=== PATIENT | female | born 2000 | race African-American/Black ===

== ENCOUNTER 2020-08-09 14:29 | Emergency (ER) | payer OTHER, SELFPAY ==
--- NOTE | 2020-08-09 14:37 | ED.GENADULT ---
HPI - General Adult General Chief complaint: Urogenital-Female Stated complaint: STD Check Time Seen by Provider: 08/09/20 14:36 Source: patient Mode of arrival: ambulatory Limitations: no limitations History of Present Illness HPI narrative: 20-year-old female patient presents to the [facility] with complaints of vaginal white discharge and odor for the past 5 days. Patient states that she is concerned about possible sexually transmitted disease. Patient states that she is sexually active and does not always use protection. Last time she had sex was about 5 days ago but states that before that it was about a week ago. Patient denies any fevers, body aches or chills. Patient denies take anything for symptoms. Denies . Patient denies ever having an STD before. Patient states she does see an [employer] OFFICER. Related Data Allergies Allergy/AdvReac Type Severity Reaction Status Date / Time No Known Allergies Allergy Verified 08/09/20 14:33 Review of Systems Review of Systems: Narrative: CONSTITUTIONAL: Denies fever, chills, or sweats. EYES: Denies visual changes, redness, or discharge. ENT: Denies rhinorrhea, congestion, sore throat, or otalgia. CARDIOVASCULAR: Denies chest pain, palpitations, or edema. RESPIRATORY: Denies cough or dyspnea. GASTROINTESTINAL: Denies abdominal pain, nausea, vomiting, or diarrhea. GENITOURINARY: Denies dysuria or hematuria. Positive white vaginal discharge with odor x5 days SKIN: Denies rash or itching. MUSCULOSKELETAL: Denies back pain, joint pain, or myalgia. NEUROLOGIC: Denies headache, numbness, or weakness. PSYCHIATRIC: Denies anxiety or depression. PMFSH Comments At the time of my signature I agree with nursing past medical history, surgical, social, and family history. There is no relevant family history pertinent to the presenting complaint. Exam Narrative: Exam Narrative: GENERAL: Well-appearing, well-nourished, and in no acute distress. HEAD: Normocephalic, atraumatic. EYES: PERRLA and EOMI. ENT: Nares clear, no rhinorrhea or epistaxis. Mucous membranes moist. NECK: Supple. No lymphadenopathy CHEST: Clear to auscultation. No respiratory distress. HEART: Regular rate and rhythm. No murmur heard. Normal peripheral pulses. ABDOMEN: Soft, nontender, nondistended, normal active bowel sounds. : Normal external female genitalia. OS is closed. No adnexal fullness or TTP. Patient does have a yellow discharge with an obvious odor noted during exam. No CVA tenderness to percussion. EXTREMITIES: Normal range of motion. No edema. SKIN: Warm, dry, no rash. NEURO: No focal deficits. Alert and oriented x3. Course Vital Signs Vital signs: Vital Signs Temperature 36.3 C L 08/09/20 14:52 Pulse Rate 77 08/09/20 14:52 Respiratory Rate 16 08/09/20 14:52 Blood Pressure 125/76 08/09/20 14:52 Pulse Oximetry 100 08/09/20 14:52 Temperature 36.3 C L 08/09/20 14:52 Pulse Rate 77 08/09/20 14:52 Respiratory Rate 16 08/09/20 14:52 Blood Pressure 125/76 08/09/20 14:52 Pulse Oximetry 100 08/09/20 14:52 Vital signs reviewed Medical Decision Making Differential Diagnosis Differential Diagnosis: Differential diagnosis: Gonorrhea, chlamydia, Trichomonas, bacterial vaginosis, herpes, HIV, yeast infection, urinary tract infection. Uncomplicated lower UTI, uncomplicated UTI, pyelonephritis Plan of care for patient is to go ahead and test for UTI, as well as gonorrhea, chlamydia and trichomonas. Discussed with her that we will send the swabs to the lab for further evaluation go ahead and treat her today for any STDs. Discussed with her that we should get the results in the next 5 days. Patient verbalized understanding of this. Vital Signs Vital Signs: Vital Signs Temperature 36.3 C L 08/09/20 14:52 Pulse Rate 77 08/09/20 14:52 Respiratory Rate 16 08/09/20 14:52 Blood Pressure 125/76 08/09/20 14:52 Pulse Oximetry 100 08/09/20 14:52 Temperatu
[2020-08-09 14:52] VITALS: BP 125/76; PULSE 77; RESP 16; TEMP 36.3; O2SAT 100
[2020-08-09] MEDS: AZITHROMYCIN 250 MG TABLET 1000 MG PO (15:15)
--- NOTE | 2020-08-09 16:01 | PC.NURSE ---
vaginal exam was done by community support specialist with rn at bedside. vag. swab was obtained by community support specialist. was given ordered medications.
== END 2020-08-09 15:48 | disposition home or self-care (01) ==
PROVIDERS: Emergency Provider Nurse Practitioner Family
DX: Z20.2 Contact with and (suspected) exposure to infections with a predominantly sexual mode of transmission (principal)
CPT/HCPCS: 81003; 81025; 87491; 87591; 87661; 99214; A9270; G0463

== ENCOUNTER 2020-10-25 10:56 | Emergency (ER) | payer OTHER, SELFPAY ==
[2020-10-25 11:07] VITALS: BP 111/77; PULSE 77; RESP 18; TEMP 36.3; O2SAT 98
--- NOTE | 2020-10-25 11:19 | ED.GENADULT ---
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 Yesterday she developed nausea, vomiting and nonbloody diarrhea. She also reports mild cough and intermittent lower abdominal pain. She is currently on her menstrual cycle. She states she didn't have a tampon so she used a makeup pad instead. She only found one of the pads so she thinks she still has a pad in her vagina. she denies fever, chills, sob, headache or fever. She states she does not have covid because she gets tested weekly. 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 Related Data Allergies Allergy/AdvReac Type Severity Reaction Status Date / Time No Known Allergies Allergy Verified 10/25/20 11:10 Review of Systems Review of Systems: All systems reviewed & are unremarkable except as noted in HPI and below Constitutional: Constitutional: Denies chills and Denies fever(s) Cardiovascular: Cardiovascular: Denies chest pain Respiratory: Respiratory: Reports cough and Denies dyspnea Gastrointestinal: Gastrointestinal: Reports abdominal pain, Reports diarrhea, Reports nausea and Reports vomiting Neurologic: Denies headache(s) COUNTS INCLUDE 234 BEDS AT THE [facility] Past Medical History Medical History (Updated 10/25/20 @ 15:02 by Funmi Cordon MD) Patient denies medical problems Surgical History Surgical History (Updated 10/25/20 @ 11:20 by Funmi Cordon MD) No pertinent past surgical history Social History Social History (Updated 10/25/20 @ 11:21 by Funmi Cordon MD) Smoking status: Never smoker Alcohol intake: current Substance use: never Exam Const: General: alert Eyes: EOM: EOMs intact bilaterally Chest: Chest palpation & inspection: normal inspection of the chest Resp: Effort & Inspection: normal respiratory effort and no retractions Auscultation: clear to auscultation bilaterally Cardio: Rate: regular rate Rhythm: regular rhythm Heart sounds: no murmurs GI: GI Palp: Yes Soft to palpation, No Tenderness to palpation present (GI) and No Guarding due to palpation present (GI) Auscultation: normal bowel sounds : Speculum Exam - Cervix: normal appearance of the cervix and Cervical os closed Bimanual Exam- Adnexa, other: no masses Other: no foreign bodies seen in vagina Skin: General skin exam: normal color Rashes: no rashes Neuro: General: patient oriented x3, moves all extremities and CN's II-XI intact bilaterally Psych: Mental Status: mental status grossly normal Affect: normal affect Course Reevaluation(s) Reevaluation #1: Patient has been resting with no vomiting. She was able to tolerate PO. She has no abdominal pain or tenderness. Labs are stable. I performed pelvic and I did not find any foreign bodies. Date: 10/25/20 Time: 14:59 Vital Signs Vital signs: Vital Signs Temperature 97.4 F L 10/25/20 11:07 Pulse Rate 77 10/25/20 11:07 Respiratory Rate 18 10/25/20 11:07 Blood Pressure 111/77 10/25/20 11:07 Pulse Oximetry 98 10/25/20 11:07 Temperature 97.4 F L 10/25/20 11:07 Pulse Rate 78 10/25/20 14:34 Respiratory Rate 17 10/25/20 14:28 Blood Pressure 93/58 L 10/25/20 14:34 Pulse Oximetry 100 10/25/20 14:28 Medical Decision Making Vital Signs Vital Signs: Vital Signs Temperature 97.4 F L 10/25/20 11:07 Pulse Rate 77 10/25/20 11:07 Respiratory Rate 18 10/25/20 11:07 Blood Pressure 111/77 10/25/20 11:07 Pulse Oximetry 98 10/25/20 11:07 Temperature 97.4 F L 10/25/20 11:07 Pulse Rate 78 10/25/20 14:34 Respiratory Rate 17 10/25/20 14:28 Blood Pressure 93/58 L 10/25/20 14:34 Pulse Oximetry 100 10/25/20 14:28 Lab Data Lab results reviewed: Yes I reviewed the patient's lab result
[2020-10-25 11:56] LABS: Basophils Percent Auto 0.4 % (0.2-1.2); Eosinophils Absolute Auto 0.2 K/mm3 (0-0.3); Hematocrit 34.8 % (37.0-47.0); Hemoglobin 11.9 g/dL (12.0-15.0); Immature Granulocyte Absolute 0.03 K/mm3 (0.00-0.031); Immature Granulocyte Percent A 0.4 % (0-0.5); Lymphocytes Absolute Auto 1.76 K/mm3 (0.9-3.2); Lymphocytes Percent Auto 21.1 % (18.3-44.2); Mean Corpuscular HGB Conc 34.2 g/dl (32-36); Mean Corpuscular Hemoglobin 29.5 pg (26-34); Mean Corpuscular Volume 86.4 fl (80-100); Mean Platelet Volume 12.1 fl (7.4-10.4); Monocytes Absolute Auto 0.4 K/mm3 (0.1-0.6); Monocytes Percent Auto 4.6 % (2.6-8.5); Neutrophils Percent Auto 71.5 % (45.5-73.1); Platelet Count Result 169 k/mm3 (150-375); Red Blood Count 4.03 M/mm3 (4.2-5.4); Red Cell Distribution Width 12.3 % (11.5-14.5); White Blood Count 8.3 K/mm3 (4.5-10.0)
[2020-10-25 12:05] LABS: Alanine Aminotransferase 12 U/L (4-35); Albumin Level 4.1 g/dL (3.5-5.1); Alkaline Phosphatase 51 U/L (38-126); Anion Gap 4 mmol/L (8-16); Aspartate Amino Transferase 31 U/L (14-36); Bilirubin,Total 0.5 mg/dL (0.2-1.3); Blood Urea Nitrogen 15 mg/dL (7-17); Carbon Dioxide 27 mmol/L (22-30); Chloride 107 mmol/L (98-107); Estimated CRCL calculation 105 ml/min; Estimated Glomerular Filt Rate > 60; Glucose 92 mg/dL (65-105); Lipase 41 U/L (23-300); Potassium 3.6 mmol/L (3.4-5.0); Sodium 138 mmol/L (137-145)
[2020-10-25] MEDS: ONDANSETRON INJ 4 MG/2 ML VIAL IV PUSH (12:52)
[2020-10-25] MEDS: SODIUM CHLORIDE 0.9% IV 1,000 ML 999 ML IV CONT (12:52)
--- NOTE | 2020-10-25 13:34 | PC.NURSE ---
Pt ambulatory to bathroom for urine sample.
[2020-10-25 14:04] LABS: Add Urine Microscopic? YES; Appearance Urine Cloudy (Clear); Bacteria Urine Trace /hpf; Bilirubin Urine Negative (Negative); Blood Urine 2+ (Negative); Color Urine Yellow (Yellow); Glucose Urine UA Negative (Negative); Ketones Urine Negative (Negative); Leukocyte Esterase Ur Negative LEU/UL (Negative); Mucus Urine Heavy /lpf; Nitrate Urine Negative (Negative); Protein Urine 2+ mg/dL (Negative); RBC Urine 21-50 /hpf (0-2); Squamous Epithelial Cell Urine Few /hpf (Few); WBC Urine 0-3 /hpf
[2020-10-25 14:28] VITALS: BP 93/58; PULSE 78; RESP 17; O2SAT 100
[2020-10-25 14:30] VITALS: BP 100/68; PULSE 96
--- NOTE | 2020-10-25 14:30 | PC.NURSE ---
Pt tolerated water, +reports mild nausea, no active vomiting, ED MD aware. Ambulated steady gait at bedside, asking if she can go home and if she can get a work note
[2020-10-25 14:34] VITALS: BP 93/58; PULSE 78
== END 2020-10-25 15:21 | disposition home or self-care (01) ==
PROVIDERS: Emergency Provider General Practice
DX: K52.9 Noninfective gastroenteritis and colitis, unspecified (principal)
CPT/HCPCS: 36415; 80053; 81001; 81025; 83690; 85025; 96361; 96374; 99284; J2405; J7030

== ENCOUNTER 2020-12-26 18:10 | Emergency (ER) | payer OTHER, SELFPAY ==
[2020-12-26 19:04] VITALS: BP 125/79; PULSE 98; RESP 16; TEMP 36.6; O2SAT 98
[2020-12-26 19:23] LABS: Basophils Percent Auto 0.6 % (0.2-1.2); Eosinophils Absolute Auto 0.2 K/mm3 (0-0.3); Eosinophils Percent Auto 2.2 % (0-4.4); Hematocrit 34.4 % (37.0-47.0); Hemoglobin 11.7 g/dL (12.0-15.0); Immature Granulocyte Absolute 0.02 K/mm3 (0.00-0.031); Immature Granulocyte Percent A 0.3 % (0-0.5); Lymphocytes Absolute Auto 2.66 K/mm3 (0.9-3.2); Lymphocytes Percent Auto 39.5 % (18.3-44.2); Mean Corpuscular Volume 88.2 fl (80-100); Mean Platelet Volume 11.2 fl (7.4-10.4); Monocytes Absolute Auto 0.5 K/mm3 (0.1-0.6); Neutrophils Absolute Auto 3.3 K/mm3 (1.3-6.7); Neutrophils Percent Auto 49.4 % (45.5-73.1); Platelet Count Result 172 k/mm3 (150-375); White Blood Count 6.7 K/mm3 (4.5-10.0)
[2020-12-26 19:32] LABS: Alanine Aminotransferase 11 U/L (4-35); Albumin Level 4.3 g/dL (3.5-5.1); Alkaline Phosphatase 45 U/L (38-126); Anion Gap 12 mmol/L (8-16); Aspartate Amino Transferase 27 U/L (14-36); Bilirubin,Total 0.2 mg/dL (0.2-1.3); Blood Urea Nitrogen 15 mg/dL (7-17); Calcium 9.5 mg/dL (8.4-10.2); Carbon Dioxide 23 mmol/L (22-30); Chloride 102 mmol/L (98-107); Estimated CRCL calculation 86 ml/min; Estimated Glomerular Filt Rate > 60; Glucose 78 mg/dL (65-105); Lipase 128 U/L (23-300); Potassium 3.7 mmol/L (3.4-5.0); Sodium 137 mmol/L (137-145)
[2020-12-26 20:11] LABS: Beta HCG Quantitative 172.24 mIU/ML
--- NOTE | 2020-12-26 21:39 | PC.NURSE ---
Called pt X2 in waiting room to redo vitals. No answer
== END 2020-12-27 03:27 | disposition left against medical advice (07) ==
PROVIDERS: Emergency Provider Emergency Medicine
DX: R10.30 Lower abdominal pain, unspecified (principal)
CPT/HCPCS: 36415; 80053; 83690; 84702; 85025; 99199

== ENCOUNTER 2021-01-02 23:31 | Emergency (ER) | payer OTHER, SELFPAY ==
--- NOTE | ~2021-01-02 | US_ITS ---
EXAMINATION: US OB <=14 wk fetus w TV DATE: 01/03/2021 02:14 INDICATION: Pelvic pain. TECHNIQUE: Real-time transabdominal and transvaginal pelvic ultrasound was performed. COMPARISON: None. FINDINGS: TRANSABDOMINAL ULTRASOUND: The uterus measures 9.5 x 4.1 x 5.3 cm. TRANSVAGINAL ULTRASOUND: There is an intrauterine gestational sac with mean diameter of 6 mm, which c orrelates with an estimated gestational age of 5 weeks and 1 day +/- 3 days. A yolk sac is identified . There is no visible pole. The right ovary measures 2.7 x 1.6 x 1.4 cm. The left ovary measure s 3.3 x 2.6 x 2.3 cm. There is no free fluid in the pelvis. IMPRESSION: 1. Single intrauterine gestation with estimated date of delivery of 09/04/2021. Reviewed, dictated and finalized at location A.
[2021-01-03 00:02] VITALS: BP 109/65; PULSE 99; RESP 20; TEMP 37.1; O2SAT 99
[2021-01-03 00:12] LABS: Alanine Aminotransferase 14 U/L (4-35); Albumin Level 4.6 g/dL (3.5-5.1); Alkaline Phosphatase 49 U/L (38-126); Anion Gap 11 mmol/L (8-16); Aspartate Amino Transferase 28 U/L (14-36); Basophils Percent Auto 0.4 % (0.2-1.2); Bilirubin,Total 0.4 mg/dL (0.2-1.3); Blood Urea Nitrogen 15 mg/dL (7-17); Calcium 9.9 mg/dL (8.4-10.2); Carbon Dioxide 20 mmol/L (22-30); Chloride 101 mmol/L (98-107); Eosinophils Absolute Auto 0.1 K/mm3 (0-0.3); Eosinophils Percent Auto 1.7 % (0-4.4); Estimated CRCL calculation 81 ml/min; Estimated Glomerular Filt Rate > 60; Glucose 99 mg/dL (65-105); Hematocrit 36.7 % (37.0-47.0); Hemoglobin 12.2 g/dL (12.0-15.0); Immature Granulocyte Absolute 0.01 K/mm3 (0.00-0.031); Immature Granulocyte Percent A 0.1 % (0-0.5); Lymphocytes Absolute Auto 2.88 K/mm3 (0.9-3.2); Lymphocytes Percent Auto 35.6 % (18.3-44.2); Mean Corpuscular HGB Conc 33.2 g/dl (32-36); Mean Corpuscular Hemoglobin 29.3 pg (26-34); Mean Platelet Volume 11.9 fl (7.4-10.4); Monocytes Absolute Auto 0.6 K/mm3 (0.1-0.6); Monocytes Percent Auto 7.7 % (2.6-8.5); Neutrophils Absolute Auto 4.4 K/mm3 (1.3-6.7); Neutrophils Percent Auto 54.5 % (45.5-73.1); Platelet Count Result 229 k/mm3 (150-375); Potassium 4.1 mmol/L (3.4-5.0); Red Blood Count 4.17 M/mm3 (4.2-5.4); Red Cell Distribution Width 13.1 % (11.5-14.5); Sodium 132 mmol/L (137-145); White Blood Count 8.1 K/mm3 (4.5-10.0)
[2021-01-03 00:13] LABS: Add Urine Microscopic? YES; Amorphous Sediment Urine Few; Appearance Urine Cloudy (Clear); Bilirubin Urine Negative (Negative); Blood Urine Negative (Negative); Color Urine Yellow (Yellow); Glucose Urine UA Negative (Negative); Ketones Urine Negative (Negative); Leukocyte Esterase Ur Negative LEU/UL (Negative); Mucus Urine Rare /lpf; Nitrate Urine Negative (Negative); Protein Urine Negative (Negative); Specific Grav Ur 1.021 (1.001-1.035); Squamous Epithelial Cell Urine Many /hpf (Few)
--- NOTE | 2021-01-03 01:43 | ED.ABDPAIN ---
HPI - Abdominal Pain General Chief Complaint: Abdominal Pain Stated Complaint: , abd pain Time Seen by Provider: 01/03/21 01:26 Source: patient and RN notes reviewed Mode of arrival: ambulatory Limitations: no limitations History of Present Illness HPI narrative: This is a 20 year old female approximately 6 weeks who presents for evaluation of lower abdominal pain. She states her LMP November 22, and she had positive test 2 weeks ago . She developed lower abdominal pain 3 days ago. This pain is intermittent and it radiates to her back. She denies vaginal bleeding or abdominal vaginal discharge. She denies nausea, vomiting or urinary complaints. She has not taken anything for her pain. Related Data Allergies Allergy/AdvReac Type Severity Reaction Status Date / Time No Known Allergies Allergy Verified 01/03/21 02:15 Review of Systems Review of Systems: All systems reviewed & are unremarkable except as noted in HPI and below PMFSH Past Medical History Medical History Patient denies medical problems Surgical History Surgical History No pertinent past surgical history Social History Social History (Updated 10/25/20 @ 11:21 by Funmi Cordon MD) Smoking status: Never smoker Alcohol intake: current Substance use: never Gender identity (if verbalized by the patient): Female Exam Const: General: no acute distress and alert Orientation/consciousness: patient oriented x3 Eyes: EOM: EOMs intact bilaterally Chest: Chest palpation & inspection: normal inspection of the chest Resp: Effort & Inspection: normal respiratory effort and no retractions Auscultation: clear to auscultation bilaterally Cardio: Rate: regular rate Rhythm: regular rhythm Heart sounds: no murmurs GI: GI Palp: Yes Soft to palpation, Yes Tenderness to palpation present (GI) (suprapubic and bilateral lower quadrant), No Guarding due to palpation present (GI) and No Rigid due to palpation Auscultation: normal bowel sounds Skin: General skin exam: normal color Rashes: no rashes Neuro: General: patient oriented x3, moves all extremities and CN's II-XI intact bilaterally Psych: Mental Status: mental status grossly normal Affect: normal affect Course Reevaluation(s) Reevaluation #1: PAtient states her pain has resolved. I discussed US showing intrauterine gestation sac with 5 weeks. Date: 01/03/21 Time: 03:34 Vital Signs Vital signs: Vital Signs Temperature 98.7 F 01/03/21 00:02 Pulse Rate 99 01/03/21 00:02 Respiratory Rate 20 01/03/21 00:02 Blood Pressure 109/65 01/03/21 00:02 Pulse Oximetry 99 01/03/21 00:02 Temperature 98.7 F 01/03/21 00:02 Pulse Rate 92 01/03/21 03:53 Respiratory Rate 20 01/03/21 00:02 Blood Pressure 99/77 L 01/03/21 03:53 Pulse Oximetry 100 01/03/21 03:53 MDM - Abdominal Pain Lab Data Attestation: I reviewed the patient's lab results. Result diagrams: 01/02/21 23:51 01/02/21 23:51 Labs: Lab Results 01/02/21 01/02/21 01/02/21 Range/Units 23:51 23:51 23:51 WBC 8.1 (4.5-10.0) K/mm3 RBC 4.17 L (4.2-5.4) M/mm3 Hgb 12.2 (12.0-15.0) g/dL Hct 36.7 L (37.0-47.0) % MCV 88.0 (80-100) fl MCH 29.3 (26-34) pg MCHC 33.2 (32-36) g/dl RDW 13.1 (11.5-14.5) % Plt Count 229 (150-375) k/mm3 MPV 11.9 H (7.4-10.4) fl Immature Gran % (Auto) 0.1 (0-0.5) % Neut % (Auto) 54.5 (45.5-73.1) % Lymph % (Auto) 35.6 (18.3-44.2) % Angelina % (Auto) 7.7 (2.6-8.5) % Eos % (Auto) 1.7 (0-4.4) % Baso % (Auto) 0.4 (0.2-1.2) % Lymph # (Auto) 2.88 (0.9-3.2) K/mm3 Angelina # (Auto) 0.6 (0.1-0.6) K/mm3 Eos # (Auto) 0.1 (0-0.3) K/mm3 Baso # (Auto) 0.0 (0.0-0.1) K/mm3 Abs Immat Gran (auto) 0.01 (0.00-0.031) K/mm3 Absolute Neuts (a
[2021-01-03 02:25] VITALS: BP 102/68; PULSE 80
[2021-01-03 02:26] VITALS: BP 114/83; PULSE 92
[2021-01-03 02:28] VITALS: BP 118/80; PULSE 96
[2021-01-03 03:53] VITALS: BP 99/77; PULSE 92; O2SAT 100
== END 2021-01-03 03:53 | disposition home or self-care (01) ==
PROVIDERS: Emergency Provider General Practice
DX: O26.891 Other specified pregnancy related conditions, first trimester (principal); R10.30 Lower abdominal pain, unspecified; Z3A.01 Less than 8 weeks gestation of pregnancy
CPT/HCPCS: 36415; 76801; 76817; 80053; 81001; 81025; 84702; 85025; 85461; 96374; 99284; J0131

== ENCOUNTER 2021-01-09 18:26 | Observation (INO) | payer OTHER, SELFPAY ==
--- NOTE | 2021-01-09 18:26 | OBADM ---
This patient, Corrine Crane, admitted to the OB room OB Post 113 for observation. Patient/family oriented to hospital policies and general routines including ID bracelet, bed and alarms, visiting hours, pain management, procedures, bathroom and other care routines, personal items, smoking policy, room service/diet, and visiting hours. Patient/Family are encouraged to report perceived risks to care and to ask questions if they do not understand what they are told or what they should do.
[2021-01-09 19:00] VITALS: RESP 16; TEMP 37.4
[2021-01-09] MEDS: DEXTROSE 5%/LACTATED RINGERS 1,000 ML 999 ML IV CONT (19:00)
[2021-01-09 19:07] VITALS: BP 137/59; PULSE 86
[2021-01-09] MEDS: ONDANSETRON INJ 4 MG/2 ML VIAL IV PUSH (19:11)
[2021-01-09 19:19] VITALS: BMI 19.8
[2021-01-09] MEDS: DEXTROSE 5%/LACTATED RINGERS 1,000 ML 150 ML IV CONT (20:17)
[2021-01-09 23:35] VITALS: RESP 16; TEMP 37.1
[2021-01-09 23:36] VITALS: BP 94/45; BP 97/60; PULSE 85; PULSE 96
[2021-01-10] MEDS: ONDANSETRON INJ 4 MG/2 ML VIAL (00:49)
[2021-01-10] MEDS: DEXTROSE 5%/LACTATED RINGERS 1,000 ML 150 ML IV CONT (02:13)
[2021-01-10 05:20] VITALS: BP 91/63; PULSE 88; RESP 16; TEMP 37.2
--- NOTE | 2021-01-10 08:05 | PM.IMHP ---
H&P: HPI History of Present Illness Date/Time: 01/10/21 08:05This patient is a 20-year-old 4 para 2011 in the 1st trimester who presented with intractable nausea and vomiting for 3 days. Tubal not keeping liquids down. She was admitted to Labor and delivery for observation where she received IV fluids and antiemetics. Her labs are normal. She continues to have nausea and vomiting. She denies any fevers or chills. She denies chest pain or shortness of breath. She denies movement. She denies cramping or bleeding. Chief Complaint: Nausea vomiting Review of Systems Constitutional: Constitutional: Reports no additional constitutional complaints, Denies fatigue, Denies headache(s), Denies lethargy and Denies weakness Eyes: Eyes: Reports no additional eye complaints, Denies blurry vision and Denies photophobia ENT: Reports as per HPI, Denies headache(s) and Denies neck pain Cardiovascular: Cardiovascular: Denies chest pain, Denies diaphoresis, Denies leg edema, Denies palpitations and Denies dyspnea Respiratory: Respiratory: Denies hemoptysis, Denies dyspnea and Denies wheezing Gastrointestinal: Gastrointestinal: Denies abdominal pain, Denies melena, Denies bloating, Denies hematochezia, Denies nausea and Denies vomiting Genitourinary: Genitourinary: Reports no additional female genitourinary complaints Musculoskeletal: Musculoskeletal: Denies joint swelling, Denies neck pain, Denies numbness and Denies stiffness Neurologic: Denies Abnormal speech present, Denies confusion, Denies headache(s), Denies numbness and Denies weakness Psychiatric: Psychiatric: Denies anxiety, Denies confusion, Denies depression, Denies homicidal ideation and Denies suicidal ideation Endocrine: Endocrine: Denies fatigue and Denies palpitations Allergic/Immunologic: Allergic/Immunologic: Denies wheezing PMFSH Past Medical History Medical History Patient denies medical problems Surgical History Surgical History No pertinent past surgical history Social History Social History (Updated 10/25/20 @ 11:21 by Funmi Cordon MD) Smoking status: Never smoker Alcohol intake: current Substance use: never Gender identity (if verbalized by the patient): Female Meds Home Medications and Allergies Home Medications Medication Instructions Recorded Confirmed Type ondansetron 4 mg PO Q6H PRN #20 tablet 10/25/20 01/09/21 Rx vit,[id number] 1 tablet PO HS 01/09/21 01/09/21 History [PNV 29-1] Allergies Allergy/AdvReac Type Severity Reaction Status Date / Time No Known Allergies Allergy Verified 01/03/21 02:15 Vital Signs Vital Signs - 24 hr 01/09/21 19:00 01/09/21 19:07 01/09/21 23:35 Temperature 99.4 F 98.7 F Pulse Rate 86 Respiratory Rate 16 16 Blood Pressure 137/59 L 01/09/21 23:36 01/10/21 05:20 Temperature 99 F Pulse Rate 96 88 Respiratory Rate 16 Blood Pressure 94/45 L 91/63 L Exam Const: General: healthy appearing, comfortable and no acute distress; No confusion Orientation/consciousness: No confusion Eyes: Direct Ophthalmoscopy: No photophobia Resp: Auscultation: clear to auscultation bilaterally, no rales, no rhonchi and no wheezes Cardio: Rate: regular rate Heart sounds: no click, no murmurs and no rubs GI: Inspection: non-distended GI Palp: No abdominal tenderness Auscultation: normal bowel sounds Neuro: General: No confusion Speech: No Abnormal speech present Extrem: General: normal to inspection, no pedal edema and no calf tenderness Assessment and Plan Assessment and plan (1) Nausea and vomiting during prior to 22 weeks gestation: Code(s): O21.9 - Vomiting of , unspecified Status: Acute Assessment and Plan: 20-year-old 4 para 2011 in the 1st trimester who presented with intractabl
[2021-01-10 08:52] VITALS: BP 97/60; PULSE 90
[2021-01-10] MEDS: METOCLOPRAMIDE HCL INJ 10 MG/2 ML VIAL IV PUSH (08:57)
[2021-01-10 09:00] VITALS: TEMP 37.3
--- NOTE | 2021-01-10 12:31 | PC.NURSE ---
Patient states that she is feeling better and wishing to go home.
== END 2021-01-10 12:45 | disposition home or self-care (01) ==
PROVIDERS: Admitting Provider Obstetrics & Gynecology; Visit Provider Obstetrics & Gynecology
DX: O21.9 Vomiting of pregnancy, unspecified (principal); Z3A.00 Weeks of gestation of pregnancy not specified
CPT/HCPCS: 96361; 96374; 96375; G0378; G0379; J2405; J2765; J7121

== ENCOUNTER 2021-01-25 17:40 | Observation (INO) | payer OTHER, SELFPAY ==
[2021-01-25 19:07] VITALS: RESP 18; TEMP 37.1
[2021-01-25] MEDS: DEXTROSE 5%/LACTATED RINGERS 1,000 ML 999 ML IV CONT (19:09)
[2021-01-25] MEDS: FAMOTIDINE 20 MG/2 ML VIAL IV PUSH (19:10)
[2021-01-25] MEDS: ONDANSETRON INJ 4 MG/2 ML VIAL IV PUSH (19:10)
--- NOTE | 2021-01-25 19:40 | OBADM ---
This patient, Corrine Crane, admitted to the OB room OB Post 111 for observation. Patient/family oriented to hospital policies and general routines including ID bracelet, bed and alarms, visiting hours, pain management, procedures, bathroom and other care routines, personal items, smoking policy, room service/diet, and visiting hours. Patient/Family are encouraged to report perceived risks to care and to ask questions if they do not understand what they are told or what they should do.
[2021-01-25 19:44] VITALS: RESP 18
[2021-01-25 19:45] VITALS: BMI 21.4
[2021-01-25 19:47] VITALS: RESP 16
[2021-01-25 20:31] VITALS: BMI 19.8
--- NOTE | 2021-01-30 07:46 | PM.OBTRLD ---
OB - Triage/Final Diagnosis Visit Information Comments/Additional reasons for admission: I have assessed the risk for this patient, Corrine Crane, and determined that she would benefit from observation care. Final Diagnosis (1) Nausea and vomiting during prior to 22 weeks gestation: Code(s): O21.9 - Vomiting of , unspecified Status: Acute
== END 2021-01-25 23:45 | disposition home or self-care (01) ==
PROVIDERS: Admitting Provider Obstetrics & Gynecology; Visit Provider Obstetrics & Gynecology
DX: O21.9 Vomiting of pregnancy, unspecified (principal); Z3A.00 Weeks of gestation of pregnancy not specified
CPT/HCPCS: 96361; 96374; 96375; G0378; G0379; J2405; J3480; J7121

== ENCOUNTER 2021-05-28 19:57 | Observation (INO) | payer OTHER, SELFPAY ==
[2021-05-28 20:11] VITALS: TEMP 37.3
[2021-05-28 20:15] VITALS: BMI 22.1
[2021-05-28 20:27] VITALS: BP 102/61; PULSE 88
[2021-05-28 21:28] LABS: Add Urine Microscopic? YES; Appearance Urine Cloudy (Clear); Bilirubin Urine Negative (Negative); Blood Urine Negative (Negative); Color Urine Yellow (Yellow); Glucose Urine UA Negative (Negative); Ketones Urine Negative (Negative); Leukocyte Esterase Ur Trace LEU/UL (Negative); Mucus Urine Heavy /lpf; Nitrate Urine Negative (Negative); Protein Urine 1+ mg/dL (Negative); RBC Urine 0-2 /hpf (0-2); Squamous Epithelial Cell Urine Many /hpf (Few); WBC Urine 0-3 /hpf
[2021-05-28 21:29] LABS: Specific Grav Ur 1.031 (1.001-1.035)
[2021-05-28] MEDS: ACETAMINOPHEN 500 MG TABLET 1000 MG PO (22:01)
--- NOTE | 2021-05-28 22:05 | OBADM ---
This patient, Corrine Crane, admitted to the OB room OB Post 117 for observation. Patient/family oriented to hospital policies and general routines including ID bracelet, bed and alarms, visiting hours, pain management, procedures, bathroom and other care routines, personal items, smoking policy, room service/diet, and visiting hours. Patient/Family are encouraged to report perceived risks to care and to ask questions if they do not understand what they are told or what they should do.
--- NOTE | 2021-06-06 10:04 | P.PNOB_ITS ---
OB - Triage/Final Diagnosis Visit Information Comments/Additional reasons for admission: I have assessed the risk for this patient, Corrine Crane, and determined that she would benefit from observation care. Evaluation Laboratory results: Laboratory Tests 05/28/21 21:03 Urine Color Yellow Urine Appearance Cloudy H Urine pH 7.0 Ur Specific [place] 1.031 Urine Protein 1+ H Urine Glucose (UA) Negative Urine Ketones Negative Ur Blood (Man) Negative Urine Nitrate Negative Urine Bilirubin Negative Urine Urobilinogen 4.0 H Leukocyte Esterase Rfl Trace H Urine RBC 0-2 Urine WBC 0-3 Ur Squamous Epith Cells Many H Urine Mucus Heavy H Final Diagnosis (1) Cramping affecting , antepartum: Code(s): O26.899 - Other specified related conditions, unspecified trimester; R10.9 - Unspecified abdominal pain Status: Acute
== END 2021-05-28 23:04 | disposition home or self-care (01) ==
PROVIDERS: Admitting Provider Obstetrics & Gynecology; Visit Provider Obstetrics & Gynecology
DX: O26.892 Other specified pregnancy related conditions, second trimester (principal); R10.9 Unspecified abdominal pain; Z3A.26 26 weeks gestation of pregnancy
CPT/HCPCS: 81001; A9270; G0378; G0379

== ENCOUNTER 2021-06-14 15:44 | Outpatient (RCR) | payer OTHER, SELFPAY ==
--- NOTE | ~2021-06-14 | US_ITS ---
EXAMINATION: US OB BPP wo non-stress DATE: 06/14/2021 17:49 INDICATION: Vaginal bleeding during third trimester . Assess placenta and biophysical profil e. TECHNIQUE: Real-time pelvic ultrasound was performed. The interpreting radiologist was not present fo r the study. COMPARISON: None. FINDINGS: There is a single living fetus in vertex presentation. The placenta is anterior. No evident subchori onic hematoma. heart rate is 136 beats per minute (bpm). Normal amniotic fluid index of 14.0 cm (5th%-95%: 9.2-23.1 cm at 29 weeks estimated gestational age) Biophysical profile performed by the technologist: breathing (30 sec sustained breathing in 30 minutes): 2 out of 2 movement (3 gross body movements in 30 minutes): 2 out of 2 tone (one episode of glpaeug-[id number] limb movement): 2 out of 2 Amniotic fluid pocket (2 cm): 2 out of 2 Total score: 8 out of 8 IMPRESSION: 1. Single living fetus in vertex presentation with heart rate of 136 bpm. 2. Biophysical profile 8 out of 8. 3. Normal amniotic fluid index of 14.0 cm. 4. Normal anterior placenta. Reviewed, dictated and finalized at location . 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
[2021-06-14 18:18] VITALS: BP 105/65; PULSE 80
== END 2021-07-28 20:47 | disposition home or self-care (01) ==
LOC: ANHOBOP 15:44
PROVIDERS: Visit Provider Obstetrics & Gynecology
DX: O26.853 Spotting complicating pregnancy, third trimester (principal); Z3A.29 29 weeks gestation of pregnancy
CPT/HCPCS: 59025; 76819

== ENCOUNTER 2021-12-12 00:22 | Emergency (ER) | payer OTHER, SELFPAY ==
[2021-12-12 00:38] VITALS: BP 129/72; PULSE 76; RESP 18; TEMP 36.6; O2SAT 100
[2021-12-12 00:39] VITALS: BP 119/69; PULSE 77; RESP 18; TEMP 37; O2SAT 99
--- NOTE | 2021-12-12 00:59 | ED.ABDPAIN ---
HPI - Abdominal Pain General Chief Complaint: Abdominal Pain Stated Complaint: ABd pain Time Seen by Provider: 12/12/21 00:32 History of Present Illness HPI narrative: 21-year-old female presented the emergency department for evaluation of 3 days of white vaginal discharge. Patient denies any associated pain. Patient denies any burning with urination. Patient is requesting STI testing. Patient states she does not have any significant concern for an STI. Patient has no prior history of STI. Related Data Allergies Allergy/AdvReac Type Severity Reaction Status Date / Time No Known Allergies Allergy Verified 01/03/21 02:15 Review of Systems Review of Systems: CONSTITUTIONAL: Denies fever, chills, or sweats. EYES: Denies visual changes, redness, or discharge. ENT: Denies rhinorrhea, congestion, sore throat, or otalgia. CARDIOVASCULAR: Denies chest pain, palpitations, or edema. RESPIRATORY: Denies cough or dyspnea. GASTROINTESTINAL: Denies abdominal pain, nausea, vomiting, or diarrhea. GENITOURINARY: Vaginal discharge, see HPI SKIN: Denies rash or itching. MUSCULOSKELETAL: Denies back pain, joint pain, or myalgia. NEUROLOGIC: Denies headache, numbness, or weakness. [facility] Past Medical History Medical History Patient denies medical problems Surgical History Surgical History No pertinent past surgical history Social History Social History (Updated 10/25/20 @ 11:21 by Funmi Cordon MD) Smoking status: Never smoker Alcohol intake: current Substance use: never Gender identity (if verbalized by the patient): Female Exam Narrative: APPEARANCE: Well appearing, no pain, no distress, well-nourished. HEAD: normocephalic, atraumatic. EYES: PERRLA/EOMI, conjunctivae clear. NECK: Supple. No adenopathy, no masses. RESPIRATORY: Airway patent, respirations nonlabored. Clear to auscultation bilaterally, no rales, rhonchi, wheezing. CARDIOVASCULAR: Regular rate and rhythm without murmurs rubs or gallops. ABDOMINAL: Soft, nontender, nondistended, normal bowel sounds. No appreciable vaginal discharge. Cervix is well-appearing, nonfriable. No vaginal bleeding MUSCULOSKELETAL: Moves all extremities. Strength/ROM intact, No edema, No calf tenderness. NEURO: Alert. Cranial nerves II through XII intact. Grossly intact SKIN: Warm, dry. Normal Color Course Course Emergency Course: Patient's trichomonas was negative. Patient's exam was not concerning for a current STI requiring prophylactic treatment. Patient was updated the results of her work-up and UA. Patient was encouraged of close follow-up with her primary care physician. Vital Signs Vital signs: Vital Signs Temperature 97.8 F 12/12/21 00:38 Pulse Rate 76 12/12/21 00:38 Respiratory Rate 18 12/12/21 00:38 Blood Pressure 129/72 12/12/21 00:38 Pulse Oximetry 100 12/12/21 00:38 Temperature 98.6 F 12/12/21 00:39 Pulse Rate 82 12/12/21 01:41 Respiratory Rate 16 12/12/21 01:41 Blood Pressure 130/78 12/12/21 01:41 Pulse Oximetry 99 12/12/21 01:41 Oxygen Delivery Room Air 12/12/21 00:39 MDM - Abdominal Pain Lab Data Attestation: I reviewed the patient's lab results. Labs: Lab Results 12/12/21 12/12/21 12/12/21 Range/Units 01:10 01:11 01:11 Urine Color Yellow (Yellow) Urine Appearance Clear (Clear) Urine pH 7.0 (5.0-9.0) Ur Specific Nunez 1.020 (1.001-1.035) Urine Protein Negative (Negative) mg/dL Urine Glucose (UA) Negative (Negative) mg/dL Urine Ketones Negative (Negative) mg/dL Ur Blood (Man) Negative (Negative) Urine Nitrate Negative (Negative) Urine Bilirubin Negative (Negative) Urine Urobilinogen 0.2 (<2.0) mg/dL Leukocyte Esterase Rfl Negative (Negative) CORINE/UL Urine RBC 0-2 (0-2) /hpf Urine WBC 0-3 /hpf Ur Squamous Epith
[2021-12-12 01:21] LABS: Appearance Urine Clear (Clear); Bilirubin Urine Negative (Negative); Blood Urine Negative (Negative); Color Urine Yellow (Yellow); Glucose Urine UA Negative (Negative); Ketones Urine Negative (Negative); Leukocyte Esterase Ur Negative LEU/UL (Negative); Nitrate Urine Negative (Negative); Protein Urine Negative (Negative); Urobilinogen Urine 0.2 mg/dL (<2.0)
[2021-12-12 01:36] LABS: Mucus Urine Rare /lpf; RBC Urine 0-2 /hpf (0-2); Squamous Epithelial Cell Urine Occasional /hpf (Few); WBC Urine 0-3 /hpf
[2021-12-12 01:37] LABS: Add Urine Microscopic? YES
[2021-12-12 01:41] VITALS: BP 130/78; PULSE 82; RESP 16; O2SAT 99
== END 2021-12-12 01:53 | disposition home or self-care (01) ==
PROVIDERS: Emergency Provider Emergency Medicine
DX: N89.8 Other specified noninflammatory disorders of vagina (principal)
CPT/HCPCS: 81001; 81025; 87070; 87077; 87491; 87591; 87808; 99284

== ENCOUNTER 2023-11-18 00:32 | Emergency (ER) | payer OTHER, SELFPAY ==
[2023-11-18 00:37] VITALS: BP 111/69; PULSE 87; RESP 16; TEMP 36.8; O2SAT 98
[2023-11-18 00:58] LABS: Basophils Absolute Auto 0.1 K/mm3 (0.0-0.1); Basophils Percent Auto 0.7 % (0.2-1.2); Eosinophils Absolute Auto 0.1 K/mm3 (0-0.3); Eosinophils Percent Auto 1.6 % (0-4.4); Hematocrit 35.6 % (37.0-47.0); Immature Granulocyte Absolute 0.02 K/mm3 (0.00-0.031); Immature Granulocyte Percent A 0.3 % (0-0.5); Lymphocytes Absolute Auto 2.16 K/mm3 (0.9-3.2); Lymphocytes Percent Auto 31.2 % (18.3-44.2); Mean Corpuscular HGB Conc 33.7 g/dl (32-36); Mean Corpuscular Hemoglobin 29.4 pg (26-34); Mean Corpuscular Volume 87.3 fl (80-100); Mean Platelet Volume 12.9 fl (7.4-10.4); Monocytes Absolute Auto 0.5 K/mm3 (0.1-0.6); Monocytes Percent Auto 6.6 % (2.6-8.5); Neutrophils Absolute Auto 4.1 K/mm3 (1.3-6.7); Neutrophils Percent Auto 59.6 % (45.5-73.1); Platelet Count Result 166 k/mm3 (150-375); Red Blood Count 4.08 M/mm3 (4.2-5.4); Red Cell Distribution Width 13.1 % (11.5-14.5); White Blood Count 6.9 K/mm3 (4.5-10.0)
[2023-11-18 01:03] LABS: Appearance Urine Clear (Clear); Bacteria Urine None Seen /hpf; Bilirubin Urine Negative (Negative); Blood Urine Negative (Negative); Color Urine Yellow (Yellow); Glucose Urine UA Negative (Negative); Ketones Urine Trace mg/dL (Negative); Leukocyte Esterase Ur Negative LEU/UL (Negative); Nitrate Urine Negative (Negative); Non Pathogenic Casts 0-2; Protein Urine Trace mg/dL (Negative); RBC Urine 0-2 /hpf (0-2); Specific Grav Ur 1.023 (1.001-1.035); Squamous Epithelial Cell Urine Occasional /hpf (Few); WBC Urine 0-5 /hpf (0-3); pH Urine 5.5 (5.0-9.0)
[2023-11-18 01:10] LABS: Alanine Aminotransferase 14 U/L (6-35); Albumin Level 4.5 g/dL (3.5-5.1); Alkaline Phosphatase 47 U/L (38-126); Anion Gap 7 mmol/L (4-12); Aspartate Amino Transferase 26 U/L (14-36); Bilirubin,Total 0.6 mg/dL (0.2-1.3); Blood Urea Nitrogen 14 mg/dL (7-17); Calcium 9.5 mg/dL (8.4-10.2); Carbon Dioxide 22 mmol/L (22-30); Chloride 107 mmol/L (98-107); Estimated CRCL calculation 92 ml/min; Estimated Glomerular Filt Rate > 60; Glucose 138 mg/dL (65-110); Lipase 60 U/L (23-300); Potassium 3.6 mmol/L (3.4-5.0); Sodium 136 mmol/L (137-145)
[2023-11-18 01:25] LABS: Add Urine Microscopic? YES
--- NOTE | 2023-11-18 02:23 | PC.NURSE ---
Patient walked up to triage desk and advised that she was leaving and that she feels better.
== END 2023-11-18 03:15 | disposition left against medical advice (07) ==
PROVIDERS: Emergency Provider Student in an Organized Health Care Education/Training Program
DX: R10.30 Lower abdominal pain, unspecified (principal)
CPT/HCPCS: 36415; 80053; 81001; 81025; 83690; 85025; 99199

== ENCOUNTER 2024-10-24 19:58 | Emergency (ER) | payer OTHER, SELFPAY ==
--- OUTSIDE RECORDS SUMMARY | 2024-10-24 20:00 | XMS_ITS | Data Portability ---
[facility] Address [address] [place] [address] Assessment Encounter Date Assessment Date Assessment LastModified by Organization Details LastModified Time 12/28/2020 12/28/2020 see ob episode [email or web address] Not available 12/28/2020 16:17:58 09/30/2024 09/30/2024 Pt's case was discussed w/resident. Documentation was reviewed, and I agree w/resident's note. Dr. Shah Not available 10/05/2024 14:35:31 Plan of Treatment Reminders Order Date Submit Date Provider Last Modified By Organization Details Last Modified Time Details Appointments ANY 15 2024 08:30A M MOHINI NARVAEZ MD Not available Not available Not available NEW OB 30 2024 08:30A M Bri Navarro-Jennifer ith, [employer]NAGER-Bc Not available Not available Not available Lab TSH + free T4, serum 2021 022 [facility], [address], [address], [place], [address], 03/02/2022 08:34:56 CMP, serum or plasma 2021 022 [facility], [address], [address], [place], [address], 03/02/2022 08:34:56 CBC 2021 022 [address], [address], [place], [address], 03/02/2022 08:34:57 abo group + rh type, blood 2020 [facility], [address], [address], [place], [place], [address], 12/29/2020 11:12:44 antibody screen, serum or plasma 2020 [facility], [address], [address], [place], [address], 12/29/2020 11:12:45 CT + NG + TV, DNA, urine/swa b 2020 [facility], [address], [address], [place], [place], [address], 12/31/2020 07:11:41 CBC w/ auto diff 2020 [facility], [address], [address], [place], [address], 12/29/2020 11:12:43 test, urine 2020 [email or web address] In-Office Order, Internal Use Only DO Not Attach Compendium DO Not Attach Compendium, Do Not Delete/merge, [id number] 12/28/2020 16:24:09 urinalysi s, dipstick 2020 021 [email or web address] In-Office Order, Internal Use Only DO Not Attach Compendium DO Not Attach Compendium, Do Not Delete/merge, [id number] 12/28/2020 16:24:09 culture, urine 2020 021 [facility], [address], [address], [place], [address], 12/30/2020 07:11:54 HCG, intact + beta subunit, quant, serum or plasma 2020 021 [facility], [facility] [facility], [address], [place], [address], 12/29/2020 11:12:45 progester one, serum 2020 021 [facility], [address] [facility], [address], [place], [address], 12/29/2020 11:12:46 Referral None recorded. Procedures None recorded. Surgeries None recorded. Imaging electroca rdiogram, routine ECG, 12 leads min 2024 025 [facility], [address] [place] [address], [address], 08/27/2024 14:33:56 Medication Orders sumatript an 100 mg tablet 2024 025 [id number], [address] [place], [place], [id number], 09/30/2024 10:40:54 ondansetr on HCl 4 mg tablet 2024 025 [facility] #[id number], [address], [place], [id number], 09/30/2024 10:40:55 Plus 29 mg iron-1 mg tablet 2020 021 [facility] [place] [place] [facility], [address], [place], [id number], 03/01/2022 13:43:38 Patient TargetsNo targets recorded. Patient Instructions Encounter Date Encounter Id Patient Instructions Last Modified By Organization Details Last Modified Time 12/28/2020 [id number] threatened miscarriage: care instructions [email or web address] Not available 12/28/2020 15:56:25 03/01/2022 [id number] abnormal weight loss: care instructions [email or web address] Not available 03/01/2022 14:46:58 08/25/2024 [id number] pre-surgery screening isamar Not available 08/25/2024 10:01:18 Attending Physician Attestation I did not personally see or examine the patient with the resident. I was physically present to provide indirect supervision through entire encounter. I have reviewed the documentation and agree with the history, physical findings, work-up, and medical decision making as recorded. Mono Velazquez MD [email or web address] Not available 08/25/2024 09:58:20 Reason for Referral None Reported. Results Created Date Observation Date Name Description Value Unit Range Abnormal Flag Note LastModifiedBy Organization Detail LastModifiedTime 12/29/1912/29/2020 CBC WITH DIFFE RENTI AL/PL ATELE T WBC 7.9 x10e3 /uL 3.4-10 .8 Not Available [facility] ([facility]) [address] [place], [address], 12/29/2020 11:12:43 12/29/19 21 12/29/2020 CBC WITH DIFFE RENTI AL/PL ATELE T RBC 4.13 x10e6 /uL 3.77-5 .28 Not Available [facility] ([facility]) [address] [place], [address], 12/29/2020 11:12:43 12/29/1912/29/2020 CBC WITH DIFFE RENTI AL/PL ATELE T hemoglobin 12.0 g/dL 11.1-1 5.9 Not Available [facility] ([facility]) [address] [place], [address], 12/29/2020 11:12:43 12/29/1912/29/2020 CBC WITH DIFFE RENTI AL/PL ATELE T hematocrit 36.8 % 34.0-4 6.6 Not Available [facility] ([facility]) [address] [place], [address], 12/29/2020 11:12:43 07/07/20 21 12/29/2020 CBC WITH DIFFE RENTI AL/PL ATELE T MCV 89 fL 79-97 Not Available [facility] ([facility]) [address] [facility], [place], [address], 12/29/2020 11:12:43 12/29/19 21 12/29/2020 CBC WITH DIFFE RENTI AL/PL ATELE T MCH 29.1 pg 26.6-3 3.0 Not Available [facility] ([facility]) [address] [facility], [place], [address], 12/29/2020 11:12:43 12/29/19 21 12/29/2020 CBC WITH DIFFE RENTI AL/PL ATELE T MCHC 32.6 g/dL 31.5-3 5.7 Not Available [facility] ([facility]) [address] [facility], [place], [address], 12/29/2020 11:12:43 12/29/19 21 12/29/2020 CBC WITH DIFFE RENTI AL/PL ATELE T RDW 12.9 % 11.7-1 5.4 Not Available [facility] ([facility]) [address] [facility], [place], [address], 12/29/2020 11:12:43 12/29/19 21 12/29/2020 CBC WITH DIFFE RENTI AL/PL ATELE T platelets 196 x10e3 /uL 150-45 0 Not Available [facility] ([facility]) [address] [facility], [place], [address], 12/29/2020 11:12:43 12/29/19 21 12/29/2020 CBC WITH DIFFE RENTI AL/PL ATELE T neutrophils 71 % not estab. Not Available [facility] ([facility]) [address] [place], [address], 12/29/2020 11:12:43 12/29/19 21 12/29/2020 CBC WITH DIFFE RENTI AL/PL ATELE T lymphs 23 % not estab. Not Available [facility] ([facility]) [address] [place], [address], 12/29/2020 11:12:43 12/29/19 21 12/29/2020 CBC WITH DIFFE RENTI AL/PL ATELE T monocytes 5 % not estab. Not Available [facility] ([facility]) [address] [place], [address], 12/29/2020 11:12:43 12/29/19 21 12/29/2020 CBC WITH DIFFE RENTI AL/PL ATELE T eos 1 % not estab. Not Available [facility] ([facility]) [address] [facility], [place], [address], 12/29/2020 11:12:43 12/29/19 21 12/29/2020 CBC WITH DIFFE RENTI AL/PL ATELE T basos 0 % not estab. Not Available [facility] ([facility]) [address] [place], [address], 12/29/2020 11:12:43 12/29/19 21 12/29/2020 CBC WITH DIFFE RENTI AL/PL ATELE T immature cells ASSET LIABILITY ANALYST Not Available [facility] ([facility]) [address] [place], [address], 12/29/2020 11:12:43 12/29/19 21 12/29/2020 CBC WITH DIFFE RENTI AL/PL ATELE T neutrophils (absolute) 5.6 x10e3 /uL 1.4-7. 0 Not Available [facility] ([facility]) [address] [place], [address], 12/29/2020 11:12:43 12/29/19 21 12/29/2020 CBC WITH DIFFE RENTI AL/PL ATELE T lymphs (absolute) 1.9 x10e3 /uL 0.7-3. 1 Not Available [facility] ([facility]) [address] [facility], [place], [address], 12/29/2020 11:12:43 12/29/19 21 12/29/2020 CBC WITH DIFFE RENTI AL/PL ATELE T monocytes(ab solute) 0.4 x10e3 /uL 0.1-0. 9 Not Available [facility] ([facility]) [address] [facility], [place], [address], 12/29/2020 11:12:43 12/29/19 21 12/29/2020 CBC WITH DIFFE RENTI AL/PL ATELE T eos (absolute) 0.1 x10e3 /uL 0.0-0. 4 Not Available [facility] ([facility]) [address] [facility], [place], [address], 12/29/2020 11:12:43 12/29/19 21 12/29/2020 CBC WITH DIFFE RENTI AL/PL ATELE T baso (absolute) 0.0 x10e3 /uL 0.0-0. 2 Not Available [facility] ([facility]) [address] [facility], [place], [address], 12/29/2020 11:12:43 12/29/19 21 12/29/2020 CBC WITH DIFFE RENTI AL/PL ATELE T immature granulocytes 0 % not estab. Not Available [facility] ([facility]) [address] [place], [address], 12/29/2020 11:12:43 12/29/19 21 12/29/2020 CBC WITH DIFFE RENTI AL/PL ATELE T immature grans (abs) 0.0 x10e3 /uL 0.0-0. 1 Not Available [facility] ([facility]) [address] [facility], [place], [address], 12/29/2020 11:12:43 12/29/19 21 12/29/2020 CBC WITH DIFFE RENTI AL/PL ATELE T NRBC ASSET LIABILITY ANALYST Not Available [facility] ([facility]) [address] [place], [address], 12/29/2020 11:12:43 12/29/19 21 12/29/2020 CBC WITH DIFFE RENTI AL/PL ATELE T hematology comments: ASSET LIABILITY ANALYST Not Available [facility] ([facility]) [address] [facility], [place], [address], 12/29/2020 11:12:43 12/29/19 21 12/29/2020 ABO GROUP ING AND RHO(D ) TYPIN G ABO grouping A Not Available [facility] ([facility]) [address] [place], [address], 12/29/2020 11:12:44 12/29/19 21 12/29/2020 ABO GROUP ING AND RHO(D ) TYPIN G Rh factor Positi ve Pleas e note: Prior recor ds for this patie nt's ABO / Rh type are not avail able for addit ional verif icati on. Not Available [facility] ([facility]) [address] [facility], [place], [address], 12/29/2020 11:12:44 12/29/19 21 12/29/2020 HCG,B ETA SUBUN IT, QNT, SERUM HCG,beta subunit,qnt, serum 548 mIU/m L Femal e (Non- pregn ant) 0 - 5 (Post menop ausal ) 0 - 8 Femal e (Preg nant) Weeks of Gesta tion 3 6 - 71 4 10 - 750 5 188 - 3842 6 263 - 89200 7 4682 -5247 63 8 71707 -2106 71 9 903125 -3254 10 10 23034 -1445 77 12 94026 -8716 12 14 35128 - 37834 15 87739 - 77698 16 6461 - 34387 17 7497 - 76029 18 3181 - 96606 Evette ECLIA metho dolog y Not Available [facility] ([facility]) [address] [place], [address], 12/29/2020 11:12:45 12/29/19 21 12/29/2020 ANTIB SILVIO SCREE N antibody screen Negati ve negati ve Not Available [facility] ([facility]) [address] [place], [address], 12/29/2020 11:12:45 12/29/19 21 12/29/2020 PROGE STERO NE progesterone 23.7 NG/mL Folli cular phase 0.1 - 0.9 Lutea l phase 1.8 - 23.9 Ovula tion phase 0.1 - 12.0 Pregn ant First trime ster 11.0 - 44.3 Secon d trime ster 25.4 - 83.3 Third trime ster 58.7 - 214.0 Postm enopa usal 0.0 - 0.1 Not Available [facility] ([facility]) [address] [place], [address], 12/29/2020 11:12:46 12/29/19 21 12/30/2020 URINE CULTU RE, ROUTI NE urine culture, routine Final report Not Available [facility] ([facility]) [address] [place], [address], 12/30/2020 07:11:54 12/29/1912/30/2020 URINE CULTU RE, ROUTI NE result 1 Commen t Cultu re shows less than 10,00 0 colon y formi ng units of bacte bárbara per sabrina liter of urine . This colon y count is not gener ally consi dered to be clini soila signi fican t. Not Available [facility] ([facility]) [address] [place], [address], 12/30/2020 07:11:54 12/29/19 21 12/30/2020 CT, NG, TRICH VAG BY ARIANNE chlamydia by ARIANNE Negati ve negati ve Not Available [facility] ([facility]) [address] [place], [address], 12/31/2020 07:11:41 12/29/19 21 12/30/2020 CT, NG, TRICH VAG BY ARIANNE gonococcus by ARIANNE Negati ve negati ve Not Available [facility] ([facility]) [address] [facility], [place], [address], 12/31/2020 07:11:41 12/29/19 21 12/30/2020 CT, NG, TRICH VAG BY ARIANNE trich vag by ARIANNE Negati ve negati ve Not Available [facility] ([facility]) [address] [facility], [place], [address], 12/31/2020 07:11:41 12/29/19 21 12/28/2020 urina lysis , dipst ick Leukocytes Negati ve Not Available In-Office Order Internal Use Only DO Not Attach Compendium DO Not Attach Compendium, Do Not Delete/merge, 12/28/2020 15:45:30 12/29/19 21 12/28/2020 urina lysis , dipst ick Nitrite negati ve Not Available In-Office Order Internal Use Only DO Not Attach Compendium DO Not Attach Compendium, Do Not Delete/merge, 12/28/2020 15:45:30 12/29/19 21 12/28/2020 urina lysis , dipst ick Urobilinogen .2 Not Available In-Of fice Order Internal Use Only DO Not Attach Compendium DO Not Attach Compendium, Do Not Delete/merge, 12/28/2020 15:45:30 12/29/19 21 12/28/2020 urina lysis , dipst ick Protein 30 Not Available In-Office Order Internal Use Only DO Not Attach Compendium DO Not Attach Compendium, Do Not Delete/merge, 12/28/2020 15:45:30 12/29/19 21 12/28/2020 urina lysis , dipst ick pH 5.5 Not Available In-Office Order Internal Use Only DO Not Attach Compendium DO Not Attach Compendium, Do Not Delete/merge, 12/28/2020 15:45:30 12/29/19 21 12/28/2020 urina lysis , dipst ick Blood Large Not Available In-Office Order Internal Use Only DO Not Attach Compendium DO Not Attach Compendium, Do Not Delete/merge, 12/28/2020 15:45:30 12/29/19 21 12/28/2020 urina lysis , dipst ick Specific [place] 1.030 Not Available In-Off ice Order Internal Use Only DO Not Attach Compendium DO Not Attach Compendium, Do Not Delete/merge, 12/28/2020 15:45:30 12/29/19 21 12/28/2020 urina lysis , dipst ick Ketone Small Not Available In-Office Order Internal Use Only DO Not Attach Compendium DO Not Attach Compendium, Do Not Delete/merge, 12/28/2020 15:45:30 12/29/19 21 12/28/2020 urina lysis , dipst ick Bilirubin Small Not Available In-Offic e Order Internal Use Only DO Not Attach Compendium DO Not Attach Compendium, Do Not Delete/merge, 12/28/2020 15:45:30 12/29/19 21 12/28/2020 urina lysis , dipst ick Glucose Negati ve Not Available In-Office Order Internal Use Only DO Not Attach Compendium DO Not Attach Compendium, Do Not Delete/merge, 12/28/2020 15:45:30 12/29/19 21 12/28/2020 urina lysis , dipst ick Appearance Cloudy Not Available In-Offi ce Order Internal Use Only DO Not Attach Compendium DO Not Attach Compendium, Do Not Delete/merge, 12/28/2020 15:45:30 12/29/19 21 12/28/2020 urina lysis , dipst ick Color Yellow Not Available In-Office Order Internal Use Only DO Not Attach Compendium DO Not Attach Compendium, Do Not Delete/merge, 12/28/2020 15:45:30 12/29/19 21 12/28/2020 pregn riaz test, urine HCG positi ve Not Available In-Office Order Internal Use Only DO Not Attach Compendium DO Not Attach Compendium, Do Not Delete/merge, [id number] 12/28/2020 15:45:20 01/03/20 21 01/03/2021 HCG,B ETA SUBUN IT, QNT, SERUM HCG,beta subunit,qnt, serum 4650 mIU/m L Femal e (Non- pregn ant) 0 - 5 (Post menop ausal ) 0 - 8 Femal e (Preg nant) Weeks of Gesta tion 3 6 - 71 4 10 - 750 5 233 - 2291 6 886 - 70985 7 1622 -8428 63 8 72395 -1615 71 9 93906 -2285 10 10 97703 -8655 77 12 53011 -2299 12 14 43913 - 81571 15 00257 - 53753 16 5242 - 09698 17 1254 - 06049 18 2548 - 59382 Evette ECLIA metho dolog y Not Available [facility] ([facility]) [address] [facility], [place], [address], 01/03/2021 07:11:14 07/15/1907/16/2021 Chlam ydia trach omati s+Nei sseri a gonor rhoea e rRNA [Pres ence] in Speci men by Probe chlamydia trachomatis rrna [presence] in specimen by ARIANNE with probe detection Negati ve text: negati ve Chlam ydia Ampli fied Probe Negat mundo Negat mundo 07/16 10:43 AM SR. MEDIA MANAGER [facility] Not Available Not Available 08/18/2024 14:22:19 07/15/19 22 07/16/2021 Chlam ydia trach omati s+Nei sseri a gonor rhoea e rRNA [Pres ence] in Speci men by Probe neisseria gonorrhoeae rrna [presence] in specimen by ARIANNE with probe detection Negati ve text: negati ve GC Ampli fied Probe Negat mundo Negat mundo 07/16 10:43 AM SR. MEDIA MANAGER [facility] Not Available Not Available 08/18/2024 14:22:19 07/15/19 22 07/16/2021 Chlam ydia trach omati s+Nei sseri a gonor rhoea e rRNA [Pres ence] in Speci men by Probe Unknown Analyte Result s based on detect ion/no detect ion of riboso mal RNA by amplif ied method . Resul ts based on detec tion/ no detec tion of ribos omal RNA by ampli fied metho d. Not Available Not Available 08/18/2024 14:22:19 07/15/19 22 07/16/2021 Chlam ydia trach omati s+Nei sseri a gonor rhoea e rRNA [Pres ence] in Speci men by Probe interpretati on and review of laboratory results Normal Not Available Not Available 07/26 14:22:19 03/01/20 22 03/02/2022 TSH+F REE T4 TSH 0.851 uIU/m L 0.450- 4.500 Not Available [facility] ([facility]) [address] [place], [address], 03/02/2022 08:34:55 03/01/20 22 03/02/2022 TSH+F REE T4 T4,free(dire ct) 1.48 NG/dL 0.82-1 .77 Not Available [facility] ([facility]) [address] [place], [address], 03/02/2022 08:34:55 03/01/20 22 03/02/2022 COMP. METAB OLIC PANEL (14) glucose 83 mg/dL 65-99 Not Available [facility] ([facility]) [address] [place], [address], 03/02/2022 08:34:56 03/01/20 22 03/02/2022 COMP. METAB OLIC PANEL (14) BUN 12 mg/dL 6-20 Not Available [facility] ([facility]) [address] [place], [address], 03/02/2022 08:34:56 03/01/20 22 03/02/2022 COMP. METAB OLIC PANEL (14) creatinine 0.72 mg/dL 0.57-1 .00 Not Available [facility] ([facility]) [address] [facility], [address], 03/02/2022 08:34:56 03/01/20 22 03/02/2022 COMP. METAB OLIC PANEL (14) eGFR 121 mL/mi n/1.7 3 >59 Not Available [facility] ([facility]) [address] [place], [address], 03/02/2022 08:34:56 03/01/20 22 03/02/2022 COMP. METAB OLIC PANEL (14) BUN/creatini ne ratio 17 9-23 Not Available [facility] ([facility]) [address] [place], [address], 03/02/2022 08:34:56 03/01/20 22 03/02/2022 COMP. METAB OLIC PANEL (14) sodium 138 mmol/ L 134-14 4 Not Available [facility] ([facility]) [address] [place], [address], 03/02/2022 08:34:56 03/01/20 22 03/02/2022 COMP. METAB OLIC PANEL (14) potassium 3.7 mmol/ L 3.5-5. 2 Not Available [facility] ([facility]) [address] [place], [address], 03/02/2022 08:34:56 03/01/20 22 03/02/2022 COMP. METAB OLIC PANEL (14) chloride 101 mmol/ L 96-106 Not Available [facility] ([facility]) [address] [place], [address], 03/02/2022 08:34:56 03/01/20 22 03/02/2022 COMP. METAB OLIC PANEL (14) carbon dioxide, total 20 mmol/ L 20-29 Not Available [facility] ([facility]) [address] [facility], [place], [address], 03/02/2022 08:34:56 03/01/20 22 03/02/2022 COMP. METAB OLIC PANEL (14) calcium 9.1 mg/dL 8.7-10 .2 Not Available [facility] ([facility]) [address] [place], [address], 03/02/2022 08:34:56 03/01/20 22 03/02/2022 COMP. METAB OLIC PANEL (14) protein, total 7.5 g/dL 6.0-8. 5 Not Available [facility] ([facility]) [address] [place], [address], 03/02/2022 08:34:56 03/01/20 22 03/02/2022 COMP. METAB OLIC PANEL (14) albumin 4.6 g/dL 3.9-5. 0 Not Available [facility] ([facility]) [address] [place], [address], 03/02/2022 08:34:56 03/01/20 22 03/02/2022 COMP. METAB OLIC PANEL (14) globulin, total 2.9 g/dL 1.5-4. 5 Not Available [facility] ([facility]) [address] [place], [address], 03/02/2022 08:34:56 03/01/20 22 03/02/2022 COMP. METAB OLIC PANEL (14) A/G ratio 1.6 1.2-2. 2 Not Available [facility] ([facility]) [address] [place], [address], 03/02/2022 08:34:56 03/01/20 22 03/02/2022 COMP. METAB OLIC PANEL (14) bilirubin, total 0.5 mg/dL 0.0-1. 2 Not Available [facility] ([facility]) [address] [place], [address], 03/02/2022 08:34:56 03/01/20 22 03/02/2022 COMP. METAB OLIC PANEL (14) alkaline phosphatase 44 IU/L 44-121 Not Available [facility]) [address] [facility], [place], [address], 03/02/2022 08:34:56 03/01/20 22 03/02/2022 COMP. METAB OLIC PANEL (14) AST (SGOT) 19 IU/L 0-40 Not Available [facility] ([facility]) [address] [facility], [place], [address], 03/02/2022 08:34:56 03/01/20 22 03/02/2022 COMP. METAB OLIC PANEL (14) ALT (SGPT) 10 IU/L 0-32 Not Available [facility] ([facility]) [address] [facility], [place], [address], 03/02/2022 08:34:56 03/01/20 22 03/02/2022 CBC, PLATE LET, NO DIFFE RENTI AL WBC 4.7 x10e3 /uL 3.4-10 .8 Not Available [facility] ([facility]) [address] [facility], [place], [address], 03/02/2022 08:34:57 03/01/20 22 03/02/2022 CBC, PLATE LET, NO DIFFE RENTI AL RBC 4.31 x10e6 /uL 3.77-5 .28 Not Available [facility] ([facility]) [address] [facility], [place], [address], 03/02/2022 08:34:57 03/01/20 22 03/02/2022 CBC, PLATE LET, NO DIFFE RENTI AL hemoglobin 11.8 g/dL 11.1-1 5.9 Not Available [facility] ([facility]) [address] [place], [address], 03/02/2022 08:34:57 03/01/20 22 03/02/2022 CBC, PLATE LET, NO DIFFE RENTI AL hematocrit 36.8 % 34.0-4 6.6 Not Available [facility] ([facility]) [address] [facility], [place], [address], 03/02/2022 08:34:57 03/01/20 22 03/02/2022 CBC, PLATE LET, NO DIFFE RENTI AL MCV 85 fL 79-97 Not Available [facility] ([facility]) [address] [facility], [place], [address], 03/02/2022 08:34:57 03/01/2003/02/2022 CBC, PLATE LET, NO DIFFE RENTI AL MCH 27.4 pg 26.6-3 3.0 Not Available [facility] ([facility]) [address] [facility], [place], [address], 03/02/2022 08:34:57 03/01/2003/02/2022 CBC, PLATE LET, NO DIFFE RENTI AL MCHC 32.1 g/dL 31.5-3 5.7 Not Available [facility] ([facility]) [address] [facility], [place], [address], 03/02/2022 08:34:57 03/01/20 22 03/02/2022 CBC, PLATE LET, NO DIFFE RENTI AL RDW 13.5 % 11.7-1 5.4 Not Available [facility] ([facility]) [address] [facility], [place], [address], 03/02/2022 08:34:57 03/01/2003/02/2022 CBC, PLATE LET, NO DIFFE RENTI AL platelets 182 x10e3 /uL 150-45 0 Not Available [facility] ([facility]) [address] [place], [address], 03/02/2022 08:34:57 03/01/2003/02/2022 CBC, PLATE LET, NO DIFFE RENTI AL NRBC ASSET LIABILITY ANALYST Not Available [facility] ([facility]) [address] [facility], [place], [address], 03/02/2022 08:34:57 05/19/20 23 05/20/2023 Chlam ydia trach omati s and Neiss eria gonor rhoea e rRNA panel - Speci men by ARIANNE with probe detec tion chlamydia trachomatis DNA [presence] in specimen by ARIANNE with probe detection NOT DETECT ED text: not detect ed CHLAM YDIA DNA AMPLI FICAT ION NOT DETEC SHOSHANA Not Detec shoshana 05/20 12:25 AM SR. MEDIA MANAGER [facility] Not Available Not Available 08/18/2024 14:22:14 05/19/20 23 05/20/2023 Chlam ydia trach omati s and Neiss eria gonor rhoea e rRNA panel - Speci men by ARIANNE with probe detec tion neisseria gonorrhoeae rrna [presence] in specimen by ARIANNE with probe detection NOT DETECT ED text: not detect ed GC DNA AMPLI FICAT ION NOT DETEC SHOSHANA Not Detec shoshana 05/20 12:25 AM SR. MEDIA MANAGER [facility] Not Available Not Available 08/18/2024 14:22:14 05/19/20 23 05/20/2023 Chlam ydia trach omati s and Neiss eria gonor rhoea e rRNA panel - Speci men by ARIANNE with probe detec tion Unknown Analyte Result s should not be used for the evalua tion of suspec shosh[place] sexual abuse or for other medico -legal indica tions. The only legall y accept ed result s are from cultur e. Result s cannot be used to assess therap eutic succes s or failur e since nuclei c acids may persis t follow ing antimi crobia l therap y. Resul ts shoul d not be used for the evalu ation of suspe cted sexua l abuse or for other medic o-leg al indic ation s. The only legal ly accep shoshana resul ts are from cultu re. Resul ts canno t be used to asses s thera peuti c succe ss or failu re since nucle ic acids may persi st follo wing antim icrob ial thera py. Not Available Not Available 08/18/2024 14:22:14 05/19/2005/20/2023 Chlam ydia trach omati s and Neiss eria gonor rhoea e rRNA panel - Speci men by ARIANNE with probe detec tion interpretati on and review of laboratory results Normal Not Available Not Available 07/26 14:22:14 05/18/2005/18/2024 Urina lysis compl ete panel - Urine color UA Yellow text: pale to dark yellow COLOR UA Yello w Pale to Dark Yello w 05/17 11:48 PM SR. MEDIA MANAGER [place] [facility] Not Available Not Available 08/18/2024 14:22:16 05/18/2005/18/2024 Urina lysis compl ete panel - Urine clarity UA Slight ly Cloudy text: clear abnormal HARITHA TY UA Sligh tly [place] y (A) Clear 05/17 11:48 PM SR. [facility] Not Available Not Available 08/18/2024 14:22:16 05/18/2005/18/2024 Urina lysis compl ete panel - Urine specific gravity UA 1.025 low: 1.003h igh: 1.035 SPECI FIC GRAVI TY UA 1.025 1.003 - 1.035 05/17 11:48 PM SR. [facility]IA MA[facility] Not Available Not Available 08/18/2024 14:22:16 05/18/2005/18/2024 Urina lysis compl ete panel - Urine pH UA 5 low: 5high: 8 PH UA 5.0 5.0 - 8.0 05/17 11:48 PM SR. MEDIA MA[facility]GER [facility] Not Available Not Available 08/18/2024 14:22:16 05/18/2005/18/2024 Urina lysis compl ete panel - Urine leukocyte esterase UA Negati ve text: negati ve LEUKO CYTE MONSERRAT ASE UA Negat mundo Negat mundo 05/17 11:48 PM SR. MEDIA MANAGER [facility] Not Available Not Available 08/18/2024 14:22:16 05/18/2005/18/2024 Urina lysis compl ete panel - Urine nitrite UA Negati ve text: negati ve NITRI TE UA Negat mundo Negat mundo 05/17 11:48 PM SR. MEDIA MANAGER [facility] Not Available Not Available 08/18/2024 14:22:16 05/18/2005/18/2024 Urina lysis compl ete panel - Urine protein [presence] in urine Negati ve text: negati ve PROTE IN UA Negat mundo Negat mundo 05/17 11:48 PM SR. MEDIA MANAGER [facility] Not Available Not Available 08/18/2024 14:22:16 05/18/2005/18/2024 Urina lysis compl ete panel - Urine glucose UA Negati ve text: negati ve GLUCO SE UA Negat mundo Negat mundo 05/17 11:48 PM SR. MEDIA MANAGER [facility] Not Available Not Available 08/18/2024 14:22:16 05/18/2005/18/2024 Urina lysis compl ete panel - Urine ketones UA Trace text: negati ve abnormal KETON ES UA Trace (A) Negat mundo 05/17 11:48 PM SR. MEDIA MANAGER [facility] Not Available Not Available 08/18/2024 14:22:16 05/18/2005/18/2024 Urina lysis compl ete panel - Urine urobilinogen UA Normal high: 2mg/dL UROBI LINOG EN UA Bhanu l <2.0 mg/dL 05/17 11:48 PM SR. MEDIA MANAGER [facility] Not Available Not Available 08/18/2024 14:22:16 05/18/2005/18/2024 Urina lysis compl ete panel - Urine bilirubin UA Negati ve text: negati ve BILIR UBIN UA Negat mundo Negat mundo 05/17 11:48 PM [facility] Not Available Not Available 08/18/2024 14:22:16 05/18/2005/18/2024 Urina lysis compl ete panel - Urine blood UA Negati ve text: negati ve BLOOD UA Negat mundo Negat mundo 05/17 11:48 PM [facility] Not Available Not Available 08/18/2024 14:22:16 05/18/2005/18/2024 Urina lysis compl ete panel - Urine WBC UA 0-2 text: 0 - 2 /hpf WBC UA 0-2 0 - 2 /hpf 05/17 11:48 PM [facility] Not Available Not Available 08/18/2024 14:22:16 05/18/2005/18/2024 Urina lysis compl ete panel - Urine RBC UA 3-5 text: 0 - 2 /hpf abnormal RBC UA 3-5 (A) 0 - 2 /hpf 05/17 11:48 PM [facility] Not Available Not Available 08/18/2024 14:22:16 05/18/2005/18/2024 Urina lysis compl ete panel - Urine bacteria UA 1+ text: negati ve /hpf abnormal BACTE BÁRBARA UA 1+ (A) Negat mundo /hpf 05/17 11:48 PM [facility] Not Available Not Available 08/18/2024 14:22:16 05/18/2005/18/2024 Urina lysis compl ete panel - Urine epithelial cells, urine 6-10 text: 0 - 5 /hpf abnormal EPITH ELIAL CELLS , URINE 6-10 (A) 0 - 5 /hpf 05/17 11:48 PM [facility] Not Available Not Available 08/18/2024 14:22:16 05/18/20 24 05/18/2024 Urina lysis compl ete panel - Urine ascorbic acid UA Positi ve text: negati ve abnormal Ascor bic Acid UA Posit mundo (A) Negat mundo 05/17 11:48 PM SR. MEDIA MANAGER [employer] [facility] Not Available Not Available 08/18/2024 14:22:16 05/18/2005/18/2024 Urina lysis compl ete panel - Urine interpretati on and review of laboratory results Abnorm al Not Available Not Available 14:22:16 05/18/2005/18/2024 CBC W Auto Diffe renti al panel - Blood leukocytes [#/volume] in blood 8.3 K/uL low: 4K/uLh igh: 9.8K/u L WBC 8.3 4.0 - 9.8 K/uL 05/17 11:45 PM SR. MEDIA MANAGER [employer] [facility] Not Available Not Available 08/18/2024 14:22:16 05/18/2005/18/2024 CBC W Auto Diffe renti al panel - Blood RBC 3.89 text: 3.90 - 4.90 M/uL low RBC 3.89 (L) 3.90 - 4.90 M/uL 05/17 11:45 PM SR. MEDIA MANAGER [employer] [facility] Not Available Not Available 08/18/2024 14:22:16 05/18/2005/18/2024 CBC W Auto Diffe renti al panel - Blood hemoglobin 11.4 g/dL low: 11.8g/ dLhigh : 14.8g/ dL low HEMOG LOBIN 11.4 (L) 11.8 - 14.8 g/dL 05/17 11:45 PM [facility] Not Available Not Available 08/18/2024 14:22:16 05/18/2005/18/2024 CBC W Auto Diffe renti al panel - Blood hematocrit [volume fraction] of blood by automated count 33.6 % low: 35.5%h igh: 44% low HEMAT OCRIT 33.6 (L) 35.5 - 44.0 % 05/17 11:45 PM SR. MEDIA MANA[facility] Not Available Not Available 08/18/2024 14:22:16 05/18/2005/18/2024 CBC W Auto Diffe renti al panel - Blood MCV 86.4 fL low: 82fLhi gh: 99fL MCV 86.4 82.0 - 99.0 fL 05/17 11:45 PM SR. MEDIA MANAGER [facility] Not Available Not Available 08/18/2024 14:22:16 05/18/20 24 05/18/2024 CBC W Auto Diffe renti al panel - Blood MCH 29.3 pg low: 27.2pg high: 32.6pg MCH 29.3 27.2 - 32.6 pg 05/17 11:45 PM [facility] Not Available Not Available 08/18/2024 14:22:16 05/18/2005/18/2024 CBC W Auto Diffe renti al panel - Blood MCHC 33.9 g/dL low: 31.5g/ dLhigh : 35.5g/ dL MCHC 33.9 31.5 - 35.5 g/dL 05/17 11:45 PM [facility] Not Available Not Available 08/18/2024 14:22:16 05/18/2005/18/2024 CBC W Auto Diffe renti al panel - Blood RDW 13.7 % low: 11.5%h igh: 14.5% RDW 13.7 11.5 - 14.5 % 05/17 11:45 PM [facility] Not Available Not Available 08/18/2024 14:22:16 05/18/2005/18/2024 CBC W Auto Diffe renti al panel - Blood RDW-stdev 43.4 fL low: 37.1fL high: 48.7fL RDW-S TDEV 43.4 37.1 - 48.7 fL 05/17 11:45 PM [facility] Not Available Not Available 08/18/2024 14:22:16 05/18/20 24 05/18/2024 CBC W Auto Diffe renti al panel - Blood platelets [#/volume] in blood by automated count 174 K/uL low: 140K/u Lhigh: 350K/u L PLATE LETS 174 140 - 350 K/uL 05/17 11:45 PM SR. MEDIA MANAGER [facility] Not Available Not Available 08/18/2024 14:22:16 05/18/20 24 05/18/2024 CBC W Auto Diffe renti al panel - Blood MPV 12.1 fL low: 9.3fLh igh: 12.4fL MPV 12.1 9.3 - 12.4 fL 05/17 11:45 PM SR. MEDIA MANAGER [facility] Not Available Not Available 08/18/2024 14:22:16 05/18/20 24 05/18/2024 CBC W Auto Diffe renti al panel - Blood neutrophils 57 % NEUTR OPHIL S 57 % 05/17 11:45 PM SR. MEDIA MANAGER [facility] Not Available Not Available 08/18/2024 14:22:16 05/18/2005/18/2024 CBC W Auto Diffe renti al panel - Blood lymphocytes/ 100 leukocytes in blood by automated count 34 % LYMPH OCYTE S 34 % 05/17 11:45 PM SR. MEDIA MANAGER [facility] Not Available Not Available 08/18/2024 14:22:16 05/18/20 24 05/18/2024 CBC W Auto Diffe renti al panel - Blood monocytes 5 % MONOC YTES 5 % 05/17 11:45 PM [facility] Not Available Not Available 08/18/2024 14:22:16 05/18/20 24 05/18/2024 CBC W Auto Diffe renti al panel - Blood eosinophils 3 % EOSIN OPHIL S 3 % 05/17 11:45 PM SR. MEDIA MANAGER [facility] Not Available Not Available 08/18/2024 14:22:16 05/18/20 24 05/18/2024 CBC W Auto Diffe renti al panel - Blood basophils 1 % BASOP HILS 1 % 05/17 11:45 PM SR. MEDIA MANAGER [facility] Not Available Not Available 08/18/2024 14:22:16 05/18/20 24 05/18/2024 CBC W Auto Diffe renti al panel - Blood immature granulocytes 0 % IMMAT URE GRANU LOCYT ES 0 % 05/17 11:45 PM [facility] Not Available Not Available 08/18/2024 14:22:16 05/18/20 24 05/18/2024 CBC W Auto Diffe renti al panel - Blood neutrophils [#/volume] in blood by automated count 4.69 K/uL low: 1.9K/u Lhigh: 7K/uL NEUTR OPHIL ABSOL TULALIP 4.69 1.90 - 7.00 K/uL 05/17 11:45 PM [facility] Not Available Not Available 08/18/2024 14:22:16 05/18/20 24 05/18/2024 CBC W Auto Diffe renti al panel - Blood lymphocyte absolute 2.82 K/uL low: 0.7K/u Lhigh: 4.5K/u L LYMPH OCYTE ABSOL TULALIP 2.82 0.70 - 4.50 K/uL 05/17 11:45 PM [facility] Not Available Not Available 08/18/2024 14:22:16 05/18/20 24 05/18/2024 CBC W Auto Diffe renti al panel - Blood monocyte absolute 0.43 K/uL low: 0.1K/u Lhigh: 1.3K/u L MONOC YTE ABSOL TULALIP 0.43 0.10 - 1.30 K/uL 05/17 11:45 PM [facility] Not Available Not Available 08/18/2024 14:22:16 05/18/20 24 05/18/2024 CBC W Auto Diffe renti al panel - Blood eosinophil absolute 0.28 K/uL low: 0K/uLh igh: 0.7K/u L EOSIN OPHIL ABSOL TULALIP 0.28 0.00 - 0.70 K/uL 05/17 11:45 PM [facility] Not Available Not Available 08/18/2024 14:22:16 05/18/20 24 05/18/2024 CBC W Auto Diffe renti al panel - Blood basophils absolute 0.04 K/uL low: 0K/uLh igh: 0.2K/u L BASOP HILS ABSOL TULALIP 0.04 0.00 - 0.20 K/uL 05/17 11:45 PM SR. MEDIA MA[facility] Not Available Not Available 08/18/2024 14:22:16 05/18/20 24 05/18/2024 CBC W Auto Diffe renti al panel - Blood immature granulocytes absolute 0.01 K/uL low: 0K/uLh igh: 0.03K/ uL IMMAT URE GRANU LOCYT ES ABSOL TULALIP 0.01 0.00 - 0.03 K/uL 05/17 11:45 PM SR. MEDIA MANAGER [employer] [facility] Not Available Not Available 08/18/2024 14:22:16 05/18/20 24 05/18/2024 CBC W Auto Diffe renti al panel - Blood interpretati on and review of laboratory results Abnorm al Not Available Not Available 14:22:16 05/28/20 24 05/28/2024 Urina lysis dipst ick W Refle x Micro scopi c panel - Urine collection method - specimen URINE CLEAN CATCH SPECI MEN TYPE URINE CLEAN CATCH 05/28 12:48 PM SR. MEDIA [facility] Not Available Not Available 08/18/2024 14:22:57 05/28/20 24 05/28/2024 Urina lysis dipst ick W Refle x Micro scopi c panel - Urine color of urine YELLOW COLOR (U) YELLO W 05/28 1:28 PM SR. MEDIA MANAGER [facility] Not Available Not Available 08/18/2024 14:22:57 05/28/20 24 05/28/2024 Urina lysis dipst ick W Refle x Micro scopi c panel - Urine clarity of urine TURBID TRANS PAREN CY TURBI D 05/28 1:28 PM SR. MEDIA MANAGER [facility] Not Available Not Available 08/18/2024 14:22:57 05/28/20 24 05/28/2024 Urina lysis dipst ick W Refle x Micro scopi c panel - Urine specific gravity of urine 1.03 low: 1.001h igh: 1.03 SPECI FIC GRAVI TY (U) 1.030 1.001 - 1.030 05/28 1:28 PM SR. MEDIA MANAGER [facility] Not Available Not Available 08/18/2024 14:22:57 05/28/20 24 05/28/2024 Urina lysis dipst ick W Refle x Micro scopi c panel - Urine pH of urine 7.5 low: 5high: 9 U PH 7.5 5.0 - 9.0 05/28 1:28 PM SR. MEDIA MANAGER [facility] Not Available Not Available 08/18/2024 14:22:57 05/28/20 24 05/28/2024 Urina lysis dipst ick W Refle x Micro scopi c panel - Urine leukocytes [#/volume] in urine by test strip NEGATI VE text: negati ve LEUKO CYTES (U) NEGAT MUNDO NEGAT MUNDO 05/28 1:28 PM SR. MEDIA MANAGER [facility] Not Available Not Available 08/18/2024 14:22:57 05/28/20 24 05/28/2024 Urina lysis dipst ick W Refle x Micro scopi c panel - Urine nitrite [presence] in urine NEGATI VE text: negati ve NITRI ENMANUEL NEGAT MUNDO NEGAT MUNDO 05/28 1:28 PM SR. MEDIA MANAGER [facility] Not Available Not Available 08/18/2024 14:22:57 05/28/20 24 05/28/2024 Urina lysis dipst ick W Refle x Micro scopi c panel - Urine protein [mass/volume ] in urine by test strip 70 text: <30 mg/dL high PROTE IN RANDO M (U) 70 (H) <30 MG/DL 05/28 1:28 PM [facility] Not Available Not Available 08/18/2024 14:22:57 05/28/20 24 05/28/2024 Urina lysis dipst ick W Refle x Micro scopi c panel - Urine glucose [mass/volume ] in urine NORMAL text: normal mg/dL GLUCO SE (U) BHANU L BHANU L MG/DL 05/28 1:28 PM [facility] Not Available Not Available 08/18/2024 14:22:57 05/28/20 24 05/28/2024 Urina lysis dipst ick W Refle x Micro scopi c panel - Urine ketones [mass/volume ] in urine by test strip 20 text: negati ve mg/dL abnormal KETON ES MG/DL (U) 20 (A) NEGAT MUNDO MG/DL 05/28 1:28 PM [facility] Not Available Not Available 08/18/2024 14:22:57 05/28/20 24 05/28/2024 Urina lysis dipst ick W Refle x Micro scopi c panel - Urine urobilinogen [units/volum e] in urine by test strip 4 text: normal mg/dL abnormal UROBI LINOG EN 4.0 (A) BHANU L MG/DL 05/28 1:28 PM [facility] Not Available Not Available 08/18/2024 14:22:57 05/28/20 24 05/28/2024 Urina lysis dipst ick W Refle x Micro scopi c panel - Urine bilirubin.to sajan [mass/volume ] in urine NEGATI VE text: negati ve mg/dL BILIR UBIN (U) NEGAT MUNDO NEGAT MUNDO MG/DL 05/28 1:28 PM [facility] Not Available Not Available 08/18/2024 14:22:57 05/28/20 24 05/28/2024 Urina lysis dipst ick W Refle x Micro scopi c panel - Urine erythrocytes [#/volume] in urine by automated test strip NEGATI VE text: negati ve BLOOD (U) NEGAT MUNDO NEGAT MUNDO 05/28 1:28 PM [facility] Not Available Not Available 08/18/2024 14:22:57 05/28/20 24 05/28/2024 Urina lysis dipst ick W Refle x Micro scopi c panel - Urine mucus [#/area] in urine sediment by microscopy low power field MANY text: /lpf MUCUS MANY /LPF 05/28 1:28 PM [facility] Not Available Not Available 08/18/2024 14:22:57 05/28/20 24 05/28/2024 Urina lysis dipst ick W Refle x Micro scopi c panel - Urine leukocytes [#/area] in urine sediment by microscopy high power field 1 text: <6 /hpf WBC/H PF 1 <6 /HPF 05/28 1:28 PM [facility] Not Available Not Available 08/18/2024 14:22:57 05/28/20 24 05/28/2024 Urina lysis dipst ick W Refle x Micro scopi c panel - Urine erythrocytes [#/area] in urine sediment by microscopy high power field 5 text: <6 /hpf RBC/H PF 5 <6 /HPF 05/28 1:28 PM [facility] Not Available Not Available 08/18/2024 14:22:57 05/28/20 24 05/28/2024 Urina lysis dipst ick W Refle x Micro scopi c panel - Urine epithelial cells.squamo us [#/area] in urine sediment by microscopy high power field MODERA TE text: /hpf SQUAM OUS EPITH ELIAL S MODER ATE /HPF 05/28 1:28 PM [facility] Not Available Not Available 08/18/2024 14:22:57 05/28/20 24 05/28/2024 Urina lysis dipst ick W Refle x Micro scopi c panel - Urine interpretati on and review of laboratory results Abnorm al Not Available Not Available 14:22:57 05/28/20 24 05/28/2024 Compr ehens mundo metab olic 1999 panel - Serum or Plasm a glucose [mass/volume ] in serum or plasma 107 text: 70 - 99 mg/dL high GLUCO SE 107 (H) 70 - 99 MG/DL 05/28 1:39 PM SR. MEDIA MANAGER [facility] Not Available Not Available 08/18/2024 14:22:57 05/28/20 24 05/28/2024 Compr ehens mundo metab olic 1999 panel - Serum or Plasm a urea nitrogen [mass/volume ] in serum or plasma 8 text: 7 - 18 mg/dL BUN 8 7 - 18 MG/DL 05/28 1:39 PM [facility] Not Available Not Available 08/18/2024 14:22:57 05/28/20 24 05/28/2024 Compr ehens mundo metab olic 1999 panel - Serum or Plasm a creatinine [mass/volume ] in serum or plasma 0.69 text: 0.55 - 1.02 mg/dL CREAT ININE S/P/B 0.69 0.55 - 1.02 MG/DL 05/28 1:39 PM SR. MEDIA MANAGER [facility] Not Available Not Available 08/18/2024 14:22:57 05/28/20 24 05/28/2024 Compr ehens mundo metab olic 1999 panel - Serum or Plasm a sodium [moles/volum e] in serum or plasma 135 text: 136 - 145 mmol/L low SODIU M S/P/B 135 (L) 136 - 145 MMOL/ L 05/28 1:39 PM SR. MEDIA MANAGER [facility] Not Available Not Available 08/18/2024 14:22:57 05/28/20 24 05/28/2024 Compr ehens mundo metab olic 2000 panel - Serum or Plasm a potassium [moles/volum e] in serum or plasma 3.5 text: 3.5 - 5.1 mmol/L POTAS SIUM S/P/B 3.5 3.5 - 5.1 MMOL/ L 05/28 1:39 PM [facility] Not Available Not Available 08/18/2024 14:22:57 05/28/20 24 05/28/2024 Compr ehens mundo metab olic 2000 panel - Serum or Plasm a chloride [moles/volum e] in serum or plasma 106 text: 97 - 115 mmol/L CHLOR REBEL S/P/B 106 97 - 115 MMOL/ L 05/28 1:39 PM [facility] Not Available Not Available 08/18/2024 14:22:57 05/28/20 24 05/28/2024 Compr ehens mundo metab olic 1999 panel - Serum or Plasm a carbon dioxide, total [moles/volum e] in serum or plasma 23.1 text: 21 - 32 mmol/L CO2 23.1 21 - 32 MMOL/ L 05/28 1:39 PM [facility] Not Available Not Available 08/18/2024 14:22:57 05/28/20 24 05/28/2024 Compr ehens mundo metab olic 2000 panel - Serum or Plasm a calcium [mass/volume ] in serum or plasma 8.9 text: 8.5 - 10.1 mg/dL CALCI UM S/P/B 8.9 8.5 - 10.1 MG/DL 05/28 1:39 PM [facility] Not Available Not Available 08/18/2024 14:22:57 05/28/20 24 05/28/2024 Compr ehens umndo metab olic 2000 panel - Serum or Plasm a bilirubin.to sajan [mass/volume ] in serum or plasma 0.5 text: 0.2 - 1.2 mg/dL BILIR UBIN TOTAL S/P/B 0.5 0.2 - 1.2 MG/DL 05/28 1:39 PM [facility] Not Available Not Available 08/18/2024 14:22:57 05/28/20 24 05/28/2024 Compr ehens mundo metab ol 1999 panel - Serum or Plasm a protein [mass/volume ] in serum or plasma 8.1 text: 6.4 - 8.2 g/dL TOTAL PROTE IN S/P/B 8.1 6.4 - 8.2 G/DL 05/28 1:39 PM SR. MEDIA MANAGER [facility] Not Available Not Available 08/18/2024 14:22:57 05/28/20 24 05/28/2024 [facility] 1999 panel - Serum or Plasm a albumin [mass/volume ] in serum or plasma 3.5 text: 3.4 - 5.0 g/dL ALBUM IN S/P/B 3.5 3.4 - 5.0 G/DL 05/28 1:39 PM SR. MEDIA MANAGER [facility] Not Available Not Available 08/18/2024 14:22:57 05/28/20 24 05/28/2024 [facility]lic 1999 panel - Serum or Plasm a aspartate aminotransfe rase [enzymatic activity/vol ume] in serum or plasma 28 U/L low: 15U/Lh igh: 37U/L AST 28 15 - 37 U/L 05/28 1:39 PM SR. MEDIA MANAGER [facility] Not Available Not Available 08/18/2024 14:22:57 05/28/20 24 05/28/2024 [facility]lic 1999 panel - Serum or Plasm a alanine aminotransfe rase [enzymatic activity/vol ume] in serum or plasma 18 U/L low: 14U/Lh igh: 55U/L ALT 18 14 - 55 U/L 05/28 1:39 PM SR. MEDIA MANAGER [facility] Not Available Not Available 08/18/2024 14:22:57 05/28/20 24 05/28/2024 [facility] metab [facility]lic 2000 panel - Serum or Plasm a alkaline phosphatase [enzymatic activity/vol ume] in serum or plasma 50 U/L low: 50U/Lh igh: 136U/L ALKAL INE PHOSP HATAS E S/P/B 50 50 - 136 U/L 05/28 1:39 PM SR. MEDIA MANAGER [facility] Not Available Not Available 08/18/2024 14:22:57 05/28/20 24 05/28/2024 Compr ehens mundo metab olic 2000 panel - Serum or Plasm a anion gap in serum or plasma 5.9 text: 2 - 10 mmol/L ANION GAP 5.9 2 - 10 MMOL/ L 05/28 1:39 PM SR. MEDIA MANAGER [facility] Not Available Not Available 08/18/2024 14:22:57 05/28/20 24 05/28/2024 Compr ehens mundo metab olic 2000 panel - Serum or Plasm a urea nitrogen/cre atinine [mass ratio] in serum or plasma 11.6 low: 6high: 26 BUN CREAT ININE RATIO 11.6 6 - 26 05/28 1:39 PM SR. MEDIA MANAGER [facility] Not Available Not Available 08/18/2024 14:22:57 05/28/20 24 05/28/2024 Compr ehens mundo metab olic 2000 panel - Serum or Plasm a albumin/glob ulin [mass ratio] in serum or plasma 0.8 text: 1.0 - 2.0 ratio low A/G RATIO 0.8 (L) 1.0 - 2.0 RATIO 05/28 1:39 PM SR. MEDIA MANAGER [facility] Not Available Not Available 08/18/2024 14:22:57 05/28/20 24 05/28/2024 Compr ehens mundo metab olic 2000 panel - Serum or Plasm a glomerular filtration rate/1.73 sq M.predicted [volume rate/area] in serum, plasma or blood by creatinine-b ased formula (CKD-epi 2020) >90 text: >90 mL/min /1.73 M2 GFR ESTIM ATE >90 >90 ML/MO N/1.7 3 M2 05/28 1:39 PM SR. MEDIA MANAGER [facility] Not Available Not Available 08/18/2024 14:22:57 05/28/20 24 05/28/2024 Compr ehens mundo metab olic 2000 panel - Serum or Plasm a interpretati on and review of laboratory results Abnorm al Not Available Not Available 14:22:57 05/28/20 24 05/28/2024 Chori ogona dotro pin.b eta subun it [Unit s/vol ume] in Serum or Plasm a choriogonado tropin.beta subunit [units/volum e] in serum or plasma 15389 text: mIU/mL HCG QUANT ITATI VE 51,09 0 MIU/M L 05/28 1:58 PM SR. MEDIA MANAGER [facility] Not Available Not Available 08/18/2024 14:22:57 05/28/20 24 05/28/2024 CBC W Auto Diffe renti al panel - Blood leukocytes [#/volume] in blood by automated count 6.73 text: 4.5 - 11.0 x10'3/ uL WBC 6.73 4.5 - 11.0 x10'3 /uL 05/28 1:15 PM SR. [employer] Not Available Not Available 08/18/2024 14:22:57 05/28/20 24 05/28/2024 CBC W Auto Diffe renti al panel - Blood erythrocytes [#/volume] in blood by automated count 4.37 text: 4.20 - 5.40 x10'6/ uL RBC 4.37 4.20 - 5.40 x10'6 /uL 05/28 1:15 PM SR. MEDIA MANAGER [facility] Not Available Not Available 08/18/2024 14:22:57 05/28/20 24 05/28/2024 CBC W Auto Diffe renti al panel - Blood hemoglobin [mass/volume ] in blood 12.4 text: 12.0 - 16.0 g/dL HGB 12.4 12.0 - 16.0 G/DL 05/28 1:15 PM SR. MEDIA MANAGER [facility] Not Available Not Available 08/18/2024 14:22:57 05/28/20 24 05/28/2024 CBC W Auto Diffe renti al panel - Blood hematocrit [volume fraction] of blood 37.2 % low: 38%hig h: 48% low HCT 37.2 (L) 38.0 - 48.0 % 05/28 1:15 PM SR. [employer] MA[employer]GER [facility] Not Available Not Available 08/18/2024 14:22:57 05/28/20 24 05/28/2024 CBC W Auto Diffpatrick newman panel - Blood MCV [entitic volume] 85.1 text: 81.0 - 99.0 fL MCV 85.1 81.0 - 99.0 FL 05/28 1:15 PM SR. [employer]IA MA[employer]GER [facility] Not Available Not Available 08/18/2024 14:22:57 05/28/20 24 05/28/2024 CBC W Auto Diffpatrick newman panel - Blood MCH [entitic mass] 28.4 pg low: 27pghi gh: 31pg MCH 28.4 27.0 - 31.0 PG 05/28 1:15 PM SR. [employer] MA[employer]GER [facility] Not Available Not Available 08/18/2024 14:22:57 05/28/20 24 05/28/2024 CBC W Auto Benson newman panel - Blood MCHC [mass/volume ] 33.3 text: 32.0 - 36.0 g/dL MCHC 33.3 32.0 - 36.0 G/DL 05/28 1:15 PM SR. [employer]IA MA[employer]GER [facility] Not Available Not Available 08/18/2024 14:22:57 05/28/20 24 05/28/2024 CBC W Auto Diffpatrick newman panel - Blood erythrocyte distribution width [entitic volume] by automated count 13.2 % low: 11.5%h igh: 14.5% RDW 13.2 11.5 - 14.5 % 05/28 1:15 PM [facility] Not Available Not Available 08/18/2024 14:22:57 05/28/20 24 05/28/2024 CBC W Auto Diffpatrick newman panel - Blood platelets [#/volume] in blood 198 text: 130 - 400 x10'3/ uL PLT 198 130 - 400 x10'3 /uL 05/28 1:15 PM [facility] Not Available Not Available 08/18/2024 14:22:57 05/28/20 24 05/28/2024 CBC W Auto Diffe renti al panel - Blood platelet mean volume [entitic volume] in blood 12.1 text: 9.3 - 12.2 fL MPV 12.1 9.3 - 12.2 FL 05/28 1:15 PM [facility] Not Available Not Available 08/18/2024 14:22:57 05/28/20 24 05/28/2024 CBC W Auto Diffe renti al panel - Blood differential cell count method - blood AUTOMA SHOSHANA DIFFER ENTIAL DIFFE RENTI AL TYPE AUTOM ATED DIFFE RENTI AL 05/28 1:15 PM [facility] Not Available Not Available 08/18/2024 14:22:57 05/28/20 24 05/28/2024 CBC W Auto Diffe renti al panel - Blood neutrophils/ 100 leukocytes in blood by automated count 66.9 % NEUTR OPHIL S % 66.9 % 05/28 1:15 PM [facility] Not Available Not Available 08/18/2024 14:22:57 05/28/20 24 05/28/2024 CBC W Auto Diffe renti al panel - Blood lymphocytes/ 100 leukocytes in blood by automated count 23.3 % LYMPH OCYTE S % 23.3 % 05/28 1:15 PM [facility] Not Available Not Available 08/18/2024 14:22:57 05/28/20 24 05/28/2024 CBC W Auto Diffe renti al panel - Blood monocytes/10 0 leukocytes in blood by automated count 6.4 % MONOC YTES % 6.4 % 05/28 1:15 PM [facility] Not Available Not Available 08/18/2024 14:22:57 05/28/20 24 05/28/2024 CBC W Auto Diffe renti al panel - Blood eosinophils/ 100 leukocytes in blood by automated count 2.7 % EOSIN OPHIL S 2.7 % 05/28 1:15 PM [facility] Not Available Not Available 08/18/2024 14:22:57 05/28/20 24 05/28/2024 CBC W Auto Diffe renti al panel - Blood basophils/10 0 leukocytes in blood by automated count 0.4 % BASOP HILS 0.4 % 05/28 1:15 PM SR. MEDIA MA[facility]GER [facility] Not Available Not Available 08/18/2024 14:22:57 05/28/20 24 05/28/2024 CBC W Auto Diffe renti al panel - Blood immature granulocytes /100 leukocytes in blood by automated count 0.3 % IMMAT URE GRANS % 0.3 % 05/28 1:15 PM SR. MEDIA MA[facility]GER [facility] Not Available Not Available 08/18/2024 14:22:57 05/28/20 24 05/28/2024 CBC W Auto Diffe renti al panel - Blood neutrophils [#/volume] in blood 4.5 text: 1.80 - 7.70 x10'3/ uL ABS. NEUTR OPHIL S 4.50 1.80 - 7.70 x10'3 /uL 05/28 1:15 PM SR. [facility] MA[facility]GER [facility] Not Available Not Available 08/18/2024 14:22:57 05/28/20 24 05/28/2024 CBC W Auto Diffe renti al panel - Blood lymphocytes [#/volume] in blood 1.57 text: 1.00 - 4.80 x10'3/ uL ABS. LYMPH OCYTE S 1.57 1.00 - 4.80 x10'3 /uL 05/28 1:15 PM SR. MEDIA MA[facility]GER [facility] Not Available Not Available 08/18/2024 14:22:57 05/28/20 24 05/28/2024 CBC W Auto Diffe renti al panel - Blood monocytes [#/volume] in blood 0.43 text: 0.24 - 0.86 x10'3/ uL ABS. MONOC YTES 0.43 0.24 - 0.86 x10'3 /uL 05/28 1:15 PM SR. MEDIA MA[facility]GER [facility] Not Available Not Available 08/18/2024 14:22:57 05/28/20 24 05/28/2024 CBC W Auto Diffe renti al panel - Blood eosinophils [#/volume] in blood 0.18 text: 0.04 - 0.36 x10'3/ uL ABS. EOSIN OPHIL S 0.18 0.04 - 0.36 x10'3 /uL 05/28 1:15 PM SR. MEDIA MA[facility]GER [facility] Not Available Not Available 08/18/2024 14:22:57 05/28/20 24 05/28/2024 CBC W Auto Diffe renti al panel - Blood basophils [#/volume] in blood 0.03 text: 0.01 - 0.08 x10'3/ uL ABS. BASOP HILS 0.03 0.01 - 0.08 x10'3 /uL 05/28 1:15 PM SR. MEDIA MA[facility]GER [facility] Not Available Not Available 08/18/2024 14:22:57 05/28/20 24 05/28/2024 CBC W Auto Diffe renti al panel - Blood immature granulocytes [#/volume] in blood 0.02 text: 0.00 - 0.49 x10'3/ uL ABS. IMMAT URE GRANU LOCYT ES 0.02 0.00 - 0.49 x10'3 /uL 05/28 1:15 PM SR. MEDIA MANAGER [facility] Not Available Not Available 08/18/2024 14:22:57 05/28/20 24 05/28/2024 CBC W Auto Diffe renti al panel - Blood interpretati on and review of laboratory results Abnorm al Not Available Not Available 14:22:57 05/28/20 24 05/28/2024 Lipas e [Enzy matic activ ity/v olume ] in Serum or Plasm a lipase [enzymatic activity/vol ume] in serum or plasma 24 text: 13 - 75 units/ L LIPAS E 24 13 - 75 UNITS /L 05/28 1:39 PM SR. MEDIA MANAGER [facility] Not Available Not Available 08/18/2024 14:22:56 01/05/20 21 01/02/2021 US, obste tric, 1st trime ster No observ ation record ed. [email or web address] Not Available 2020 08:48:40 08/28/1908/25/2024 elect rocar diogr am, routi ne ECG, 12 leads min No observ ation record ed. [address] [place], [address], 08/28/2024 16:10:16 Result Notes None recorded. Problems Name Problem SNOMED Code Status Onset Date Resolution Date Notes Provider Name and Address Organization Details Recorded Time 39271592 Completed 202011/27/2021 DENISE Valdiv[place], [place] - [facility] 5 12:06:28 Threatened miscarriage 97687870 Completed Joyce lora [place], [place] - [facility] 2 15:50:02 Abnormal weight loss 664900175 Active 2021 Ajith Vivas MD Attn: Steve caba,[address] [place], [address], [place] - [facility] 2 14:40:58 Fatigue 49787453 Active 2021 Ajith Vivas MD Attn: Steve caba,[address] [facility], [place], [address], [place] [facility] 2 14:41:13 02771413 Active 2024 DENISE [place]div[place] [facility] 5 12:06:28 Problem Notes None recorded. Procedures Surgical History Date Name Laterality Status Provider Name and Address Organization Details Recorded Time Control Implant Removal completed RAY Robles Attn: Accounting,[address], [place], [address], [place] - [facility] 08/18/2024 15:02:59 Imaging Results Imaging Date Name Status LastModified by Organiz ation Details LastModified Time 01/02/2021 US, obstetric, 1st trimester completed [email or web address] Information not available 01/04/2021 08:48:40 08/25/2024 electrocardiog marcella, routine ECG, 12 leads min completed [address], [place], [address], 08/28/2024 16:10:16 Procedure Notes None recorded. Medical Equipment None Reported. Allergies Allergen ID Allergen Name Allergen Category Reaction Reaction Severity Criticality Documentation Date Start Date Code Code System Note Provider Name and Address Organization Details Recorded Time [id number] amoxicill in medicatio n Not available Not available Not available 08/18/2024 723 RxNorm DENISE Valdivia, [place] - [place] 14:27:40 Medications Name Sig Start Date Stop Date Status Note LastModified by Organization Details LastModified Time medroxyprog esterone 10 mg tablet 12/28 completed Not Available Not Available Not Available acetaminoph en 325 mg tablet TK 2 TS PO Q 6 H PRN 12/28 completed Not Available Not Available Not Available clindamycin HCl 300 mg capsule TAKE 1 CAPSULE BY MOUTH EVERY 6 HOURS 08/18 completed Not Available Not Available Not Available polyethylen e glycol 3350 17 gram oral powder packet MIX 1 PACKET WITH 8 OZ OF WATER AND DRINK ONCE DAILY 03/01 completed Not Available Not Available Not Available ibuprofen 800 mg tablet TAKE 1 TABLET BY MOUTH THREE TIMES DAILY NEEDED 08/18 completed Not Available Not Available Not Available Lidocaine Viscous 2 % mucosal solution 12/28 completed Not Available Not Available Not Available fluconazole 150 mg tablet TAKE 1 TABLET BY MOUTH AT THE END OF ANTIBIOTI CS AND TAKE 1 TABLET 72 HOURS LATER 09/30 completed Not Available Not Available Not Available valacyclovi r 1 gram tablet TAKE 1 TABLET BY MOUTH THREE TIMES DAILY 08/18 completed Not Available Not Available Not Available sumatriptan 100 mg tablet Take 1 tablet every day by oral route as needed for 9 days. 2024 active Not Available Not Available Not Avai lable cephalexin 250 mg capsule 03/01 completed Not Available Not Available Not Available fluconazole 200 mg tablet TAKE 1 TABLET BY MOUTH NOW THEN REPEAT IN 72 HOURS 08/18 completed Not Available Not Available Not Available metronidazo le 0.75 % (37.5 mg/5 gram) vaginal gel 12/28 completed Not Available Not Available Not Available ondansetron HCl 4 mg tablet Take 2 tablets twice a day by oral route as needed for 10 days. 2024 active Not Available Not Available Not Avai lable prednisone 20 mg tablet TAKE 2 TABLET BY MOUTH ONCE DAILY FOR 5 DAYS 08/18 completed Not Available Not Available Not Available metronidazo le 500 mg tablet TAKE 1 TABLET BY MOUTH TWICE DAILY 09/30 completed Not Available Not Available Not Available valacyclovi r 500 mg tablet TAKE 2 TABLETS BY MOUTH TWICE A DAY 08/18 completed Not Available Not Available Not Available sulfamethox azole 800 mg-trimetho prim 160 mg tablet TAKE 1 TABLET BY MOUTH TWICE DAILY 08/18 completed Not Available Not Available Not Available tramadol 50 mg tablet TAKE 1 TABLET BY MOUTH EVERY 6 HOURS NEEDED 08/18 completed Not Available Not Available Not Available metoclopram rebel 5 mg tablet 08/18 completed Not Available Not Available Not Available methocarbam ol 750 mg tablet TAKE 1 TABLET BY MOUTH THREE TIMES DAILY NEEDED 03/01 completed Not Available Not Available Not Available phenazopyri dine 100 mg tablet TAKE 2 TABLETS BY MOUTH THREE TIMES DAILY FOR 2 DAYS 08/18 completed Not Available Not Available Not Available promethazin e 50 mg tablet 03/01 completed Not Available Not Available Not Available cephalexin 500 mg capsule TAKE 1 CAPSULE BY MOUTH EVERY 12 HOURS FOR 7 DAYS 08/18 completed Not Available Not Available Not Available promethazin e 25 mg tablet 03/01 completed Not Available Not Available Not Available scopolamine 1 mg over 3 days transdermal patch 03/01 completed Not Available Not Available Not Available ondansetron 4 mg disintegrat ing tablet DISSOLVE 1 TABLET ON THE TONGUE TWICE DAILY NEEDED FOR NAUSEA 08/18 completed Not Available Not Available Not Available naproxen 500 mg tablet TAKE 1 TABLET BY MOUTH TWICE DAILY WITH FOOD 08/18 completed Not Available Not Available Not Available metoclopram rebel 10 mg tablet TAKE 1 TABLET BY MOUTH EVERY 6 HOURS NEEDED FOR PAIN 03/01 completed Not Available Not Available Not Available amoxicillin 875 mg-potassiu m clavulanate 125 mg tablet 12/28 completed Not Available Not Available Not Available azithromyci n 500 mg tablet TAKE ALL 4 TABLETS BY MOUTH AT ONE TIME. EAT WITH MEDICATIO N. 08/18 completed Not Available Not Available Not Available medroxyprog esterone 150 mg/mL intramuscul ar syringe INJECT 1ML INTO THE MUSLCE EVERY 3 MONTHS 03/01 completed Not Available Not Available Not Available nitrofurant oin monohydrate /macrocryst als 100 mg capsule TAKE 1 CAPSULE BY MOUTH TWICE DAILY FOR 5 DAYS 08/18 completed Not Available Not Available Not Available Plan B One-Step 1.5 mg tablet 12/28 completed Not Available Not Available Not Available 28 mg iron-800 mcg tablet TAKE 1 TABLET BY MOUTH ONCE DAILY 08/18 completed Not Available Not Available Not Available PreviDent 5000 Booster Plus 1.1 % dental paste BRUSH USUAL AT BEDTIME THEN BRUSH AGAIN WITH A PEA SIZED AMOUNT NO EATING OR DRINKING AFTER 12/28 completed Not Available Not Available Not Available Plus 29 mg iron-1 mg tablet Take 1 tablet every day by oral route. 03/01 completed Not Available Not Available Not Available PNV 29-1 29 mg iron-1 mg tablet TAKE 1 TABLET BY MOUTH EVERY DAY 03/01 completed Not Available Not Available Not Available Se- 19 29 mg iron-1 mg tablet 12/28 completed Not Available Not Available Not Available Zafemy 150 mcg-35 mcg/24 hr transdermal patch APPLY 1 PATCH TOPICALLY TO THE SKIN 1 TIME WEEKLY 12/28 completed Not Available Not Available Not Available Vitals Date Recorded Body height Body mass index (BMI) Systolic blood pressure Diastolic blood pressure Provider Name and Address Organization Details Last Updated DateTime 12/28/2020 165.74 cm 19 kg/m2 104 mm[Hg] 60 mm[Hg] DENISE Valdivia [place] - [place] 12/28/2020 15:44:40 Date Recorded Body weight Provider Name an d Address Organization Details Last Updated DateTime 12/28/2020 52239.518331 g ISABELA Tellez Attn: Accounting,[address] [facility], [place], [address], [facility] 12/28/2020 16:22:01 Date Recorded Body height Body mass index (BMI) Body weight Body temperature Heart rate Oxygen saturation Oxygen saturation in Arterial blood by Pulse oximetry Systolic blood pressure Diastolic blood pressure Provider Name and Address Organization Details Last Updated DateTime 2 165.74 cm 18.3 kg/m2 39779.7 5 g 98 [degF] 103 /min 99 % 99 % 118 mm[Hg] 78 mm[Hg] Justina Crane MA [facility] 2 14:09:01 Date Recorded Body height Body mass index (BMI) Body weight Systolic blood pressure Diastolic blood pressure Provider Name and Address Organization Details Last Updated DateTime 08/18/2024 162.56 cm 21.7 kg/m2 98488.44 g 130 mm[Hg] 85 mm[Hg] Frannie Paty Max [facility] 5 14:27:22 Date Recorded Body height Body mass index (BMI) Body weight Body temperature Heart rate Respiratory rate Oxygen saturation Oxygen saturation in Arterial blood by Pulse oximetry Systolic blood pressure Diastolic blood pressure Provider Name and Address Organization Details Last Updated DateTime 5 162.56 cm 21.5 kg/m2 91659.5 g 98.2 [degF] 86 /min 18 /min 96 % 96 % 130 mm[Hg] 83 mm[Hg] Tawana Vegas MA [facility] 5 09:40:43 Date Recorded Body height Body mass index (BMI) Body weight Body temperature Heart rate Respiratory rate Systolic blood pressure Diastolic blood pressure Provider Name and Address Organization Details Last Updated DateTime 5 162.56 cm 21.9 kg/m2 39224.3 8 g 98.3 [degF] 80 /min 20 /min 116 mm[Hg] 75 mm[Hg] Daniela Ahn MA [facility] 5 10:09:26 Social History Question Answer Notes LastModified by Organizat ion Details LastModified Time Tobacco Smoking Status Never Smoker Frannie Newman, A [facility], [place] - [facility] 12/28/2020 15:41:21 What Is Your Level Of Alcohol Consumption? Occasional Information not available 08/18/2024 What Is Your Level Of Caffeine Consumption? Moderate Information not available 12/28/2020 What Was The Date Of Your Most Recent Tobacco Screening? 09/30/2024 Information not available 09/30/2024 Are You Sexually Active? No Information not available 08/18/2024 Do You Use Any Illicit Or Recreational Drugs? No Information not available 12/28/2020 Has Tobacco Cessation Counseling Been Provided? Yes Information not available 09/30/2024 On What Date Was Tobacco Cessation Counseling Provided? 09/30/2024 Information not available 09/30/2024 Do You Or Have You Ever Used Any Other Forms Of Tobacco Or Nicotine? No [email or web address] Information not available 08/25/2024 Sex: Female Functional Status None recorded. Mental Status None recorded. Family History Relationship Description Onset Age of this Age Resolved Age Notes LastModified by Organization Details LastModified Time Father No current problems or disability [email or web address] Not available 12/2020 15:40:56 Mother No current problems or disability [email or web address] Not available 12/2020 15:40:56 Notes:08/25/24 Medical History Condition Response Other N High Blood Pressure N Depression N Blood Clots N Headaches/Migraines N Anxiety Disorder N Muscle, Joint, or Bone Problems N Infertility N Polyps N Acid Reflux (GERD) N Cancer N Kidney or Bladder Problems N Acne N Eating Disorder N Asthma N Hepatitis N Breast Cancer N Lung Disease N Breast Problem N Anesthesia Complications N Endometriosis N High Cholesterol N Liver Disease N Thyroid Problems N GI Problems N Anemia N Ovarian Cancer N Diabetes N Blood Transfusions N Seizures/Epilepsy N Abuse/Domestic Violence N Heart Disease N Pre-Eclampsia N Osteoporosis N Gynecological History Statement/Question Response Flow Moderate Date of LMP 10/11/2024 Sexually Active? Y Menses Monthly Y STIs/STDs Y Date of Last Pap Smear Duration of Flow (days) 2 Sexual Problems? N Current Control Method LMP Definite Obstetrics History GPAL:G 5 P 3 0 1 3 Type Value Full Term 3 Spontaneous 1 Living 3 Total 5 Immunizations Vaccine Type Date Status Note Provider Nam e and Address Organization Details Recorded Time Hib, unspecified formulation 1 completed MONO VELAZQUEZ MD Attn: Accounting,[address] [place], [place], [address] [place] [address], [place] [facility] 08/25/2024 09:55:21 Hib, unspecified formulation 4 completed MONO VELAZQUEZ MD Attn: Accounting,[address] [facility], [place], [place], [address] [place] [address], [place] [facility] 08/25/2024 09:55:21 Hib, unspecified formulation 1 completed MONO VELAZQUEZ MD Attn: Accounting,[address] [facility], [place], [place], [address] [place] [address], [place] [facility] 08/25/2024 09:55:21 Hib, unspecified formulation 0 completed MONO VELAZQUEZ MD Attn: Accounting,[address] [facility], [place], [place], [address] [place] [address], [place] [facility] 08/25/2024 09:55:21 Hib, unspecified formulation 0 completed MONO VELAZQUEZ MD Attn: Accounting,[address] [facility], [place], [address] [place] [address], [place] [facility] 08/25/2024 09:55:21 Hib, unspecified formulation 0 completed MONO VELAZQUEZ MD Attn: Accounting,[address] [facility], [place], [place], [address] [place] [address], [place] [facility] 08/25/2024 09:55:21 Hib-Hep B 1 completed MONO VELAZQUEZ MD Attn: Accounting,[address] [place], [place], [address] [place] [address], [place] [facility] 08/25/2024 09:55:22 Hib-Hep B 0 completed MONO VELAZQUEZ MD Attn: Accounting,[address] [place], [place], [address] [place] [address], [place] [facility] 08/25/2024 09:55:22 HPV9 5 completed MONO VELAZQUEZ MD Attn: Accounting,[address], [place], [place], [address] [place] [address], [place] [facility] 08/25/2024 09:55:22 IPV 4 completed MONO VELAZQUEZ MD Attn: Accounting,[address], [place], [address] [place] [address], [place] [facility] 08/25/2024 09:55:22 IPV 1 completed MONO VELAZQUEZ MD Attn: Accounting,[address], [place], [address] [place] [address], [place] [facility] 08/25/2024 09:55:22 IPV 0 completed MONO VELAZQUEZ MD Attn: Accounting,[address] [facility], [place], [address] [place] [address], [place] [facility] 08/25/2024 09:55:22 IPV 0 completed MONO VELAZQUEZ MD Attn: Accounting,[address] [facility], [place], [address] [place] [address], [place] [facility] 08/25/2024 09:55:22 IPV 0 completed MONO VELAZQUEZ MD Attn: Accounting,[address] [facility], [place], [address] [place] [address], [place] [facility] 08/25/2024 09:55:22 IPV 0 completed MONO VELAZQUEZ MD Attn: Accounting,[address], [place], [address] [place] [address], [place] [facility] 08/25/2024 09:55:22 MMR 1 completed MONO VELAZQUEZ MD Attn: Accounting,[address] [facility], [place], [address] [place] [address], [place] [facility] 08/25/2024 09:55:22 MMR 4 completed MONO VELAZQUEZ MD Attn: Accounting,[address] [facility], [place], [address] [place] [address], [place] [facility] 08/25/2024 09:55:22 MMR 1 completed MONO VELAZQUEZ MD Attn: Accounting,[address], [place], [address] [place] [address], [place] [facility] 08/25/2024 09:55:22 MMR 8 completed MONO VELAZQUEZ MD Attn: Accounting,[address], [place], [address] [place] [address], [place] [facility] 08/25/2024 09:55:22 influenza, unspecified formulation 6 completed MONO VELAZQUEZ MD Attn: Accounting,[address], [place], [address] [place] [address], [place] [facility] 08/25/2024 09:55:22 Tdap 2 completed MONO VELAZQUEZ MD Attn: Accounting,[address], [place], [address] [place] [address], [place] [facility] 08/25/2024 09:55:22 Tdap 3 completed MONO VELAZQUEZ MD Attn: Accounting,[address], [place], [address] [place] [address], [place] [facility] 08/25/2024 09:55:22 Tdap 1 completed MONO VELAZQUEZ MD Attn: Accounting,[address], [place], [address] [place] [address], [place] [facility] 08/25/2024 09:55:22 varicella 1 completed MONO VELAZQUEZ MD Attn: Accounting,[address], [place], [address] [place] [address], [place] [facility] 08/25/2024 09:55:22 varicella 1 completed MONO VELAZQUEZ MD Attn: Accounting,[address], [place], [address] [place] [address], [place] [facility] 08/25/2024 09:55:22 varicella 4 completed MONO VELAZQUEZ MD Attn: Accounting,[address], [place], [address] [place] [address], [place] [facility] 08/25/2024 09:55:22 DTP 1 completed MONO VELAZQUEZ MD Attn: Accounting,[address] [facility], [place], [place], [address] [place] [address], [facility] - [facility] 08/25/2024 09:55:22 DTP 0 completed MONO VELAZQUEZ MD Attn: Accounting,[address] [facility], [place], [address] [place] [address], [facility] - [facility] 08/25/2024 09:55:22 Influenza, split virus, trivalent, preservative 3 completed MONO VELAZQUEZ MD Attn: Accounting,[address] [facility], [place], [address] [place] [address], [facility] - [facility] 08/25/2024 09:55:22 Hep B, adolescent or pediatric 0 completed MONO VELAZQUEZ MD Attn: Accounting,[address] [facility], [place], [address] [place] [address], [facility] - [facility] 08/25/2024 09:55:22 Hep B, adolescent or pediatric 1 completed MONO VELAZQUEZ MD Attn: Accounting,[address] [facility], [place], [address] [place] [address], [facility] - [facility] 08/25/2024 09:55:22 Hep B, adolescent or pediatric 1 completed MONO VELAZQUEZ MD Attn: Accounting,[address] [facility], [place], [address] [place] [address], [facility] - [facility] 08/25/2024 09:55:22 Hep B, adolescent or pediatric 6 completed MONO VELAZQUEZ MD Attn: Accounting,[address] [facility], [place], [address] [place] [address], [facility] - [facility] 08/25/2024 09:55:22 Hep B, adolescent or pediatric 0 completed MONO VELAZQUEZ MD Attn: Accounting,[address] [facility], [place], [address] [place] [address], [facility] - [facility] 08/25/2024 09:55:22 Meningococcal MCV4O 1 completed MONO VELAZQUEZ MD Attn: Accounting,[address] [facility], [place], [address] [place] [address], [place] [facility] 08/25/2024 09:55:22 DTaP 4 completed MONO VELAZQUEZ MD Attn: Accounting,[address] [facility], [place], [address] [place] [address], [place] [facility] 08/25/2024 09:55:22 DTaP 1 completed MONO VELAZQUEZ MD Attn: Accounting,[address] [facility], [place], [place], [address] [place] [address], [place] [facility] 08/25/2024 09:55:22 DTaP 0 completed MONO VELAZQUEZ MD Attn: Accounting,[address] [facility], [place], [address] [place] [address], [facility] - [facility] 08/25/2024 09:55:22 DTaP 0 completed MONO VELAZQUEZ MD Attn: Accounting,[address] [facility], [place], [address] [place] [address], [place] [facility] 08/25/2024 09:55:22 DTaP 0 completed MONO VELAZQUEZ MD Attn: Accounting,[address] [facility], [place], [address] [place] [address], [place] [facility] 08/25/2024 09:55:22 DTaP 0 completed MONO VELAZQUEZ MD Attn: Accounting,[address] [facility], [place], [address] [place] [address], [place] [facility] 08/25/2024 09:55:22 Influenza, live, quadrivalent, intranasal 4 completed MONO VELAZQUEZ MD Attn: Accounting,[address] [facility], [place], [address] [place] [address], [place] [facility] 08/25/2024 09:55:22 Influenza, split virus, quadrivalent, PF 6 completed MONO VELAZQUEZ MD Attn: Accounting,[address] [facility], [place], [address] [place] [address], [place] [facility] 08/25/2024 09:55:22 Influenza, split virus, quadrivalent, PF 5 completed MONO VELAZQUEZ MD Attn: Accounting,[address], [place], [address], [facility] - [facility] 08/25/2024 09:55:22 Past Encounters Encounter ID Performer Location Encounter Start Date Encounter Closed Date Diagnosis/Indication Diagnosis SNOMED-CT Code Diagnosis ICD10 Code Diagnosis Note [id number] Norma Locke, [facility] [address] [place] [address] 05/06/2019 15:50:36 05/07/2019 11:23:40 Venereal disease screening 840276367 Z11.3 declined condoms. safe sex discussed. labs pending. will tailor treatment accordingl y upon receipt of labs. Urine preg jerald test positive [id number] Z32.01 UPT pos. informatio n provided along with obgyn informatio n and list of ok otc medication to take. JESSICA: 01/22/2020 [id number] MD Randy Trujillo [address] [facility] [address] [place], [place] [address] [address] 12/28/2020 15:24:06 12/29/2020 07:08:17 Early stage of [id number] Z34.90 Threatened miscarriage [id number] O20.0 [id number] Ajith Vivas MD [facility] (Adult Med) [address] [place] [address] 03/01/2022 13:36:15 03/02/2022 14:39:33 Abnormal weight loss 815349345 R63.4 Fatigue 31444226 R53.83 [id number] MD Randy Marie 14 OB [address] [facility] [address] [place] [address] 08/18/2024 14:19:39 08/21/2024 09:31:28 Removal of subcutaneous contraceptive [id number] Z30.46 Nexplanon removed without issue. Pt verbalizes that fertility will resume and if trying to become , she needs to begin vits now. Pt verbalized understand ing. Pt will follow up as needed for annual, sooner if needed or if pt would like new form of control. [id number] MD Randy MORALES [address] [facility] [place] [address] 08/25/2024 09:30:06 09/23/2024 12:09:58 Pre-surgery evaluation [id number] Z01.818 Patient has a low risk For complicati ons for this surgery. RSCI score of 0 which is 3.9% risk of major cardiac event. Olivarez score of 0% risk as well. I will order an EKG at this time, as requested. The patient showed me a PDF of the pre-surger y form in the clinic and will send a physical copy to be signed. Lipedema [id number] R60.9 refer to above [id number] MD Randy Ward [address] [facility] [place] [address] 09/30/2024 09:36:52 10/06/2024 12:32:53 Normal body mass index 03572624 Z68.21 Migraine without aura 56 626540 G43.009 Due to migraine without aura and nausea we will prescribe ondansetro n. Due to recent start of migraine we will not prescribe prophylact ic medication and we will start with the abortive medication . Counseled on use of sumatripta n and we will prescribed . Patient will follow up in a month. Health Concerns Section Related Observation LastModified by Organization Detai ls LastModified Time None Recorded Concern Status LastModified by Organization Details LastModified Time None Recorded Advance Directives Directive None Recorded Payers Encounter Date Sequence Insurance Name Policy Number Policy Reeves Covered Member ID Reeves Member ID Guarantor Name 12/28/2020 1 [facility] ON OR AFTER 12/22/20 (MEDICAID REPLACEMENT - HMO) Corrine Crane [id number] Corrine Crane 03/01/2022 1 [facility] ON OR AFTER 12/22/20 (MEDICAID REPLACEMENT - HMO) Corrine Crane [id number] Corrine Crane 08/18/2024 1 [facility] ON OR AFTER 20 (MEDICAID REPLACEMENT - HMO) Corrine Crane [id number] Corrine Crane 08/25/2024 1 [facility] ON OR AFTER 12/22/20 (MEDICAID REPLACEMENT - HMO) Corrine Crane [id number] Corrine Crane 09/30/2024 1 [facility] - [facility] ON OR AFTER 20 (MEDICAID REPLACEMENT - HMO) Corrine Crane [id number] Corrine Crane Notes Date Note Type Note Provider Name and Address Organization Details Recorded Time 12/28/2020 text/html Pt is here for follow up from [facility] ER related to early and spotting. Pt reports last had spotting occurred yesterday. Pt's HCG in ER was 23 on 12/22/2020 and on 12/24/2020 HCG 53. Pt denies any pelvic pain. Pt denies any other complaints. Pt denies trauma. ISABELA Tellez Attn: [address] [place], [address], [facility] 12/28/2020 16:22:55 03/01/2022 text/html here because of fatigue and significant weight loss in the past six months. Ajith Vivas MD Attn: [address] [place], [address], [facility] 03/01/2022 14:47:02 08/18/2024 text/html Annual GYNReport ed bypatient.History: no gynecologic complaints Menstrual cycle:Normal menses Urinary symptoms:No hematuria; No incontinence Vulva:No genital lesion Vagina:Normal vaginal discharge Breast:No breast pain; No breast lump; No nipple discharge Sexual complaints:No sexual complaints; No pain during intercourse; Normal libido Menopausal Symptoms:No menopausal symptoms; Normal vaginal lubrication Psychological symptoms:No depression; No anxiety; No PMDD Preventive measures:Encourage self breast examination; Encourage regular exercise; Encourage no tobacco use; Encourage regular mammograms starting age [age] yo fe here for nexplanon removal, states last pap 2 months ago at [place]- RAY Robles Attn: [address] [place], [address], [facility] 08/18/2024 15:03:38 08/25/2024 text/html Corrine is a 24 yo F with no past medical history presenting for surgery clearance. Needing clearance for upcoming surgery 09/10/24. Needs EKGPatient states she is getting a skinny bermudian but lift or Liposuction She states having no prior surgery.Mom has diabetes, Dad unknown.She has had an allergy to amoxicillin and has never smoked. MOHINI NARVAEZ MD Attn: [address] [place], [address], [facility] 09/22/2024 13:21:10 09/30/2024 text/html Corrine is a 24 yo F with no past medical history presenting for migraines. This is new. Constant pain all over head and feels like throbbing and sharp. Lasts for an hour and can last days.Used advil and no help. Photophobia, denies phonophobia. Also having nausea no vomiting. Still has migraine. Has one everyday for the the past week. No aura. No floaters. Bandar Shah MD Attn: [address] [place], [address], [facility] 10/05/2024 14:35:47 OBGyn Episode Ob Episode Information Episode Created Date Number of Fetuses Patient Bloodtype Patient rh Status Prepregnancy Weight lbs Domestic Partner Domestic Partner Phone Father Name Night Warehouse Manager Status 10/23/19 1 OPEN Fetus Data First Name Last Name Admitted to NICU Weight (g) Sex Living Outcome Pediatric Complications Fetus ID Race Codes Race Delivery Type [id number] Jessica Calculation Initial Jessica Date Initial Exam Date Initial Exam Provider Initial Ultrasound Date Last Menstrual Period Date Ultra Sound Weeks Gestation 10/22/2024 10/11/2024 0 Eighteen To Twenty Week Jessica Update Ultra Sound Date Fundal Height At Umbil Quickening Date Ultra Sound Latest Weeks Gestation Final Jessica Confirmed By Final Jessica Confirmed Date Final Jessica Date Ultra Sound Latest Days Gestation 0 07/18/19 26 0 Menstrual History Last Menstrual Date Menses Monthly On Bcp Conception Prior Menses Frequency Hcg Plus Date Menarche Onset Age 0410/11/2024 true 12 Genetic Screening And Infection History Question Response Note Patient's Age Will Be 35 Yea rs Or Older At Estimated Date of Delivery false Thalassemia (Grenadian, Hungarian, Mediterranean, Or Background): MCV < 80 false Neural Tube Defect (Meningom yelocele, Spina Bifida, Or Anencephaly) false Congenital Heart Defect false Down Syndrome false Carl-Sachs (eg, Religion, Cajun, Papua [place]inean-Dominican) f alse Zaheer Disease false Sickle Cell Disease Or Trait () false Hemophilia Or Other Blood Disorders false Muscular Dystrophy false Cystic Fibrosis false Thorp's Chorea false Mental Retardation/Autism false If Yes, Was Person Tested For Fragile X? false Other Inherited Genetic Or Chromosomal Disorder false Maternal Metabolic Disorder (eg, Type 1 Diabetes, PKU) false Patient Or Baby's Father Had A Child With Defects Not Listed Above false Recurrent Loss, Or A Stillbirth true 1 miscarraiage at 9 weeks Medications (including Suppl ements, Vitamins, Herbs, OTC Drugs), Illicit/Recreational Drugs, Alcohol true marijuana If Yes, Agent(s) And Strength/Dosage false Any Other Genetic History false Live With Someone With TB Or Exposed To TB false Patient Or Partner Has History Of Genital Herpes false Rash Or Viral Illness Since Last Menstrual Perio d false History Of STD, Gonorrhea, C hlamydia, HPV, Syphilis true pt Hx chlamydia Other Infection History false History of HIV false History of Hepatitis false Prior GBS-infected child false Delivery Information Delivery Date Delivery Type Labor Anesthesia Weeks Gestation Incision Type Labor Labor Length Hrs Delivered By Post Complications Tubal Sterilization Discharge Date Comments Discharge Information Feeding Method Contraceptive Method Maternal HG B and HCT Levels Ob Episode Information Episode Created Date Number of Fetuses Patient Bloodtype Patient rh Status Prepregnancy Weight lbs Domestic Partner Domestic Partner Phone Father Name Night Warehouse Manager Status 12/29/19 21 1 CLOSED Fetus Data First Name Last Name Admitted to NICU Weight (g) Sex Living Outcome Pediatric Complications Fetus ID Race Codes Race Delivery Type 2608.15 4 F Full Term [id number] Vaginal Jessica Calculation Initial Jessica Date Initial Exam Date Initial Exam Provider Initial Ultrasound Date Last Menstrual Period Date Ultra Sound Weeks Gestation 0 Eighteen To Twenty Week Jessica Update Ultra Sound Date Fundal Height At Umbil Quickening Date Ultra Sound Latest Weeks Gestation Final Jessica Confirmed By Final Jessica Confirmed Date Final Jessica Date Ultra Sound Latest Days Gestation 0 0 Menstrual History Last Menstrual Date Menses Monthly On Bcp Conception Prior Menses Frequency Hcg Plus Date Menarche Onset Age Delivery Information Delivery Date Delivery Type Labor Anesthesia Weeks Gestation Incision Type Labor Labor Length Hrs Delivered By Post Complications Tubal Sterilization Discharge Date Comments 8 Regional- idural 39 false Discharge Information Feeding Method Contraceptive Method Maternal HG B and HCT Levels Ob Episode Information Episode Created Date Number of Fetuses Patient Bloodtype Patient rh Status Prepregnancy Weight lbs Domestic Partner Domestic Partner Phone Father Name Night Warehouse Manager Status 12/29/19 21 1 A Positive CLOSED Fetus Data First Name Last Name Admitted to NICU Weight (g) Sex Living Outcome Pediatric Complications Fetus ID Race Codes Race Delivery Type [id number] Problems Problem Notes Problem Name Start Date End Date Resolution Snomed Code Not e Threatened miscarriage [id number] Jessica Calculation Initial Jessica Date Initial Exam Date Initial Exam Provider Initial Ultrasound Date Last Menstrual Period Date Ultra Sound Weeks Gestation 08/29/2021 12/28/2020 [email or web address] 11/22/2020 0 Eighteen To Twenty Week Jessica Update Ultra Sound Date Fundal Height At Umbil Quickening Date Ultra Sound Latest Weeks Gestation Final Jessica Confirmed By Final Jessica Confirmed Date Final Jessica Date Ultra Sound Latest Days Gestation 0 08/30/19 22 0 Pre- Flowsheet Flowsheet Date 12/28/2020 Salvador Score Blood Edema Fundus Height Fundus Units Glucose Ketones Leukocytes Nitrite Labor Signs Protein Cervic Dilation Cervic Effacement Cervic Station 2+ none none small neg Type Weight in lbs Pre/Post Dialysis Refused With clothes [id number] BP Diastolic BP Location Tested BP Systolic BP Type 60 104 sitting Fetus Heart Rate Present Fetus Movement Comments Pt is here for follow up fro m [facility] ER related to early and spotting. Pt reports last had spotting occurred yesterday. Pt's HCG in ER was 23 on 12/22/2020 and on 12/24/2020 HCG 53. Pt denies any pelvic pain. Pt denies any other complaints. Pt denies trauma. Pt educated on care and precautions. Pt educated on threatened miscarriage ( as well as risk of ectopic ) and warning signs and given ER precautions. Labs ordered and follow up based on results. PT educated on importance of follow up. Urine culture sent and vaginal swab completed. pap deferred at this time. Menstrual History Last Menstrual Date Menses Monthly On Bcp Conception Prior Menses Frequency Hcg Plus Date Menarche Onset Age 0611/22/2020 true Genetic Screening And Infection History Question Response Note Patient's Age Will Be 35 Yea rs Or Older At Estimated Date of Delivery false Thalassemia (Grenadian, Hungarian, Mediterranean, Or Background): MCV < 80 false Neural Tube Defect (Meningom yelocele, Spina Bifida, Or Anencephaly) false Congenital Heart Defect false Down Syndrome false Carl-Sachs (eg, Religion, Cajun, Papua [place] Guinean-Dominican) f alse Zaheer Disease false Sickle Cell Disease Or Trait () false Hemophilia Or Other Blood Disorders false Muscular Dystrophy false Cystic Fibrosis false Thorp's Chorea false Mental Retardation/Autism false If Yes, Was Person Tested For Fragile X? false Other Inherited Genetic Or Chromosomal Disorder false Maternal Metabolic Disorder (eg, Type 1 Diabetes , PKU) false Patient Or Baby's Father Had A Child With Defects Not Listed Above false Recurrent Loss, Or A Stillbirth false Medications (including Suppl ements, Vitamins, Herbs, OTC Drugs), Illicit/Recreational Drugs, Alcohol false If Yes, Agent(s) And Strength/Dosage false Any Other Genetic History false Live With Someone With TB Or Exposed To TB false Patient Or Partner Has History Of Genital Herpes false Rash Or Viral Illness Since Last Menstrual Perio d false History Of STD, Gonorrhea, Chlamydia, HPV, Syphi lis true gonorrhea Other Infection History false History of HIV false History of Hepatitis false Prior GBS-infected child false Delivery Information Delivery Date Delivery Type Labor Anesthesia Weeks Gestation Incision Type Labor Labor Length Hrs Delivered By Post Complications Tubal Sterilization Discharge Date Comments Discharge Information Feeding Method Contraceptive Method Maternal HG B and HCT Levels Ob Episode Information Episode Created Date Number of Fetuses Patient Bloodtype Patient rh Status Prepregnancy Weight lbs Domestic Partner Domestic Partner Phone Father Name Night Warehouse Manager Status 12/29/19 21 1 CLOSED Fetus Data First Name Last Name Admitted to NICU Weight (g) Sex Living Outcome Pediatric Complications Fetus ID Race Codes Race Delivery Type 3061.74 6 F Full Term [id number] Vaginal Jessica Calculation Initial Jessica Date Initial Exam Date Initial Exam Provider Initial Ultrasound Date Last Menstrual Period Date Ultra Sound Weeks Gestation 0 Eighteen To Twenty Week Jessica Update Ultra Sound Date Fundal Height At Umbil Quickening Date Ultra Sound Latest Weeks Gestation Final Jessica Confirmed By Final Jessica Confirmed Date Final Jessica Date Ultra Sound Latest Days Gestation 0 0 Menstrual History Last Menstrual Date Menses Monthly On Bcp Conception Prior Menses Frequency Hcg Plus Date Menarche Onset Age Delivery Information Delivery Date Delivery Type Labor Anesthesia Weeks Gestation Incision Type Labor Labor Length Hrs Delivered By Post Complications Tubal Sterilization Discharge Date Comments 6 Regional-Ep idural 39 false Discharge Information Feeding Method Contraceptive Method Maternal HG B and HCT Levels
--- OUTSIDE RECORDS SUMMARY | 2024-10-24 20:01 | XMS_ITS | Data Portability ---
Author Organization [facility] [place] Address [address] [place] [address] [address] Assessment Encounter Date Assessment Date Assessment LastModified by Organization Details LastModified Time 06/14/2021 06/14/2021 Patient is _28__weeks . Discussed plan. Not available 06/14/2021 15:09:24 Plan of Treatment Reminders Order Date Submit Date Provider Last Modified By Organization Details Last Modified Time Details Appointments None recorded. Lab drug screen, urine 2020 [email or web address] [address], [address], [place], [address], 12:48:56 urinalysis , dipstick 2020 [email or web address] [address], [address], [place], [address], 16:02:15 culture, urine 2020 [facility] (Lab), [address], [place], [address], 04:24:21 Referral None recorded. Procedures None recorded. Surgeries None recorded. Imaging US, obstetric, follow-up 2020 021 [email or web address] [address], [address], [place], [address], 13:22:51 Medication Orders Diflucan 150 mg tablet 2020 [facility][id number], [address], [place], [id number], 09:12:28 Macrobid 100 mg capsule 2020 [facility] #[id number], [address], [place], [phone], 09:12:23 Patient TargetsNo targets recorded. Patient InstructionsNo instructions recorded. Reason for Referral None Reported. Results Created Date Observation Date Name Description Value Unit Range Abnormal Flag Note LastModifiedBy Organization Detail LastModifiedTime 04/17/2004/17/2021 CULTU RE: URINE result report SEE RESULT S BELOW Test: Cultu re: Urine Speci men Sourc e: Urine Voide d Speci men Type: Urine Speci men Date: 04/17 4:06 PM Resul t Date: 04/19 1:49 AM Resul t Statu s: Final resul t Abnor mal: No Resul ting Lab: [facility] [address] [facility] [address] Tel: CULTU RE ----- ----- ----- --- Cultu re resul t (>=3 organ isms prese nt) indic ates possi ble conta minat ion. Repea t cultu re if sympt oms indic ate. Not Available [facility] (Lab) [address] [facility], [place], [address], 04/19/2021 02:53:30 04/20/2004/20/2021 VAGIN ITIS/ VAGIN OSIS, DNA PROBE mehnaz sp. detection, direct probe Positi ve negati ve abnormal Not Available [facility] (Lab) [address] [facility], [place], [address], 04/21/2021 23:04:16 04/20/2004/20/2021 VAGIN ITIS/ VAGIN OSIS, DNA PROBE gardnerella vag. detection, direct probe Positi ve negati ve abnormal Not Available [facility] (Lab) [address] [place], [address], 04/21/2021 23:04:16 04/20/20 21 04/20/2021 VAGIN ITIS/ VAGIN OSIS, DNA PROBE trichomonas vag. detection, direct probe Negati ve negati ve Not Available [facility] (Lab) [address] [facility], [place], [address], 04/21/2021 23:04:16 04/20/2004/20/2021 CULTU RE: URINE result report SEE RESULT S BELOW Test: Cultu re: Urine Speci men Sourc e: Urine Voide d Speci men Type: Urine Speci men Date: 04/20 4:12 PM Resul t Date: 04/22 3:21 AM Resul t Statu s: Final resul t Abnor mal: No Resul ting Lab: [facility] [address] [facility] [address] Tel: CULTU RE ----- ----- ----- --- Organ ism(s ) consi stent with uroge nital or skin gilbert . Repea t cultu re if sympt oms indic ate. Not Available [facility] (Lab) [address] [facility], [place], [address], 04/22/2021 04:24:20 04/20/2004/20/2021 urina lysis , dipst ick Leukocytes + Not Available [facility] [address], [place], [address], 04/20/2021 16:02:06 05/15/20 21 05/15/2021 drug scree n, urine Amphetamines : negati ve Not Available [facility] [address], [place], [address], 05/15/2021 12:48:35 05/15/20 21 05/15/2021 drug scree n, urine Cannabinoids : negati ve Not Available [facility] [address], [place], [address], 05/15/2021 12:48:35 05/15/20 21 05/15/2021 drug scree n, urine Opiates: negati ve Not Available [facility] [address], [place], [address], 05/15/2021 12:48:35 05/15/20 21 05/15/2021 drug scree n, urine Benzodiazepi kandace: negati ve Not Available [facility] [address], [place], [address], 05/15/2021 12:48:35 06/14/20 21 06/14/2021 GTT - GESTA SARAH L SCREE N, ACOG OB glucose, 1 hour screen 107 mg/dL 70-139 Not Available [facility] (Lab) [address] [facility], [place], [address], 06/15/2021 14:07:09 06/14/20 21 06/14/2021 HEMAT OCRIT (HCT) HCT 30.2 % (based on docume nted legal sex) 37.4-4 8.3 low Not Available [facility] (Lab) [address] , [place], [address], 06/15/2021 14:07:10 06/14/20 21 06/14/2021 HEMOG LOBIN (HGB) HGB 9.8 g/dL (based on docume nted legal sex) 11.9-1 5.8 low Not Available [facility] (Lab) [address] , [place], [address], 06/15/2021 14:07:10 06/14/20 21 06/14/2021 HIV 1/2 ANTIG EN/AN TIBOD Y, REFLE X CONFI RMATI ON HIV Ag-Ab total quant 0.08 idx <1.00 Not Available [facility] (Lab) [address] [facility], [place], [address], 06/15/2021 14:07:11 06/14/20 21 06/14/2021 HIV 1/2 ANTIG EN/AN TIBOD Y, REFLE X CONFI RMATI ON HIV Ag-Ab total Non-re active non-re active Not Available [facility] (Lab) [address] [facility], [place], [address], 06/15/2021 14:07:11 06/14/20 21 06/14/2021 HIV 1/2 ANTIG EN/AN TIBOD Y, REFLE X CONFI RMATI ON HIV-1 antibody quant 0.07 idx <1.00 Not Available [facility] (Lab) [address] [facility], [place], [address], 06/15/2021 14:07:11 06/14/20 21 06/14/2021 HIV 1/2 ANTIG EN/AN TIBOD Y, REFLE X CONFI RMATI ON HIV-1 antibody Non-re active non-re active Not Available [facility] (Lab) [address] [facility], [place], [address], 06/15/2021 14:07:11 06/14/20 21 06/14/2021 HIV 1/2 ANTIG EN/AN TIBOD Y, REFLE X CONFI RMATI ON HIV-1 antigen (P24) quant 0.08 idx <1.00 Not Available [facility] (Lab) [address] [facility], [place], [address], 06/15/2021 14:07:11 06/14/20 21 06/14/2021 HIV 1/2 ANTIG EN/AN TIBOD Y, REFLE X CONFI RMATI ON HIV-1 antigen (P24) Non-re active non-re active Not Available [facility] (Lab) [address] [facility], [place], [address], 06/15/2021 14:07:11 06/14/20 21 06/14/2021 HIV 1/2 ANTIG EN/AN TIBOD Y, REFLE X CONFI RMATI ON HIV-2 antibody quant 0.01 idx <1.00 Not Available [facility] (Lab) [address], [place], [address], 06/15/2021 14:07:11 06/14/20 21 06/14/2021 HIV 1/2 ANTIG EN/AN TIBOD Y, REFLE X CONFI RMATI ON HIV-2 antibody Non-re active non-re active HIV testi ng is perfo rmed using Multi plex- Bead Immun oassa y techn ology . The final overa ll HIV Ag-Ab resul t is deter mined based on the final resul t for each indiv idual mandi te. If any of the mandi avelina has 2 or more repli cates that are REACT MUNDO, the final overa ll HIV Ag-Ab resul t is also React mundo. A Non-R eacti ve test resul t at any point in the inves tigat ion of indiv idual subje cts does not precl ude the possi bilit y of expos ure to or infec tion with HIV-1 and/o r HIV-2 . Non-R eacti ve resul ts can occur if the quant ity of marke r prese nt in the sampl e is below the detec tion limit s of the assay . React mundo speci mens must be inves tigat ed by addit ional , more speci fic suppl ement al tests . Speci men confi rmati on will be perfo rmed by the [employer] us HIV 1/2 Suppl ement al Assay . The perfo rmanc e of this assay has not been estab lishe d for neona avelina and the assay shoul d not be used in indiv idual s young er than 2 years of age. Not Available [facility] (Lab) [address], [place], [address], 06/15/2021 14:07:11 06/14/20 21 06/14/2021 RPR SCREE N/REF KUSUM TITER /FTA RPR screen Nonrea ctive nonrea ctive Not Available [facility] (Lab) [address], [place], [address], 06/15/2021 14:07:11 04/17/20 21 04/17/2021 US, obste tric, 2nd or 3rd trime ster No observ ation record ed. [email or web address] [facility] [address], [place], [address], 04/17/2021 18:06:43 04/17/2004/17/2021 US, obste tric, follo w-up No observ ation record ed. [email or web address] [address] [address], [place], [address], 04/24/2021 13:30:31 04/17/20 21 04/17/2021 US, obste tric, follo w-up No observ ation record ed. [email or web address] [address], [place], [address], 04/18/2021 10:20:07 05/15/20 21 05/15/2021 US, obste tric, follo w-up No observ ation record ed. [email or web address] [place] [address], [place], [address], 05/15/2021 13:26:03 05/15/20 21 05/15/2021 US, obste tric, follo w-up No observ ation record ed. [email or web address] [address], [place], [address], 05/22/2021 14:49:14 06/14/20 21 06/14/2021 US, obste tric, bioph ysica l profi le No observ ation record ed. [email or web address] [facility] [address], [place], [address], 06/19/2021 14:10:13 Result Notes Documentation Provider Name and Address Organization Details Recorded Time Culture, Urine : ob Norma Sands [facility], [facility] 04/28/2021 12:04:26 Problems Name Problem SNOMED Code Status Onset Date Resolution Date Notes Provider Name and Address Organization Details Recorded Time 21401270 Completed 202008/03/2021 Caitlinsacha Adamholley [facility], [facility] 2 10:33:22 Nausea and vomiting 09059739 Completed [facility] 2 10:33:19 Pain in round ligament in [id number] 874934 Completed Caitlin Jobholley [facility], [facility] 2 10:33:19 Intrauter ine synechiae 193815157 Completed repeat growth 8wks - 07/10/21 [facility], [facility] 2 10:33:19 Problem Notes None recorded. Procedures Surgical History Date Name Laterality Status Provider Name and Address Organization Details Recorded Time 01/25/2021 Date of Last Pap Smear completed Lauryn Monroe [facility] 04/20/2021 15:45:44 Imaging Results Imaging Date Name Status LastModified by Organiz ation Details LastModified Time 04/17/2021 US, obstetric, 2nd or 3rd trimester [email or web address] [place] [address], [place], [address], 04/17/2021 18:06:43 04/17/2021 US, obstetric, follow-up completed [email or web address] [address], [place], [address], 04/24/2021 13:30:31 04/17/2021 US, obstetric, follow-up completed [email or web address] [address], [place], [address], 04/18/2021 10:20:07 05/15/2021 US, obstetric, follow-up completed [email or web address] [place] [address], [place], [address], 05/15/2021 13:26:03 05/15/2021 US, obstetric, follow-up completed [email or web address] [address] [facility], [place], [address], 05/22/2021 14:49:14 06/14/2021 US, obstetric, biophysical profile completed [email or web address] [facility] [address], [place], [address], 06/19/2021 14:10:13 Procedure Notes None recorded. Medical Equipment None Reported. Allergies No known drug allergies Medications Name Sig Start Date Stop Date Status Note LastModified by Organization Details LastModified Time medroxyprog esterone 10 mg tablet 03/14 completed Not Available Not Available Not Available acetaminoph en 325 mg tablet TK 2 TS PO Q 6 H PRN 03/14 completed Not Available Not Available Not Available Vitamin B-6 25 mg tablet 05/15 completed Not Available Not Available Not Available polyethylen e glycol 3350 17 gram oral powder packet MIX 1 PACKET WITH 8 OZ OF WATER AND DRINK ONCE DAILY active Not Available Not Available No t Available ibuprofen 800 mg tablet TK 1 T PO WF Q 6-8 H PRF PAIN/INFL AMMATION 03/14 completed Not Available Not Available Not Available Lidocaine Viscous 2 % mucosal solution SSP 5 ML PO Q 6 HOURS. MAY U UP TO 4 XD FOR TOOTH PAIN. DO NOT SWALLOW 04/20 completed Not Available Not Available Not Available fluconazole 150 mg tablet Take 1 tablet by oral route. 05/15 completed Not Available Not Available Not Available cephalexin 250 mg capsule 05/15 completed Not Available Not Available Not Available ondansetron HCl 4 mg tablet active Not Available Not Available Not Available metronidazo le 500 mg tablet Take 1 tablet twice a day by oral route for 7 days. 05/15 completed Not Available Not Available Not Available promethazin e 50 mg tablet 05/15 completed Not Available Not Available Not Available cephalexin 500 mg capsule TK ONE C PO Q 8 H 03/14 completed Not Available Not Available Not Available promethazin e 25 mg tablet Take 1 tablet every 4 hours by oral route. 05/15 completed Not Available Not Available Not Available polyethylen e glycol 3350 17 gram/dose oral powder 04/20 completed Not Available Not Available Not Available scopolamine 1 mg over 3 days transdermal patch 04/20 completed Not Available Not Available Not Available ondansetron 4 mg disintegrat ing tablet DISSOLVE 1 TABLET ON THE TONGUE EVERY 8 HOURS 05/15 completed Not Available Not Available Not Available metoclopram lashonda 10 mg tablet TAKE 1 TABLET BY MOUTH EVERY 6 HOURS NEEDED FOR PAIN 05/15 completed Not Available Not Available Not Available amoxicillin 875 mg-potassiu m clavulanate 125 mg tablet TK 1 T PO BID WF 03/14 completed Not Available Not Available Not Available nitrofurant oin monohydrate /macrocryst als 100 mg capsule TAKE 1 CAPSULE BY MOUTH EVERY 12 HOURS 05/15 completed Not Available Not Available Not Available 01/25 completed Not Available Not Available Not Available Slow Fe 142 mg (45 mg iron) tablet,exte nded release Take 1 tablet twice a day by oral route as directed. 2020 active Not Available Not Available Not Avai lable PreviDent 5000 Booster Plus 1.1 % dental paste BRUSH USUAL AT BEDTIME THEN BRUSH AGAIN WITH A PEA SIZED AMOUNT NO EATING OR DRINKING AFTER 04/20 completed Not Available Not Available Not Available PNV 29-1 29 mg iron-1 mg tablet TAKE 1 TABLET BY MOUTH EVERY DAY 03/14 completed Not Available Not Available Not Available Zafemy 150 mcg-35 mcg/24 hr transdermal patch APPLY 1 PATCH TOPICALLY TO THE SKIN 1 TIME WEEKLY 03/14 completed Not Available Not Available Not Available Vitals Date Recorded Body height Body mass index (BMI) Body weight Systolic blood pressure Diastolic blood pressure Provider Name and Address Organization Details Last Updated DateTime 04/17/2021 162.56 cm 20.8 kg/m2 77831.67 677 g 109 mm[Hg] 68 mm[Hg] Lauryn Garretson [facility] 16:25:30 Date Recorded Body height Body mass index (BMI) Systolic blood pressure Diastolic blood pressure Provider Name and Address Organization Details Last Updated DateTime 04/20/2021 162.56 cm 21.6 kg/m2 103 mm[Hg] 72 mm[Hg] Lauryn Monroe [facility] 04/20/2021 15:44:39 Date Recorded Body weight Provider Name an d Address Organization Details Last Updated DateTime 04/20/2021 91522.29911 g Rosanna Mcgovern [facility] 04/20/2021 16:11:10 Date Recorded Body height Body mass index (BMI) Body weight Systolic blood pressure Diastolic blood pressure Provider Name and Address Organization Details Last Updated DateTime 05/15/2021 162.56 cm 21.5 kg/m2 24381.04 625 g 113 mm[Hg] 71 mm[Hg] Jennifer Josie [facility] 12:41:43 Date Recorded Body height Body mass index (BMI) Body weight Systolic blood pressure Diastolic blood pressure Provider Name and Address Organization Details Last Updated DateTime 06/14/2021 162.56 cm 20.6 kg/m2 91536.08 44 g 113 mm[Hg] 69 mm[Hg] Caryl Adair [facility] 14:47:56 Social History Question Answer Notes LastModified by Organizat ion Details LastModified Time Tobacco Smoking Status Never Smoker Glory Berry [facility] 01/09/2021 17:02:05 What Is Your Level Of Alcohol Consumption? Occasional [email or web address] Information not available 06/14/2021 Are You Blind Or Do You Have Difficulty Seeing? No [email or web address] Information n ot available 06/14/2021 What Is Your Level Of Caffeine Consumption? Occasional Information not available 06/14/2021 In The 14 Days Before Symptom Onset, Have You Had Close Contact With A Laboratory-confirm ed COVID-19 While That Case Was Ill? No Information n ot available 06/14/2021 In The 14 Days Before Symptom Onset, Have You Had Close Contact With A Person Who Is Under Investigation For COVID-19 While That Person Was Ill? No [email or web address] Information not available 06/14/2021 Have You Been To An Area Known To Be High Risk For COVID-19? No [email or web address] Information not available 06/14/2021 Are You Deaf Or Do You Have Serious Difficulty Hearing? No [email or web address] Information not available 06/14/2021 What Type Of Diet Are You Following? REGULAR [email or web address] Information n ot available 06/14/2021 Do You Use Your Seat Belt Or Car Seat Routinely? Yes [email or web address] Information not available 06/14/2021 Do You Have Smoke And Carbon Monoxide Detectors In Your Home? Yes [email or web address] Information not available 06/14/2021 Do You Feel Stressed (tense, Restless, Nervous, Or Anxious, Or Unable To Sleep At Night)? [id number] [email or web address] Information not available 06/14/2021 Do You Use Any Illicit Or Recreational Drugs? No [email or web address] Information not available 06/14/2021 Do You Use Sunscreen Routinely? Yes [email or web address] Information not available 06/14/2021 Sex: Unknown Functional Status Question Answer Note LastModified by Organizat ion Details LastModified Time Are you able to walk? YESWOREST [email or web address] Information not available 06/14/2021 What is your exercise level? Occasional [email or web address] Information not available 06/14/2021 Mental Status None recorded. Family History Relationship Description Onset Age of this Age Resolved Age Notes LastModified by Organization Details LastModified Time Mother Diabetes mellitus [email or web address] Not available 2020 17:01:42 Medical History Condition Response Allergies (Food, seasonal, environmental ) N Other N Breast Cancer N Drug/Latex Allergies/Reactions N Blood Transfusion N Lung Disease N Dermatologic Disorders N Defects or Inherited Disease N Breast Problem N Gestational Diabetes N Hematologic disorders N Anesthesia Complications N History of STI N Deep Vein Thrombosis N Polycystic ovary syndrome N Anxiety Disorder N Autoimmune disease N Arthritis N Infertility N Polyps N Acid Reflux (GERD) N History of abnormal pap N Cancer N Stroke N Varicosities N Neurologic/Epilepsy N Endometriosis N High Cholesterol N Headaches N Fibromyalgia N Kidney Disease N Heart Problems N Kidney or Bladder Problems N Thyroid Problems N GI Problems N Eating Disorder N Anemia N Art (IVF or FET) N Psychiatric Illness N Ovarian Cancer N Diabetes N Pulmonary (TB, Asthma) N Hepatitis/Liver Disease N No Past Medical History N Eczema N Urinary Tract Infection N Abuse/Domestic Violence N Asthma N Trauma/Violence N Depression/ depression N Heart Disease N Pre-Eclampsia N Hypertension N Osteoporosis N Thrombophilias N Gynecological History Statement/Question Response Date of LMP 11/24/2020 Sexually Active? Y On BCP's at Conception? N STIs/STDs N HPV Vaccine N Date of Last Pap Smear 01/25/2021 Sexual Problems? N Current Control Method Desired Control Method None LMP Approximate Obstetrics History GPAL:G 3 P 2 0 0 2 Type Value Full Term 2 Living 2 Total 3 Past Encounters Encounter ID Performer Location Encounter Start Date Encounter Closed Date Diagnosis/Indication Diagnosis SNOMED-CT Code Diagnosis ICD10 Code Diagnosis Note [id number] Jens Augustine MD [facility] [address] [address] 01/09/2021 16:54:48 01/09/2021 22:10:15 Nausea and vomiting 62445527 R11.2 This patient is a 20-year-ol d female with very early . She has severe nausea and vomiting. She has not kept any liquids or solids down for 4 days she states. She was recently in the emergency department . Intrauteri ne gestationa l sac could be visualized but no pole. We obtained of ultrasound today that showed a pole with a heartbeat. She was sent to Labor and delivery for IV fluid resuscitat ion and antiemetic s. I reviewed the patient's hospital records in detail. I reviewed ultrasound s. I reviewed laboratory value weight shins. [id number] Jens Augustine MD [facility] [address] [address] 01/09/2021 17:31:20 01/09/2021 17:43:47 Uncertain viability of 511957907 O36.80X9 Z3A.01 [id number] Jany Ocampo MD [facility] [address] [address] 01/25/2021 16:38:13 01/25/2021 18:19:54 Urine test positive 646587863 Z32.01 test positive 035548546 Z32.01 Hyperemesi s gravidarum 64875631 O21.0 [id number] Jany Ocampo MD [facility] [address],[place] [address] 01/25/2021 16:38:13 01/25/2021 18:19:54 [id number] Jens Augustine MD [facility] [address],[place] [address] 02/23/2021 12:04:22 02/23/2021 12:45:03 screening 861889418 Z36.82 [id number] Jens Augustine MD [facility] [address],[place] [address] 03/14/2021 15:41:43 03/14/2021 17:32:56 Nausea and vomiting 15289128 R11.2 Routine an tenatal care 475739997 Z34.82 [id number] Rosanna Mcgovern [facility] [address],[place] [address] 04/17/2021 16:22:23 04/18/2021 19:47:07 Routine care 543005791 Z34.02 [id number] Jens Augustine MD [facility] [address],[place] [address] 04/17/2021 16:22:51 04/17/2021 18:10:39 screening for malformation 504610159 Z36.3 [id number] [facility] [address],[place] [address] 04/20/2021 15:13:11 04/21/2021 11:15:40 Urinary symptoms 388320912 R39.9 Vaginitis 98277064 N76.0 [id number] Jany Ocampo MD [facility] [address],[place] [address] 05/15/2021 12:04:50 05/15/2021 14:02:04 Routine care 743155307 Z34.92 [id number] Jany Ocampo MD [facility] [address] [address] 05/15/2021 12:05:36 05/15/2021 12:52:57 Intrauterine synechiae 160260277 N85.6 O36.5920 Z3A.24 [id number] [facility] [address] [address] 06/14/2021 14:30:04 06/14/2021 15:19:48 Routine care 912300019 Z34.93 Health Concerns Section Related Observation LastModified by Organization Detai ls LastModified Time None Recorded Concern Status LastModified by Organization Details LastModified Time None Recorded Advance Directives Directive None Recorded Payers Encounter Date Sequence Insurance Name Policy Number Policy Reeves Covered Member ID Reeves Member ID Guarantor Name 04/17/2021 1 [facility] ON OR AFTER 12/22/20 (MEDICAID REPLACEMENT - HMO) Corrine Crane [id number] Corrine Crane 04/20/2021 1 [facility] ON OR AFTER 12/22/20 (MEDICAID REPLACEMENT - HMO) Corrine Crane [id number] Corrine Crane 05/15/2021 1 [facility] ON OR AFTER 12/22/20 (MEDICAID REPLACEMENT - HMO) Corrine Crane [id number] Corrine Crane 05/15/2021 1 [facility] ON OR AFTER 12/22/20 (MEDICAID REPLACEMENT - HMO) Corrine Crane [id number] Corrine Crane 06/14/2021 1 [facility] ON OR AFTER 12/22/20 (MEDICAID REPLACEMENT - HMO) Corrine Crane [id number] Corrine Crane OBGyn Episode Ob Episode Information Episode Created Date Number of Fetuses Patient Bloodtype Patient rh Status Prepregnancy Weight lbs Domestic Partner Domestic Partner Phone Father Name Industrial Engineering Intern Status 01/10/20 21 1 CLOSED Fetus Data First Name Last Name Admitted to NICU Weight (g) Sex Living Outcome Pediatric Complications Fetus ID Race Codes Race Delivery Type 2919.77 1704 F Full Term [id number] Vaginal Delivery Sung Calculation Initial Sung Date Initial Exam Date Initial Exam Provider Initial Ultrasound Date Last Menstrual Period Date Ultra Sound Weeks Gestation 0 Eighteen To Twenty Week Sung Update Ultra Sound Date Fundal Height At Umbil Quickening Date Ultra Sound Latest Weeks Gestation Final Sung Confirmed By Final Sung Confirmed Date Final Sung Date Ultra Sound Latest Days Gestation 0 0 Menstrual History Last Menstrual Date Menses Monthly On Bcp Conception Prior Menses Frequency Hcg Plus Date Menarche Onset Age Delivery Information Delivery Date Delivery Type Labor Anesthesia Weeks Gestation Incision Type Labor Labor Length Hrs Delivered By Post Complications Tubal Sterilization Discharge Date Comments 6 41 Makendr a Discharge Information Feeding Method Contraceptive Method Maternal HG B and HCT Levels Ob Episode Information Episode Created Date Number of Fetuses Patient Bloodtype Patient rh Status Prepregnancy Weight lbs Domestic Partner Domestic Partner Phone Father Name Industrial Engineering Intern Status 03/14/20 21 1 A Positive 115 CLOSED Fetus Data First Name Last Name Admitted to NICU Weight (g) Sex Living Outcome Pediatric Complications Fetus ID Race Codes Race Delivery Type [id number] Problems Problem Notes Problem Name Start Date End Date Resolution Snomed Code Not e Nausea and vomiting [id number] Pain in round ligament in [id number] Intrauterine synechiae [id number] repeat growth 8wks - 07/10/21 Sung Calculation Initial Sung Date Initial Exam Date Initial Exam Provider Initial Ultrasound Date Last Menstrual Period Date Ultra Sound Weeks Gestation 08/31/2021 03/14/2021 01/09/2021 11/24/2020 6 Eighteen To Twenty Week Sung Update Ultra Sound Date Fundal Height At Umbil Quickening Date Ultra Sound Latest Weeks Gestation Final Sung Confirmed By Final Sung Confirmed Date Final Sung Date Ultra Sound Latest Days Gestation 02/24/20 21 13 [email or web address] 03/14/2021 09/01/19 22 0 Pre-kamilla Flowsheet Flowsheet Date 03/14/2021 Salvador Score Blood Edema Fundus Height Fundus Units Glucose Ketones Leukocytes Nitrite Labor Signs Protein Cervic Dilation Cervic Effacement Cervic Station 15 Type Weight in lbs Pre/Post Dialysis Refused Weight 115.057772710234 BP Diastolic BP Location Tested BP Systolic BP Type 66 R arm 112 sitting Fetus Heart Rate Present A 145 Fetus Movement Comments this patient is a 20-year-ol d 3 para 2001 at 15 weeks gestation who presents for initial care. She has 2 unremarkable pregnancies with term vaginal births previously. She has a normal medical and surgical history. She reports round ligament pain today. She describes sharp bilateral groin pain with movement. She was given recommendations on round ligament pain. To follow-up in 4 to have to 5 weeks for anatomy scan and visit. Flowsheet Date 04/17/2021 Salvador Score Blood Edema Fundus Height Fundus Units Glucose Ketones Leukocytes Nitrite Labor Signs Protein Cervic Dilation Cervic Effacement Cervic Station none trace Type Weight in lbs Pre/Post Dialysis Refused Weight 121.199875216003 BP Diastolic BP Location Tested BP Systolic BP Type 68 109 Fetus Heart Rate Present Fetus Movement A Yes Comments Doing well. Was seen at [facility] for contractions that were caused by constipation. Contractions have resolved. Pt has headaches frequently with floaters. At [facility] they told her she has pre eclampsia. She is now at 3 days without a headache. No epigastric pain. Records request to be filled out today. PIH labs today. Encouraged flu and covid vaccines. Acog recommendations given. Pt declines. Flowsheet Date 04/17/2021 Salvador Score Blood Edema Fundus Height Fundus Units Glucose Ketones Leukocytes Nitrite Labor Signs Protein Cervic Dilation Cervic Effacement Cervic Station Type Weight in lbs Pre/Post Dialysis Refused BP Diastolic BP Location Tested BP Systolic BP Type Fetus Heart Rate Present Fetus Movement Comments Flowsheet Date 04/20/2021 Salvador Score Blood Edema Fundus Height Fundus Units Glucose Ketones Leukocytes Nitrite Labor Signs Protein Cervic Dilation Cervic Effacement Cervic Station trace Type Weight in lbs Pre/Post Dialysis Refused Weight 126.98868153338 BP Diastolic BP Location Tested BP Systolic BP Type 72 103 Fetus Heart Rate Present Fetus Movement A Yes Comments Pt here for c/o white discha rge, itching, and burning with urination since yesterday. SP tenderness. No flank pain. Labial erythema. No cuts or sores. Will start macrobid and diflucan. Pt will also get monistat to treat external labia. Flowsheet Date 05/15/2021 Salvador Score Blood Edema Fundus Height Fundus Units Glucose Ketones Leukocytes Nitrite Labor Signs Protein Cervic Dilation Cervic Effacement Cervic Station Type Weight in lbs Pre/Post Dialysis Refused BP Diastolic BP Location Tested BP Systolic BP Type Fetus Heart Rate Present Fetus Movement Comments Flowsheet Date 05/15/2021 Salvador Score Blood Edema Fundus Height Fundus Units Glucose Ketones Leukocytes Nitrite Labor Signs Protein Cervic Dilation Cervic Effacement Cervic Station neg trace 24 trace Type Weight in lbs Pre/Post Dialysis Refused Weight 125.813587073928 BP Diastolic BP Location Tested BP Systolic BP Type 71 113 Fetus Heart Rate Present A 135 Fetus Movement A Yes Comments Doing well. Good FM. Growth 38%, discussed synechiae. Questions answered. NO concerns. Flowsheet Date 06/14/2021 Salvador Score Blood Edema Fundus Height Fundus Units Glucose Ketones Leukocytes Nitrite Labor Signs Protein Cervic Dilation Cervic Effacement Cervic Station neg none trace Type Weight in lbs Pre/Post Dialysis Refused Weight 120.677947582661 BP Diastolic BP Location Tested BP Systolic BP Type 69 113 Fetus Heart Rate Present A 156 Present Fetus Movement A Yes Comments patient is having some pain, contractions, nausea and vomiting. having on and off bleeding .took photo bright red blood, not constant, worried about it also c/o cramping send to LD for evaluation Menstrual History Last Menstrual Date Menses Monthly On Bcp Conception Prior Menses Frequency Hcg Plus Date Menarche Onset Age 0611/24/2020 Genetic Screening And Infection History Question Response Note Mental Retardation/Autism false Patient's Age Will Be 35 Years Or Older At Estim ated Date of Delivery false Thalassemia (Swedish, American, Mediterranean, Or Background): MCV < 80 false Neural Tube Defect (Meningomyelocele, Spina Bifi da, Or Anencephaly) false Congenital Heart Defect false Down Syndrome false Carl-Sachs (eg, Yarsanism, Cajun, Iranian-Finnish) f alse Zaheer Disease false Sickle Cell Disease Or Trait () false Hemophilia Or Other Blood Disorders false Muscular Dystrophy false Cystic Fibrosis false Nadine's Chorea false Intellectual Disability/Autism false If Yes, Was Person Tested For [...] Of STD, Gonorrhea, Chlamydia, HPV, Syphi lis false Other Infection History false History of HIV false History of Hepatitis false Prior GBS-infected child false Hemoglobinopathy Or Carrier false Other Structural Defect false Recent Travel History Outside of Country false Delivery Information Delivery Date Delivery Type Labor Anesthesia Weeks Gestation Incision Type Labor Labor Length Hrs Delivered By Post Complications Tubal Sterilization Discharge Date Comments Discharge Information Feeding Method Contraceptive Method Maternal HG B and HCT Levels Ob Episode Information Episode Created Date Number of Fetuses Patient Bloodtype Patient rh Status Prepregnancy Weight lbs Domestic Partner Domestic Partner Phone Father Name Industrial Engineering Intern Status 01/10/20 21 1 CLOSED Fetus Data First Name Last Name Admitted to NICU Weight (g) Sex Living Outcome Pediatric Complications Fetus ID Race Codes Race Delivery Type 2438.05 7 F Full Term [id number] Vaginal Delivery Sung Calculation Initial Sung Date Initial Exam Date Initial Exam Provider Initial Ultrasound Date Last Menstrual Period Date Ultra Sound Weeks Gestation 0 Eighteen To Twenty Week Sung Update Ultra Sound Date Fundal Height At Umbil Quickening Date Ultra Sound Latest Weeks Gestation Final Sung Confirmed By Final Sung Confirmed Date Final Sung Date Ultra Sound Latest Days Gestation 0 0 Menstrual History Last Menstrual Date Menses Monthly On Bcp Conception Prior Menses Frequency Hcg Plus Date Menarche Onset Age Delivery Information Delivery Date Delivery Type Labor Anesthesia Weeks Gestation Incision Type Labor Labor Length Hrs Delivered By Post Complications Tubal Sterilization Discharge Date Comments 8 39 Sandra Discharge Information Feeding Method Contraceptive Method Maternal HG B and HCT Levels
--- OUTSIDE RECORDS SUMMARY | 2024-10-24 20:01 | XMS_ITS | Referral Summary ---
Author Organization [facility] Address [address] [place] [address] Care Team Providers Care Commercial Designer Name Role Phone Miscellaneous, Not In File Primary Care Provider Unavailable Encounters Date Type Department Care Team Description 08/25/2024 9:21 AM MANAGER UNIT - 08/25/2024 11:59 PM MANAGER UNIT Hospital Encounter [facility] [address] [place], [place] [id number] Encounter for other preprocedural examination Discharge Disposition: Discharge to home or self care from Last 3 Months Allergies No known active allergies Medications PNV #[id number] acid-dha 35 mg iron-5 mg iron-1 mg capsule Take by mouth daily Active Active Problems Problem Noted Date Diagnosed Date Normal first with uncertain date of last menstrual period, antepartum 08/17/2021 Vaginal bleeding in 06/07/2021 Immunizations Immunization Administration Dates Next Due Tdap 11/15/2022 Social History Tobacco Use Types Packs/Day Years Used Date Smoking Tobacco: Never Smokeless Tobacco: Never Alcohol Use Standard Drinks/Week Comments Not Currently 0 (1 standard drink = 0.6 oz pur e alcohol) AUDIT-C Answer Date Recorded Q1: How often do you have a drink containing alc ohol? Never 08/18/2021 Average Number of Drinks Not on file 022 Frequency of Binge Drinking Not on file 07/26 Personal Safety Answer Date Recorded Have you ever been in or are you currently in a harmful physical or emotional relationship or is someone making you feel afraid or unsafe? Denies 11/15/2022 Comments No Sex and Gender Information Value Date Recorded Sex Assigned at Not on file Legal Sex Female 4:26 PM CDT Gender Identity Not on file Sexual Orientation Not on file Last Filed Vital Signs Vital Sign Reading Time Taken Comments Blood Pressure 114/64 11/15/2022 6:03 PM CDT Pulse 81 11/15/2022 6:03 PM CDT Temperature 37.3 C (99.1 F) 11/15/2022 6:03 PM CDT Respiratory Rate 16 11/15/2022 6:03 PM CDT Oxygen Saturation 100% 11/15/2022 6:03 PM CDT Inhaled Oxygen Concentration - - Weight 53.5 kg (118 lb) 11/15/2022 6:03 PM CDT Height 162.6 cm (5' 4 ) 11/15/2022 6:03 PM CDT Body Mass Index 20.25 11/15/2022 6:03 PM CDT Plan of Treatment Not on file Procedures Procedure Name Priority Date/Time Associated Diagnosis Comments ECG 12-LEAD Routine 08/25/2024 9:37 AM MANAGER UNIT Encounter for other preprocedural examination HEPATITIS C ANTIBODY Routine 02/23/2021 from Last 3 Months or Most Recently Relevant to Health Maintenance Results * ECG 12 lead (08/25/2024 9:37 AM MANAGER UNIT) 08/25/2024 9:40 AM MANAGER UNIT Narrative [facility] - 08/25/2024 11:38 AM MANAGER UNIT Vent Rate: 73 bpm RR Interval: 820 msec [place] Interval: 128 msec QRS Duration: 95 msec QT Interval: 398 msec QTC Interval: 423 msec P-R-T [place]: 8 - 25 - 31 degrees IMPRESSION: SINUS RHYTHM NORMAL ECG Electronically Signed By: Rainer Ibrahim MD [facility] Abundio Rios MD ECG ORDERABLES Final Resu lt [facility] * Hepatitis C antibody (02/23/2021) SCRIBED HCV ab neg Blood specimen (specimen) Jens Augustine MD LAB MICROBIOLOGY - GENERAL OR DERABLES Final Result from Last 3 Months or Most Recently Relevant to Health Maintenance Insurance Member Subscriber Plan / Payer (Ef fective 2020-Present) Name:Corrine Burgess Relation to Subscriber:Self Name:Corrine Burgess Payer ID:[id number] (NAIC) Group ID:Not on file Type:MEDICAID RISK OTHER Address: [address] [place] [address] [place] [address] Advance Directives For more information, please contact: [phone] * Full Code (Latest Code Status on File) Date Activated Date Inactivated Comments 08/17/2021 11:07 PM 08/18/2021 3:19 AM Full CPR in case of cardiopulmonary arrest Care Teams Commercial Designer Relationship Specialty Start Date End Date Miscellaneous, Not In File PCP - General 12/22/20
--- OUTSIDE RECORDS SUMMARY | 2024-10-24 20:01 | XMS_ITS | Clinical Summary ---
Author Organization [facility] Address [address] [place] [address] Care Team Providers Care Furnace Tapper Name Role Phone Miscellaneous, Not In File Primary Care Provider Unavailable Allergies No known active allergies Medications PNV #[id number] acid-dha 35 mg iron-5 mg iron-1 mg capsule Take by mouth daily Active Active Problems Problem Noted Date Diagnosed Date Normal first with uncertain date of last menstrual period, antepartum 08/17/2021 Vaginal bleeding in 06/07/2021 Encounters Date Type Department Care Team Description 08/25/2024 9:21 AM TILE PICKER - 08/25/2024 11:59 PM [facility] Hospital Encounter [facility] Cardiology [address] [place] [id number] Encounter for other preprocedural examination Discharge Disposition: Discharge to home or self care from Last 3 Months Immunizations Immunization Administration Dates Next Due Tdap 11/15/2022 Medical History Medical History Date Comments Family History Medical History Relation Name Comments No Known Problems Father No Known Problems Mother Relation Name Status Comments Father Mother Social History Tobacco Use Types Packs/Day Years [...] on file Sexual Orientation Not on file Obstetrics History Para Term AB IAB SAB Ectopic Multiple Livin g Live Births 4 2 2 0 1 0 1 0 2 2 Date Outcome GA Total Labor Labor/2nd/3rd Weight Sex Type Anes PTL Kimberly A1 A5 Name Clin 016 Term 39w 0d 3.6 kg (7 lb 15 oz) F Vag-S pont Epidur al Livin g 2017 SAB 16w 0d 018 Term 39w 0d 2.594 kg (5 lb 11.5 oz) F Vag-S pont Livin g Delivery Location:[facility] Last Filed Vital Signs Vital Sign Reading [...] 11/15/2022 6:03 PM CDT Plan of Treatment Health Maintenance Due Date Last Done Comments Cervical Cancer Screening 1999 Depression Screening 1999 HPV Vaccines (2 - 3-dose series) 06/11/2015 05/14/2015 Regular Well Visit/Exam 18-64 2017 Influenza Vaccine (Season Ended) 2025 04/03/2016, 05/14/2015, 03/15/2014, Additional history exists DTaP/Tdap/Td Vaccine (8 - Td or Tdap) 11/15/2032 11/15/2022, 01/13/2011, 10/22/2003, Additional history exists Hepatitis B Screening Completed 03/26/2006 , 11/07/2000, 09/23/2000, Additional history exists Varicella Vaccines Completed 03/15/2014, 0 11/07/2000, 09/23/2000 Hepatitis C Screening Completed 02/23/2021 Pneumococcal vaccine <65 Aged Out No longer eligible based on patient's age to complete this topic Procedures Procedure Name Priority Date/Time Associated Diagnosis Comments ECG 12-LEAD Routine 08/25/2024 9:37 AM TILE PICKER Encounter for other preprocedural examination HEPATITIS C ANTIBODY Routine 02/23/2021 from Last 3 Months or Most Recently Relevant to Health Maintenance Results * ECG 12 lead (08/25/2024 9:37 AM TILE PICKER) 08/25/2024 9:40 AM TILE PICKER Narrative [facility] - 08/25/2024 11:38 AM TILE PICKER Vent Rate: 73 bpm RR Interval: 820 msec [place] Interval: 128 msec QRS Duration: 95 msec QT Interval: 398 msec QTC Interval: 423 msec P-R-T [place]: 8 - 25 - 31 degrees IMPRESSION: SINUS RHYTHM NORMAL ECG Electronically Signed By: Rainer Ibrahim MD [facility] Abundio Rios MD ECG ORDERABLES Final Resu lt [facility] * Hepatitis C antibody (02/23/2021) SCRIBED HCV ab neg Blood specimen (specimen) us Jens Augustine MD LAB MICROBIOLOGY - GENERAL OR DERABLES Final Result from Last 3 Months or Most Recently Relevant to Health Maintenance Insurance [facility] Advance Directives For more information, please contact: [phone] * Full Code (Latest Code Status on File) Date Activated Date Inactivated Comments 08/17/2021 11:07 PM 08/18/2021 3:19 AM Full CPR in case of cardiopulmonary arrest Care Teams Furnace Tapper Relationship Specialty Start Date End Date Miscellaneous, Not In File PCP - General 12/22/20
--- OUTSIDE RECORDS SUMMARY | 2024-10-24 20:01 | XMS_ITS | Data Portability ---
Author Organization [employer] [facility] Address [address] [place] [address] Care Team Providers Care Pulp Maker Name Role Phone [facility] Security Tester Assessment No assessment recorded. Plan of Treatment Reminders Order Date Submit Date Provider Last Modified By Organization Details Last Modified Time Details Appointments [employer] FORWARDER SONO 30 2024 09:00A M [facility] [place] 2 Not available Not available Not available [employer]ANK[employer] FORWARDER EST 2024 09:30A M ELKIN ROSE Not available Not available Not available Lab pregnan cy test, urine 2023 024 [email or web address] [facility], [address] [place], [address], 05/11/2024 12:09:01 unliste d lab - STD screeni ng ([facility]) 2023 024 [employer], [address] [place] [address], [address], 03/20/2024 12:58:31 unliste d lab - STD screeni ng ([facility]) 2023 024 [employer], [address] [place] [address], [address], 02/15/2024 11:26:27 unliste d lab - Pap reflex hold 2023 024 [facility] [employer], [address] [place] [address], [address], 02/14/2024 11:29:47 pap, LB 2023 024 LOYALHANNA [employer] [facility], [address] [place], [address], 02/21/2024 09:44:19 STI panel 2023 024 [facility], [address] [place] [address], [address], 02/18/2024 08:56:23 bacteri al vaginos is + vaginit is panel, vaginal 2021 022 [id number]_ [id number] [facility], [address] [place] [address], [id number], 07/11/2022 03:39:04 RPR (rapid plasma reagin) , serum 2021 022 [employer] [facility], [address] [place], [address], 12/20/2021 10:02:00 HBsAg (hepati tis B surface Ag), serum 2021 022 [id number] [facility], [address] [place], [address], 12/20/2021 10:02:01 hepatit is C virus Ab, serum 2021 022 [employer] [facility], [address] [place], [address], 12/20/2021 10:02:01 HIV 1+2 Ab + HIV1 p24 Ag, quantit ative immunoa ssay, serum 2021 022 [id number] [facility], [address] [place], [address], 12/20/2021 10:02:01 pregnan cy test, urine 2021 022 [id number] [facility], [address], [place], [address], 12/13/2021 13:58:33 Referral None recorde d. Procedures None recorde d. Surgeries None recorde d. Imaging US, transva ginal 2023 024 KI[employer] Not available 05/29/2024 18:57:02 Medication Orders Prenata l 28 mg iron-80 0 mcg tablet 2023 024 [employer] [id number], [address], [place], [id number], 05/11/2024 12:09:06 Depo-Pr overa 150 mg/mL intramu scular syringe 2021 022 [email or web address] Not available 07/21/2022 10:19:43 Patient TargetsNo targets recorded. Patient Instructions Encounter Date Encounter Id Patient Instructions Last Modified By Organization Details Last Modified Time 12/13/2021 [id number] sexually transmitted disease education [email or web address] Not available 12/13/2021 13:59:25 - Refrain from washcloth/loofah use, uribe tarik products, frequent pantiliner use. - Pt instructed to wear cotton underwear, changing out of workout clothes quickly, hypoallergenic soap. -Discussed vaginal hygiene. -Encouraged safe sex. - Use a detergent free of dyes, enzymes and perfumes. Avoid using fabric softeners. Soak and rinse when using a stain removing product and then wash normally. Do not use a fabric softener. Soak and rinse in clear water all underwear and towels on when you have used a stain removing product. Then wash in your regular washing cycle. -Avoid tight clothing, especially clothing made of synthetic fabrics. Remove wet bathing and exercise clothing as soon as you can. - Avoid bath soaps, lotions, gels, etc. which contain perfumes. This includes many baby products and feminine hygiene products marked mild or for vaginal health . We suggest any of the following soaps: Dove-Hypoallergeni c, Neutrogena, Basis, or Pearls. Do not use soap directly on the vulvar skin just warm water and your hand will keep the vulvar area clean without irritating the skin. - Avoid all bubble baths, bath salts and scented oils. -Do not use hot water while bathing or showering. Only luke-warm water should only be used. -Avoid all feminine hygiene sprays, perfumes, adult, or baby wipes. Pour lukewarm water over the vulva after urinating if urine causes burning of the skin. Pat dry rather than rubbing with a towel. - Avoid the use of deodorized pads and tampons. Tampons should be used when the blood flow is heavy enough to soak one tampon in four hours or less. Tampons are safe for most women, but wearing them too long or when the blood flow is light may result in vaginal infection, increased discharge, odor, or toxic shock syndrome. Also, use only pads that have a cotton liner that comes in contact with your skin (no dry weave pads). - Avoid all over the counter creams or ointments, except A&D Ointment (if you have wool allergy do not use A&D). -DO NOT DOUCHE. Baking soda soaks will help rinse away extra discharge and help with odor. -DO NOT SHAVE, wax or laser the vulvar area (the bikini line is ok). -Some women may have problems with chronic dampness. Keeping dry is important. Choose cotton fabrics whenever you can. -Keep an extra pair of underwear with you in a small bag and change if you become damp during the day at work/school. -Gold Manzo Powder or Zeosorb Powder may be applied to the vulva and groin area one to two times per day to help absorb moisture. -Dryness and irritation during intercourse may be helped by using a lubricant. Use a small amount of a pure vegetable oil/olive oil or Crisco (solid or oil). The vegetable oils contain no chemicals to irritate vulvar/vaginal skin. Vegetable oils will rinse away with water and will not increase your chances of infection. Water-based products like K-Y Jelly are helpful, but may tend to dry before intercourse is over and also contain chemicals that can irritate your vulvar skin. It may be helpful to use a non-lubricated, non-spermicidal condom, and use vegetable oil as the lubricant. This will help keep the semen off the skin which can decrease burning and irritation after intercourse. CONTROL OPTIONS 1. All hormonal contraceptives will have an effect on vaginal secretions but should not increase your frequency of vaginitis. 2. Lubricated condoms, contraceptive jellies, creams, or sponges may cause itching and burning. Ask your health care provider for help. 3. The use of latex condoms with a vegetable oil as a lubricant (#14 above) is suggested to protect your skin. Oil based lubricants may affect the integrity of condoms when used for control or prevention of sexually transmitted diseases. Our experience has not found this to be a problem with vegetable based oils. However, the Centers for Disease Control recommends that condoms not be used with any oil based lubricants for control or prevention of sexually transmitted disease. Discussed ureaplasma/mycopla sma testing and treatment, if indicated. [email or web address] Not available 12/13/2021 11:56:10 02/14/2024 [id number] body mass index: care instructions Not available 02/14/2024 10:38:36 A healthy lifestyle: care instructions Not available 02/14/2024 10:38:35 Following the [employer] Food Guide: Care Instructions Not available 02/14/2024 10:38:36 exercise program : getting started Not available 02/14/2024 10:38:35 contraception information Not available 02/14/2024 10:38:36 learning about control Not available 02/14/2024 10:38:35 03/19/2024 [id number] exposure to sexually transmitted infections: care instructions [email or web address] Not available 03/19/2024 16:09:34 05/28/2024 [id number] [facility] OB Booklet [email or web address] Not available 05/28/2024 12:52:42 Reason for Referral None Reported. Results Created Date Observation Date Name Description Value Unit Range Abnormal Flag Note LastModifiedBy Organization Detail LastModifiedTime 12/14/19 22 12/14/2021 VAGIN ITIS PLUS STD PANEL bacterial vaginosis BV POS negati ve abnormal Not Available [facility] [address] [place], [address], 12/15/2021 09:19:07 12/14/19 22 12/14/2021 VAGIN ITIS PLUS STD PANEL mehnaz species C. spp neg negati ve normal Not Available [address], [address], 12/15/2021 09:19:07 12/14/19 22 12/14/2021 VAGIN ITIS PLUS STD PANEL mehnaz glabrata C. gla neg negati ve normal Not Available [address], [address], 12/15/2021 09:19:07 12/14/19 22 12/14/2021 VAGIN ITIS PLUS STD PANEL trichomonas vaginalis CV/TV TRICH neg negati ve normal Not Available [address], [address], 12/15/2021 09:19:07 12/14/19 22 12/14/2021 VAGIN ITIS PLUS STD PANEL chlamydia trachomatis CT neg negati ve normal This repor t is inten ded for us in clini montrell monit oring and manag ement of patie nts. It is not inten ded for use in medic al-le gal appli catio n. Not Available [address], [address], 12/15/2021 09:19:07 12/14/19 22 12/14/2021 VAGIN ITIS PLUS STD PANEL neisseria gonorrhoeae GC neg negati ve normal This repor t is inten ded for us in clini montrell monit oring and manag ement of patie nts. It is not inten ded for use in medic al-le gal appli catio n. Not Available [address], [address], 12/15/2021 09:19:07 12/14/19 22 12/13/2021 pregn riaz test, urine HCG negati ve Not Available [facility] [address], [place], [address], 12/13/2021 12:15:13 02/14/20 24 02/15/2024 STD SCREE DANII ([facility] ) hep BS Ag Non-Re active non-re active normal Not Available [address], [address], 02/15/2024 11:26:27 02/14/20 24 02/15/2024 STD SCREE DANII ([facility] ) hep C Ab Non-Re active non-re active normal Not Available [address], [address], 02/15/2024 11:26:27 02/14/20 24 02/15/2024 STD SCREE DANII ([facility] ) HIV 1/2 Ag/Ab Non-Re active non-re active normal Not Available [address], [address], 02/15/2024 11:26:27 02/14/20 24 02/15/2024 STD SCREKd PATELG ([facility] ) syphilis Ab Non-Re active non-re active normal Not Available [address], [address], 02/15/2024 11:26:27 02/14/20 24 02/17/2024 STI PANEL trichomonas vaginalis TRICH neg negati ve normal Not Available [address], [address], 02/18/2024 08:56:23 02/14/20 24 02/17/2024 STI PANEL chlamydia trachomatis CT neg negati ve normal This repor t is inten ded for us in clini montrell monit oring and manag ement of mika bazan. It is not inten ded for use in medic al-le gal appli catio n. Not Available [address], [address], 02/18/2024 08:56:23 02/14/20 24 02/17/2024 STI PANEL neisseria gonorrhoeae GC neg negati ve normal This repor t is inten ded for us in clini montrell monit oring and manag ement of mika nts. It is not inten ded for use in medic al-le gal appli catio n. Not Available [facility] [address] [place], [address], 02/18/2024 08:56:23 02/14/20 24 02/21/2024 THINP REP TIS PAP clinical information: normal None given Not Available [employer] [address], [address], 02/21/2024 09:44:18 02/14/20 24 02/21/2024 THINP REP TIS PAP LMP: normal NONE GIVEN Not Available [address], [address], 02/21/2024 09:44:18 02/14/20 24 02/21/2024 THINP REP TIS PAP prev. Pap: normal NONE GIVEN Not Available [employer] [address] [place], [address], 02/21/2024 09:44:18 02/14/20 24 02/21/2024 THINP REP TIS PAP prev. BX: normal NONE GIVEN Not Available [address] [place], [address], 02/21/2024 09:44:18 02/14/20 24 02/21/2024 THINP REP TIS PAP source: normal Cervi x Not Available [address] [place], [address], 02/21/2024 09:44:18 02/14/20 24 02/21/2024 THINP REP TIS PAP statement of adequacy: normal Satis facto ry for evalu ation . Endoc ervic al/tr ansfo rmati on zone compo nent prese nt. Age and/o r menst rual statu s not provi ded Not Available [address] [place], [address], 02/21/2024 09:44:18 02/14/20 24 02/21/2024 THINP REP TIS PAP general categorizati on: abnormal Cytol ogy Resul ts: Epith elial Cell Abnor malit y Not Available [facility] [address] [place], [address], 02/21/2024 09:44:18 02/14/20 24 02/21/2024 THINP REP TIS PAP interpretati on/result: abnormal Low Grade Squam ous Intra epith elial Lesio n (LSIL ) Not Available [facility] [address] [place], [address], 02/21/2024 09:44:18 02/14/20 24 02/21/2024 THINP REP TIS PAP comment: normal This Pap test has been evalu ated with compu ter william tegan techn ology . [facility]ge st clini montrell corre latio n and follo w-up as clini soila appro priat e Not Available [facility] [address] [place], [address], 02/21/2024 09:44:18 02/14/20 24 02/21/2024 THINP REP TIS PAP cytotechnolo gist: normal AYOUB, CT( CP) CT Scree danii locat ion: [id number] [place] [address] Not Available [facility] [address] [place], [address], 02/21/2024 09:44:18 02/14/20 24 02/21/2024 THINP REP TIS PAP pathologist: normal Griselda orozco M.D., Board Certi fied in Anato sven Patho logy and Cytop athol ogy. Phone : [phone] (elec flacani ken currie) Not Available [facility] [address] [place], [address], 02/21/2024 09:44:18 02/14/20 24 02/21/2024 THINP REP TIS PAP comment EXPLA NATOR Y NOTE: The Pap is a scree danii test for cervi montrell cance r. It is not a diagn ostic test and is subje ct to false negat drea and false posit drea resul ts. It is most relia ble when a satis facto ry sampl e, regul niecy obtai zander, is submi tted with relev ant clini montrell findi ngs and histo ry, and when the Pap resul t is evalu ated along with histo willy and curre nt clini montrell infor matio n. Not Available [facility] [address] [place], [address], 02/21/2024 09:44:18 03/19/20 24 03/20/2024 STD SCREE DANII ([facility] ) hep BS Ag Non-Re active non-re active normal Not Available [address], [address], 03/20/2024 12:58:31 03/19/20 24 03/20/2024 STD SCREE DANII ([facility] ) hep C Ab Non-Re active non-re active normal Not Available [address], [address], 03/20/2024 12:58:31 03/19/20 24 03/20/2024 STD SCREE DANII ([facility] ) HIV 1/2 Ag/Ab Non-Re active non-re active normal Not Available [address], [address], 03/20/2024 12:58:31 03/19/20 24 03/20/2024 STD SCREE DANII ([facility] ) syphilis Ab Non-Re active non-re active normal Not Available [address], [address], 03/20/2024 12:58:31 05/11/20 24 05/11/2024 pregn riaz test, urine HCG positi ve Not Available [facility] [address] [facility], [place], [address], 05/11/2024 11:59:31 05/29/20 24 05/28/2024 US, trans vagin al No observ ation record ed. anna [email or web address] [facility] [address], [place], [address], 05/29/2024 19:26:54 Result Notes None recorded. Problems No Known Problems Procedures Surgical History Date Name Laterality Status Provider Name and Address Organization Details Recorded Time 02/14/20 Date of Last Pap Smear completed Caitlin Anthony [facility] [employer] 03/19/2024 15:38:22 12/14/19 Depo Provera Injection completed Skyla Vela [facility] [employer] [facility] IV 12/13/2021 12:53:19 10/18/19 IUD Insertion cancelled Irina Mariet [facility] [employer] [facility] 10/16/2021 16:14:53 Imaging Results Imaging Date Name Status LastModified by Organization Details LastModified Time 05/28/2024 US, transvaginal completed anna [email or web address] [facility] [address], [place], [address], 05/29/2024 19:26:54 Procedure Notes None recorded. Medical Equipment None Reported. Allergies Allergen ID Allergen Name Allergen Category Reaction Reaction Severity Criticality Documentation Date Start Date Code Code System Note Provider Name and Address Organization Details Recorded Time [id number] amoxicill in medicatio n Not available Not available Not available 02/14/2024 723 RxNorm Tramea Erendira [facility], [facility] [employer] IV 4 10:06:28 118360 cow milk allergeni c extract food,medi cation Not available Not available Not available 05/11/2024 676[address] 5 RxNorm Caitlin barber [facility], [facility] [employer] IV 4 11:44:41 Medications Name Sig Start Date Stop Date Status Note LastModified by Organization Details LastModified Time multivita min tablet Take 1 tablet(s ) by mouth daily 09/28 completed Multivit amins Tablet Allow Substitu tion: True Refill Denied: No Not Available Not Available Not Available clindamyc in HCl 300 mg capsule TAKE 1 CAPSULE BY MOUTH EVERY 8 HOURS FOR 10 DAYS 03/19 completed Not Available Not Available Not Available polyethyl gadiel glycol 3350 17 gram oral powder packet MIX 1 PACKET WITH 8 OZ OF WATER AND DRINK ONCE DAILY 08/01 completed Not Available Not Available Not Available ibuprofen 800 mg tablet TAKE 1 TABLET BY MOUTH THREE TIMES DAILY NEEDED 02/13 completed Not Available Not Available Not Available Procardia XL 30 mg tablet,ex tended release Take 1 tablet(s ) by mouth daily 07/30 completed Procardi a XL 30mg Tablets, Extended Release RxNorm: 063908 Allow Substitu tion: True Refill Denied: No Not Available Not Available Not Available fluconazo le 150 mg tablet TAKE 1 TABLET BY MOUTH NOW AND 72 HOURS LATER 02/13 completed Not Available Not Available Not Available valacyclo vir 1 gram tablet TAKE 1 TABLET BY MOUTH THREE TIMES DAILY 03/19 completed Not Available Not Available Not Available cephalexi n 250 mg capsule 08/01 completed Not Available Not Available Not Available Claritin 10 mg tablet take 1 tablet PRN 09/28 completed Claritin Allergy 24 hr 10mg Tablet RxNorm: 615356 Allow Substitu tion: True Refill Denied: No Refill DateOccu rred: 08/25/19 16 Not Available Not Available Not Available fluconazo le 200 mg tablet TAKE 1 TABLET BY MOUTH NOW THEN REPEAT IN 72 HOURS 02/13 completed Not Available Not Available Not Available metronida zole 0.75 % (37.5 mg/5 gram) vaginal gel Insert 1 applicat orful every day by vaginal route at bedtime for 5 days. 07/21 completed Not Available Not Available Not Available ondansetr on HCl 4 mg tablet take 1 tablet (4 mg) by oral route every 6 hours as needed for nausea and vomiting active Not Available Not Available No t Available prednison e 20 mg tablet TAKE 2 TABLET BY MOUTH ONCE DAILY FOR 5 DAYS 02/13 completed Not Available Not Available Not Available metronida zole 500 mg tablet TAKE 1 TABLET BY MOUTH TWICE DAILY. NO ALCOHOL 24 HOURS AFTER LAST PILL 05/11 completed Not Available Not Available Not Available valacyclo vir 500 mg tablet TAKE 2 TABLETS BY MOUTH TWICE A DAY 12/13 completed Not Available Not Available Not Available sulfameth oxazole 800 mg-trimet hoprim 160 mg tablet TAKE 1 TABLET BY MOUTH TWICE DAILY 03/19 completed Not Available Not Available Not Available tramadol 50 mg tablet 02/13 completed Not Available Not Available Not Available ondansetr on 8 mg disintegr ating tablet Dissolve 1 tablet PO q 6 hours PRN nausea 11/16 completed Ondanset sushant HCl 8mg Tablets, Orally Disinteg rating RxNorm: 479563 Allow Substitu tion: True Refill Denied: No Not Available Not Available Not Available Vitamin tablet 07/30 completed Multivit bhakta Allow Substitu tion: True Refill Denied: No Refill DateOccu rred: 12/21/19 16 Not Available Not Available Not Available metoclopr amide 5 mg tablet active Not Available Not Available No t Available methocarb bertrand 750 mg tablet 02/13 completed Not Available Not Available Not Available phenazopy ridine 100 mg tablet TAKE 2 TABLETS BY MOUTH THREE TIMES DAILY FOR 2 DAYS 02/13 completed Not Available Not Available Not Available promethaz ine 50 mg tablet take 1 tablet (50 mg) by oral route every 4 hours as needed for nausea 09/08 completed prometha zine 50 mg oral tablet RxNorm: 573763 Allow Substitu tion: True Refill Denied: No Edited by: Lisa Mackenzie) on 03/24/20 21 Stopped by: Lisa Mackenzie) on Not Available Not Available Not Available cephalexi n 500 mg capsule TAKE 1 CAPSULE BY MOUTH EVERY 12 HOURS FOR 7 DAYS 02/12 completed Not Available Not Available Not Available promethaz ine 25 mg tablet 08/01 completed Not Available Not Available Not Available Provera 10 mg tablet take 1 tablet (10 mg) by oral route once daily for 10 days 08/26 completed Provera 10 mg oral tablet RxNorm: 0011135 Allow Substitu tion: True Refill Denied: No Edited by: lauryn oakley(Margaret Rice ) on 08/27/19 Stopped by: lauryn oakley(Margaret Rice ) on 08/27/19 Not Available Not Available Not Available polyethyl gadiel glycol 3350 17 gram/dose oral powder 08/01 completed Not Available Not Available Not Available scopolami ne 1 mg over 3 days transderm al patch apply 1 patch by transder mal route to the hairless area behind 1 ear at least 4 hr before effect is required ; reapply every 3 days as needed 09/08 completed scopolam ine base 1 mg over 3 days Transder mal Patch,Tr ansderma l 3 day RxNorm: 979389 Allow Substitu tion: True Refill Denied: No Edited by: Lisa Mackenzie) on 03/24/20 Stopped by: fer( Lisa Rico) on Not Available Not Available Not Available ondansetr on 4 mg disintegr ating tablet Place 1 tablet twice a day by translin gual route as needed, for nausea. 05/28 completed Not Available Not Available Not Available naproxen 500 mg tablet TAKE 1 TABLET BY MOUTH TWICE DAILY WITH FOOD 02/13 completed Not Available Not Available Not Available metoclopr amide 10 mg tablet TAKE 1 TABLET BY MOUTH EVERY 6 HOURS NEEDED FOR PAIN 08/01 completed Not Available Not Available Not Available azithromy pam 500 mg tablet TAKE ALL 4 TABLETS BY MOUTH AT ONE TIME. EAT WITH MEDICATI ON. 03/19 completed Not Available Not Available Not Available medroxypr ogesteron e 150 mg/mL intramusc ular syringe INJECT 1ML INTO THE MUSLCE EVERY 3 MONTHS 07/21 completed Not Available Not Available Not Available Abeba 0.35 mg tablet one tab po daily 04/16 completed Abeba 0.35mg Tablet Allow Substitu tion: True Refill Denied: No Not Available Not Available Not Available Clotrimaz ole 3 Day 2 % vaginal cream Insert 1 applicat orful(s) in vagina for 3 days 01/22 completed Clotrima zole 3-Day 2% Vaginal Cream RxNorm: 090073 Allow Substitu tion: True Refill Denied: No Not Available Not Available Not Available nitrofura ntoin monohydra te/macroc rystals 100 mg capsule TAKE 1 CAPSULE BY MOUTH TWICE DAILY FOR 5 DAYS 07/21 completed Not Available Not Available Not Available Prozac Take 1 capsule( s) by mouth daily 09/28 completed Prozac 10mg Capsules RxNorm: 645355 Allow Substitu tion: True Refill Denied: No Refill DateOccu rred: 08/25/19 16 Not Available Not Available Not Available 02/09 completed Allow Substitu tion: False Refill Denied: No Refill DateOccu rred: 01/13/20 21 Edited by: Debbie Wetzel ) on 02/10/20 21 Stopped by: Debbie Wetzel ) on 02/10/20 21 Not Available Not Available Not Available Multivita mins 09/03 completed Multivit amins Allow Substitu tion: True Refill Denied: No Not Available Not Available Not Available Implanon 09/18 completed Implanon RxNorm: 33119 Allow Substitu tion: True Refill Denied: No Refill DateOccu rred: 07/30/19 17 Not Available Not Available Not Available FeroSul 325 mg (65 mg iron) tablet 1 P.O. BID 09/08 completed Not Available Not Available Not Available 28 mg iron-800 mcg tablet TAKE 1 TABLET BY MOUTH ONCE DAILY active Not Available Not Available No t Available PreNata 29 mg iron-1 mg chewable tablet Chew 1 tablet every day by oral route. 09/08 completed Not Available Not Available Not Available Xulane 150 mcg-35 mcg/24 hr transderm al patch apply 1 patch by transder mal route once weekly 08/01 completed norelges tromin-e thin.est radioL 150-35 mcg/24 hr Transder mal Patch, Transder mal Weekly RxNorm: 4442619 Allow Substitu tion: True Refill Denied: No Edited by: Lisa Mackenzie) on 09/27/19 21 Stopped by: Lisa Mackenzie) on Not Available Not Available Not Available clonidine HCl Take 1 tablet(s ) by mouth daily 09/28 completed Clonidin e HCl 0.1mg Tablet RxNorm: 628329 Allow Substitu tion: True Refill Denied: No Refill DateOccu rred: 08/25/19 16 Not Available Not Available Not Available PNV 29-1 29 mg iron-1 mg tablet TAKE 1 TABLET BY MOUTH EVERY DAY 08/01 completed Not Available Not Available Not Available Vitals Date Recorded Body height Body mass index (BMI) Body weight Systolic blood pressure Diastolic blood pressure Provider Name and Address Organization Details Last Updated DateTime 12/13/2021 162.56 cm 21.3 kg/m2 35341.45 g 120 mm[Hg] 80 mm[Hg] Skyla Vela [employer] [facility] 11:56:32 Date Recorded Body height Body mass index (BMI) Body weight Body temperature Systolic blood pressure Diastolic blood pressure Provider Name and Address Organization Details Last Updated DateTime 4 162.56 cm 20.6 kg/m2 92520.3 7 g 97 [degF] 100 mm[Hg] 60 mm[Hg] Phu Krishna [employer] [facility] 10:11:34 Date Recorded Body height Body mass index (BMI) Body weight Systolic blood pressure Diastolic blood pressure Provider Name and Address Organization Details Last Updated DateTime 03/19/2024 162.56 cm 20.9 kg/m2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
[2024-10-24 20:02] VITALS: BP 137/82; PULSE 83; RESP 15; TEMP 36.2; O2SAT 100
--- OUTSIDE RECORDS SUMMARY | 2024-10-24 20:40 | XMS_ITS | Referral Summary ---
Author Organization [facility] Address [address] [place] [address] Care Team Providers Care Water Resources Project Manager Name Role Phone Miscellaneous, Not In File Primary Care Provider Unavailable Encounters Date Type Department Care Team Description 08/25/2024 9:21 AM QA SOFTWARE TEST ENGINEER - 08/25/2024 11:59 PM QA SOFTWARE TEST ENGINEER Hospital Encounter [facility] Cardiology [address], [place] [id number] Encounter for other preprocedural examination Discharge Disposition: Discharge to home or self care from Last 3 Months Allergies No known active allergies Medications PNV #[id number] acid-dha 35 mg iron-5 mg iron-1 mg [...] Comments ECG 12-LEAD Routine 08/25/2024 9:37 AM QA SOFTWARE TEST ENGINEER Encounter for other preprocedural examination HEPATITIS C ANTIBODY Routine 02/23/2021 from Last 3 Months or Most Recently Relevant to Health Maintenance Results * ECG 12 lead (08/25/2024 9:37 AM QA SOFTWARE TEST ENGINEER) 08/25/2024 9:40 AM QA SOFTWARE TEST ENGINEER Narrative [facility] - 08/25/2024 11:38 AM QA SOFTWARE TEST ENGINEER Vent Rate: 73 bpm RR Interval: 820 msec MD Interval: 128 msec QRS Duration: 95 msec QT Interval: 398 msec QTC Interval: 423 msec P-R-T [place]: 8 - 25 - 31 degrees IMPRESSION: SINUS RHYTHM NORMAL ECG Electronically Signed By: Rainer Ibrahim MD [facility] Abundio Rios MD ECG ORDERABLES Final Resu lt [facility] * Hepatitis C antibody [...] ID:Not on file Type:MEDICAID RISK OTHER Address: [address] [place] [address] [place] [address] Advance Directives For more information, please contact: [phone] * Full Code (Latest Code Status on File) Date Activated Date Inactivated Comments 08/17/2021 11:07 PM 08/18/2021 3:19 AM Full CPR in case of cardiopulmonary arrest Care Teams Water Resources Project Manager Relationship Specialty Start Date End Date Miscellaneous, Not In File PCP - General 12/22/20
--- OUTSIDE RECORDS SUMMARY | 2024-10-24 20:40 | XMS_ITS | Clinical Summary ---
Author Organization [facility] Address [address] [place] [address] Care Team Providers Care Home Care Scheduler Name Role Phone Miscellaneous, Not In File Primary Care Provider Unavailable Allergies No known active allergies Medications PNV #[id number] acid-dha 35 mg iron-5 mg iron-1 mg capsule Take by mouth daily Active Active Problems Problem Noted Date Diagnosed Date Normal first with uncertain date of last menstrual period, antepartum 08/17/2021 Vaginal bleeding in 06/07/2021 Encounters Date Type Department Care Team Description 08/25/2024 9:21 AM BUSINESS ASSISTANT - 08/25/2024 11:59 PM [facility] Hospital Encounter [facility] Cardiology [address] [place] [id number] Encounter for other preprocedural examination Discharge [...] oz) F Vag-S pont Livin g Delivery Location:[facility] Last Filed Vital Signs Vital Sign Reading [...] Comments ECG 12-LEAD Routine 08/25/2024 9:37 AM BUSINESS ASSISTANT Encounter for other preprocedural examination HEPATITIS C ANTIBODY Routine 02/23/2021 from Last 3 Months or Most Recently Relevant to Health Maintenance Results * ECG 12 lead (08/25/2024 9:37 AM BUSINESS ASSISTANT) 08/25/2024 9:40 AM BUSINESS ASSISTANT Narrative [facility] - 08/25/2024 11:38 AM BUSINESS ASSISTANT Vent Rate: 73 bpm RR Interval: 820 msec CO Interval: 128 msec QRS Duration: 95 msec QT Interval: 398 msec QTC Interval: 423 msec P-R-T [place]: 8 - 25 - 31 degrees IMPRESSION: SINUS RHYTHM NORMAL ECG Electronically Signed By: Rainer Ibrahim MD [facility] Abundio Rios MD ECG ORDERABLES Final Resu lt [facility] * Hepatitis C antibody (02/23/2021) SCRIBED HCV ab neg Blood specimen (specimen) us Jens Augustine MD LAB MICROBIOLOGY - GENERAL OR DERABLES Final Result from Last 3 Months or Most Recently Relevant to Health Maintenance Insurance [facility] Advance Directives For more information, please contact: [phone] * Full Code (Latest Code Status on File) Date Activated Date Inactivated Comments 08/17/2021 11:07 PM 08/18/2021 3:19 AM Full CPR in case of cardiopulmonary arrest Care Teams Home Care Scheduler Relationship Specialty Start Date End Date Miscellaneous, Not In File PCP - General 12/22/20
--- NOTE | 2024-10-24 21:22 | PC.NURSE ---
Pt to [facility] nurses station how do i get out of here. I have been here too long and aint no one been in to see me yet. This RN did explain that a provider did just sign up for her and that she would be in shortly to see her. Pt said thats ok im out. pt observed ambulatory with steady gait to exit. no distress noted.
== END 2024-10-24 21:29 | disposition left against medical advice (07) ==
PROVIDERS: Emergency Provider Physician Assistant
DX: K08.89 Other specified disorders of teeth and supporting structures (principal)
CPT/HCPCS: 99199

== ENCOUNTER 2025-01-05 16:41 | Emergency (ER) | payer OTHER, SELFPAY ==
--- NOTE | ~2025-01-05 | US_ITS ---
EXAMINATION: US OB <=14 wk fetus w TV DATE: 01/05/2025 19:11 INDICATION: Abdominal pain during first trimester TECHNIQUE: Real-time pelvic ultrasound utilizing both a transvaginal and transabdominal probe was pe rformed. The interpreting radiologist was not present for the study. COMPARISON: None. FINDINGS: The uterus measures 10.1 x 3.6 x 5.1 cm. There is an intrauterine gestational sac. A single yolk sac is identified but no definitive pole. The mean sac diameter measures 8 mm, which correlates wi th an estimated gestational age of 5 weeks and 4 days. The right ovary measures 3.2 x 2.2 x 3.1 cm. 2.0 x 1.0 cm centrally hypoechoic likely corpus luteum c yst in the right ovary with thickened echogenic peripheral wall with increased vascular flow on color Doppler. The left ovary measures 2.2 x 1.6 x 1.2 cm. Vascular flow also identified at the left ovary on color Doppler. There is no free fluid in the pelvis. IMPRESSION: 1. Single intrauterine gestational sac with yolk sac but no discernible pole yet apparent likel y due to early stage of . 2. Gestational age by ultrasound based upon mean sac diameter of 5 weeks 4 day(s) +/- 4 day(s) with ultrasound estimated date of delivery (JESSICA) of 09/03/2025. Reviewed, dictated and finalized at location A. IMPRESSION: 1. Single intrauterine gestational sac with yolk sac but no discernible p ole yet apparent likely due to early stage of . 2. Gestational age by ultrasound based upon mean sac diameter of 5 weeks 4 day (s) +/- 4 day(s) with ultrasound estimated date of delivery (JESSICA) of 09/03/2025.
--- OUTSIDE RECORDS SUMMARY | 2025-01-05 16:43 | XMS_ITS | Data Portability ---
[facility] [address] [facility] [place] [address] Assessment Encounter Date Assessment Date Assessment LastModified by Organization Details LastModified Time 09/30/2024 09/30/2024 Pt's case was discussed w/resident. Documentation was reviewed, and I agree w/resident's note. Dr. Shah Not available 10/05/2024 14:35:31 Plan of Treatment Reminders Order Date Submit Date Provider Last Modified By Organization Details Last Modified Time Details Appointments ANY 2024 11:00A M HAIM LORENZO MD Not available Not available Not available NEW PATIENT 2024 08:40A M EDWINA MURPHY, DO Not available Not available Not available Lab HCG, intact + beta subunit, quant, serum or plasma 2024 025 [email or web address] (Centralized Electronic Ordering - All Locations), Patient Can Go To The Location Of Their Choice, [id number] 01/01/2025 15:06:15 TSH + free T4, serum 2021 022 [facility], [address], [address], [place], [address], 03/02/2022 08:34:56 CMP, serum or plasma 2021 022 [facility], [address], [address], [place], [address], 03/02/2022 08:34:56 CBC 2021 022 [facility], [address], [place], [address], 03/02/2022 08:34:57 Referral None recorded . Procedures None recorded . Surgeries None recorded . Imaging electroc ardiogra m, routine ECG, 12 leads min 2024 025 [facility], [address] [facility], [place], [address], 08/27/2024 14:33:56 Medication Orders metoclop ramide 10 mg tablet 2024 025 [id number], [address], [id number], 11/02/2024 10:05:22 sumatrip leo 100 mg tablet 2024 025 [facility][id number], [address], [place], [id number], 11/02/2024 09:40:05 ondanset sushant HCl 4 mg tablet 2024 025 [facility] #[id number] [place], [place], [id number], 11/02/2024 09:40:06 Patient TargetsNo targets recorded. Patient Instructions Encounter Date Encounter Id Patient Instructions Last Modified By Organization Details Last Modified Time 03/01/2022 [id number] abnormal weight loss: care instructions [email or web address] Not available 03/01/2022 14:46:58 08/25/2024 [id number] pre-surgery screening isamar Not available 08/25/2024 10:01:18 Attending Physic marni Attestation I did not personally see or examine the patient with the resident. I was physically present to provide indirect supervision through entire encounter. I have reviewed the documentation and agree with the history, physical findings, work-up, and medical decision making as recorded. Belcher Metias, MD [email or web address] Not available 08/25/2024 09:58:20 11/02/2024 [id number] [facility]. I have reviewed the written findings and agree. I have reviewed the chart for the following: - Patient without positive test. Will obtain serum beta hCG for confirmation. - Will start Metoclopramide QDaily PRN for migraine with concern for possible with nausea. Consider adding diphenhydramine to counter the akathisia from metoclopramide. - NSAIDs should be avoided in the 1st and 3rd trimester, however can be considered in the second trimester -Also consider Acetaminophen, 1,000 mg up to three times per day, with/without caffeine Attending: MD jas [email or web address] Not available 12/19/2024 16:18:04 Reason for Referral None Reported. Results Created Date Observation Date Name Description Value Unit Range Abnormal Flag Note LastModifiedBy Organization Detail LastModifiedTime 03/01/2003/02/2022 TSH+F REE T4 TSH 0.851 uIU/m L 0.450- 4.500 Not Available [facility] ([facility]) [address] [place], [address], 03/02/2022 08:34:55 03/01/20 22 03/02/2022 TSH+F REE T4 T4,free(dire ct) 1.48 NG/dL 0.82-1 .77 Not Available [facility] ([facility]) [address] [place], [address], 03/02/2022 08:34:55 03/01/20 22 03/02/2022 COMP. METAB OLIC PANEL (14) glucose 83 mg/dL 65-99 Not Available [facility] ([facility]) [address] [place], [address], 03/02/2022 08:34:56 03/01/20 22 03/02/2022 COMP. METAB OLIC PANEL (14) BUN 12 mg/dL 6-20 Not Available [facility] ([facility]) [address] [facility] [place], [address], 03/02/2022 08:34:56 03/01/20 22 03/02/2022 COMP. METAB OLIC PANEL (14) creatinine 0.72 mg/dL 0.57-1 .00 Not Available [facility] ([facility]) [address] [place], [address], 03/02/2022 08:34:56 03/01/20 22 03/02/2022 COMP. METAB OLIC PANEL (14) eGFR 121 mL/mi n/1.7 3 >59 Not Available [facility] ([facility]) [address] [facility] [place], [address], 03/02/2022 08:34:56 03/01/20 22 03/02/2022 COMP. METAB OLIC PANEL (14) BUN/creatini ne ratio 17 9-23 Not Available [facility] ([facility]) [address] [facility], [place], [address], 03/02/2022 08:34:56 03/01/20 22 03/02/2022 COMP. METAB OLIC PANEL (14) sodium 138 mmol/ L 134-14 4 Not Available [facility] ([facility]) [address] [facility] [place], [address], 03/02/2022 08:34:56 03/01/20 22 03/02/2022 COMP. METAB OLIC PANEL (14) potassium 3.7 mmol/ L 3.5-5. 2 Not Available [facility] ([facility]) [address] [facility] [place], [address], 03/02/2022 08:34:56 03/01/20 22 03/02/2022 COMP. METAB OLIC PANEL (14) chloride 101 mmol/ L 96-106 Not Available [facility] ([facility]) [address] [facility] [place], [address], 03/02/2022 08:34:56 03/01/20 22 03/02/2022 COMP. METAB OLIC PANEL (14) carbon dioxide, total 20 mmol/ L 20-29 Not Available [facility] ([facility]) [address] [place], [address], 03/02/2022 08:34:56 03/01/20 22 03/02/2022 COMP. METAB OLIC PANEL (14) calcium 9.1 mg/dL 8.7-10 .2 Not Available [facility] ([facility]) [address], [place], [address], 03/02/2022 08:34:56 03/01/20 22 03/02/2022 COMP. METAB OLIC PANEL (14) protein, total 7.5 g/dL 6.0-8. 5 Not Available [facility] ([facility]) [address] [place], [address], 03/02/2022 08:34:56 03/01/20 22 03/02/2022 COMP. METAB OLIC PANEL (14) albumin 4.6 g/dL 3.9-5. 0 Not Available [facility] ([facility]) [address] [place], [address], 03/02/2022 08:34:56 03/01/20 22 03/02/2022 COMP. METAB OLIC PANEL (14) globulin, total 2.9 g/dL 1.5-4. 5 Not Available [facility] ([facility]) [address] [place], [address], 03/02/2022 08:34:56 03/01/20 22 03/02/2022 COMP. METAB OLIC PANEL (14) A/G ratio 1.6 1.2-2. 2 Not Available [facility] ([facility]) [address] [place], [address], 03/02/2022 08:34:56 03/01/20 22 03/02/2022 COMP. METAB OLIC PANEL (14) bilirubin, total 0.5 mg/dL 0.0-1. 2 Not Available [facility] ([facility]) [address] [place], [address], 03/02/2022 08:34:56 03/01/20 22 03/02/2022 COMP. METAB OLIC PANEL (14) alkaline phosphatase 44 IU/L 44-121 Not Available [facility] ([facility]) [address] [facility], [place], [address], 03/02/2022 08:34:56 03/01/20 22 03/02/2022 COMP. METAB OLIC PANEL (14) AST (SGOT) 19 IU/L 0-40 Not Available [facility] ([facility]) [address] [facility], [place], [address], 03/02/2022 08:34:56 03/01/20 22 03/02/2022 COMP. METAB OLIC PANEL (14) ALT (SGPT) 10 IU/L 0-32 Not Available [facility] ([facility]) [address] [place], [address], 03/02/2022 08:34:56 03/01/20 22 03/02/2022 CBC, PLATE LET, NO DIFFE RENTI AL WBC 4.7 x10e3 /uL 3.4-10 .8 Not Available [facility] ([facility]) [address] [place], [address], 03/02/2022 08:34:57 03/01/20 22 03/02/2022 CBC, PLATE LET, NO DIFFE RENTI AL RBC 4.31 x10e6 /uL 3.77-5 .28 Not Available [facility] ([facility]) [address] [place], [address], 03/02/2022 08:34:57 03/01/20 22 03/02/2022 CBC, PLATE LET, NO DIFFE RENTI AL hemoglobin 11.8 g/dL 11.1-1 5.9 Not Available [facility] ([facility]) [address] [facility], [place], [address], 03/02/2022 08:34:57 03/01/20 22 03/02/2022 CBC, PLATE LET, NO DIFFE RENTI AL hematocrit 36.8 % 34.0-4 6.6 Not Available [facility] ([facility]) [address] [facility], [place], [address], 03/02/2022 08:34:57 03/01/2003/02/2022 CBC, PLATE LET, NO DIFFE RENTI AL MCV 85 fL 79-97 Not Available [facility] ([facility]) [address] [facility], [place], [address], 03/02/2022 08:34:57 03/01/20 22 03/02/2022 CBC, PLATE LET, NO DIFFE RENTI AL MCH 27.4 pg 26.6-3 3.0 Not Available [facility] ([facility]) [address] [facility], [place], [address], 03/02/2022 08:34:57 03/01/20 22 03/02/2022 CBC, PLATE LET, NO DIFFE RENTI AL MCHC 32.1 g/dL 31.5-3 5.7 Not Available [facility] ([facility]) [address] [facility], [place], [address], 03/02/2022 08:34:57 03/01/20 22 03/02/2022 CBC, PLATE LET, NO DIFFE RENTI AL RDW 13.5 % 11.7-1 5.4 Not Available [facility] ([facility]) [address] [facility], [place], [address], 03/02/2022 08:34:57 03/01/20 22 03/02/2022 CBC, PLATE LET, NO DIFFE RENTI AL platelets 182 x10e3 /uL 150-45 0 Not Available [facility] ([facility]) [address] [facility], [place], [address], 03/02/2022 08:34:57 03/01/2003/02/2022 CBC, PLATE LET, NO DIFFE RENTI AL NRBC MOLDER LABELS Not Available [facility] ([facility]) [address] [facility], [place], [address], 03/02/2022 08:34:57 05/19/20 23 05/20/2023 Chlam ydia trach omati s and Neiss eria gonor rhoea e rRNA panel - Speci men by ARIANNE with probe detec tion chlamydia trachomatis DNA [presence] in specimen by ARIANNE with probe detection NOT DETECT ED text: not detect ed CHLAM YDIA DNA AMPLI FICAT ION NOT DETEC SHOSHANA Not Detec shoshana 05/20 12:25 AM CONTROL OFFICER [employer] [facility] Not Available Not Available 08/18/2024 14:22:14 [...] SHOSHANA Not Detec shoshana 05/20 12:25 AM CONTROL OFFICER [facility] Not Available Not Available 08/18/2024 14:22:14 05/19/20 [...] to Dark Yello w 05/17 11:48 PM CONTROL OFFICER [employer] [facility] Not Available Not Available 08/18/2024 14:22:16 05/18/2005/18/2024 Urina lysis compl ete panel - Urine clarity UA Slight ly Cloudy text: clear abnormal HARITHA TY UA Sligh tly Blaine y (A) Clear 05/17 11:48 PM CONTROL OFFICER [employer] [facility] Not Available Not Available 08/18/2024 14:22:16 05/18/2005/18/2024 Urina lysis compl ete panel - Urine specific gravity UA 1.025 low: 1.003h igh: 1.035 SPECI FIC GRAVI TY UA 1.025 1.003 - 1.035 05/17 11:48 PM CONTROL OFFICER [employer] [facility] [facility] Not Available Not Available 08/18/2024 14:22:16 05/18/2005/18/2024 Urina lysis compl ete panel - Urine pH UA 5 low: 5high: 8 PH UA 5.0 5.0 - 8.0 05/17 11:48 PM CONTROL OFFICER [employer] [facility] Not Available Not Available 08/18/2024 14:22:16 05/18/2005/18/2024 Urina lysis compl ete panel - Urine leukocyte esterase UA Negati ve text: negati ve LEUKO CYTE MONSERRAT ASE UA Negat mundo Negat mundo 05/17 11:48 PM CONTROL OFFICER [facility] Not Available Not Available 08/18/2024 14:22:16 05/18/2005/18/2024 Urina lysis compl ete panel - Urine nitrite UA Negati ve text: negati ve NITRI TE UA Negat mundo Negat mundo 05/17 11:48 PM CONTROL OFFICER [facility] Not Available Not Available 08/18/2024 14:22:16 05/18/2005/18/2024 Urina lysis compl ete panel - Urine protein [presence] in urine Negati ve text: negati ve PROTE IN UA Negat mundo Negat mundo 05/17 11:48 PM CONTROL OFFICER [facility] Not Available Not Available 08/18/2024 14:22:16 05/18/2005/18/2024 Urina lysis compl ete panel - Urine glucose UA Negati ve text: negati ve GLUCO SE UA Negat mundo Negat mundo 05/17 11:48 PM CONTROL OFFICER [facility] Not Available Not Available 08/18/2024 14:22:16 05/18/2005/18/2024 Urina lysis compl ete panel - Urine ketones UA Trace text: negati ve abnormal KETON ES UA Trace (A) Negat mundo 05/17 11:48 PM CONTROL OFFICER [facility] Not Available Not Available 08/18/2024 14:22:16 05/18/2005/18/2024 Urina lysis compl ete panel - Urine urobilinogen UA Normal high: 2mg/dL UROBI LINOG EN UA Griselda l <2.0 mg/dL 05/17 11:48 PM CONTROL OFFICER [facility] Not Available Not Available 08/18/2024 14:22:16 11/25/20 24 05/18/2024 Urina lysis compl ete panel - Urine bilirubin UA Negati ve text: negati ve BILIR UBIN UA Negat mundo Negat mundo 05/17 11:48 PM CONTROL OFFICER [facility] Not Available Not Available 08/18/2024 14:22:16 05/18/2005/18/2024 Urina lysis compl ete panel - Urine blood UA Negati ve text: negati ve BLOOD UA Negat mundo Negat mundo 05/17 11:48 PM CONTROL OFFICER [facility] Not Available Not Available 08/18/2024 14:22:16 05/18/2005/18/2024 Urina lysis compl ete panel - Urine WBC UA 0-2 text: 0 - 2 /hpf WBC UA 0-2 0 - 2 /hpf 05/17 11:48 PM CONTROL OFFICER [facility] Not Available Not Available 08/18/2024 14:22:16 05/18/2005/18/2024 Urina lysis compl ete panel - Urine RBC UA 3-5 text: 0 - 2 /hpf abnormal RBC UA 3-5 (A) 0 - 2 /hpf 05/17 11:48 PM CONTROL OFFICER [facility] Not Available Not Available 08/18/2024 14:22:16 05/18/2005/18/2024 Urina lysis compl ete panel - Urine bacteria UA 1+ text: negati ve /hpf abnormal BACTE BÁRBARA UA 1+ (A) Negat mundo /hpf 05/17 11:48 PM CONTROL OFFICER [facility] Not Available Not Available 08/18/2024 14:22:16 05/18/2005/18/2024 Urina lysis compl ete panel - Urine epithelial cells, urine 6-10 text: 0 - 5 /hpf abnormal EPITH ELIAL CELLS , URINE 6-10 (A) 0 - 5 /hpf 05/17 11:48 PM CONTROL OFFICER [facility] Not Available Not Available 08/18/2024 14:22:16 05/18/2005/18/2024 Urina lysis compl ete panel - Urine ascorbic acid UA Positi ve text: negati ve abnormal Ascor bic Acid UA Posit mundo (A) Negat mundo 05/17 11:48 PM CONTROL OFFICER [employer] [facility] Not Available Not Available 08/18/2024 14:22:16 05/18/2005/18/2024 Urina lysis compl ete panel - Urine interpretati on and review of laboratory results Abnorm al Not Available Not Available 14:22:16 05/18/2005/18/2024 CBC W Auto Diffe renti al panel - Blood leukocytes [#/volume] in blood 8.3 K/uL low: 4K/uLh igh: 9.8K/u L WBC 8.3 4.0 - 9.8 K/uL 05/17 11:45 PM CONTROL OFFICER [employer] [facility] Not Available Not Available 08/18/2024 14:22:16 05/18/2005/18/2024 CBC W Auto Diffe renti al panel - Blood RBC 3.89 text: 3.90 - 4.90 M/uL low RBC 3.89 (L) 3.90 - 4.90 M/uL 05/17 11:45 PM CONTROL OFFICER [employer] [facility] Not Available Not Available 08/18/2024 14:22:16 05/18/2005/18/2024 CBC W Auto Diffe renti al panel - Blood hemoglobin 11.4 g/dL low: 11.8g/ dLhigh : 14.8g/ dL low HEMOG LOBIN 11.4 (L) 11.8 - 14.8 g/dL 05/17 11:45 PM [employer] [facility] Not Available Not Available 08/18/2024 14:22:16 05/18/20 24 05/18/2024 CBC W Auto Diffe renti al panel - Blood hematocrit [volume fraction] of blood by automated count 33.6 % low: 35.5%h igh: 44% low HEMAT OCRIT 33.6 (L) 35.5 - 44.0 % 05/17 11:45 PM [facility] Not Available Not Available 08/18/2024 14:22:16 05/18/2005/18/2024 CBC W Auto Diffe renti al panel - Blood MCV 86.4 fL low: 82fLhi gh: 99fL MCV 86.4 82.0 - 99.0 fL 05/17 11:45 PM [facility] Not Available Not Available 08/18/2024 14:22:16 05/18/2005/18/2024 CBC W Auto Diffe renti al panel - Blood MCH 29.3 pg low: 27.2pg high: 32.6pg MCH 29.3 27.2 - 32.6 pg 05/17 11:45 PM [facility] Not Available Not Available 08/18/2024 14:22:16 05/18/2005/18/2024 CBC W Auto Diffe renti al panel - Blood MCHC 33.9 g/dL low: 31.5g/ dLhigh : 35.5g/ dL MCHC 33.9 31.5 - 35.5 g/dL 05/17 11:45 PM [facility] Not Available Not Available 08/18/2024 14:22:16 05/18/2005/18/2024 CBC W Auto Diffe renti al panel - Blood RDW 13.7 % low: 11.5%h igh: 14.5% RDW 13.7 11.5 - 14.5 % 05/17 11:45 PM [facility] Not Available Not Available 08/18/2024 14:22:16 05/18/2005/18/2024 CBC W Auto Diffe renti al panel - Blood RDW-stdev 43.4 fL low: 37.1fL high: 48.7fL RDW-S TDEV 43.4 37.1 - 48.7 fL 05/17 11:45 PM CONTROL OFFICER [facility] Not Available Not Available 08/18/2024 14:22:16 05/18/20 24 05/18/2024 CBC W Auto Diffe renti al panel - Blood platelets [#/volume] in blood by automated count 174 K/uL low: 140K/u Lhigh: 350K/u L PLATE LETS 174 140 - 350 K/uL 05/17 11:45 PM CONTROL OFFICER [employer] [facility] Not Available Not Available 08/18/2024 14:22:16 05/18/20 24 05/18/2024 CBC W Auto Diffe renti al panel - Blood MPV 12.1 fL low: 9.3fLh igh: 12.4fL MPV 12.1 9.3 - 12.4 fL 05/17 11:45 PM CONTROL OFFICER [facility] Not Available Not Available 08/18/2024 14:22:16 05/18/20 24 05/18/2024 CBC W Auto Diffe renti al panel - Blood neutrophils 57 % NEUTR OPHIL S 57 % 05/17 11:45 PM [facility] Not Available Not Available 08/18/2024 14:22:16 05/18/20 24 05/18/2024 CBC W Auto Diffe renti al panel - Blood lymphocytes/ 100 leukocytes in blood by automated count 34 % LYMPH OCYTE S 34 % 05/17 11:45 PM CONTROL OFFICER [employer] [facility] Not Available Not Available 08/18/2024 14:22:16 05/18/20 24 05/18/2024 CBC W Auto Diffe renti al panel - Blood monocytes 5 % MONOC YTES 5 % 05/17 11:45 PM [facility] Not Available Not Available 08/18/2024 14:22:16 05/18/20 24 05/18/2024 CBC W Auto Diffe renti al panel - Blood eosinophils 3 % EOSIN OPHIL S 3 % 05/17 11:45 PM [facility] Not Available Not Available 08/18/2024 14:22:16 05/18/20 24 05/18/2024 CBC W Auto Diffe renti al panel - Blood basophils 1 % BASOP HILS 1 % 05/17 11:45 PM [facility] Not Available Not Available 08/18/2024 14:22:16 05/18/20 24 05/18/2024 CBC W Auto Diffe renti al panel - Blood immature granulocytes 0 % IMMAT URE GRANU LOCYT ES 0 % 05/17 11:45 PM [facility] Not Available Not Available 08/18/2024 14:22:16 05/18/2005/18/2024 CBC W Auto Diffe renti al panel - Blood neutrophils [#/volume] in blood by automated count 4.69 K/uL low: 1.9K/u Lhigh: 7K/uL NEUTR OPHIL ABSOL [place] 4.69 1.90 - 7.00 K/uL 05/17 11:45 PM [facility] Not Available Not Available 08/18/2024 14:22:16 05/18/20 24 05/18/2024 CBC W Auto Diffe renti al panel - Blood lymphocyte absolute 2.82 K/uL low: 0.7K/u Lhigh: 4.5K/u L LYMPH OCYTE ABSOL [place] 2.82 0.70 - 4.50 K/uL 05/17 11:45 PM [facility] Not Available Not Available 08/18/2024 14:22:16 05/18/20 24 05/18/2024 CBC W Auto Diffe renti al panel - Blood monocyte absolute 0.43 K/uL low: 0.1K/u Lhigh: 1.3K/u L MONOC YTE ABSOL [place] 0.43 0.10 - 1.30 K/uL 05/17 11:45 PM [facility] Not Available Not Available 08/18/2024 14:22:16 05/18/20 24 05/18/2024 CBC W Auto Diffe renti al panel - Blood eosinophil absolute 0.28 K/uL low: 0K/uLh igh: 0.7K/u L EOSIN OPHIL ABSOL [place] 0.28 0.00 - 0.70 K/uL 05/17 11:45 PM CONTROL OFFICER [employer] [facility] Not Available Not Available 08/18/2024 14:22:16 05/18/20 24 05/18/2024 CBC W Auto Diffe renti al panel - Blood basophils absolute 0.04 K/uL low: 0K/uLh igh: 0.2K/u L BASOP HILS ABSOL [place] 0.04 0.00 - 0.20 K/uL 05/17 11:45 PM CONTROL OFFICER [facility] Not Available Not Available 08/18/2024 14:22:16 05/18/20 24 05/18/2024 CBC W Auto Diffe renti al panel - Blood immature granulocytes absolute 0.01 K/uL low: 0K/uLh igh: 0.03K/ uL IMMAT URE GRANU LOCYT ES ABSOL [place] 0.01 0.00 - 0.03 K/uL 05/17 11:45 PM CONTROL OFFICER [facility] [employer] [facility] Not Available Not Available 08/18/2024 14:22:16 [...] TYPE URINE CLEAN CATCH 05/28 12:48 PM CONTROL OFFICER [facility] Not Available Not Available 08/18/2024 14:22:57 05/28/20 24 05/28/2024 Urina lysis dipst ick W Refle x Micro scopi c panel - Urine color of urine YELLOW COLOR (U) ALLILLO W 05/28 1:28 PM CONTROL OFFICER [facility] Not Available Not Available 08/18/2024 14:22:57 05/28/20 24 05/28/2024 Urina lysis dipst ick W Refle x Micro scopi c panel - Urine clarity of urine TURBID TRANS PAREN CY TURBI D 05/28 1:28 PM CONTROL OFFICER [facility] Not Available Not Available 08/18/2024 14:22:57 05/28/20 24 05/28/2024 Urina lysis dipst ick W Refle x Micro scopi c panel - Urine specific gravity of urine 1.03 low: 1.001h igh: 1.03 SPECI FIC GRAVI TY (U) 1.030 1.001 - 1.030 05/28 1:28 PM CONTROL OFFICER [facility] Not Available Not Available 08/18/2024 14:22:57 05/28/20 24 05/28/2024 Urina lysis dipst ick W Refle x Micro scopi c panel - Urine pH of urine 7.5 low: 5high: 9 U PH 7.5 5.0 - 9.0 05/28 1:28 PM CONTROL OFFICER [facility] Not Available Not Available 08/18/2024 14:22:57 05/28/20 24 05/28/2024 Urina lysis dipst ick W Refle x Micro scopi c panel - Urine leukocytes [#/volume] in urine by test strip NEGATI VE text: negati ve LEUKO CYTES (U) NEGAT MUNDO NEGAT MUNDO 05/28 1:28 PM CONTROL OFFICER [facility] Not Available Not Available 08/18/2024 14:22:57 05/28/20 24 05/28/2024 Urina lysis dipst ick W Refle x Micro scopi c panel - Urine nitrite [presence] in urine NEGATI VE text: negati ve NITRI ENMANUEL NEGAT MUNDO NEGAT MUNDO 05/28 1:28 PM CONTROL OFFICER [facility] Not Available Not Available 08/18/2024 14:22:57 05/28/20 24 05/28/2024 Urina lysis dipst ick W Refle x Micro scopi c panel - Urine protein [mass/volume ] in urine by test strip 70 text: <30 mg/dL high PROTE IN RANDO M (U) 70 (H) <30 MG/DL 05/28 1:28 PM CONTROL OFFICER [facility] Not Available Not Available 08/18/2024 14:22:57 05/28/20 24 05/28/2024 Urina lysis dipst ick W Refle x Micro scopi c panel - Urine glucose [mass/volume ] in urine NORMAL text: normal mg/dL GLUCO SE (U) GRISELDA L GRISELDA L MG/DL 05/28 1:28 PM [employer] [facility] Not Available Not Available 08/18/2024 14:22:57 05/28/20 24 05/28/2024 Urina lysis dipst ick W Refle x Micro scopi c panel - Urine ketones [mass/volume ] in urine by test strip 20 text: negati ve mg/dL abnormal KETON ES MG/DL (U) 20 (A) NEGAT MUNDO MG/DL 05/28 1:28 PM [employer] [facility] Not Available Not Available 08/18/2024 14:22:57 05/28/20 24 05/28/2024 Urina lysis dipst ick W Refle x Micro scopi c panel - Urine urobilinogen [units/volum e] in urine by test strip 4 text: normal mg/dL abnormal UROBI LINOG EN 4.0 (A) GRISELDA L MG/DL 05/28 1:28 PM [employer] [facility] Not Available Not Available 08/18/2024 14:22:57 05/28/20 24 05/28/2024 Urina lysis dipst ick W Refle x Micro scopi c panel - Urine bilirubin.to sajan [mass/volume ] in urine NEGATI VE text: negati ve mg/dL BILIR UBIN (U) NEGAT MUNDO NEGAT MUNDO MG/DL 05/28 1:28 PM [employer] [facility] Not Available Not Available 08/18/2024 14:22:57 05/28/20 24 05/28/2024 Urina lysis dipst ick W Refle x Micro scopi c panel - Urine erythrocytes [#/volume] in urine by automated test strip NEGATI VE text: negati ve BLOOD (U) NEGAT MUNDO NEGAT MUNDO 05/28 1:28 PM [facility] Not [facility] Not Available 08/18/2024 14:22:57 05/28/20 24 05/28/2024 Urina lysis dipst ick W Refle x Micro scopi c panel - Urine mucus [#/area] in urine sediment by microscopy low power field MANY text: /lpf MUCUS MANY /LPF 05/28 1:28 PM [facility] Not Available Not Available 08/18/2024 14:22:57 05/28/20 24 05/28/2024 Urina lysis dipst ick W Refle x Micro scopi c panel - Urine leukocytes [#/area] in urine sediment by microscopy high power field 1 text: <6 /hpf WBC/H PF 1 <6 /HPF 05/28 1:28 PM [facility] Not Available Not Available 08/18/2024 14:22:57 05/28/20 24 05/28/2024 Urina lysis dipst ick W Refle x Micro scopi c panel - Urine erythrocytes [#/area] in urine sediment by microscopy high power field 5 text: <6 /hpf RBC/H PF 5 <6 /HPF 05/28 1:28 PM [facility] Not Available Not Available 08/18/2024 14:22:57 05/28/20 24 05/28/2024 Urina lysis dipst ick W Refle x Micro scopi c panel - Urine epithelial cells.squamo us [#/area] in urine sediment by microscopy high power field MODERA TE text: /hpf SQUAM OUS EPITH ELIAL S MODER ATE /HPF 05/28 1:28 PM [facility] Not Available Not Available 08/18/2024 14:22:57 05/28/20 24 05/28/2024 Urina lysis dipst ick W Refle x Micro scopi c panel - Urine interpretati on and review of laboratory results Abnorm al Not Available Not Available 14:22:57 05/28/20 24 05/28/2024 Compr ehens [facility] metab [facility]lic 2000 panel - Serum or Plasm a glucose [mass/volume ] in serum or plasma 107 text: 70 - 99 mg/dL high GLUCO SE 107 (H) 70 - 99 MG/DL 05/28 1:39 PM [employer] [facility] Not Available Not Available 08/18/2024 14:22:57 05/28/20 24 05/28/2024 Compr ehens mundo metab olic 2000 panel - Serum or Plasm a urea nitrogen [mass/volume ] in serum or plasma 8 text: 7 - 18 mg/dL BUN 8 7 - 18 MG/DL 05/28 1:39 PM [employer] [facility] Not Available Not Available 08/18/2024 14:22:57 05/28/20 24 05/28/2024 Compr ehens mundo metab olic 2000 panel - Serum or Plasm a creatinine [mass/volume ] in serum or plasma 0.69 text: 0.55 - 1.02 mg/dL CREAT ININE S/P/B 0.69 0.55 - 1.02 MG/DL 05/28 1:39 PM [employer] [facility] Not Available Not Available 08/18/2024 14:22:57 05/28/20 24 05/28/2024 Compr ehens mundo metab olic 2000 panel - Serum or Plasm a sodium [moles/volum e] in serum or plasma 135 text: 136 - 145 mmol/L low SODIU M S/P/B 135 (L) 136 - 145 MMOL/ L 05/28 1:39 PM [employer] Not Available Not Available 08/18/2024 14:22:57 05/28/20 24 05/28/2024 Compr ens mundo metab olic 1999 panel - Serum or Plasm a potassium [moles/volum e] in serum or plasma 3.5 text: 3.5 - 5.1 mmol/L POTAS SIUM S/P/B 3.5 3.5 - 5.1 MMOL/ L 05/28 1:39 PM [facility] Not Available Not Available 08/18/2024 14:22:57 05/28/20 24 05/28/2024 Compr ens mundo metab olic 1999 panel - Serum or Plasm a chloride [moles/volum e] in serum or plasma 106 text: 97 - 115 mmol/L CHLOR REBEL S/P/B 106 97 - 115 MMOL/ L 05/28 1:[address] [facility] Not Available Not Available 08/18/2024 14:22:57 05/28/20 24 05/28/2024 Compr ens mundo metab olic 2000 panel - Serum or Plasm a carbon dioxide, total [moles/volum e] in serum or plasma 23.1 text: 21 - 32 mmol/L CO2 23.1 21 - 32 MMOL/ L 05/28 1:[address] [facility] Not Available Not Available 08/18/2024 14:22:57 05/28/20 24 05/28/2024 Compr ens mundo metab olic 1999 panel - Serum or Plasm a calcium [mass/volume ] in serum or plasma 8.9 text: 8.5 - 10.1 mg/dL CALCI UM S/P/B 8.9 8.5 - 10.1 MG/DL 05/28 1:39 PM [facility] Not Available Not Available 08/18/2024 14:22:57 05/28/20 24 05/28/2024 Compr ehens mundo metab olic 2000 panel - Serum or Plasm a bilirubin.to sajan [mass/volume ] in serum or plasma 0.5 text: 0.2 - 1.2 mg/dL BILIR UBIN TOTAL S/P/B 0.5 0.2 - 1.2 MG/DL 12/05 /2024 1:39 PM [facility] Not Available Not Available 08/18/2024 14:22:57 05/28/20 24 05/28/2024 Compr ehens mundo metab olic 1999 panel - Serum or Plasm a protein [mass/volume ] in serum or plasma 8.1 text: 6.4 - 8.2 g/dL TOTAL PROTE IN S/P/B 8.1 6.4 - 8.2 G/DL 05/28 1:39 PM [facility] Not Available Not Available 08/18/2024 14:22:57 05/28/20 24 05/28/2024 Compr ehens mundo metab olic 2000 panel - Serum or Plasm a albumin [mass/volume ] in serum or plasma 3.5 text: 3.4 - 5.0 g/dL ALBUM IN S/P/B 3.5 3.4 - 5.0 G/DL 05/28 1:39 PM [facility] Not Available Not Available 08/18/2024 14:22:57 05/28/20 24 05/28/2024 Compr ehens mundo metab olic 2000 panel - Serum or Plasm a aspartate aminotransfe rase [enzymatic activity/vol ume] in serum or plasma 28 U/L low: 15U/Lh igh: 37U/L AST 28 15 - 37 U/L 05/28 1:39 PM [facility] Not Available Not Available 08/18/2024 14:22:57 05/28/20 24 05/28/2024 Compr ehens mundo metab olic 2000 panel - Serum or Plasm a alanine aminotransfe rase [enzymatic activity/vol ume] in serum or plasma 18 U/L low: 14U/Lh igh: 55U/L ALT 18 14 - 55 U/L 05/28 1:39 PM [facility] Not Available Not Available 08/18/2024 14:22:57 05/28/20 24 05/28/2024 Compr ehens mundo metab olic 1999 panel - Serum or Plasm a alkaline phosphatase [enzymatic activity/vol ume] in serum or plasma 50 U/L low: 50U/Lh igh: 136U/L ALKAL INE PHOSP HATAS E S/P/B 50 50 - 136 U/L 05/28 1:39 PM [employer] [facility] Not Available Not Available 08/18/2024 14:22:57 05/28/20 24 05/28/2024 [facility] - Serum or Plasm a anion gap in serum or plasma 5.9 text: 2 - 10 mmol/L ANION GAP 5.9 2 - 10 MMOL/ L 05/28 1:39 PM [employer] [facility] Not Available Not Available 08/18/2024 14:22:57 05/28/20 24 05/28/2024 [facility] 1999 panel - Serum or Plasm a urea nitrogen/cre atinine [mass ratio] in serum or plasma 11.6 low: 6high: 26 BUN CREAT ININE RATIO 11.6 6 - 26 05/28 1:39 PM [employer] [facility] Not Available Not Available 08/18/2024 14:22:57 05/28/20 24 05/28/2024 [facility] panel - Serum or Plasm a albumin/glob ulin [mass ratio] in serum or plasma 0.8 text: 1.0 - 2.0 ratio low A/G RATIO 0.8 (L) 1.0 - 2.0 RATIO 05/28 1:39 PM [employer] [facility] Not Available Not Available 08/18/2024 14:22:57 05/28/20 24 05/28/2024 [facility] 2000 panel - Serum or Plasm a glomerular filtration rate/1.73 sq M.predicted [volume rate/area] in serum, plasma or blood by creatinine-b ased formula (CKD-epi 2020) >90 text: >90 mL/min /1.73 M2 GFR ESTIM ATE >90 >90 ML/AR N/1.7 3 M2 05/28 1:39 PM [employer] Not Available Not Available [...] subunit [units/volum e] in serum or plasma 51892 text: mIU/mL HCG QUANT ITATI VE 51,09 0 MIU/M L 05/28 1:58 PM [employer] [facility] Not Available Not Available 08/18/2024 14:22:57 05/28/20 24 05/28/2024 CBC W Auto Diffe renti al panel - Blood leukocytes [#/volume] in blood by automated count 6.73 text: 4.5 - 11.0 x10'3/ uL WBC 6.73 4.5 - 11.0 x10'3 /uL 05/28 1:15 PM [employer] [facility] Not Available Not Available 08/18/2024 14:22:57 05/28/20 24 05/28/2024 CBC W Auto Diffe renti al panel - Blood erythrocytes [#/volume] in blood by automated count 4.37 text: 4.20 - 5.40 x10'6/ uL RBC 4.37 4.20 - 5.40 x10'6 /uL 05/28 1:15 PM [employer] [facility] Not Available Not Available 08/18/2024 14:22:57 05/28/20 24 05/28/2024 CBC W Auto Diffe renti al panel - Blood hemoglobin [mass/volume ] in blood 12.4 text: 12.0 - 16.0 g/dL HGB 12.4 12.0 - 16.0 G/DL 05/28 1:15 PM [employer] [facility] Not Available Not Available 08/18/2024 14:22:57 05/28/20 24 05/28/2024 CBC W Auto Diffe renti al panel - Blood hematocrit [volume fraction] of blood 37.2 % low: 38%hig h: 48% low HCT 37.2 (L) 38.0 - 48.0 % 05/28 1:15 PM [employer] [facility] Not Available Not Available 08/18/2024 14:22:57 05/28/20 24 05/28/2024 CBC W Auto Diffe renti al panel - Blood MCV [entitic volume] 85.1 text: 81.0 - 99.0 fL MCV 85.1 81.0 - 99.0 FL 05/28 1:15 PM [employer] [facility] Not Available Not Available 08/18/2024 14:22:57 05/28/20 24 05/28/2024 CBC W Auto Diffe renti al panel - Blood MCH [entitic mass] 28.4 pg low: 27pghi gh: 31pg MCH 28.4 27.0 - 31.0 PG 05/28 1:15 PM [employer] [facility] Not Available Not Available 08/18/2024 14:22:57 05/28/20 24 05/28/2024 CBC W Auto Diffe renti al panel - Blood MCHC [mass/volume ] 33.3 text: 32.0 - 36.0 g/dL MCHC 33.3 32.0 - 36.0 G/DL 05/28 1:15 PM [employer] [facility] Not Available Not Available 08/18/2024 14:22:57 05/28/20 24 05/28/2024 CBC W Auto Diffe renti al panel - Blood erythrocyte distribution width [entitic volume] by automated count 13.2 % low: 11.5%h igh: 14.5% RDW 13.2 11.5 - 14.5 % 05/28 1:15 PM [facility] Not Available Not Available 08/18/2024 14:22:57 05/28/20 24 05/28/2024 CBC W Auto Diffe renti al panel - Blood platelets [#/volume] in blood 198 text: 130 - 400 x10'3/ uL PLT 198 130 - 400 x10'3 /uL 05/28 1:15 PM [facility] Not Available Not Available 08/18/2024 14:22:57 05/28/20 24 05/28/2024 CBC W Auto Diffe renti al panel - Blood platelet mean volume [entitic volume] in blood 12.1 text: 9.3 - 12.2 fL MPV 12.1 9.3 - 12.2 FL 05/28 1:15 PM [facility] Not Available Not Available 08/18/2024 14:22:57 05/28/20 24 05/28/2024 CBC W Auto Diffe renti al panel - Blood differential cell count method - blood AUTOMA SHOSHANA DIFFER ENTIAL DIFFE RENTI AL TYPE AUTOM ATED DIFFE RENTI AL 05/28 1:15 PM [facility] Not Available Not Available 08/18/2024 14:22:57 05/28/20 24 05/28/2024 CBC W Auto Diffe renti al panel - Blood neutrophils/ 100 leukocytes in blood by automated count 66.9 % NEUTR OPHIL S % 66.9 % 05/28 1:15 PM [facility] Not Available Not Available 08/18/2024 14:22:57 05/28/20 24 05/28/2024 CBC W Auto Diffe renti al panel - Blood lymphocytes/ 100 leukocytes in blood by automated count 23.3 % LYMPH OCYTE S % 23.3 % 05/28 1:15 PM [facility] Not Available Not Available 08/18/2024 14:22:57 05/28/20 24 05/28/2024 CBC W Auto Diffe renti al panel - Blood monocytes/10 0 leukocytes in blood by automated count 6.4 % MONOC YTES % 6.4 % 05/28 1:15 PM [facility] Not Available Not Available 08/18/2024 14:22:57 05/28/20 24 05/28/2024 CBC W Auto Diffe renti al panel - Blood eosinophils/ 100 leukocytes in blood by automated count 2.7 % EOSIN OPHIL S 2.7 % 05/28 1:15 PM [facility] Not Available Not Available 08/18/2024 14:22:57 05/28/20 24 05/28/2024 CBC W Auto Diffe renti al panel - Blood basophils/10 0 leukocytes in blood by automated count 0.4 % BASOP HILS 0.4 % 05/28 1:15 PM [facility] Not Available Not Available 08/18/2024 14:22:57 05/28/20 24 05/28/2024 CBC W Auto Diffe renti al panel - Blood immature granulocytes /100 leukocytes in blood by automated count 0.3 % IMMAT URE GRANS % 0.3 % 05/28 1:15 PM [facility] Not Available Not Available 08/18/2024 14:22:57 05/28/20 24 05/28/2024 CBC W Auto Diffe renti al panel - Blood neutrophils [#/volume] in blood 4.5 text: 1.80 - 7.70 x10'3/ uL ABS. NEUTR OPHIL S 4.50 1.80 - 7.70 x10'3 /uL 05/28 1:15 PM [employer] Not Available Not Available 08/18/2024 14:22:57 05/28/20 24 05/28/2024 CBC W Auto Diffe renti al panel - Blood lymphocytes [#/volume] in blood 1.57 text: 1.00 - 4.80 x10'3/ uL ABS. LYMPH OCYTE S 1.57 1.00 - 4.80 x10'3 /uL 05/28 1:15 PM [employer] [facility] Not Available Not Available 08/18/2024 14:22:57 05/28/20 24 05/28/2024 CBC W Auto Diffe renti al panel - Blood monocytes [#/volume] in blood 0.43 text: 0.24 - 0.86 x10'3/ uL ABS. MONOC YTES 0.43 0.24 - 0.86 x10'3 /uL 05/28 1:15 PM [employer] [facility] Not Available Not Available 08/18/2024 14:22:57 05/28/20 24 05/28/2024 CBC W Auto Diffe renti al panel - Blood eosinophils [#/volume] in blood 0.18 text: 0.04 - 0.36 x10'3/ uL ABS. EOSIN OPHIL S 0.18 0.04 - 0.36 x10'3 /uL 05/28 1:15 PM [employer] [facility] Not Available Not Available 08/18/2024 14:22:57 05/28/20 24 05/28/2024 CBC W Auto Diffe renti al panel - Blood basophils [#/volume] in blood 0.03 text: 0.01 - 0.08 x10'3/ uL ABS. BASOP HILS 0.03 0.01 - 0.08 x10'3 /uL 05/28 1:15 PM [employer] [facility] Not Available Not Available 08/18/2024 14:22:57 05/28/20 24 05/28/2024 CBC W Auto Diffe renti al panel - Blood immature granulocytes [#/volume] in blood 0.02 text: 0.00 - 0.49 x10'3/ uL ABS. 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 [facility] Not Available Not Available 08/18/2024 14:22:56 12/28/19 25 12/27/2024 CBC W Auto Diffe tee newman panel - Blood leukocytes [#/volume] in blood by automated count 8.6 text: 4.0 - 10.7 x10e9/ L Not Available Not Available 12/28/2024 12:10:30 12/28/19 25 12/27/2024 CBC W Auto Diffe tee newman panel - Blood erythrocytes [#/volume] in blood by automated count 4.07 text: 3.90 - 5.20 x10e12 /L Not Available Not Available 12/28/2024 12:10:30 12/28/1912/27/2024 CBC W Auto Diffe tee al panel - Blood hemoglobin [mass/volume ] in blood 11.4 g/dL low: 11.9g/ dLhigh : 15.8g/ dL low Not Available Not Available 12/28/2024 12:10:30 12/28/1912/27/2024 CBC W Auto Diffe tee newman panel - Blood hematocrit [volume fraction] of blood by automated count 33.8 % low: 34.8%h igh: 46.1% low Not Available Not Available 12/28/2024 12:10:30 12/28/1912/27/2024 CBC W Auto Diffe januszti al panel - Blood MCV [entitic mean volume] in red blood cells by automated count 83 fL low: 80fLhi gh: 98fL Not Available Not Available 12/28/2024 12:10:30 12/28/19 25 12/27/2024 CBC W Auto Diffe tee newman panel - Blood MCH [entitic mass] by automated count 28 pg low: 26.7pg high: 33.6pg Not Available Not Available 12/28/2024 12:10:30 12/28/19 25 12/27/2024 CBC W Auto Diffe renti al panel - Blood MCHC [entitic mass/volume] in red blood cells by automated count 33.7 g/dL low: 31.7g/ dLhigh : 36.3g/ dL Not Available Not Available 12/28/2024 12:10:30 12/28/19 25 12/27/2024 CBC W Auto Diffe renti al panel - Blood erythrocyte [distwidth] in red blood cells by automated count 13.6 % low: 11.3%h igh: 14.8% Not Available Not Available 12/28/2024 12:10:30 12/28/19 25 12/27/2024 CBC W Auto Diffe renti al panel - Blood platelets [#/volume] in blood by automated count 161 text: 150 - 420 x10e9/ L Not Available Not Available 12/28/2024 12:10:30 12/28/19 25 12/27/2024 CBC W Auto Diffe renti al panel - Blood platelet [entitic mean volume] in blood by automated count 12.7 fL low: 7.8fLh igh: 11.4fL high Not Available Not Available 12/28/2024 12:10:30 12/28/1912/27/2024 CBC W Auto Diffe renti al panel - Blood neutrophils/ leukocytes in blood by automated count 64 % low: 41%hig h: 74% Not Available Not Available 12/28/2024 12:10:30 12/28/1912/27/2024 CBC W Auto Diffe renti al panel - Blood lymphocytes/ leukocytes in blood by automated count 26.4 % low: 17%hig h: 47% Not Available Not Available 12/28/2024 12:10:30 12/28/19 25 12/27/2024 CBC W Auto Diffe renti al panel - Blood monocytes/le ukocytes in blood by automated count 5.9 % low: 3%high : 11% Not Available Not Available 12/28/2024 12:10:30 12/28/19 25 12/27/2024 CBC W Auto Diffe renti al panel - Blood eosinophils/ leukocytes in blood by automated count 3 % low: 0%high : 7% Not Available Not Available 12/28/2024 12:10:30 12/28/1912/27/2024 CBC W Auto Diffe renti al panel - Blood basophils/le ukocytes in blood by automated count 0.5 % low: 0%high : 1.6% Not Available Not Available 12/28/2024 12:10:30 12/28/1912/27/2024 CBC W Auto Diffe renti al panel - Blood immature granulocytes /leukocytes in blood by automated count 0.2 % low: 0%high : 1% Not Available Not Available 12/28/2024 12:10:30 12/28/1912/27/2024 CBC W Auto Diffe renti al panel - Blood neutrophils [#/volume] in blood by automated count 5.53 text: 1.60 - 7.50 x10e9/ L Not Available Not Available 12/28/2024 12:10:30 12/28/1912/27/2024 CBC W Auto Diffe renti al panel - Blood lymphocytes [#/volume] in blood by automated count 2.28 text: 1.00 - 4.40 x10e9/ L Not Available Not Available 12/28/2024 12:10:30 12/28/1912/27/2024 CBC W Auto Diffe renti al panel - Blood monocytes [#/volume] in blood by automated count 0.51 text: 0.15 - 1.00 x10e9/ L Not Available Not Available 12/28/2024 12:10:30 12/28/1912/27/2024 CBC W Auto Diffe renti al panel - Blood eosinophils [#/volume] in blood 0.26 text: 0.00 - 0.60 x10e9/ L Not Available Not Available 12/28/2024 12:10:30 12/28/1912/27/2024 CBC W Auto Diffe renti al panel - Blood basophils [#/volume] in blood by automated count 0.04 text: 0.00 - 0.13 x10e9/ L Not Available Not Available 12/28/2024 12:10:30 12/28/1912/27/2024 CBC W Auto Diffe renholley al panel - Blood interpretati on and review of laboratory results Abnorm al Not Available Not Available 12:10:30 12/28/1912/27/2024 [facility] 1999 panel - Serum or Plasm a glucose [mass/volume ] in serum or plasma 112 mg/dL low: 70mg/d Lhigh: 99mg/d L high Not Available Not Available 12/28/2024 12:10:30 12/28/19 25 12/27/2024 [facility] 1999 panel - Serum or Plasm a sodium [moles/volum e] in serum or plasma 136 mmol/ L low: 136mmo l/Lhig h: 145mmo l/L Not Available Not Available 12/28/2024 12:10:30 12/28/19 25 12/27/2024 [facility] 1999 panel - Serum or Plasm a potassium [moles/volum e] in serum or plasma 3.8 mmol/ L low: 3.5mmo l/Lhig h: 5.1mmo l/L Not Available Not Available 12/28/2024 12:10:30 12/28/19 25 12/27/2024 [facility] 1999 panel - Serum or Plasm a chloride [moles/volum e] in serum or plasma 110 mmol/ L low: 98mmol /Lhigh : 107mmo l/L high Not Available Not Available 12/28/2024 12:10:30 12/28/19 25 12/27/2024 [facility] 1999 panel - Serum or Plasm a carbon dioxide, total [moles/volum e] in serum or plasma 20 mmol/ L low: 22mmol /Lhigh : 29mmol /L low Not Available Not Available 12/28/2024 12:10:30 12/28/19 25 12/27/2024 [facility] 1999 panel - Serum or Plasm a calcium [mass/volume ] in serum or plasma 8.8 mg/dL low: 8.4mg/ dLhigh : 10.4mg /dL Not Available Not Available 12/28/2024 12:10:30 12/28/19 25 12/27/2024 [facility] 1999 panel - Serum or Plasm a anion gap in blood by calculation 6 mmol/ L low: 6mmol/ Lhigh: 16mmol /L Not Available Not Available 12/28/2024 12:10:30 12/28/1912/27/2024 [facility] 2000 panel - Serum or Plasm a urea nitrogen [mass/volume ] in serum or plasma 15 mg/dL low: 5.3mg/ dLhigh : 18.7mg /dL Not Available Not Available 12/28/2024 12:10:30 12/28/1912/27/2024 [facility] 2000 panel - Serum or Plasm a creatinine [mass/volume ] in serum or plasma 0.74 mg/dL low: 0.57mg /dLhig h: 1.11mg /dL Not Available Not Available 12/28/2024 12:10:30 12/28/1912/27/2024 [facility] 2000 panel - Serum or Plasm a glomerular filtration rate [volume rate/area] in serum, plasma or blood by creatinine-b ased formula (CKD-epi 2020)/1.73 sq M text: >=90 mL/min /1.73 m2 Not Available Not Available 12/28/2024 12:10:30 12/28/19 25 12/27/2024 [facility] 2000 panel - Serum or Plasm a interpretati on and review of laboratory results Abnorm al Not Available Not Available 12:10:30 12/28/1912/27/2024 Chori ogona dotro pin.b eta subun it [Unit s/vol ume] in Serum or Plasm a choriogonado tropin.beta subunit [units/volum e] in serum or plasma 98.52 text: mIU/mL Not Available Not Available 12/28/2024 12:10:30 12/28/19 25 12/27/2024 Chori ogona dotro pin.b eta subun it [Unit s/vol ume] in Serum or Plasm a Unknown Analyte hCG Refere nce Range, mIU/mL : Nonpre gnant Female s 0-6.0 Perime nopaus al Female s ages 41-55* 0-7.7 Postme nopaus al Female s age >55* 0-14 Pregna nt Female s, Weeks after Last Menstr ual Period 0.2-1 week 5-50 1 - 2 weeks 50-500 2 - 3 weeks 100-50 00 3 - 4 weeks 500-10 ,000 4 - 5 weeks 1000-5 0,000 5 - 6 weeks 10,000 -100,0 00 6 - 8 weeks 15,000 -200,0 00 2 - 3 months 10,000 -100,0 00 Tropho blasti c Diseas e >100,0 00 *In higher than expect ed hCG in female s > age 40, a serum FSH >20 IU/L makes pregna ncy unlike ly. Not Available Not Available 12:10:30 12/29/19 25 12/28/2024 Urina lysis panel - Urine by Autom ated color of urine by auto Yellow text: yellow , straw Not Available Not Available 01/01/2025 15:33:44 12/29/19 25 12/28/2024 Urina lysis panel - Urine by Autom ated clarity in urine by refractometr y automated Clear text: clear Not Available Not Available 01/01/2025 15:33:44 12/29/19 25 12/28/2024 Urina lysis panel - Urine by Autom ated glucose [presence] in urine by test strip Normal text: normal Not Available Not Available 01/01/2025 15:33:44 12/29/19 25 12/28/2024 Urina lysis panel - Urine by Autom ated bilirubin.to sajan [presence] in urine by test strip Negati ve text: negati ve Not Available Not Available 01/01/2025 15:33:44 12/29/19 25 12/28/2024 Urina lysis panel - Urine by Autom ated ketones [presence] in urine by automated test strip Negati ve text: negati ve Not Available Not Available 01/01/2025 15:33:44 12/29/19 25 12/28/2024 Urina lysis panel - Urine by Autom ated hemoglobin [presence] in urine by test strip Negati ve text: negati ve Not Available Not Available 01/01/2025 15:33:44 12/29/19 25 12/28/2024 Urina lysis panel - Urine by Autom ated protein [presence] in urine by test strip Negati ve text: negati ve Not Available Not Available 01/01/2025 15:33:44 12/29/19 25 12/28/2024 Urina lysis panel - Urine by Autom ated urobilinogen [mass/volume ] in urine by automated test strip 3 mg/dL text: normal abnormal Not Available Not Available 01/01/2025 15:33:44 12/29/19 25 12/28/2024 Urina lysis panel - Urine by Autom ated nitrite [presence] in urine by test strip Negati ve text: negati ve Not Available Not Available 01/01/2025 15:33:44 12/29/19 25 12/28/2024 Urina lysis panel - Urine by Autom ated leukocyte esterase [presence] in urine by test strip Negati ve text: negati ve Not Available Not Available 01/01/2025 15:33:44 12/29/19 25 12/28/2024 Urina lysis panel - Urine by Autom ated service comment Cultur e not indica shoshana Not Available Not Available 15:33:44 12/29/19 25 12/28/2024 Urina lysis panel - Urine by Autom ated microscopic method - urine Urine micros copy not indica shoshana Not Available Not Available 15:33:44 12/29/19 25 12/28/2024 Urina lysis panel - Urine by Autom ated interpretati on and review of laboratory results Abnorm al Not Available Not Available 15:33:44 12/29/19 25 12/28/2024 Urina lysis panel - Urine by Autom ated color of urine by auto Yellow text: yellow , straw Not Available Not Available 12/28/2024 12:10:30 12/29/19 25 12/28/2024 Urina lysis panel - Urine by Autom ated clarity in urine by refractometr y automated Clear text: clear Not Available Not Available 12/28/2024 12:10:30 12/29/19 25 12/28/2024 Urina lysis panel - Urine by Autom ated glucose [presence] in urine by test strip Normal text: normal Not Available Not Available 12/28/2024 12:10:30 12/29/19 25 12/28/2024 Urina lysis panel - Urine by Autom ated bilirubin.to sajan [presence] in urine by test strip Negati ve text: negati ve Not Available Not Available 12/28/2024 12:10:30 12/29/1912/28/2024 Urina lysis panel - Urine by Autom ated ketones [presence] in urine by automated test strip Negati ve text: negati ve Not Available Not Available 12/28/2024 12:10:30 12/29/1912/28/2024 Urina lysis panel - Urine by Autom ated specific gravity of urine by test strip 1.031 low: 1.005h igh: 1.03 high Not Available Not Available 12/28/2024 12:10:30 12/29/1912/28/2024 Urina lysis panel - Urine by Autom ated hemoglobin [presence] in urine by test strip Negati ve text: negati ve Not Available Not Available 12/28/2024 12:10:30 12/29/1912/28/2024 Urina lysis panel - Urine by Autom ated pH of urine by test strip 6.5 low: 5high: 8 Not Available Not Available 12/28/2024 12:10:30 12/29/1912/28/2024 Urina lysis panel - Urine by Autom ated protein [presence] in urine by test strip Negati ve text: negati ve Not Available Not Available 12/28/2024 12:10:30 12/29/1912/28/2024 Urina lysis panel - Urine by Autom ated urobilinogen [mass/volume ] in urine by automated test strip 3 mg/dL text: normal abnormal Not Available Not Available 12/28/2024 12:10:30 12/29/1912/28/2024 Urina lysis panel - Urine by Autom ated nitrite [presence] in urine by test strip Negati ve text: negati ve Not Available Not Available 12/28/2024 12:10:30 12/29/19 25 12/28/2024 Urina lysis panel - Urine by Autom ated leukocyte esterase [presence] in urine by test strip Negati ve text: negati ve Not Available Not Available 12/28/2024 12:10:30 12/29/19 25 12/28/2024 Urina lysis panel - Urine by Autom ated service comment Cultur e not indica shoshana Not Available Not Available 12:10:30 12/29/19 25 12/28/2024 Urina lysis panel - Urine by Autom ated microscopic method - urine Urine micros copy not indica shoshana Not Available Not Available 12:10:30 12/29/19 25 12/28/2024 Urina lysis panel - Urine by Autom ated Unknown Analyte Not Available Not Available 12/2024 12:10:30 12/29/19 25 12/28/2024 Urina lysis panel - Urine by Autom ated interpretati on and review of laboratory results Abnorm al Not Available Not Available 12:10:30 12/30/19 25 12/29/2024 Chori ogona dotro pin [Pres ence] in Urine choriogonado tropin [presence] in urine POSITI VE abnormal Not Available Not Available 14:19:41 12/30/19 25 12/29/2024 Chori ogona dotro pin [Pres ence] in Urine service comment VALID Not Available Not Available 12/22 14:19:41 12/30/19 25 12/29/2024 Chori ogona dotro pin [Pres ence] in Urine interpretati on and review of laboratory results Abnorm al Not Available Not Available 14:19:41 08/28/19 25 08/25/2024 elect chiqui alegria am ECG, 12 leads min No observ ation record ed. [address] [place], [address], 08/28/2024 16:10:16 Result Notes None recorded. Problems Name Problem SNOMED Code Status Onset Date Resolution Date Notes Provider Name and Address Organization Details Recorded Time 35120822 Completed 202011/27/2021 DENISE [place], [place] [facility] 5 12:06:28 Threatened miscarriage 12652359 Completed Joyce lora [place] [facility] 2 15:50:02 Abnormal weight loss 541349640 Active 2021 Ajith Vivas MD Attn: Steve caba,[address] [facility], [place], [address], [place] [facility] 2 14:40:58 Fatigue 84829897 Active 2021 Ajith Vivas MD Attn: Steve caba,[address] [facility], [place], [address], [facility] 2 14:41:13 12227921 Active 2024 DENISE Valdivia, [facility] 5 12:06:28 Problem Notes None recorded. Procedures Surgical History Date Name Laterality Status Provider Name and Address Organization Details Recorded Time Control Implant Removal completed RAY Robles Attn: Accounting, [facility], [place], [address], [facility] 08/18/2024 15:02:59 cosmetic surgery completed Elizabeth Hardin MA [facility] 11/02/2024 09:41:20 Imaging Results None recorded. Procedure Notes None recorded. Medical Equipment None Reported. Allergies Allergen ID Allergen Name Allergen Category Reaction Reaction Severity Criticality Documentation Date Start Date Code Code System Note Provider Name and Address Organization Details Recorded Time 880462 amoxicill in medicatio n Not available Not available Not available 08/18/2024 723 RxNorm DENISE Valdivia, [facility] 5 14:27:40 Medications Name Sig Start Date Stop Date Status Note LastModified by Organization Details LastModified Time cyclobenzap rine 10 mg tablet TAKE 1 TABLET BY MOUTH EVERY 8 HOURS active Not Available Not Available No t Available medroxyprog esterone 10 mg tablet 12/28 completed [...] mg tablet TAKE 1 TABLET BY MOUTH FOR 1 DOSE. REPEAT IN 72 HOURS NEEDED FOR YEAST INFECTION active Not Available Not Available No t Available valacyclovi r 1 gram tablet TAKE 1 TABLET BY MOUTH THREE TIMES DAILY 08/18 completed Not Available Not Available Not Available sumatriptan 100 mg tablet Take 1 tablet every day by oral route as needed for 9 days. 11/02 completed Not Available Not Available Not Available cephalexin 250 mg capsule 03/01 completed Not Available Not Available Not Available fluconazole 200 mg tablet TAKE 1 TABLET BY MOUTH NOW THEN REPEAT IN 72 HOURS 08/18 completed Not Available Not Available Not Available metronidazo le 0.75 % (37.5 mg/5 gram) vaginal gel INSERT 1 APPLICATO RFUL VAGINALLY EVERY NIGHT AT BEDTIME FOR 5 DAYS 11/02 completed Not Available Not Available Not Available ondansetron HCl 4 mg tablet Take 2 tablets twice a day by oral route as needed for 10 days. 11/02 completed Not Available Not Available Not Available prednisone 20 mg tablet TAKE 2 TABLET BY MOUTH ONCE DAILY FOR 5 DAYS 08/18 completed Not Available Not Available Not Available metronidazo le 500 mg tablet TAKE 1 TABLET BY MOUTH TWICE DAILY FOR 7 DAYS. DO NOT DRINK ALCOHOL WHILE TAKING active Not Available Not Available No t Available valacyclovi r 500 mg tablet TAKE [...] Not Available Not Available Not Available ibuprofen 600 mg tablet TAKE 1 TABLET BY MOUTH EVERY 6 HOURS NEEDED WITH FOOD active Not Available Not Available No t Available scopolamine 1 mg over 3 days [...] Not Available metoclopram rebel 10 mg tablet Take 1 tablet every day by oral route as directed for 30 days. 2024 active Not Available Not Available Not Avai lable amoxicillin 875 mg-potassiu m clavulanate 125 mg [...] mcg tablet TAKE 1 TABLET BY MOUTH DAILY active Not Available Not Available No t Available PreviDent 5000 Booster Plus 1.1 % [...] completed Not Available Not Available Not Available Se-Kenia 19 29 mg iron-1 mg tablet 12/28 completed Not Available Not Available Not Available Zafemy 150 mcg-35 mcg/24 hr transdermal patch APPLY 1 PATCH TOPICALLY TO THE SKIN 1 TIME WEEKLY 12/28 completed Not Available Not Available Not Available Vitals Date Recorded Body height Body mass index (BMI) Body weight Systolic And Diastolic Provider Name and Address Organization Details Last Updated DateTime 08/18/2024 162.56 cm 21.7 kg/m2 41730.44 g 130/85 mm[Hg] Franniebhanu Newman Bhanu [facility] 08/18/2024 14:27:22 Date Recorded Body height Body mass index (BMI) Body weight Body temperature Heart rate Respiratory rate Oxygen saturation Oxygen saturation in Arterial blood by Pulse oximetry Systolic And Diastolic Provider Name and Address Organization Details Last Updated DateTime 5 162.56 cm 21.5 kg/m2 77718.5 g 98.2 [degF] 86 /min 18 /min 96 % 96 % 130/83 mm[Hg] Tawana Vegas MA [facility] 5 09:40:43 Date Recorded Body height Body mass index (BMI) Body weight Body temperature Heart rate Respiratory rate Systolic And Diastolic Provider Name and Address Organization Details Last Updated DateTime 5 162.56 cm 21.9 kg/m2 68951.3 8 g 98.3 [degF] 80 /min 20 /min 116/75 mm[Hg] Daniela Ahn MA [facility] 5 10:09:26 Date Recorded Body height Body mass index (BMI) Body weight Body temperature Heart rate Respiratory rate Systolic And Diastolic Provider Name and Address Organization Details Last Updated DateTime 5 162.56 cm 21.8 kg/m2 87227.2 3 g 97.9 [degF] 90 /min 16 /min 129/76 mm[Hg] Elizabeth Hardin MA [facility] 5 09:43:05 Date Recorded Body height Body mass index (BMI) Body weight Body temperature Heart rate Oxygen saturation Oxygen saturation in Arterial blood by Pulse oximetry Systolic And Diastolic Provider Name and Address Organization Details Last Updated DateTime 2 165.74 cm 18.3 kg/m2 75317.7 5 g 98 [degF] 103 /min 99 % 99 % 118/78 mm[Hg] Justina Crane [place] [facility] 14:09:01 Social History Question Answer Notes LastModified by Organizat ion Details LastModified Time Tobacco Smoking Status Never Smoker Frannie Newman, DENISE null, [place] - [facility] 12/28/2020 15:41:21 What Is Your Level Of Caffeine Consumption? Moderate Information not available 12/28/2020 In The 14 Days Before Symptom Onset, Have You Had Close Contact With A Laboratory-confirm ed COVID-19 While That Case Was Ill? No Information n ot available 11/02/2024 In The 14 Days Before Symptom Onset, Have You Had Close Contact With A Person Who Is Under Investigation For COVID-19 While That Person Was Ill? No Information not available 11/02/2024 Have You Been To An Area Known To Be High Risk For COVID-19? No Information not available 11/02/2024 What Was The Date Of Your Most Recent Tobacco Screening? 09/30/2024 Information not available 09/30/2024 What Is Your Relationship Status? Single Information not available 11/02/2024 Are You Sexually Active? No Information not available 08/18/2024 Do You Have Smoke And Carbon Monoxide Detectors In Your Home? Yes Information not available 11/02/2024 Are You Passively Exposed To Smoke? Yes Information no t available 11/02/2024 Has Tobacco Cessation Counseling Been Provided? Yes Information not available 09/30/2024 On What Date Was Tobacco Cessation Counseling Provided? 09/30/2024 Information not available 09/30/2024 Sex: Female Functional Status Question Answer Note LastModified by Organizat ion Details LastModified Time Do you use any illicit or recreational drugs? No Information not available 12/28/2020 Do you or have you ever used any other forms of tobacco or nicotine? No [email or web address] Information not available 08/25/2024 What is your level of alcohol consumption? Occasional Information not available 08/18/2024 Are you currently employed? Yes Information not available 11/02/2024 What is your occupation? [employer] Information not available 11/02/2024 Mental Status None recorded. Family History Relationship Description Onset Age of this Age Resolved Age Notes LastModified by Organization Details LastModified Time Father No current problems or disability [email or web address] Not available 12/2020 15:40:56 Mother No current problems or disability [email or web address] Not available 12/2020 15:40:56 Notes:08/25/24 Medical History Condition Response Other N High Blood Pressure N Breast Cancer N Thyroid Problems N Kidney or Bladder Problems N GI Problems N Depression N Blood Clots N Lung Disease N Acne N Breast Problem N Eating Disorder N Anemia N Anesthesia Complications N Headaches/Migraines N Anxiety Disorder N Diabetes N Ovarian Cancer N Muscle, Joint, or Bone Problems N Blood Transfusions N Seizures/Epilepsy N Polyps N Infertility N Acid Reflux (GERD) N Cancer N Abuse/Domestic Violence N Asthma N Endometriosis N High Cholesterol N Hepatitis N Liver Disease N Heart Disease N Pre-Eclampsia N Osteoporosis [...] completed MONO VELAZQUEZ MD Attn: Accounting,[address] [place], [address], [place] [facility] 08/25/2024 09:55:21 Hib, unspecified formulation 4 completed MONO VELAZQUEZ MD Attn: Accounting,[address] [place], [address], [place] [facility] 08/25/2024 09:55:21 Hib, unspecified formulation 1 completed MONO VELAZQUEZ MD Attn: Accounting,[address] [place], [address], [place] [facility] 08/25/2024 09:55:21 Hib, unspecified formulation 0 completed MONO VELAZQUEZ MD Attn: Accounting,[address] [facility], [place], [place], [address] [place] [address], [place] [facility] 08/25/2024 09:55:21 Hib, unspecified formulation 0 completed MONO VELAZQUEZ MD Attn: Accounting,[address] [facility], [place], [address] [place] [address], [place] [facility] 08/25/2024 09:55:21 Hib, unspecified formulation 0 completed MONO VELAZQUEZ MD Attn: Accounting,[address] [facility], [place], [address] [place] [address], [facility] - [facility] 08/25/2024 09:55:21 Hib-Hep B 1 completed MONO VELAZQUEZ MD Attn: Accounting,[address] [facility], [place], [address] [place] [address], [place] [facility] 08/25/2024 09:55:22 Hib-Hep B 0 completed MONO VELAZQUEZ MD Attn: Accounting,[address] [facility], [place], [address] [place] [address], [place] [facility] 08/25/2024 09:55:22 HPV9 5 completed MONO VELAZQUEZ MD Attn: Accounting,[address] [facility], [place], [address] [place] [address], [place] [facility] 08/25/2024 09:55:22 IPV 4 completed MONO VELAZQUEZ MD Attn: Accounting,[address] [facility], [place], [address] [place] [address], [place] [facility] 08/25/2024 09:55:22 IPV 1 completed MONO VELAZQUEZ MD Attn: Accounting,[address] [facility], [place], [address] [place] [address], [place] [facility] 08/25/2024 09:55:22 IPV 0 completed MONO VELAZQUEZ MD Attn: Accounting,[address] [facility], [place], [address], [place] [facility] 08/25/2024 09:55:22 IPV 0 completed MONO VELAZQUEZ MD Attn: Accounting,[address], [place], [address], [place] [facility] 08/25/2024 09:55:22 IPV 0 completed MONO VELAZQUEZ MD Attn: Accounting,[address], [place], [address] [place] [address], [place] [facility] 08/25/2024 09:55:22 IPV 0 completed MONO VELAZQUEZ MD Attn: Accounting,[address], [place], [address] [place] [address], [facility] - [facility] 08/25/2024 09:55:22 MMR 1 completed MONO VELAZQUEZ MD Attn: Accounting,[address], [place], [address] [place] [address], [place] [facility] 08/25/2024 09:55:22 MMR 4 completed MONO VELAZQUEZ MD Attn: Accounting,[address], [place], [address] [place] [address], [place] [facility] 08/25/2024 09:55:22 MMR 1 completed MONO VELAZQUEZ MD Attn: Accounting,[address], [place], [address] [place] [address], [place] [facility] 08/25/2024 09:55:22 MMR 8 completed MONO VELAZQUEZ MD Attn: Accounting,[address], [place], [address] [place] [address], [place] [facility] 08/25/2024 09:55:22 influenza, unspecified formulation 6 completed MONO VELAZQUEZ MD Attn: Accounting,[address], [place], [address] [place] [address], [place] [facility] 08/25/2024 09:55:22 Tdap 2 completed MONO VELAZQUEZ MD Attn: Accounting,[address], [place], [address] [place] [address], [place] [facility] 08/25/2024 09:55:22 Tdap 3 completed MONO VELAZQUEZ MD Attn: Accounting,[address], [place], [address] [place] [address], [facility] - [facility] 08/25/2024 09:55:22 Tdap 1 completed MONO VELAZQUEZ MD Attn: Accounting,[address], [place], [address] [place] [address], [place] [facility] 08/25/2024 09:55:22 varicella 1 completed MONO VELAZQUEZ MD Attn: Accounting,[address] [facility] [address], [place], [address] [place] [address], [facility] - [facility] 08/25/2024 09:55:22 varicella 1 completed MONO VELAZQUEZ MD Attn: Accounting,[address] [facility] [address], [place], [address] [place] [address], [facility] - [facility] 08/25/2024 09:55:22 varicella 4 completed MONO VELAZQUEZ MD Attn: Accounting,[address] [facility], [place], [address] [place] [address], [facility] - [facility] 08/25/2024 09:55:22 DTP 1 completed MONO VELAZQUEZ MD Attn: Accounting,[address] [facility], [place], [address] [place] [address], [place] [facility] 08/25/2024 09:55:22 DTP 0 completed MONO VELAZQUEZ MD Attn: Accounting,[address], [place], [address] [place] [address], [place] [facility] 08/25/2024 09:55:22 Influenza, split virus, trivalent, preservative 3 completed MONO VELAZQUEZ MD Attn: Accounting,[address] [facility], [place], [address] [place] [address], [place] [facility] 08/25/2024 09:55:22 Hep B, adolescent or pediatric 0 completed MONO VELAZQUEZ MD Attn: Accounting,[address], [place], [address] [place] [address], [place] [facility] 08/25/2024 09:55:22 Hep B, adolescent or pediatric 1 completed MONO VELAZQUEZ MD Attn: Accounting,[address], [place], [address] [place] [address], [place] [facility] 08/25/2024 09:55:22 Hep B, adolescent or pediatric 1 completed MONO VELAZQUEZ MD Attn: Accounting,[address] [facility], [place], [address] [place] [address], [facility] - [facility] 08/25/2024 09:55:22 Hep B, adolescent or pediatric 6 completed MONO VELAZQUEZ MD Attn: Accounting,[address] [facility], [place], [address] [place] [address], [facility] - [facility] 08/25/2024 09:55:22 Hep B, adolescent or pediatric 0 completed MONO VELAZQUEZ MD Attn: Accounting,[address] [facility], [place], [address] [place] [address], [facility] - [facility] 08/25/2024 09:55:22 Meningococcal MCV4O 1 completed MONO VELAZQUEZ MD Attn: Accounting,[address] [facility], [place], [address] [place] [address], [facility] - [facility] 08/25/2024 09:55:22 DTaP 4 completed MONO VELAZQUEZ MD Attn: Accounting,[address] [facility], [place], [address] [place] [address], [place] [facility] 08/25/2024 09:55:22 DTaP 1 completed MONO VELAZQUEZ MD Attn: Accounting,[address] [facility], [place], [address] [place] [address], [place] [facility] 08/25/2024 09:55:22 DTaP 0 completed MONO VELAZQUEZ MD Attn: Accounting,[address] [facility], [place], [address] [place] [address], [place] [facility] 08/25/2024 09:55:22 DTaP 0 completed MONO VELAZQUEZ MD Attn: Accounting,[address] [facility], [place], [address] [place] [address], [facility] 08/25/2024 09:55:22 DTaP 0 completed MONO VELAZQUEZ MD Attn: Accounting,[address] [facility], [place], [address] [place] [address], [facility] - [facility] 08/25/2024 09:55:22 DTaP 0 completed MONO VELAZQUEZ MD Attn: Accounting,[address] [facility], [place], [address] [place] [address], [facility] - [facility] 08/25/2024 09:55:22 Influenza, live, quadrivalent, intranasal 4 completed MONO VELAZQUEZ MD Attn: Accounting,[address] [facility], [place], [address] [place] [address], [facility] - [facility] 08/25/2024 09:55:22 Influenza, split virus, quadrivalent, PF 6 completed MONO VELAZQUEZ MD Attn: Accounting,[address] [facility], [place], [address] [place] [address], [facility] - [facility] 08/25/2024 09:55:22 Influenza, split virus, quadrivalent, PF 5 completed MONO VELAZQUEZ MD Attn: Accounting,[address] [facility], [place], [address] [place] [address], [facility] - [facility] 08/25/2024 09:55:22 Past Encounters Encounter ID Performer Location Encounter Start Date Encounter Closed Date Diagnosis/Indication Diagnosis SNOMED-CT Code Diagnosis ICD10 Code Diagnosis Note [id number] Norma Locke RENAL MEDICINE SPECIALIST-[facility] [address] [facility] [address] [place] [address] 05/06/2019 15:50:36 05/07/2019 11:23:40 Venereal disease screening 764906128 Z11.3 declined condoms. safe sex discussed. labs pending. will tailor treatment accordingl y upon receipt of labs. Urine preg jerald test positive 274775628 Z32.01 UPT pos. informatio n provided along with obgyn informatio n and list of ok otc medication to take. JESSICA: 01/22/2020 [id number] MD Randy Trujillo 14 OB [address] [facility] [place] [address] 12/28/2020 15:24:06 12/29/2020 07:08:17 Early stage of 822461440 Z34.90 Threatened miscarriage 35568325 O20.0 [id number] Ajith Vivas MD [facility] (Adult Med) [address] [place] [address] 03/01/2022 13:36:15 03/02/2022 14:39:33 Abnormal weight loss 791323180 R63.4 Fatigue 19185596 R53.83 [id number] MD Randy Marie 14 OB [address] [facility] [place] [address] 08/18/2024 14:19:39 08/21/2024 09:31:28 Removal of subcutaneous contraceptive 139276816 Z30.46 Nexplanon removed without issue. Pt verbalizes that fertility will resume and if trying to become , she needs to begin vits now. Pt verbalized understand ing. Pt will follow up as needed for annual, sooner if needed or if pt would like new form of control. [id number] MD Randy MORALES [address] [facility] [place] [address] 08/25/2024 09:30:06 09/23/2024 12:09:58 Pre-surgery evaluation 771114717 Z01.818 Patient has a low risk For [...] a physical copy to be signed. Lipedema 514786427 R60.9 refer to above [id number] MD Randy Ward 14 IM [address] [facility] [place] [address] 09/30/2024 09:36:52 10/06/2024 12:32:53 Normal body mass index 73464055 Z68.21 Migraine without aura 56 699684 G43.009 Due to migraine without aura and nausea we will prescribe ondansetro n. Due to recent start of migraine we will not prescribe prophylact ic medication and we will start with the abortive medication . Counseled on use of sumatripta n and we will prescribed . Patient will follow up in a month. [id number] MD Randy Locke [address] [facility] [place] [address] 11/02/2024 09:25:55 12/21/2024 14:04:28 test positive 902975586 Z32.01 Due to in-house test negative will order quantitati ve beta-hCG test and follow-up regarding . if positive will order labs. Migraine w ithout aura, not refractory 460711928 G43.009 At this time will prescripe metoclopra mide for possibly . Health Concerns Section Related Observation LastModified by Organization Detai ls LastModified Time None Recorded Concern Status LastModified by Organization Details LastModified Time None Recorded Advance Directives Directive None Recorded Payers Insurance Date Sequence Insurance Name Policy Number Policy Reeves Covered Member ID Reeves Member ID Guarantor Name 12/29/[address] [facility] ON OR AFTER 12/22/20 (MEDICAID REPLACEMENT - HMO) Corrine Crane [id number] Corrine Crane 08/18/[address] [facility] PRIOR TO 12/22/2020 (MEDICAID REPLACEMENT - HMO) Ethel Crane [id number] Corrine Crane 08/18/2024 1 [facility] Corrine Crane [id number] Corrine Crane 08/18/2024 1 [place] [facility] Corrine Crane [id number] Corrine Crane 08/18/[address] [facility] PRIOR TO 12/22/2020 (MEDICAID REPLACEMENT - HMO) Ethel Crane [id number] Corrine Crane 08/18/[address] [facility] PRIOR TO 12/22/2020 (MEDICAID REPLACEMENT - HMO) Corrine Crane [id number] Corrine Crane Notes Date Note Type Note Provider Name and Address Organization Details Recorded Time 03/01/2022 text/html here because of fatigue and significant weight loss in the past six months. Ajith Vivas MD Attn: Accounting,[address] [place], [address], [facility] 03/01/2022 14:47:02 08/18/2024 text/html Annual GYNReport ed [...] states last pap 2 months ago at [place]- DIAMANTE Robles- Attn: Accounting,[address] [place], [place], [id number], [facility] 08/18/2024 15:03:38 08/25/2024 text/html Corrine is a 24 yo F with no past medical history presenting for surgery clearance. Needing clearance for upcoming surgery 09/10/24. Needs EKGPatient states she is getting a skinny citizen of [place] but lift or Liposuction She states having no prior surgery.Mom has diabetes, Dad unknown.She has had an allergy to amoxicillin and has never smoked. MOHINI NARVAEZ MD Attn: Accounting,[address] [place], [address], [facility] 09/22/2024 13:21:10 09/30/2024 text/html Corrine is a [...] aura. No floaters. Bandar Shah MD Attn: Accounting,[address] [facility], [place], [id number], [facility] 10/05/2024 14:35:47 11/02/2024 text/html Corrine is a 24 yo F @ 3.1 weeks based on LMP, with no past medical history presenting for migraine follow up. Had 3 positive tests and 1 was negative. And wants to follow up with us. This is new. Constant pain all over head and feels like throbbing and sharp. Lasts for an hour and can last days.Used advil and no help. Photophobia, denies phonophobia. Also having nausea no vomiting. Still has migraine. Has one everyday for the the past week. No aura. No floaters.Started sumatriptan and zofran. Today:States sumatriptan helped for a couple days. Didnt take zofran. Has been using ibuprofen that helped.Migraines come and go. Has migraines 3x a week every week and last hours. She is experiencing vaginal spotting when wiping. Last LMP on October 11. Jose L Prajapati MD Attn: Accounting,[address] [facility], [place], [address], [facility] 12/19/2024 16:18:09 OBGyn Episode Ob Episode Information Episode Created Date Number of Fetuses Patient Bloodtype Patient rh Status Prepregnancy Weight lbs Domestic Partner Domestic Partner Phone Father Name Flight Security Specialist Status 10/23/19 25 1 OPEN Fetus Data First Name Last Name Admitted to NICU Weight (g) Sex Living Outcome Pediatric Complications Fetus ID Race Codes Race Delivery Type [id number] Jessica Calculation Initial Jessica Date Initial Exam [...] Latest Days Gestation 0 07/18/19 26 0 Pre-kenia Flowsheet Flowsheet Date 11/02/2024 Salvador Score Blood Edema Fundus Height Fundus Units Glucose Ketones Leukocytes Nitrite Labor Signs Protein Cervic Dilation Cervic Effacement Cervic Station Type Weight in lbs Pre/Post Dialysis Refused With clothes 127.987511004633 BP Diastolic BP Location Tested BP Systolic BP Type 76 R arm 129 sitting Fetus Heart Rate Present Fetus Movement Comments Menstrual History Last Menstrual Date Menses Monthly On Bcp Conception Prior Menses Frequency Hcg Plus Date Menarche Onset Age 0410/11/2024 true 12 Genetic Screening And Infection History Question Response Note Patient's Age Will Be 35 Yea rs Or Older At Estimated Date of Delivery false Thalassemia (Swedish, Spanish, Mediterranean, Or Background): MCV < 80 false Neural Tube Defect (Meningom yelocele, Spina Bifida, Or Anencephaly) false Congenital Heart Defect false Down Syndrome false Carl-Sachs (eg, Religion, Cajun, Citizen Of [place]Citizen Of [place]) f alse Zaheer Disease false Sickle Cell Disease Or Trait () false Hemophilia Or Other Blood Disorders false Muscular Dystrophy false Cystic Fibrosis false Hyde's Chorea false Mental Retardation/Autism false If Yes, [...] Domestic Partner Domestic Partner Phone Father Name Flight Security Specialist Status 12/29/19 21 1 CLOSED Fetus Data First Name Last Name Admitted to NICU Weight (g) Sex Living Outcome Pediatric Complications Fetus ID Race Codes Race Delivery Type 2608.15 4 F Full Term [id number] Vaginal Jessica Calculation Initial Jessica Date Initial [...] Domestic Partner Domestic Partner Phone Father Name Flight Security Specialist Status 12/29/19 21 1 A Positive CLOSED Fetus Data First Name Last Name Admitted to NICU Weight (g) Sex Living Outcome Pediatric Complications Fetus ID Race Codes Race Delivery Type [id number] Problems Problem Notes Problem Name Start Date End Date Resolution Snomed Code Not e Threatened miscarriage [id number] Jessica Calculation Initial Jessica Date Initial [...] Latest Days Gestation 0 08/30/19 22 0 Pre-kenia Flowsheet Flowsheet Date 12/28/2020 Salvador Score Blood Edema Fundus Height Fundus Units Glucose Ketones Leukocytes Nitrite Labor Signs Protein Cervic Dilation Cervic Effacement Cervic Station 2+ none none small neg Type Weight in lbs Pre/Post Dialysis Refused With clothes 115.008232069750 BP Diastolic BP Location Tested BP Systolic BP Type 60 104 sitting Fetus Heart Rate Present Fetus Movement Comments Pt is here for follow up fro m [facility] related to early and spotting. Pt [...] At Estimated Date of Delivery false Thalassemia (Swedish, Spanish, Mediterranean, Or Background): MCV < 80 false Neural Tube Defect (Meningom yelocele, Spina Bifida, Or Anencephaly) false Congenital Heart Defect false Down Syndrome false Carl-Sachs (eg, Religion, Cajun, Citizen Of [place]-Citizen Of [place]) f alse Zaheer Disease false Sickle Cell Disease Or Trait () false Hemophilia Or Other Blood Disorders false Muscular Dystrophy false Cystic Fibrosis false Hyde's Chorea false Mental Retardation/Autism false If Yes, [...] Domestic Partner Domestic Partner Phone Father Name Flight Security Specialist Status 12/29/19 21 1 CLOSED Fetus Data First Name Last Name Admitted to NICU Weight (g) Sex Living Outcome Pediatric Complications Fetus ID Race Codes Race Delivery Type 3061.74 6 F Full Term [id number] Vaginal Jessica Calculation Initial Jessica Date Initial [...] Complications Tubal Sterilization Discharge Date Comments 6 Regional- idural 39 false Discharge Information Feeding Method Contraceptive Method Maternal HG B and HCT Levels
[2025-01-05 16:44] VITALS: BP 143/84; PULSE 95; RESP 16; O2SAT 99
--- OUTSIDE RECORDS SUMMARY | 2025-01-05 16:44 | XMS_ITS | Data Portability ---
Author Organization [facility] [place] Address [address] [place] [address] [place] [address] Assessment Encounter Date Assessment Date Assessment LastModified by Organization Details LastModified Time 06/14/2021 06/14/2021 Patient is _28__weeks . Discussed plan. Not available 06/14/2021 15:09:24 Plan of Treatment Reminders Order Date Submit Date Provider Last Modified By Organization Details Last Modified Time Details Appointments None recorded. [facility], [facility] [place], [address], [place], [address], 12:48:56 urinalysis , dipstick 2020 021 [email or web address] [place], [address], [place], [address], 16:02:15 culture, urine 2020 021 [facility] (Lab), [address], [place], [address], 04:24:21 Referral None recorded. Procedures None recorded. Surgeries None recorded. Imaging US, obstetric, follow-up 2020 021 [email or web address] [place], [address], [place], [address], 13:22:51 Medication Orders Diflucan 150 mg tablet 2020 [facility][id number], [address], [place], [id number], 09:12:28 Macrobid 100 mg capsule 2020 [facility] #[id number], [address], [place], [phone], 09:12:23 Patient TargetsNo targets recorded. Patient InstructionsNo [...] t Abnor mal: No Resul ting Lab: [facility] [address] [facility] [address] Tel: CULTU RE ----- ----- ----- --- Cultu re resul t (>=3 organ isms prese nt) indic ates possi ble conta minat ion. Repea t cultu re if sympt oms indic ate. Not Available [facility] (Lab) [address], [place], [address], 04/19/2021 02:53:30 04/20/2004/20/2021 VAGIN ITIS/ VAGIN OSIS, DNA PROBE mehnaz sp. detection, direct probe Positi ve negati ve abnormal Not Available [facility] (Lab) [address] [place], [address], 04/21/2021 23:04:16 04/20/20 21 04/20/2021 VAGIN ITIS/ VAGIN OSIS, DNA PROBE gardnerella vag. detection, direct probe Positi ve negati ve abnormal Not Available [facility] (Lab) [address] [facility], [place], [address], 04/21/2021 23:04:16 04/20/20 21 04/20/2021 VAGIN ITIS/ VAGIN OSIS, DNA PROBE trichomonas vag. detection, direct probe Negati ve negati ve Not Available [facility] (Lab) [address] [facility], [place], [address], 04/21/2021 23:04:16 04/20/20 21 04/20/2021 CULTU RE: URINE result report SEE RESULT S BELOW Test: Cultu re: Urine Speci men Sourc e: Urine Voide d Speci men Type: Urine Speci men Date: 04/20 4:12 PM Resul t Date: 04/22 3:21 AM Resul t Statu s: Final resul t Abnor mal: No Resul ting Lab: [facility] [address] [facility] [address] Tel: CULTU RE ----- ----- ----- --- Organ ism(s ) consi stent with uroge nital or skin gilbert . Repea t cultu re if sympt oms indic ate. Not Available [facility] (Lab) [address] [facility], [place], [address], 04/22/2021 04:24:20 04/20/2004/20/2021 urina lysis , dipst ick Leukocytes + Not Available [facility] [address], [place], [address], 04/20/2021 16:02:06 05/15/20 21 05/15/2021 drug scree n, urine Amphetamines : negati ve Not Available [place] [address], [place], [address], 05/15/2021 12:48:35 05/15/20 21 05/15/2021 drug scree n, urine Cannabinoids : negati ve Not Available [place] [address], [place], [address], 05/15/2021 12:48:35 05/15/20 21 05/15/2021 drug scree n, urine Opiates: negati ve Not Available [place] [address], [place], [address], 05/15/2021 12:48:35 05/15/20 21 05/15/2021 drug scree n, urine Benzodiazepi kandace: negati ve Not Available [place] [address], [place], [address], 05/15/2021 12:48:35 06/14/20 21 06/14/2021 GTT - GESTA SARAH L SCREE N, ACOG OB glucose, 1 hour screen 107 mg/dL 70-139 Not Available [facility] (Lab) [address] [facility], [place], [address], 06/15/2021 14:07:09 06/14/20 21 06/14/2021 HEMAT OCRIT (HCT) HCT 30.2 % (based on docume nted legal sex) 37.4-4 8.3 low Not Available [facility] (Lab) [address] [facility], [place], [address], 06/15/2021 14:07:10 06/14/20 21 06/14/2021 HEMOG LOBIN (HGB) HGB 9.8 g/dL (based on docume nted legal sex) 11.9-1 5.8 low Not Available [facility] (Lab) [address] [facility], [place], [address], 06/15/2021 14:07:10 06/14/20 21 06/14/2021 HIV 1/2 ANTIG EN/AN TIBOD Y, REFLE X CONFI RMATI ON HIV Ag-Ab total quant 0.08 idx <1.00 Not Available [facility] (Lab) [address] [facility], [place], [address], 06/15/2021 14:07:11 06/14/20 21 06/14/2021 HIV 1/2 ANTIG EN/AN TIBOD Y, REFLE X CONFI RMATI ON HIV Ag-Ab total Non-re active non-re active Not Available [facility] (Lab) [address] [facility], [place], [address], 06/15/2021 14:07:11 06/14/20 21 06/14/2021 HIV 1/2 ANTIG EN/AN TIBOD Y, REFLE X CONFI RMATI ON HIV-1 antibody quant 0.07 idx <1.00 Not Available [facility] (Lab) [address] [facility], [place], [address], 06/15/2021 14:07:11 06/14/20 21 06/14/2021 HIV 1/2 ANTIG EN/AN TIBOD Y, REFLE X CONFI RMATI ON HIV-1 antibody Non-re active non-re active Not Available [facility] (Lab) [address] [place], [address], 06/15/2021 14:07:11 06/14/20 21 06/14/2021 HIV 1/2 ANTIG EN/AN TIBOD Y, REFLE X CONFI RMATI ON HIV-1 antigen (P24) quant 0.08 idx <1.00 Not Available [facility] (Lab) [address] [place], [address], 06/15/2021 14:07:11 06/14/20 21 06/14/2021 HIV 1/2 ANTIG EN/AN TIBOD Y, REFLE X CONFI RMATI ON HIV-1 antigen (P24) Non-re active non-re active Not Available [facility] (Lab) [address] [place], [address], 06/15/2021 14:07:11 06/14/20 21 06/14/2021 HIV 1/2 ANTIG EN/AN TIBOD Y, REFLE X CONFI RMATI ON HIV-2 antibody quant 0.01 idx <1.00 Not Available [facility] (Lab) [address], [place], [address], 06/15/2021 14:07:11 06/14/20 21 06/14/2021 HIV 1/2 [...] on will be perfo rmed by the [facility] HIV 1/2 Suppl ement al Assay . The perfo rmanc e of this assay has not been estab lishe d for neona avelina and the assay shoul d not be used in indiv idual s young er than 2 years of age. Not Available [facility] (Lab) [address], [place], [address], 06/15/2021 14:07:11 12/22/06/14/2021 RPR SCREE N/REF KUSUM TITER /FTA RPR screen Nonrea ctive nonrea ctive Not Available [facility] (Lab) [address], [place], [address], 06/15/2021 14:07:11 04/17/2004/17/2021 US, obste tric, 2nd or 3rd trime ster No observ ation record ed. [email or web address] [place] [address], [place], [address], 04/17/2021 18:06:43 04/17/2004/17/2021 US, obste tric, follo w-up No observ ation record ed. [facility] [address], [place], [address], 04/24/2021 13:30:31 04/17/20 21 04/17/2021 US, obste tric, follo w-up No observ ation record ed. [email or web address] [facility] [address], [place], [address], 04/18/2021 10:20:07 05/15/20 21 05/15/2021 US, obste tric, follo w-up No observ ation record ed. [email or web address] [place] [address], [place], [address], 05/15/2021 13:26:03 05/15/20 21 05/15/2021 US, obste tric, follo w-up No observ ation record ed. [email or web address] [facility] [address], [place], [address], 05/22/2021 14:49:14 06/14/20 21 06/14/2021 US, obste tric, bioph ysica l profi le No observ ation record ed. [email or web address] [facility] [address], [place], [address], 06/19/2021 14:10:13 Result Notes Documentation Provider Name and Address Organization Details Recorded Time Culture, Urine : ob Norma Sands [facility], [facility] 04/28/2021 12:04:26 Problems Name Problem SNOMED Code Status Onset Date Resolution Date Notes Provider Name and Address Organization Details Recorded Time 44565673 Completed 202008[facility]03/20[facility] 2 10:33:22 Nausea and vomiting 69642137 Completed [facility] 10:33:19 Pain in round ligament in 46083491890 013329 Completed [facility] 10:33:19 Intrauter ine synechiae 162666103 Completed repeat growth 8wks - 07/10/21 [facility], [facility] 2 10:33:19 Problem Notes None recorded. Procedures Surgical History Date Name Laterality Status Provider Name and Address Organization Details Recorded Time 01/25/2021 Date of Last Pap Smear completed Lauryn Monroe [facility] 04/20/2021 15:45:44 Imaging Results None recorded. Procedure Notes None [...] Updated DateTime 04/17/2021 162.56 cm 20.8 kg/m2 66748.676 77 g 109/68 mm[Hg] Lauryn Monroe [facility] 04/17/2021 16:25:30 Date Recorded Body weight Provider Name an d Address Organization Details Last Updated DateTime 04/20/2021 86774.11243 g Rosanna Mcgovern [facility] 04/20/2021 16:11:10 Date Recorded Body height Body mass index (BMI) Systolic And Diastolic Provider Name and Address Organization Details Last Updated DateTime 04/20/2021 162.56 cm 21.6 kg/m2 103/72 mm[Hg] Lauryn Monroe [facility] 04/20/2021 15:44:39 Date Recorded Body height Body mass index (BMI) Body weight Systolic And Diastolic Provider Name and Address Organization Details Last Updated DateTime 05/15/2021 162.56 cm 21.5 kg/m2 71335.046 25 g 113/71 mm[Hg] Jennifer Galindo [facility] 05/15/2021 12:41:43 Date Recorded Body height Body mass index (BMI) Body weight Systolic And Diastolic Provider Name and Address Organization Details Last Updated DateTime 06/14/2021 162.56 cm 20.6 kg/m2 02395.084 4 g 113/69 mm[Hg] Caryl Adair [facility] 06/14/2021 14:47:56 Social History Question Answer Notes LastModified by Organizat ion Details LastModified Time Tobacco Smoking Status Never Smoker Glory hdz, [facility] 01/09/2021 17:02:05 Are You Blind Or Do You Have Difficulty Seeing? No [email or web address] Information n ot available 06/14/2021 What Is Your Level Of Caffeine Consumption? Occasional [email or web address] Information not available 06/14/2021 In The 14 Days Before Symptom Onset, Have You Had Close Contact With A Laboratory-confirm ed COVID-19 While That Case Was Ill? No [email or web address] Information n ot available 06/14/2021 In The 14 Days Before Symptom Onset, Have You Had Close Contact With A Person Who Is Under Investigation For COVID-19 While That Person Was Ill? No [email or web address] Information not available 06/14/2021 Have You Been To An Area Known To Be High Risk For COVID-19? No [email or web address] Information not available 06/14/2021 Are You Deaf Or Do You Have Serious Difficulty Hearing? No [email or web address] Information not available 06/14/2021 What Type Of Diet Are You Following? REGULAR [email or web address] Information n ot available 06/14/2021 Do You Use Your Seat Belt Or Car Seat Routinely? Yes [email or web address] Information not available 06/14/2021 Do You Have Smoke And Carbon Monoxide Detectors In Your Home? Yes [email or web address] Information not available 06/14/2021 Do You Use Sunscreen Routinely? Yes [email or web address] Information not available 06/14/2021 Sex: Unknown Functional Status Question Answer Note LastModified by Organizat ion Details LastModified Time Do you use any illicit or recreational drugs? No [email or web address] Information not available 06/14/2021 What is your level of alcohol consumption? Occasional [email or web address] Information not available 06/14/2021 Are you able to walk? YESWOREST [email or web address] Information not available 06/14/2021 What is your exercise level? Occasional [email or web address] Information not available 06/14/2021 Mental Status Question Answer Note LastModified by Organization D etails LastModified Time Do you feel stressed (tense, restless, nervous, or anxious, or unable to sleep at night)? [id number] [email or web address] Information not available 06/14/2021 Family History Relationship Description Onset Age of this Age Resolved Age Notes LastModified by Organization Details LastModified Time Mother Diabetes mellitus [email or web address] Not available 2020 17:01:42 Medical History Condition Response Allergies (Food, seasonal, environmental ) N Other N Drug/Latex Allergies/Reactions N Breast Cancer N Blood Transfusion N Lung Disease N Dermatologic Disorders N Defects or Inherited Disease N Breast Problem N Gestational Diabetes N Hematologic disorders N Anesthesia Complications N History of STI N Deep Vein Thrombosis N Polycystic ovary syndrome N Anxiety Disorder N Autoimmune disease N Arthritis N Polyps N Infertility N History of abnormal pap N Acid Reflux (GERD) N Cancer N Varicosities N Stroke N Neurologic/Epilepsy N Endometriosis N High Cholesterol N Headaches N Fibromyalgia N Kidney Disease N Heart Problems N Thyroid Problems N Kidney or Bladder Problems N GI Problems N Eating Disorder [...] SNOMED-CT Code Diagnosis ICD10 Code Diagnosis Note [id number] Jens Augustine MD [place] [address] [address] 01/09/2021 16:54:48 01/09/2021 22:10:15 Nausea and vomiting 53443780 R11.2 This patient is a 20-year-ol d [...] s. I reviewed laboratory value [place]ins. [id number] Jens Augustine MD [place] [address],[place] [address] 01/09/2021 17:31:20 01/09/2021 17:43:47 Uncertain viability of 215216868 O36.80X9 Z3A.01 15711 Jany Ocampo MD [place] [address],[place] [address] 01/25/2021 16:38:13 01/25/2021 18:19:54 Urine test positive 784540456 Z32.01 test positive 968443676 Z32.01 Hyperemesi s gravidarum 02203195 O21.0 52692 Jany Ocampo MD [place] [address],[place] [address] 01/25/2021 16:38:13 01/25/2021 18:19:54 [id number] Jens Augustine MD [place] [address],[place] [address] 02/23/2021 12:04:22 02/23/2021 12:45:03 screening 092979658 Z36.82 84730 Jens Augustine MD [place] [address] [address] 03/14/2021 15:41:43 03/14/2021 17:32:56 Nausea and vomiting 00872420 R11.2 Routine an tenatal care 089371139 Z34.[address] [facility] [address] [address] 04/17/2021 16:22:23 04/18/2021 19:47:07 Routine care 400166341 Z34.02 93737 Jens Augsutine MD [place] [address],[place] [address] 04/17/2021 16:22:51 04/17/2021 18:10:39 screening for malformation 984811192 Z36.3 66506 Rosanna Mcgovern [facility] [address],[place] [address] 04/20/2021 15:13:11 04/21/2021 11:15:40 Urinary symptoms 051137513 R39.9 Vaginitis 45621259 N76.0 37254 Jany Ocampo MD [place] [address] [address] 05/15/2021 12:04:50 05/15/2021 14:02:04 Routine care 651416800 Z34.92 26049 Jany Ocampo MD [place] [address] [address] 05/15/2021 12:05:36 05/15/2021 12:52:57 Intrauterine synechiae 266321247 N85.6 O36.5920 Z3A.24 33229 Lisa Rivera [facility] [address],[place] [address] 06/14/2021 14:30:04 06/14/2021 15:19:48 Routine care 860164507 Z34.93 Health Concerns Section Related Observation LastModified by Organization Detai ls LastModified Time None Recorded Concern Status LastModified by Organization Details LastModified Time None Recorded Advance Directives Directive None Recorded Payers Insurance Date Sequence Insurance Name Policy Number Policy Reeves Covered Member ID Reeves Member ID Guarantor Name 07/07/2021 1 [facility] ON OR AFTER 12/22/20 (MEDICAID REPLACEMENT - HMO) Corrine Crane [id number] Corrine Crane OBGyn Episode Ob Episode Information Episode Created Date Number of Fetuses Patient Bloodtype Patient rh Status Prepregnancy Weight lbs Domestic Partner Domestic Partner Phone Father Name Industrial Maintenance Repairer Status 01/10/20 21 1 CLOSED Fetus Data First Name Last Name Admitted to NICU Weight (g) Sex Living Outcome Pediatric Complications Fetus ID Race Codes Race Delivery Type 2919.77 1704 F Full Term 80807 Vaginal Delivery Sung Calculation Initial Sung Date [...] Partner Domestic Partner Phone Father Name Industrial Maintenance Repairer Status 03/14/20 21 1 A Positive 115 CLOSED Fetus Data First Name Last Name Admitted to NICU Weight (g) Sex Living Outcome Pediatric Complications Fetus ID Race Codes Race Delivery Type [id number] Problems Problem Notes Problem Name Start Date End Date Resolution Snomed Code Not e Nausea and vomiting 52373152 Pain in round ligament in 83828556612056424 Intrauterine synechiae 102645995 repeat growth 8wks - 07/10/21 Sung Calculation [...] 21 13 [email or web address] 03/14/2021 09/01/19 22 0 Pre- Flowsheet Flowsheet Date 03/14/2021 Salvador Score Blood Edema Fundus Height Fundus Units Glucose Ketones Leukocytes Nitrite Labor Signs Protein Cervic Dilation Cervic Effacement Cervic Station 15 Type Weight in lbs Pre/Post Dialysis Refused Weight 115.067387982481 BP Diastolic BP Location Tested BP Systolic [...] Weight in lbs Pre/Post Dialysis Refused Weight 121.614810799837 BP Diastolic BP Location Tested BP Systolic BP Type 68 109 Fetus Heart Rate Present Fetus Movement A Yes Comments Doing well. Was seen at [facility] for contractions that were caused by constipation. Contractions have resolved. Pt has headaches frequently with floaters. At [facility] [place] they told her she has pre eclampsia. [...] Weight in lbs Pre/Post Dialysis Refused Weight 126.50788874825 BP Diastolic BP Location Tested BP Systolic [...] Weight in lbs Pre/Post Dialysis Refused Weight 125.855720499504 BP Diastolic BP Location Tested BP Systolic [...] Weight in lbs Pre/Post Dialysis Refused Weight 120.083313944278 BP Diastolic BP Location Tested BP Systolic [...] Estim ated Date of Delivery false Thalassemia (Polish, Kazakh, Mediterranean, Or Background): MCV < 80 false Neural Tube Defect (Meningomyelocele, Spina Bifi da, Or Anencephaly) false Congenital Heart Defect false Down Syndrome false Carl-Sachs (eg, Evangelical, Cajun, Pakistani-Real) f alse Zaheer Disease false Sickle Cell Disease Or Trait () false Hemophilia Or Other Blood Disorders false Muscular Dystrophy false Cystic Fibrosis false [place] Chorea false Intellectual Disability/Autism false If Yes, [...] Partner Domestic Partner Phone Father Name Industrial Maintenance Repairer Status 01/10/20 21 1 CLOSED Fetus Data First Name Last Name Admitted to NICU Weight (g) Sex Living Outcome Pediatric Complications Fetus ID Race Codes Race Delivery Type 2438.05 7 F Full Term 36651 Vaginal Delivery Sung Calculation Initial Sung Date [...]
--- OUTSIDE RECORDS SUMMARY | 2025-01-05 16:44 | XMS_ITS | Data Portability ---
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 Plan of Treatment Reminders Order Date Submit Date Provider Last Modified By Organization Details Last Modified Time Details Appointments None recorded. Lab test, urine 2023 024 [email or web address] [facility], [address] [place], [address], 4 12:09:01 unlisted lab - STD screening ([facility]) 2023 024 [facility], [address] [place] [address], [address], 4 12:58:31 unlisted lab - STD screening ([facility]) 2023 024 [facility], [address] [place], [address], 4 11:26:27 unlisted lab - Pap reflex hold 2023 024 [facility], [address] [place], [address], 4 11:29:47 pap, LB 2023 024 [facility], [address] [facility] [place], [address], 4 09:44:19 STI panel 2023 024 [facility], [address] [place] [address], [address], 4 08:56:23 bacterial vaginosis + vaginitis panel, vaginal 2021 022 [facility], [address] [place] [address], [address], 3 03:39:04 RPR (rapid plasma reagin), serum 2021 022 [id number] 0 [facility], [address] [place], [address], 2 10:02:00 HBsAg (hepatitis B surface Ag), serum 2021 022 [id number] 0 [facility], [address] [place], [address], 2 10:02:01 hepatitis C virus Ab, serum 2021 022 [id number] 0 [facility], [address] [place], [address], 2 10:02:01 HIV 1+2 Ab + HIV1 p24 Ag, quantitativ e immunoassay , serum 2021 022 [id number] 0 [facility], [address] [place], [address], 2 10:02:01 test, urine 2021 022 [id number] [facility], [address] [facility], [place], [address], 2 13:58:33 Referral None recorded. Procedures None recorded. Surgeries None recorded. Imaging US, transvagina l 2023 024 KIKO Not available 4 18:57:02 Medication Orders 28 mg iron-800 mcg tablet 2023 024 [id number], [address], [place], [id number], 4 12:09:06 Depo-Denture Technician a 150 mg/mL intramuscul ar syringe 2021 022 [email or web address] Not available 3 10:19:43 Patient TargetsNo targets recorded. Patient Instructions Encounter Date Encounter Id Patient Instructions Last Modified By Organization Details Last Modified Time 12/13/2021 [id number] sexually transmitted disease education [email or web address] Not available 12/13/2021 13:59:25 - Refrain from [...] hygiene products marked mild or for vaginal health. We suggest any of the following soaps: [...] ureaplasma/mycopla sma testing and treatment, if indicated. [email or web address] Not available 12/13/2021 11:56:10 02/14/2024 [id number] body mass index: care instructions Not available 02/14/2024 10:38:36 A healthy lifestyle: care instructions Not available 02/14/2024 10:38:35 Following the [employer] Food Guide: Care Instructions Not available 02/14/2024 10:38:36 exercise program : getting started Not available 02/14/2024 10:38:35 contraception information Not available 02/14/2024 10:38:36 learning about control Not available 02/14/2024 10:38:35 03/19/2024 [id number] exposure to sexually transmitted infections: care instructions [email or web address] Not available 03/19/2024 16:09:34 05/28/2024 [id number] [facility] OB Booklet [email or web address] Not available 05/28/2024 12:52:42 Reason for Referral None Reported. Results Created Date Observation Date Name Description Value Unit Range Abnormal Flag Note LastModifiedBy Organization Detail LastModifiedTime 12/14/1912/14/2021 VAGIN ITIS PLUS STD PANEL bacterial vaginosis BV POS negati ve abnormal Not Available [employer] [address] [place], [address], 12/15/2021 09:19:07 12/14/19 22 12/14/2021 VAGIN ITIS PLUS STD PANEL mehnaz species C. spp neg negati ve normal Not Available [employer] [address] [place], [address], 12/15/2021 09:19:07 12/14/19 22 12/14/2021 VAGIN ITIS PLUS STD PANEL mehnaz glabrata C. gla neg negati ve normal Not Available [address], [address], 12/15/2021 09:19:07 12/14/19 22 12/14/2021 VAGIN ITIS PLUS STD PANEL trichomonas vaginalis CV/TV TRICH neg negati ve normal Not Available [address], [address], 12/15/2021 09:19:07 12/14/19 22 12/14/2021 VAGIN ITIS PLUS STD PANEL chlamydia trachomatis CT neg negati ve normal This repor t is inten ded for us in clini montrell monit oring and manag ement of patie nts. It is not inten ded for use in medic al-le gal appli catio n. Not Available [address], [address], 12/15/2021 09:19:07 12/14/19 22 12/14/2021 VAGIN ITIS PLUS STD PANEL neisseria gonorrhoeae GC neg negati ve normal This repor t is inten ded for us in clini montrell monit oring and [facility]. It is not inten ded for use in medic al-le gal appli catio n. Not Available [address], [address], 12/15/2021 09:19:07 12/14/1912/13/2021 pregn riaz test, urine HCG negati ve Not Available [facility] [address], [place], [address], 12/13/2021 12:15:13 02/14/20 24 02/15/2024 STD SCREE DANII ([facility] ) hep BS Ag Non-Re active non-re active normal Not Available [address], [address], 02/15/2024 11:26:27 08/23/20 24 02/15/2024 STD SCREE DANII ([facility] ) hep C Ab Non-Re active non-re active normal Not Available [address], [address], 02/15/2024 11:26:27 02/14/20 24 02/15/2024 STD SCREE DANII ([facility] ) HIV 1/2 Ag/Ab Non-Re active non-re active normal Not Available [address], [address], 02/15/2024 11:26:27 02/14/20 24 02/15/2024 STD SCREE DANII ([facility] ) syphilis Ab Non-Re active non-re active normal Not Available [address], [address], 02/15/2024 11:26:27 02/14/20 24 02/17/2024 STI PANEL trichomonas vaginalis TRICH neg negati ve normal Not Available [address], [address], 02/18/2024 08:56:23 02/14/2002/17/2024 STI PANEL chlamydia trachomatis CT neg negati ve normal This repor t is inten ded for us in clini montrell monit oring and manag ement of patie nts. It is not inten ded for use in medic al-le gal appli catio n. Not Available [address], [address], 02/18/2024 08:56:23 02/14/20 24 02/17/2024 STI PANEL neisseria gonorrhoeae GC neg negati ve normal This repor t is inten ded for us in clini montrell monit oring and manag ement of patie nts. It is not inten ded for use in medic al-le gal appli catio n. Not Available [address], [address], 02/18/2024 08:56:23 02/14/20 24 02/21/2024 THINP REP TIS PAP clinical information: normal None given Not Available [address], [address], 02/21/2024 09:44:18 02/14/20 24 02/21/2024 THINP REP TIS PAP LMP: normal NONE GIVEN Not Available [address], [address], 02/21/2024 09:44:18 02/14/20 24 02/21/2024 THINP REP TIS PAP prev. Pap: normal NONE GIVEN Not Available [address], [address], 02/21/2024 09:44:18 02/14/20 24 02/21/2024 THINP REP TIS PAP prev. BX: normal NONE GIVEN Not Available [address], [address], 02/21/2024 09:44:18 02/14/20 24 02/21/2024 THINP REP TIS PAP source: normal Cervi x Not Available [address], [address], 02/21/2024 09:44:18 02/14/20 24 02/21/2024 THINP REP TIS PAP statement of adequacy: normal Satis facto ry for evalu ation . Endoc ervic al/tr ansfo rmati on zone compo nent prese nt. Age and/o r menst rual statu s not provi ded Not Available [address], [address], 02/21/2024 09:44:18 02/14/20 24 02/21/2024 THINP REP TIS PAP general categorizati on: abnormal Cytol ogy Resul ts: Epith elial Cell Abnor malit y Not Available [address], [address], 02/21/2024 09:44:18 02/14/20 24 02/21/2024 THINP REP TIS PAP interpretati on/result: abnormal Low Grade Squam ous Intra epith elial Lesio n (LSIL ) Not Available [facility] [address] [place], [address], 02/21/2024 09:44:18 02/14/20 24 02/21/2024 THINP REP TIS PAP comment: normal This Pap test has been evalu ated with compu ter william tegan techn ology . Sugge st clini montrell corre latio n and follo w-up as clini soila appro priat e Not Available [facility] [address] [place], [address], 02/21/2024 09:44:18 02/14/20 24 02/21/2024 THINP REP TIS PAP cytotechnolo gist: normal AYOUB, CT( CP) CT Scree danii locat ion: [address] [place] [address] Not Available [facility] [address] [place], [address], 02/21/2024 09:44:18 02/14/20 24 02/21/2024 THINP REP TIS PAP pathologist: normal Griselda orozco M.D., Board Certi fied in Anato sven Patho logy and Cytop athol ogy. Phone : [phone] (elec troni c signa ture) Not Available [facility] [address] [place], [address], 02/21/2024 09:44:18 02/14/20 24 02/21/2024 THINP REP [...] clini montrell infor matio n. Not Available [facility] [address], [place], [address], 02/21/2024 09:44:18 03/19/20 24 03/20/2024 STD SCREE DNAII ([facility] ) hep BS Ag Non-Re active non-re active normal Not Available [address], [address], 03/20/2024 12:58:31 03/19/20 24 03/20/2024 STD SCREE DANII ([facility] ) hep C Ab Non-Re active non-re active normal Not Available [address], [address], 03/20/2024 12:58:31 03/19/20 24 03/20/2024 STD [facility] ([facility] ) HIV 1/2 Ag/Ab Non-Re active non-re active normal Not Available [address], [address], 03/20/2024 12:58:31 03/19/20 24 03/20/2024 STD [facility] ([facility] ) syphilis Ab Non-Re active non-re active normal Not Available [address], [address], 03/20/2024 12:58:31 05/11/20 24 05/11/2024 pregn riaz test, urine HCG positi ve Not Available [facility] [address] [place], [address], 05/11/2024 11:59:31 05/29/20 24 05/28/2024 US, trans vagin al No observ ation record ed. [email or web address] [address], [facility], [place], [address], 05/29/2024 19:26:54 Result Notes None recorded. Problems No Known Problems Procedures Surgical History Date Name Laterality Status Provider Name and Address Organization Details Recorded Time 02/14/20 24 Date of Last Pap Smear completed Caitlin Anthony [facility] 03/19/2024 15:38:22 12/14/19 Depo Provera Injection completed Skyla Vela [facility] 12/13/2021 12:53:19 10/18/19 IUD Insertion cancelled Irina Apple [facility] 10/16/2021 16:14:53 Imaging Results None recorded. Procedure Notes None recorded. Medical Equipment None Reported. Allergies Allergen ID Allergen Name Allergen Category Reaction Reaction Severity Criticality Documentation Date Start Date Code Code System Note Provider Name and Address Organization Details Recorded Time 297804 amoxicill in medicatio n Not available Not available Not available 02/14/2024 723 RxNorm Trammarivel Krishna [facility] 4 10:06:28 393622 cow milk allergeni c extract food,medi cation Not available Not available Not available 05/11/2024 63190 5 RxNorm Caitlin barber [facility] 4 11:44:41 Medications Name Sig Start Date Stop Date Status Note LastModified by Organization Details LastModified Time multivita min tablet Take 1 tablet(s ) by mouth daily 09/28 completed Multivit amins Tablet Allow Substitu tion: True Refill Denied: No Not Available Not Available Not Available cyclobenz aprine 10 mg tablet TAKE 1 TABLET BY MOUTH EVERY 8 HOURS active Not Available Not Available No t Available clindamyc in HCl 300 mg capsule [...] a XL 30mg Tablets, Extended Release RxNorm: 218554 Allow Substitu tion: True Refill Denied: No Not Available Not Available Not Available fluconazo le 150 mg tablet TAKE 1 TABLET BY MOUTH AT THE END OF ANTIBIOT ICS AND TAKE 1 TABLET 72 HOURS LATER active Not Available Not Available No t Available valacyclo vir 1 gram tablet TAKE 1 TABLET BY MOUTH THREE TIMES DAILY 03/19 completed Not Available Not Available Not Available cephalexi n 250 mg capsule 08/01 completed Not Available Not Available Not Available Claritin 10 mg tablet take 1 tablet PRN 09/28 completed Claritin Allergy 24 hr 10mg Tablet RxNorm: 065296 Allow Substitu tion: True Refill Denied: No Refill DateOccu rred: 08/25/19 16 Not Available Not Available Not Available fluconazo le 200 mg tablet TAKE 1 TABLET BY MOUTH NOW THEN REPEAT IN 72 HOURS 02/13 completed Not Available Not Available Not Available metronida zole 0.75 % (37.5 mg/5 gram) vaginal gel INSERT 1 APPLICAT ORFUL VAGINALL Y EVERY NIGHT AT BEDTIME FOR 5 DAYS active Not Available Not Available No t Available ondansetr on HCl 4 mg tablet [...] TAKE 1 TABLET BY MOUTH TWICE DAILY active Not Available Not Available No t Available valacyclo vir 500 mg tablet TAKE [...] HCl 8mg Tablets, Orally Disinteg rating RxNorm: 271418 Allow Substitu tion: True Refill Denied: No [...] prometha zine 50 mg oral tablet RxNorm: 755347 Allow Substitu tion: True Refill Denied: No Edited by: Lisa Mackenzie) on 03/24/20 Stopped by: Lisa Mackenzie) on Not Available [...] completed Provera 10 mg oral tablet RxNorm: 6874115 Allow Substitu tion: True Refill Denied: No Edited by: lauryn cele(Margaret Rice ) on 08/27/19 Stopped by: rrzoey cele(Margaret Rice ) on 08/27/19 21 Not Available Not Available Not Available ibuprofen 600 mg tablet TAKE 1 TABLET BY MOUTH EVERY 6 HOURS NEEDED WITH FOOD active Not Available Not Available No t Available polyethyl gadiel glycol 3350 17 gram/dose [...] mal Patch,Tr ansderma l 3 day RxNorm: 212960 Allow Substitu tion: True Refill Denied: No [...] Clotrima zole 3-Day 2% Vaginal Cream RxNorm: 140696 Allow Substitu tion: True Refill Denied: No Not Available Not Available Not Available nitrofura ntoin monohydra te/macroc rystals 100 mg capsule TAKE 1 CAPSULE BY MOUTH TWICE DAILY FOR 5 DAYS 07/21 completed Not Available Not Available Not Available Prozac Take 1 capsule( s) by mouth daily 09/28 completed Prozac 10mg Capsules RxNorm: 511040 Allow Substitu tion: True Refill Denied: No [...] Not Available Implanon 09/18 completed Implanon RxNorm: 42529 Allow Substitu tion: True Refill Denied: No [...] Transder mal Patch, Transder mal Weekly RxNorm: 3506831 Allow Substitu tion: True Refill Denied: No Edited by: Lisa Mackenzie) on 09/27/19 Stopped by: Lisa Mackenzie) on Not Available Not Available Not Available clonidine HCl Take 1 tablet(s ) by mouth daily 09/28 completed Clonidin e HCl 0.1mg Tablet RxNorm: 012767 Allow Substitu tion: True Refill Denied: No [...] Updated DateTime 12/13/2021 162.56 cm 21.3 kg/m2 05044.45 g 120/80 mm[Hg] Skyla Vela [facility] 12/13/2021 11:56:32 Date Recorded Body height Body mass index (BMI) Body weight Body temperature Systolic And Diastolic Provider Name and Address Organization Details Last Updated DateTime 02/14/2024 162.56 cm 20.6 kg/m2 49902.3 7 g 97 [degF] 100/60 mm[Hg] Phu Cortezy [facility] 10:11:34 Date Recorded Body height Body mass index (BMI) Body weight Systolic And Diastolic Provider Name and Address Organization Details Last Updated DateTime 03/19/2024 162.56 cm 20.9 kg/m2 89260.27 g 110/60 mm[Hg] Caitlin Anhtony [facility] 03/19/2024 15:44:28 Date Recorded Body height Body mass index (BMI) Body weight Systolic And Diastolic Provider Name and Address Organization Details Last Updated DateTime 05/11/2024 162.56 cm 20.9 kg/m2 88521.27 g 100/68 mm[Hg] Caitlin Anthony [facility] 05/11/2024 11:57:02 Date Recorded Body height Body mass index (BMI) Body weight Body temperature Systolic And Diastolic Provider Name and Address Organization Details Last Updated DateTime 05/28/2024 162.56 cm 20.9 kg/m2 66675.2 7 g 97.4 [degF] 102/62 mm[Hg] Nya Vincent [facility] 12:21:40 Social History Question Answer Notes LastModified by Organizat ion Details LastModified Time Tobacco Smoking Status Never Smoker Tiki hdz [facility] 07/10/2021 12:45:51 If You Are , What Was Your Level Of Alcohol Consumption Prior To ? None [email or web address] Information not available 05/11/2024 Are You Blind Or Do You Have Difficulty Seeing? No Information not available 07/10/2021 Are You Deaf Or Do You Have Serious Difficulty Hearing? No Information not available 07/10/2021 What Type Of Diet Are You Following? REGULAR Information not available 07/10/2021 How Many Children Do You Have? 3 [email or web address] Information not available 10/20/2021 Are There Any Occupational Health Risks Where You Work? No [email or web address] Information not available 05/11/2024 What Is Your Relationship Status? Single [email or web address] Information not available 10/20/2021 Are You Sexually Active? Yes [email or web address] Information not available 10/20/2021 Sex: Unknown Functional Status Question Answer Note LastModified by Organizat ion Details LastModified Time Do you use any illicit or recreational drugs? No Information not available 07/10/2021 Do you or have you ever used any other forms of tobacco or nicotine? No Information not available 07/10/2021 What is your level of alcohol consumption? None Information not available 05/11/2024 Are you currently employed? Yes Information not available 05/11/2024 What is your exercise level? None Information not available 07/10/2021 Mental Status None recorded. Family History Relationship Description Onset Age of this Age Resolved Age Notes LastModified by Organization Details LastModified Time Paternal Grandmother Hyperlipidem ia [email or web address] Not available 05/11 11:08:28 Paternal Grandmother Malignant tumor of breast [email or web address] Not available 2021 18:20:38 Maternal Grandmother Hypertensive disorder [email or web address] Not available 2021 18:19:14 Maternal Aunt Hypertensive disorder [email or web address] Not available 05/11 11:08:28 Unspecified Relation Malignant [...] N Osteoporosis N Gynecological History Statement/Question Response Date of Last Colonoscopy Date of LMP 09/29/2024 Most Recent Bone Density HPV Vaccine N Date of Last Pap Smear 02/14/2024 Duration of Flow (days) 7 Most Recent Mammogram Current Control Method None Age at Menarche 10 Obstetrics History GPAL:G 5 P 3 0 2 3 Type Value Full Term 3 Induced 1 Spontaneous 1 Living 3 Total 5 Past Encounters Encounter ID Performer Location Encounter Start Date Encounter Closed Date Diagnosis/Indication Diagnosis SNOMED-CT Code Diagnosis ICD10 Code Diagnosis Note [id number] TAINASASHA LOCKEHARRISON [address] [address] 06/30/2021 10:55:34 07/18/2021 09:59:12 Routine care 230188423 Z34.93 Uterine si ze for dates discrepancy 778934526 O26.849 growth [id number] ELKIN Watt [address] [place] [address] 07/10/2021 12:00:49 07/25/2021 13:34:42 Routine care 185496619 Z34.93 Anemia of 4 2003 O99.853 [id number] [place] [address] [place] [address] 07/18/2021 11:50:41 07/27/2021 15:13:52 [id number] HARRISON [facility] [address] [place] [address] 08/01/2021 09:51:39 08/01/2021 10:28:50 70626555 Z33.1 IUP @ 35+ wks. Complaints of irregulr contractio ns . PTL precaution s. GBS collected. RTO 1 wk US with visit. Vaginal swab taken 52446 3009 Z75.2 [id number] MADELYN TAYLOR CNM [address] [address] 08/11/2021 10:03:38 08/11/2021 11:02:57 Normal in multigravida 0576517477 28441 Z34.80 IUP @ 36+ wks. No OB complaints . Labor precaution s reviewed. RTO 1 wk. Request denies for IOL. Discussed no medical indication for IOL at this time. Pt requesting becaus eof discomfort and una mathew contractio ns. [id number] MADELYN TAYLOR CNM [address] [address] 08/18/2021 14:07:55 08/18/2021 16:25:10 Normal in multigravida 9454710792 38185 Z34.80 IUP @ 37+ wks. Labor precaution s reviewed. RTO 1 wk. Request denied for IOL. S/P triage visit at [facility], rulled out for SROM and Labor.Pt states that her cervix was 4cm. SVE today 2cm/50/-4D iscussed no medical indication for IOL at this time. Pt requesting because of pain. Encouraged to rest, increase hydration, tylenol. Instructed to go into the hospital for evaluation r/t frequency of reported contractio ns. 2 mild contractio ns noted in exam room. Uterine si ze for dates discrepancy 410425219 O26.849 growth, s [id number] MADELYN TAYLOR CNM [facility] [address] [place] [address] 09/08/2021 14:00:58 09/08/2021 15:13:50 state 07054471 Z39.2 [id number] Steffany CraigELKIN [facility] loo [address] [place] [address] 12/13/2021 11:51:39 12/13/2021 12:07:23 Screening for disorder 077785737 Z11.3 N89.9 Contracept ion care management 444360154 Z30.9 All risks of DMPA discussed. She has been sexually abstinent x 4 weeks. 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 Pap Hx: pap collected today. Pt states understand ing and is amenable to POC. Surveillan ce of contraception 427182722 Z30.40 Depression screening 171 945177 Z13.31 See Intake Screening - PHQ Contracept ion education 868269045 Z30.09 Contracept drea counseling : Discussed options including OCPs, NuvaRing, Nexplanon, hormonal and copper IUDs. Discussed risks, efficacy, non contracept drea benefits, and side effects of each option, including risk of VTE with hormonal contracept ion and uterine perforatio n, expulsion, infection with IUD. Venereal d isease screening 511916425 Z11.3 [id number] LEFTY LUBIN, BALDEMAR [facility] [address] [place] [address] 03/19/2024 15:19:19 03/23/2024 10:34:05 Venereal disease screening 718637333 Z11.3 Ms. Crane, a 23 yo was recently seen at urgent care & swabbed for STIs, was treated for chlamydia & wants STI bloodwork performed today.- She also had abnormal pap smear results & does not understand them.- Discussed those pap results with her. POCSTI bloodworkw ill treat as needed [id number] TREMAYNE ABRAMS, DIAMANTE [facility] [address] [place] [address] 05/11/2024 11:08:11 05/11/2024 12:21:30 Missed period 42545060 N92.6 LMP: 04/01/2024 but is unsure if that is correct. States last month her cycle was a little offBased on cycle patient would be approx 5-6 weeks, with JESSICA mid December. Advised that due to uncertanit y of cycle US will be more accurate for dating. First trimester teaching provided.- --Foods and activities to avoid---Sa fe meds---Pre kamilla vitamins daily--- Toxoplasmo sis precaution s reviewed-- -S/S of SAB reviewed and when to seek care RTC 2 weeks for confirmati on [id number] ELKIN ROSE [facility] [address] [place] [address] 05/28/2024 11:49:22 05/29/2024 12:15:47 test positive 616206623 Z32.01 Pt presents today for a confirmati on of visit. has not been previously confirmed at another healthcare facility. Pt voiced that she is happy about this . TVUS today showed:IUP with Cardiac Activity. JESSICA based on this US. JESSICA: [birth year]25Ges corbin Age: 6w 5dFHT: 89 First trimester teaching provided.- --Foods and activities to avoid---We ight gain recommenda tions based on BMI---Safe meds---Darwin entation to practice-- -Delivery locations- --STEVE visit progressio n---Prenat al vitamins daily---To xoplasmosi s precaution s reviewed-- -[facility] Guide; What to expect on your maternity journey-- -S/S of SAB reviewed and when to [...] and Physical. --BMI: 20.9 Hyperemesi s gravidarum [id number] O21.0 Went to ER Saturday, given IV [...] Member ID Reeves Member ID Guarantor Name 01/04/2025 1 [facility] - DOS ON OR AFTER 20 (MEDICAID REPLACEMENT - HMO) Corrine Orozco Royce [id number] Corrine Crane Notes Date Note Type Note Provider Name and Address Organization Details Recorded Time 12/13/2021 text/html Corrine is here to day for c/o vaginal discharge and odor. She is sexually active and requests STD testing. She desires to restart on DMPA. She is due for her AEX/pap Steffany Craig, WHNP [address] [facility], [place], [address], [facility] [employer] IV 12/13/2021 14:00:09 02/14/2024 text/html Annual GYNReport ed [...] has HPV 1 EMMA ROMERO NP [address] [facility], [place], [address], [facility] [employer] [facility] 02/14/2024 17:25:28 03/19/2024 text/html Patient had a sw ab done 03/10 and was positive for Chlamydia, patient has been treated. Patient states she is here today to get the rest of the STD testing via blood work. Patient also had a abnormal pap smear and does not understand her results. LEFTY LUBIN NP [address] [facility], [place], [address], [facility] [employer] [facility] 03/22/2024 11:37:33 05/11/2024 text/html Pt presents for OB confirmation visit. Pt's LMP 04/01/24 Pt is feels excited about . Pt denies bleeding but has cramping at times on Rt side. No n/v. Pt states she is currently taking no medications. Pt has no other concerns. LSIL in 02/14 pap smear to repeat in 1 year. TREMAYNE ABRAMS, DIAMANTE [address] [facility], [place], [address], [facility] [employer] 05/11/2024 12:11:27 05/28/2024 text/html Pt presents [...] Pt has no other concerns. ELKIN ROSE [address] [place], [address], [facility] 05/28/2024 18:56:07 OBGyn Episode Ob Episode Information Episode Created Date Number of Fetuses Patient Bloodtype Patient rh Status Prepregnancy Weight lbs Domestic Partner Domestic Partner Phone Father Name Lithograph Printer Status 05/11/20 24 1 CLOSED Fetus Data First Name Last Name Admitted to NICU Weight (g) Sex Living Outcome Pediatric Complications Fetus ID Race Codes Race Delivery Type , Induced [id number] Jessica Calculation Initial Jessica Date Initial Exam [...] Domestic Partner Domestic Partner Phone Father Name Lithograph Printer Status 05/11/20 24 1 CLOSED Fetus Data First Name Last Name Admitted to NICU Weight (g) Sex Living Outcome Pediatric Complications Fetus ID Race Codes Race Delivery Type , Spontane ous [id number] Jessica Calculation Initial Jessica Date Initial Exam [...] Domestic Partner Domestic Partner Phone Father Name Lithograph Printer Status 06/29/19 22 1 CLOSED Fetus Data First Name Last Name Admitted to NICU Weight (g) Sex Living Outcome Pediatric Complications Fetus ID Race Codes Race Delivery Type Malasi a false F true Full Term [id number] Jessica Calculation Initial Jessica Date Initial Exam Date Initial Exam Provider Initial Ultrasound Date Last Menstrual Period Date Ultra Sound Weeks Gestation 09/04/2021 06/29/2021 01/12/2021 11/22/2020 6 Eighteen To Twenty Week Jessica Update Ultra Sound Date Fundal Height At Umbil Quickening Date Ultra Sound Latest Weeks Gestation Final Jessica Confirmed By Final Jessica Confirmed Date Final Jessica Date Ultra Sound Latest Days Gestation 0 lduffe 08/18/2021 09/05/19 22 0 Pre- Flowsheet Flowsheet Date 06/30/2021 Salvador Score Blood Edema Fundus Height Fundus Units Glucose Ketones Leukocytes Nitrite Labor Signs Protein Cervic Dilation Cervic Effacement Cervic Station 24 wks none none neg Type Weight in lbs Pre/Post Dialysis Refused Weight 122.066656922916 BP Diastolic BP Location Tested BP Systolic BP Type 60 L arm 100 sitting Fetus Heart Rate Present A 132 Present Fetus Movement A Yes Comments Patient here for care--not s een by this practice since Feb. States she had 28 week labs and anatomy at [facility]. Records release sent. If not available [...] Weight in lbs Pre/Post Dialysis Refused Weight 124.130541700745 BP Diastolic BP Location Tested BP Systolic BP Type 56 L arm 98 sitting Fetus Heart Rate Present A 140 Fetus Movement A Yes Comments Flowsheet Date 07/18/2021 Salvador Score Blood Edema Fundus Height Fundus Units Glucose Ketones Leukocytes Nitrite Labor Signs Protein Cervic Dilation Cervic Effacement Cervic Station 30 cm none neg Type Weight in lbs Pre/Post Dialysis Refused Weight 125.173957249313 BP Diastolic BP Location Tested BP Systolic BP Type 66 108 Fetus Heart Rate Present A 150 Fetus Movement A Yes Comments Requesting IOL- explained th at elective IOL could not happen at [facility] until 40 weeks. Patient states that is [...] Weight in lbs Pre/Post Dialysis Refused Weight 127.646271709862 BP Diastolic BP Location Tested BP Systolic BP Type 70 120 Fetus Heart Rate Present A 134 Present Fetus Movement A Yes Comments s<d growth next visit US gene vailable today. FWB reassuring per bedside US, VALERIO subjectively wnl +Breathing, +FHT's, +FM, +flexion. Complaints of irregular contractions, SVE requested unchanged from [place] triage visit. Flowsheet Date 08/11/2021 Salvador Score Blood Edema Fundus Height Fundus Units Glucose Ketones Leukocytes Nitrite Labor Signs Protein Cervic Dilation Cervic Effacement Cervic Station 35 cm Cramping Type Weight in lbs Pre/Post Dialysis Refused Weight 127.342125708964 BP Diastolic BP Location Tested BP Systolic BP Type Fetus Heart Rate Present A 133 Present Fetus Movement A Yes Comments requesting IOL today. Discus sed importance of remaining d/t lung development and temp regulation. Patient understanding. Reports irregular contractions. +FM, Denies LOF, VB. FWB reassuring per bedside US today. Plan growth next visit, not scheduled today. Flowsheet Date 08/18/2021 Salvador Score Blood Edema Fundus Height Fundus [...] US. Growth US today for S<D. 36.3% valerio 13Sent to [facility] for [facility]. Flowsheet Date 09/08/2021 Salvador Score Blood Edema Fundus Height Fundus Units Glucose Ketones Leukocytes Nitrite Labor Signs Protein Cervic Dilation Cervic Effacement Cervic Station Type Weight in lbs Pre/Post Dialysis Refused Weight 116.95149509594 BP Diastolic BP Location Tested BP Systolic [...] Domestic Partner Domestic Partner Phone Father Name Lithograph Printer Status 09/08/19 22 1 CLOSED Fetus Data First Name Last Name Admitted to NICU Weight (g) Sex Living Outcome Pediatric Complications Fetus ID Race Codes Race Delivery Type 3175.14 4 F [id number] Jessica Calculation Initial Jessica Date Initial Exam [...] Domestic Partner Domestic Partner Phone Father Name Lithograph Printer Status 09/08/19 22 1 CLOSED Fetus Data First Name Last Name Admitted to NICU Weight (g) Sex Living Outcome Pediatric Complications Fetus ID Race Codes Race Delivery Type 2721.55 2 F [id number] Jessica Calculation Initial Jessica Date Initial Exam [...]
--- OUTSIDE RECORDS SUMMARY | 2025-01-05 16:44 | XMS_ITS | Referral Summary ---
Author Organization [facility] Address [facility] [place] [address] Care Team Providers Care Equity Structurer Name Role Phone Miscellaneous, Not In File Primary Care Provider Unavailable Encounters Date Type Department Care Team Description 12/30/[address] [address] Daya Avalos RN 12/29/2024 10:46 PM CDT - 12/29/2024 11:56 PM CDT Emergency [address] [address] Discharge Disposition: Left without being seen 12/12/2024 9:16 PM CDT - 12/12/2024 9:50 PM CDT Emergency [facility] Emergency Department [address] [place] [address] Fabiano Orourke MD Contusion of lower back, initial encounter (Primary Dx) Discharge Disposition: Discharge to home or self care 11/19/2024 6:22 PM CDT - 11/19/2024 6:49 PM CDT Emergency [address] [address] Discharge Disposition: Left Against Medical Advice 11/02/2024 Results Follow-Up [facility] Emergency Department [address] [place] [address] Stefan Tate RN Urinalysis reflex to microscopic and culture Urine, Urinalysis, microscopic only 10/30/2024 10:14 PM CDT - 10/30/2024 11:42 PM CDT Emergency [facility] Emergency Department [address] [place] [address] Zen Mcfadden MD Szalwinski, Bandar Al MD Tension headache (Primary Dx) Discharge Disposition: Discharge to home or self care from Last 3 Months Allergies Active Allergy Reactions Criticality Noted Date Comments Amoxicillin Anaphylaxis High 10/30/2024 Medications PNV #[id number] acid-dha 35 mg iron-5 mg iron-1 mg capsule Take by mouth daily Active acetaminophen (TYLENOL) 500 mg tablet Take 1-2 tablets (500-1,000 mg total) by mouth every 6 (six) hours as needed for pain (1 tablet for mild to moderate pain. 2 tablets for severe pain) 30 tablet 12/12/2024 Active ibuprofen (ADVIL,MOTRIN) 400 mg tablet Take 1-2 tablets (400-800 mg total) by mouth 3 (three) times a day as needed for pain (1 tablet for mild to moderate pain or 2 tablets for severe pain) 30 tablet 12/12/2024 Active Active Problems Problem Noted Date Diagnosed [...] making you feel afraid or unsafe? Denies 12/29/2024 Comments No Sex and Gender Information Value Date Recorded Sex Assigned at Not on file Legal Sex Female 4:26 PM CDT Gender Identity Not on file Sexual Orientation Not on file Last Filed Vital Signs Vital Sign Reading Time Taken Comments Blood Pressure 115/82 12/29/2024 10:47 PM CDT Pulse 116 12/29/2024 10:47 PM CDT Temperature 36.3 C (97.4 F) 12/29/2024 10:47 PM CDT Respiratory Rate 20 12/29/2024 10:47 PM CDT Oxygen Saturation 100% 12/29/2024 10:47 PM CDT Inhaled Oxygen Concentration - - Weight 54.9 kg (121 lb) 12/12/2024 9:15 PM CDT Height 162.6 cm (5' 4) 12/12/2024 9:15 PM CDT Body Mass Index 20.77 12/12/2024 9:15 PM CDT Plan of Treatment Not on file Procedures Procedure Name Priority Date/Time Associated Diagnosis Comments POCT HCG, URINE Routine 12/29/2024 11:02 PM CDT EGFR STAT 12/29/2024 10:59 PM CDT DIFFERENTIAL AUTO STAT 12/29/2024 10: 59 PM CDT HCG, BLOOD, QUANTITATIVE STAT 12/29/2024 10:59 PM CDT COMPREHENSIVE METABOLIC PANEL STAT 12/29/2024 10:59 PM CDT CBC WITH AUTO DIFFERENTIAL STAT 12/29/2024 10:59 PM CDT URINALYSIS AND REFLEX TO MICROSCOPIC AND CULTURE STAT 12/29/2024 10:59 PM CDT POCT HCG, URINE Routine 10/30/2024 10:56 PM CDT EGFR Routine 10/30/2024 10:52 PM CDT DIFFERENTIAL AUTO Routine 10/30/2024 10: 52 PM CDT COMPREHENSIVE METABOLIC PANEL Routine 10/30/2024 10:52 PM CDT CBC WITH AUTO DIFFERENTIAL Routine 10/30/2024 10:52 PM CDT URINALYSIS, MICROSCOPIC ONLY STAT 10/30/2024 10:47 PM CDT URINALYSIS AND REFLEX TO MICROSCOPIC AND CULTURE STAT 10/30/2024 10:47 PM CDT HEPATITIS C ANTIBODY Routine 02/23/2021 from Last 3 Months or Most Recently Relevant to Health Maintenance Results * (ABNORMAL) POCT hCG, urine (12/29/2024 11:02 PM CDT) HCG, ur, POC Positive(A) Negative Lot Number [id number] QC Backgroud Clear Acceptable QC Control Line Acceptable Urine 12/29/2024 11:0 2 PM CDT Raz De La Paz DO POINT OF CARE TEST ORDERABLES Final Result * eGFR (12/29/2024 10:59 PM CDT) eGFR >90 >=60 mL/min/1. 73 m2 Comment: Interpretive Data Reference Interval Normal >/= 90 mL/min/1.73m2 Mildly decreased* 60 - 89 mL/min/1.73m2 Mildly to moderately decreased 45 - 59 mL/min/1.73m2 Moderately to severely decreased 30 - 44 mL/min/1.73m2 Severely decreased 15 - 29 mL/min/1.73m2 Kidney Failure < 15 mL/min/1.73m2 *Relative to young adult level Estimated glomerular filtration rate is determined by the 2020 CKD-EPI equation recommended by the National Kidney Foundation (A Unifying Approach to GFR Estimation: Recommendations of the NKF-ASK Task Force on Reassessing the Inclusion of Race in Diagnosing Kidney Disease, JASN 2020). The CKD-EPI equation should not be used for patients with unstable renal function and has not been validated in children and those over 70. Current interpretive data was last reviewed 2021. Blood 12/29/2024 10:5 9 PM CDT 12/29/2024 11:05 PM CDT us Raz De La Paz DO LAB BLOOD ORDERABLES Final Res ult VIANNEY [address] [facility] Department [place] [address] * Differential, auto (12/29/2024 10:59 PM CDT) Neutrophil abs 5.65 1.50 - 6.50 K/cumm Imm gran abs 0.03 0.00 - 0.10 K/cumm [facility] Lymphocyte abs 2.36 0.80 - 3.30 K/cumm [facility] Monocyte abs 0.73 0.20 - 0.80 K/cumm [facility] Eosinophil abs 0.15 0.00 - 0.50 K/cumm [facility] Basophil abs 0.05 0.00 - 0.10 K/cumm [facility] Neutrophil pct 63.0 % [facility] Comment: Interpretive Data Percent cell count reference ranges are not reported, since discordance with absolute values may lead to misinterpretation of CBC data. Current Interpretive Data was last revised on 2017. Imm gran pct 0.3 % [facility] Comment: Interpretive Data Percent cell count reference ranges are not reported, since discordance with absolute values may lead to misinterpretation of CBC data. Current Interpretive Data was last revised on 2017. Lymphocyte pct 26.3 % [facility] Comment: Interpretive Data Percent cell count reference ranges are not reported, since discordance with absolute values may lead to misinterpretation of CBC data. Current Interpretive Data was last revised on 2017. Monocyte pct 8.1 % [facility] Comment: Interpretive Data Percent cell count reference ranges are not reported, since discordance with absolute values may lead to misinterpretation of CBC data. Current Interpretive Data was last revised on 2017. Eosinophil pct 1.7 % [facility] Comment: Interpretive Data Percent cell count reference ranges are not reported, since discordance with absolute values may lead to misinterpretation of CBC data. Current Interpretive Data was last revised on 2017. Basophil pct 0.6 % [facility] Comment: Interpretive Data Percent cell count reference ranges are not reported, since discordance with absolute values may lead to misinterpretation of CBC data. Current Interpretive Data was last revised on 2017. Blood 12/29/2024 10:5 9 PM CDT 12/29/2024 11:05 PM CDT Raz De La Paz DO LAB BLOOD ORDERABLES Final Res ult Performing Organization Address City/[facility]/ZIP Co de Phone Number VIANNEY [address] [place] [address] * (ABNORMAL) Urinalysis reflex to microscopic and culture Urine, clean voided (12/29/2024 10:59 PM CDT) Color, ur Yellow Yellow Clarity, ur Clear Clear [facility] Specific gravity, ur 1.038(H) 1.003 - 1.030 [facility] pH, urine 5.5 [facility] Comment: Interpretive Data U rine pH is affected by diet, medications, systemic acid-base disturbances, and renal tubular function. pH may affect urinary stone formation. For example, urine pH below 6.0 may help reduce the tendency for calcium phosphate stones and pH greater than 6.0 may reduce the tendency for uric acid stone formation. Source: [facility] Current Interpretive Data was last revised on 2017 Protein, ur ql Negative Negative [facility] Glucose, ur ql Negative Negative [facility] Ketones, ur 1+(A) Negative [facility] Bilirubin, ur Negative Negative [facility] Blood, ur Negative Negative [facility] Urobilinogen, ur <2.0 <2.0 mg/dL [facility] Nitrite, ur Negative Negative [facility] Leukocyte esterase, ur Negative Negative [facility] UA reflex comment Reflex conditions for microscopic UA and culture not met. [facility] Urine, clean voided 12/29/2024 10:59 PM CDT 12/29/2024 11:05 PM CDT Raz De La Paz DO LAB MICROBIOLOGY - GENERAL ORD ERABLES Final Result VIANNEY [address] [place] [address] * (ABNORMAL) CBC with auto differential (12/29/2024 10:59 PM CDT) [facility] WBC 8.97 3.80 - 9.90 K/cumm Hgb 12.4 11.9 - 15.5 g/dL [facility] Hct 37.5 35.6 - 45.5 % [facility] Plt 196 150 - 400 K/cumm [facility] MPV 12.6(H) 9.1 - 12.3 fL [facility] RBC 4.50 3.90 - 5.20 M/cumm [facility] MCV 83.3 81.3 - 96.4 fL [facility] MCH 27.6 27.1 - 33.3 pg [facility] MCHC 33.1 32.3 - 35.7 g/dL [facility] RDW CV 13.8 11.1 - 14.9 % [facility] RDW SD 41.7 35.7 - 48.1 fL [facility] NRBC abs 0.00 0.00 - 0.01 K/cumm [facility] Blood 12/29/2024 10:5 9 PM CDT 12/29/2024 11:05 PM CDT [employer] LAB BLOOD ORDERABLES Final Res ult VIANNEY [facility] [facility] Department [place] [address] * (ABNORMAL) hCG, blood, quantitative (12/29/2024 10:59 PM CDT) [facility] hCG, quant 312.0(H) 0.0 - 5.0 IUnits/L Comment: Interpretive Data Male: < 5 IU/L Non- premenopausal Female: <5 IU/L The Evette hCG Beta Quant assay procedure was used. Results from different manufacturers or methods may not be comparable. Serial testing should be performed using the same method. Interpretive Data was last revised on 2023 Blood 12/29/2024 10:5 9 PM CDT 12/29/2024 11:05 PM CDT [employer] LAB BLOOD ORDERABLES Final Res ult Performing Organization Address [facility] Co de Phone Number VIANNEY [address] [facility] [employer] [place] [address] * Comprehensive metabolic panel (12/29/2024 10:59 PM CDT) Sodium 138 135 - 145 mmol/L Potassium, pl 3.9 3.3 - 4.9 mmol/L [facility] Chloride 105 97 - 110 mmol/L [facility] CO2 22 22 - 32 mmol/L [facility] Anion gap 11 2 - 15 mmol/L [facility] BUN 17 6 - 25 mg/dL [facility] Creatinine 0.79 0.60 - 1.10 mg/dL [facility] Glucose 105 70 - 199 mg/dL [facility] Comment: Interpretive Data Fasting glucose >/= 126 mg/dl is diagnostic for diabetes. Fasting is defined as no caloric intake for at least 8 hours. Fasting glucose between 100 mg/dl to 125 mg/dl is diagnostic of prediabetes. In a patient with classic symptoms of hyperglycemia or hyperglycemic crisis, a random glucose >/= 200 mg/dl is diagnostic for diabetes. In the absence of unequivocal hyperglycemia, results should be confirmed by repeat testing. The classification and Diagnosis of Diabetes Diabetes Care 2021; 46: S19-S40. Current interpretive data was last revised 2022. Calcium 9.7 8.5 - 10.3 mg/dL [facility] Bilirubin, total 0.5 0.1 - 1.2 mg/dL [facility] Protein, pl 8.1 6.5 - 8.5 g/dL [facility] Albumin 4.8 3.5 - 5.0 g/dL [facility] Alk phos 50 40 - 130 Units/L [facility] ALT 10 7 - 45 Units/L [facility] AST 22 10 - 45 Units/L [facility] Blood 12/29/2024 10:5 9 PM CDT 12/29/2024 11:05 PM CDT Raz De La Paz DO LAB BLOOD ORDERABLES Final Res ult Performing Organization Address [facility]/ZIP Co de Phone Number VIANNEY [address] [facility] Department [place] [address] * POCT hCG, urine (10/30/2024 10:56 PM CDT) Pathologist [facility] HCG, ur, POC Negative Negative Lot Number [id number] QC Backgroud Clear Acceptable QC Control Line Acceptable Urine 10/30/2024 10:5 6 PM CDT Nikunj Wiley MD POINT OF CARE TEST O RDERABLES Final Result * eGFR (10/30/2024 10:52 PM CDT) [facility] eGFR >90 >=60 mL/min/1. 73 m2 Comment: Interpretive Data Reference Interval Normal >/= 90 mL/min/1.73m2 Mildly decreased* 60 - 89 mL/min/1.73m2 Mildly to moderately decreased 45 - 59 mL/min/1.73m2 Moderately to severely decreased 30 - 44 mL/min/1.73m2 Severely decreased 15 - 29 mL/min/1.73m2 Kidney Failure < 15 mL/min/1.73m2 *Relative to young adult level Estimated glomerular filtration rate is determined by the 2020 CKD-EPI equation recommended by the National Kidney Foundation (A Unifying Approach to GFR Estimation: Recommendations of the NKF-ASK Task Force on Reassessing the Inclusion of Race in Diagnosing Kidney Disease, JASN 2020). The CKD-EPI equation should not be used for patients with unstable renal function and has not been validated in children and those over 70. Current interpretive data was last reviewed 2021. Blood 10/30/2024 10:5 2 PM CDT 10/30/2024 11:03 PM CDT Nikunj Wiley MD LAB BLOOD ORDERABLES Final Result VIANNEY [facility] Department [place] [address] * Differential, auto (10/30/2024 10:52 PM CDT) Neutrophil abs 4.54 1.50 - 6.50 K/cumm Imm gran abs 0.02 0.00 - 0.10 K/cumm [facility] Lymphocyte abs 2.45 0.80 - 3.30 K/cumm [facility] Monocyte abs 0.58 0.20 - 0.80 K/cumm [facility] Eosinophil abs 0.28 0.00 - 0.50 K/cumm [facility] Basophil abs 0.04 0.00 - 0.10 K/cumm [facility] Neutrophil pct 57.4 % [facility] Comment: Interpretive Data Percent cell count reference ranges are not reported, since discordance with absolute values may lead to misinterpretation of CBC data. Current Interpretive Data was last revised on 2017. Imm gran pct 0.3 % [facility] Comment: Interpretive Data Percent cell count reference ranges are not reported, since discordance with absolute values may lead to misinterpretation of CBC data. Current Interpretive Data was last revised on 2017. Lymphocyte pct 31.0 % [facility] Comment: Interpretive Data Percent cell count reference ranges are not reported, since discordance with absolute values may lead to misinterpretation of CBC data. Current Interpretive Data was last revised on 2017. Monocyte pct 7.3 % [facility] Comment: Interpretive Data Percent cell count reference ranges are not reported, since discordance with absolute values may lead to misinterpretation of CBC data. Current Interpretive Data was last revised on 2017. Eosinophil pct 3.5 % [facility] Comment: Interpretive Data Percent cell count reference ranges are not reported, since discordance with absolute values may lead to misinterpretation of CBC data. Current Interpretive Data was last revised on 2017. Basophil pct 0.5 % [facility] Comment: Interpretive Data Percent cell count reference ranges are not reported, since discordance with absolute values may lead to misinterpretation of CBC data. Current Interpretive Data was last revised on 2017. Blood 10/30/2024 10:5 2 PM CDT 10/30/2024 11:03 PM CDT Nikunj Wiley MD LAB BLOOD ORDERABLES Final Result Performing Organization Address City/State/[facility] de Phone Number [facility] [place] [address] * (ABNORMAL) CBC with auto differential (10/30/2024 10:52 PM CDT) [facility] WBC 7.91 3.80 - 9.90 K/cumm Hgb 11.6(L) 11.9 - 15.5 g/dL [facility] Hct 34.2(L) 35.6 - 45.5 % [facility] Plt 169 150 - 400 K/cumm [facility] MPV 12.5(H) 9.1 - 12.3 fL [facility] RBC 4.06 3.90 - 5.20 M/cumm [facility] MCV 84.2 81.3 - 96.4 fL [facility] MCH 28.6 27.1 - 33.3 pg [facility] MCHC 33.9 32.3 - 35.7 g/dL [facility] RDW CV 12.7 11.1 - 14.9 % [facility] RDW SD 38.3 35.7 - 48.1 fL [facility] NRBC abs 0.00 0.00 - 0.01 K/cumm [facility] Blood 10/30/2024 10:5 2 PM CDT 10/30/2024 11:03 PM CDT us Nikunj Wiley MD LAB BLOOD ORDERABLES Final Result Performing Organization Address [facility] Co de Phone Number [facility] Department [place] [address] * Comprehensive metabolic panel (10/30/2024 10:52 PM CDT) [facility] Sodium 139 135 - 145 mmol/L Potassium, pl 3.5 3.3 - 4.9 mmol/L [facility] Chloride 104 97 - 110 mmol/L [facility] CO2 28 22 - 32 mmol/L [facility] Anion gap 7 2 - 15 mmol/L [facility] BUN 11 6 - 25 mg/dL [facility] Creatinine 0.64 0.60 - 1.10 mg/dL [facility] Glucose 98 70 - 199 mg/dL [facility] Comment: Interpretive Data Fasting glucose >/= 126 mg/dl is diagnostic for diabetes. Fasting is defined as no caloric intake for at least 8 hours. Fasting glucose between 100 mg/dl to 125 mg/dl is diagnostic of prediabetes. In a patient with classic symptoms of hyperglycemia or hyperglycemic crisis, a random glucose >/= 200 mg/dl is diagnostic for diabetes. In the absence of unequivocal hyperglycemia, results should be confirmed by repeat testing. The classification and Diagnosis of Diabetes Diabetes Care 202; 46: S19-S40. Current interpretive data was last revised 2022. Calcium 9.5 8.5 - 10.3 mg/dL [facility] Bilirubin, total 0.3 0.1 - 1.2 mg/dL [facility] Protein, pl 8.0 6.5 - 8.5 g/dL [facility] Albumin 4.4 3.5 - 5.0 g/dL [facility] Alk phos 50 40 - 130 Units/L [facility] ALT 13 7 - 45 Units/L [facility] AST 26 10 - 45 Units/L [facility] Blood 10/30/2024 10:5 2 PM CDT 10/30/2024 11:03 PM CDT Nikunj Wiley MD LAB BLOOD ORDERABLES Final Result [facility] Department [place] [address] * (ABNORMAL) Urinalysis reflex to microscopic and culture Urine (10/30/2024 10:47 PM CDT) Color, ur Yellow Yellow Clarity, ur Clear Clear [facility] Specific gravity, ur 1.032(H) 1.003 - 1.030 [facility] pH, urine 6.5 [facility] Comment: Interpretive Data U rine pH is affected by diet, medications, systemic acid-base disturbances, and renal tubular function. pH may affect urinary stone formation. For example, urine pH below 6.0 may help reduce the tendency for calcium phosphate stones and pH greater than 6.0 may reduce the tendency for uric acid stone formation. Source: [facility] Current Interpretive Data was last revised on 2017 Protein, ur ql 1+(A) Negative [facility] Glucose, ur ql Negative Negative [facility] Ketones, ur Negative Negative [facility] [place] Bilirubin, ur Negative Negative [facility] [place] Blood, ur Negative Negative [facility] Urobilinogen, ur 2.0(A) <2.0 mg/dL [facility] Nitrite, ur Negative Negative [facility] Leukocyte esterase, ur Negative Negative [facility] UA reflex comment Reflex to microscopic UA will be performed. [facility] Urine 10/30/2024 10:4 7 PM CDT 10/30/2024 10:55 PM CDT Nikunj Wiley MD LAB MICROBIOLOGY - G ENERAL ORDERABLES Final Result Performing Organization Address [facility] Co de Phone Number [facility] Department [place] [address] * (ABNORMAL) Urinalysis, microscopic only (10/30/2024 10:47 PM CDT) WBC, ur 0-5 0 - 5 /HPF RBC, ur 3-5(A) 0 - 2 /HPF [facility] Epithelial cells, squamous, ur 6-10(A) 0 - 5 /HPF [facility] Comment:Suggestive of contam ination. Consider recollection by clean catch. Bacteria, ur Trace(A) [facility] Mucous, ur Present(A) [facility] Culture Reflex Comment Reflex conditions for urine culture (WBC >10) not met. [facility] Urine 10/30/2024 10:4 7 PM CDT 10/30/2024 10:55 PM CDT Nikunj Wiley MD LAB URINE ORDERABLES Final Result Performing Organization Address [facility]/ZIP Co de Phone Number [facility] [place] [address] * Hepatitis C antibody (02/23/2021) SCRIBED HCV ab neg Blood specimen (specimen) Jens Augustine MD LAB MICROBIOLOGY - GENERAL OR DERABLES Final Result from Last 3 Months or Most Recently Relevant to Health Maintenance Insurance [facility] [address] THE LINK Advance Directives For more information, please contact: [phone] * Full Code (Latest Code Status on File) Date Activated Date Inactivated Comments 08/17/2021 11:07 PM 08/18/2021 3:19 AM Full CPR in case of cardiopulmonary arrest Care Teams Equity Structurer Relationship Specialty Start Date End Date Miscellaneous, Not In File PCP - General 12/22/20
--- OUTSIDE RECORDS SUMMARY | 2025-01-05 16:44 | XMS_ITS | Clinical Summary ---
Author Organization [facility] Address [address] [place] [id number] Care Team Providers Care Manufacturing Teacher Name Role Phone Miscellaneous, Not In File Primary Care Provider Unavailable Allergies Active Allergy Reactions Criticality Noted Date Comments Amoxicillin Anaphylaxis High 10/30/2024 Medications PNV #[id number] acid-dha 35 mg iron-5 mg iron-1 mg [...] Type Department Care Team Description 12/30/[address] [address] Daya Avalos RN 12/29/2024 10:46 PM CDT - 12/29/2024 11:56 PM CDT Emergency [address] [address] Discharge Disposition: Left without being seen 12/12/2024 9:16 PM CDT - 12/12/2024 9:50 PM CDT Emergency [facility] Emergency Department [address] [place] [address] Fabiano Orourke MD Contusion of lower back, initial encounter (Primary Dx) Discharge Disposition: Discharge to home or self care 11/19/2024 6:22 PM CDT - 11/19/2024 6:49 PM CDT Emergency [address] [address] Discharge Disposition: Left Against Medical Advice 11/02/2024 Results Follow-Up [facility] Emergency Department [address] [place] [phone] Stefan Tate RN Urinalysis reflex to microscopic and culture Urine, Urinalysis, microscopic only 10/30/2024 10:14 PM CDT - 10/30/2024 11:42 PM CDT Emergency [facility] Emergency Department [address] [place] [phone] Zen Mcfadden MD Szalwinski, Bryan David, MD Tension headache (Primary Dx) Discharge Disposition: [...] SAB Ectopic Multiple Livin g Live Births 5 2 2 0 1 0 1 0 2 2 Date Outcome GA Total Labor Labor/2nd/3rd Weight Sex Type Anes PTL Kimberly A1 A5 Name Clin 016 Term 39w 0d 3.6 kg (7 lb 15 oz) F Vag-S pont Epidur al Livin g 2017 SAB 16w 0d 018 Term 39w 0d 2.594 kg (5 lb 11.5 oz) F Vag-S pont Livin g Delivery Location:[facility] Last Filed Vital Signs Vital Sign [...] 12/12/2024 9:15 PM CDT Plan of Treatment Health Maintenance Due Date Last Done Comments Cervical Cancer Screening 1999 Depression Screening 1999 HPV Vaccines (2 - 3-dose series) 06/11/2015 05/14/2015 Regular Well Visit/Exam 18-64 2017 Influenza Vaccine (#1) 2025 6, 05/14/2015, 03/15/2014, Additional history exists DTaP/Tdap/Td Vaccine [...] Urine 12/29/2024 11:0 2 PM CDT Raz Ana Cristina DO POINT OF CARE TEST ORDERABLES Final Result * eGFR (12/29/2024 10:59 PM CDT) Pathologist [facility] [place] eGFR >90 >=60 mL/min/1. 73 m2 Comment: [...] LAB BLOOD ORDERABLES Final Res ult [facility] [address] [facility] Department [place] [address] * Differential, auto (12/29/2024 10:59 PM CDT) Pathologist [facility] [place] Neutrophil abs 5.65 1.50 - 6.50 K/cumm Imm gran abs 0.03 0.00 - 0.10 K/cumm [facility] Lymphocyte abs 2.36 0.80 - 3.30 K/cumm [facility] Monocyte abs 0.73 0.20 - 0.80 K/cumm [facility] Eosinophil abs 0.15 0.00 - 0.50 K/cumm [facility] Basophil abs 0.05 0.00 - 0.10 K/cumm [facility] Neutrophil pct 63.0 % [facility] Comment: Interpretive Data Percent cell count reference ranges are not reported, since discordance with absolute values may lead to misinterpretation of CBC data. Current Interpretive Data was last revised on 2017. Imm gran pct 0.3 % [facility] Comment: Interpretive Data Percent cell count reference ranges are not reported, since discordance with absolute values may lead to misinterpretation of CBC data. Current Interpretive Data was last revised on 2017. Lymphocyte pct 26.3 % [facility] Comment: Interpretive Data Percent cell count reference ranges are not reported, since discordance with absolute values may lead to misinterpretation of CBC data. Current Interpretive Data was last revised on 2017. Monocyte pct 8.1 % [facility] Comment: Interpretive Data Percent cell count reference ranges are not reported, since discordance with absolute values may lead to misinterpretation of CBC data. Current Interpretive Data was last revised on 2017. Eosinophil pct 1.7 % [facility] Comment: Interpretive Data Percent cell count reference ranges are not reported, since discordance with absolute values may lead to misinterpretation of CBC data. Current Interpretive Data was last revised on 2017. Basophil pct 0.6 % [facility] Comment: Interpretive Data Percent cell count reference ranges are not reported, since discordance with absolute values may lead to misinterpretation of CBC data. Current Interpretive Data was last revised on 2017. Blood 12/29/2024 10:5 9 PM CDT 12/29/2024 11:05 PM CDT us Raz De La Paz DO LAB BLOOD ORDERABLES Final Res ult [facility] [address] [facility] Department [place] [address] * (ABNORMAL) Urinalysis reflex to microscopic and culture Urine, clean voided (12/29/2024 10:59 PM CDT) Color, ur Yellow Yellow Clarity, ur Clear Clear [facility] Specific gravity, ur 1.038(H) 1.003 - 1.030 [facility] pH, urine 5.5 [facility] Comment: Interpretive Data U rine pH is affected by diet, medications, systemic acid-base disturbances, and renal tubular function. pH may affect urinary stone formation. For example, urine pH below 6.0 may help reduce the tendency for calcium phosphate stones and pH greater than 6.0 may reduce the tendency for uric acid stone formation. Source: [facility] Current Interpretive Data was last revised on 2017 Protein, ur ql Negative Negative [facility] Glucose, ur ql Negative Negative [facility] Ketones, ur 1+(A) Negative [facility] Bilirubin, ur Negative Negative [facility] Blood, ur Negative Negative [facility] Urobilinogen, ur <2.0 <2.0 mg/dL [facility] Nitrite, ur Negative Negative [facility] Leukocyte esterase, ur Negative Negative [facility] UA reflex comment Reflex conditions for microscopic UA and culture not met. [facility] Urine, clean voided 12/29/2024 10:59 PM CDT 12/29/2024 11:05 PM CDT us Raz De La Paz DO LAB MICROBIOLOGY - GENERAL ORD ERABLES Final Result [facility] [address] [facility] Department [place] [address] * (ABNORMAL) CBC with auto differential (12/29/2024 10:59 PM CDT) Pathologist [facility] [place] WBC 8.97 3.80 - 9.90 K/cumm Hgb 12.4 11.9 - 15.5 g/dL [facility] Hct 37.5 35.6 - 45.5 % [facility] Plt 196 150 - 400 K/cumm [facility] MPV 12.6(H) 9.1 - 12.3 fL [facility] RBC 4.50 3.90 - 5.20 M/cumm [facility] MCV 83.3 81.3 - 96.4 fL [facility] MCH 27.6 27.1 - 33.3 pg [facility] MCHC 33.1 32.3 - 35.7 g/dL [facility] RDW CV 13.8 11.1 - 14.9 % [facility] RDW SD 41.7 35.7 - 48.1 fL [facility] NRBC abs 0.00 0.00 - 0.01 K/cumm [facility] Blood 12/29/2024 10:5 9 PM CDT 12/29/2024 11:05 PM CDT [facility] LAB BLOOD ORDERABLES Final Res ult Performing Organization Address [facility] Co de Phone Number [address] [place] [address] * (ABNORMAL) hCG, blood, quantitative (12/29/2024 10:59 PM CDT) [facility] hCG, quant 312.0(H) 0.0 - 5.0 [...] 9 PM CDT 12/29/2024 11:05 PM CDT [facility] LAB BLOOD ORDERABLES Final Res ult Performing Organization Address City/[facility]/ZIP Co de Phone Number [address] [place], [place] [id number] * Comprehensive metabolic panel (12/29/2024 10:59 PM CDT) [facility] Sodium 138 135 - 145 mmol/L Potassium, pl 3.9 3.3 - 4.9 mmol/L [facility] Chloride 105 97 - 110 mmol/L [facility] CO2 22 22 - 32 mmol/L [facility] Anion gap 11 2 - 15 mmol/L [facility] BUN 17 6 - 25 mg/dL [facility] Creatinine 0.79 0.60 - 1.10 mg/dL [facility] Glucose 105 70 - 199 mg/dL [facility] Comment: Interpretive Data Fasting glucose >/= 126 [...] 2022. Calcium 9.7 8.5 - 10.3 mg/dL [facility] Bilirubin, total 0.5 0.1 - 1.2 mg/dL [facility] Protein, pl 8.1 6.5 - 8.5 g/dL [facility] Albumin 4.8 3.5 - 5.0 g/dL [facility] Alk phos 50 40 - 130 Units/L [facility] ALT 10 7 - 45 Units/L [facility] AST 22 10 - 45 Units/L [facility] Blood 12/29/2024 10:5 9 PM CDT 12/29/2024 11:05 PM CDT Raz De La Paz DO LAB BLOOD ORDERABLES Final Res ult [facility] [address] [facility] Department [place] [address] * POCT hCG, urine (10/30/2024 10:56 PM CDT) HCG, ur, POC Negative Negative Lot Number [id number] QC Backgroud Clear Acceptable QC Control Line Acceptable Urine 10/30/2024 10:5 6 PM CDT us Nikunj Wiley MD POINT OF CARE TEST O RDERABLES Final Result * eGFR (10/30/2024 10:52 PM CDT) Pathologist [facility] [place] eGFR >90 >=60 mL/min/1. 73 m2 Comment: [...] MD LAB BLOOD ORDERABLES Final Result [facility] [place] [address] * Differential, auto (10/30/2024 10:52 PM CDT) [facility] Neutrophil abs 4.54 1.50 - 6.50 K/cumm Imm gran abs 0.02 0.00 - 0.10 K/cumm [facility] Lymphocyte abs 2.45 0.80 - 3.30 K/cumm [facility] Monocyte abs 0.58 0.20 - 0.80 K/cumm [facility] Eosinophil abs 0.28 0.00 - 0.50 K/cumm [facility] Basophil abs 0.04 0.00 - 0.10 K/cumm [facility] Neutrophil pct 57.4 % [facility] Comment: Interpretive Data Percent cell count reference ranges are not reported, since discordance with absolute values may lead to misinterpretation of CBC data. Current Interpretive Data was last revised on 2017. Imm gran pct 0.3 % [facility] Comment: Interpretive Data Percent cell count reference ranges are not reported, since discordance with absolute values may lead to misinterpretation of CBC data. Current Interpretive Data was last revised on 2017. Lymphocyte pct 31.0 % [facility] Comment: Interpretive Data Percent cell count reference ranges are not reported, since discordance with absolute values may lead to misinterpretation of CBC data. Current Interpretive Data was last revised on 2017. Monocyte pct 7.3 % [facility] Comment: Interpretive Data Percent cell count reference ranges are not reported, since discordance with absolute values may lead to misinterpretation of CBC data. Current Interpretive Data was last revised on 2017. Eosinophil pct 3.5 % [facility] Comment: Interpretive Data Percent cell count reference ranges are not reported, since discordance with absolute values may lead to misinterpretation of CBC data. Current Interpretive Data was last revised on 2017. Basophil pct 0.5 % [facility] Comment: Interpretive Data Percent cell count reference ranges are not reported, since discordance with absolute values may lead to misinterpretation of CBC data. Current Interpretive Data was last revised on 2017. Blood 10/30/2024 10:5 2 PM CDT 10/30/2024 11:03 PM CDT us Nikunj Wiley MD LAB BLOOD ORDERABLES Final Result [facility] [place] [address] * (ABNORMAL) CBC with auto differential (10/30/2024 10:52 PM CDT) WBC 7.91 3.80 - 9.90 K/cumm Hgb 11.6(L) 11.9 - 15.5 g/dL [facility] Hct 34.2(L) 35.6 - 45.5 % [facility] Plt 169 150 - 400 K/cumm [facility] MPV 12.5(H) 9.1 - 12.3 fL [facility] RBC 4.06 3.90 - 5.20 M/cumm [facility] MCV 84.2 81.3 - 96.4 fL [facility] MCH 28.6 27.1 - 33.3 pg [facility] MCHC 33.9 32.3 - 35.7 g/dL [facility] RDW CV 12.7 11.1 - 14.9 % [facility] RDW SD 38.3 35.7 - 48.1 fL [facility] NRBC abs 0.00 0.00 - 0.01 K/cumm [facility] Blood 10/30/2024 10:5 2 PM CDT 10/30/2024 11:03 PM CDT us Nikunj Wiley MD LAB BLOOD ORDERABLES Final Result [facility] Department [place] [address] * Comprehensive metabolic panel (10/30/2024 10:52 PM CDT) Sodium 139 135 - 145 mmol/L Potassium, pl 3.5 3.3 - 4.9 mmol/L [facility] Chloride 104 97 - 110 mmol/L [facility] CO2 28 22 - 32 mmol/L [facility] Anion gap 7 2 - 15 mmol/L [facility] BUN 11 6 - 25 mg/dL [facility] Creatinine 0.64 0.60 - 1.10 mg/dL [facility] Glucose 98 70 - 199 mg/dL [facility] Comment: Interpretive Data Fasting glucose [...] 2022. Calcium 9.5 8.5 - 10.3 mg/dL [facility] Bilirubin, total 0.3 0.1 - 1.2 mg/dL [facility] Protein, pl 8.0 6.5 - 8.5 g/dL [facility] Albumin 4.4 3.5 - 5.0 g/dL [facility] Alk phos 50 40 - 130 Units/L [facility] ALT 13 7 - 45 Units/L [facility] AST 26 10 - 45 Units/L [facility] Blood 10/30/2024 10:5 2 PM CDT 10/30/2024 11:03 PM CDT us Nikunj Wiley MD LAB BLOOD ORDERABLES Final Result [facility] Department [place] [address] * (ABNORMAL) Urinalysis reflex to microscopic and culture Urine (10/30/2024 10:47 PM CDT) Color, ur Yellow Yellow Clarity, ur Clear Clear [facility] Specific gravity, ur 1.032(H) 1.003 - 1.030 [facility] pH, urine 6.5 [facility] Comment: Interpretive Data U rine pH is affected by diet, medications, systemic acid-base disturbances, and renal tubular function. pH may affect urinary stone formation. For example, urine pH below 6.0 may help reduce the tendency for calcium phosphate stones and pH greater than 6.0 may reduce the tendency for uric acid stone formation. Source: [facility] [employer] Current Interpretive Data was last revised on 2017 Protein, ur ql 1+(A) Negative [facility] Glucose, ur ql Negative Negative [facility] Ketones, ur Negative Negative [facility] Bilirubin, ur Negative Negative [facility] Blood, ur Negative Negative [facility] Urobilinogen, ur 2.0(A) <2.0 mg/dL [facility] Nitrite, ur Negative Negative [facility] Leukocyte esterase, ur Negative Negative [facility] UA reflex comment Reflex to microscopic UA will be performed. [facility] Urine 10/30/2024 10:4 7 PM CDT 10/30/2024 10:55 PM CDT us Nikunj Wiley MD LAB MICROBIOLOGY - G ENERAL ORDERABLES Final Result Performing Organization Address [facility] Co de Phone Number [facility] [place] [address] * (ABNORMAL) Urinalysis, microscopic only (10/30/2024 10:47 PM CDT) WBC, ur 0-5 0 - 5 /HPF RBC, ur 3-5(A) 0 - 2 /HPF [facility] Epithelial cells, squamous, ur 6-10(A) 0 - 5 /HPF [facility] Comment:Suggestive of contam ination. Consider recollection by clean catch. Bacteria, ur Trace(A) [facility] Mucous, ur Present(A) [facility] Culture Reflex Comment Reflex conditions for urine culture (WBC >10) not met. [facility] Urine 10/30/2024 10:4 7 PM CDT 10/30/2024 10:55 PM CDT us Nikunj Wiley MD LAB URINE ORDERABLES Final Result Performing Organization Address [facility] Co de Phone Number [facility] [place] [address] * Hepatitis C antibody (02/23/2021) SCRIBED HCV ab neg Blood specimen (specimen) us Jens Augustine MD LAB MICROBIOLOGY - GENERAL OR DERABLES Final Result from Last 3 Months or Most Recently Relevant to Health Maintenance Insurance [facility] [employer] Advance Directives For more information, please contact: [phone] * Full Code (Latest Code Status on File) Date Activated Date Inactivated Comments 08/17/2021 11:07 PM 08/18/2021 3:19 AM Full CPR in case of cardiopulmonary arrest Care Teams Manufacturing Teacher Relationship Specialty Start Date End Date Miscellaneous, Not In File PCP - General 12/22/20
--- NOTE | 2025-01-05 17:48 | ED_ITS ---
HPI - General Adult General Chief complaint: Abdominal Pain Stated complaint: Lower stomach pain, 7 weeks Time Seen by Provider: 01/05/25 17:48 History of Present Illness HPI narrative: Patient is a 24-year-old female who presents ER with abdominal pain. She is 7 weeks . Has not yet seen an OB. 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 She developed abdominal pain after that. Left-sided. No fevers chills or sweats. No vaginal bleeding or vaginal discharge. No urinary symptoms. Related Data Allergies Allergy/AdvReac Type Severity Reaction Status Date / Time amoxicillin Allergy Unknown Nausea and Verified 01/05/25 16:47 Vomiting Review of Systems 2 Review of Systems: All systems reviewed & are unremarkable except as noted in HPI and below Constitutional: Constitutional: Reports no additional constitutional complaints Cardiovascular: Cardiovascular: Reports no additional cardiovascular complaints Respiratory: Respiratory: Reports no additional respiratory complaints Gastrointestinal: Gastrointestinal: Reports no additional gastrointestinal complaints Genitourinary: Genitourinary: Reports no additional female genitourinary complaints [facility]LY [facility], [facility] Past Medical History Medical History Patient denies medical problems Surgical History Surgical History No pertinent past surgical history Social History Social History (Updated 10/25/20 @ 11:21 by Funmi Cordon MD) Smoking status: Never smoker Alcohol intake: current Substance use: never Gender identity (if verbalized by the patient): Female Exam 2 Narrative: GENERAL: Well-appearing, well-nourished, and in no acute distress. HEAD: Normocephalic, atraumatic. ENT: Mucous membranes moist. CHEST: Clear to auscultation. No respiratory distress. HEART: Regular rate and rhythm. Normal peripheral pulses. ABDOMEN: Soft, nontender, nondistended. EXTREMITIES: Normal range of motion. No edema. SKIN: Warm, dry, no rash. NEURO: Alert and oriented x3. Course Course Emergency Course: Patient resting comfortably. Informed of results. Discussed ultrasound. Discharge home. Tylenol for pain. Vital Signs Vital signs: Vital Signs Pulse Rate 95 01/05/25 16:44 Respiratory Rate 16 01/05/25 16:44 Blood Pressure 143/84 H 01/05/25 16:44 Pulse Oximetry 99 01/05/25 16:44 Oxygen Delivery Room Air 01/05/25 16:44 Pulse Rate 95 01/05/25 16:44 Respiratory Rate 16 01/05/25 16:44 Blood Pressure 143/84 H 01/05/25 16:44 Pulse Oximetry 99 01/05/25 16:44 Oxygen Delivery Room Air 01/05/25 16:44 Medical Decision Making Vital Signs Vital Signs: Vital Signs Pulse Rate 95 01/05/25 16:44 Respiratory Rate 16 01/05/25 16:44 Blood Pressure 143/84 H 01/05/25 16:44 Pulse Oximetry 99 01/05/25 16:44 Oxygen Delivery Room Air 01/05/25 16:44 Pulse Rate 95 01/05/25 16:44 Respiratory Rate 16 01/05/25 16:44 Blood Pressure 143/84 H 01/05/25 16:44 Pulse Oximetry 99 01/05/25 16:44 Oxygen Delivery Room Air 01/05/25 16:44 Lab Data 01/05/25 17:45 01/05/25 17:44 Labs: Lab Results 01/05/25 01/05/25 01/05/25 Range/Units 17:44 17:45 17:54 WBC 6.7 (4.5-10.0) K/mm3 RBC 3.98 L (4.2-5.4) M/mm3 Hgb 11.1 L (12.0-15.0) g/dL Hct 33.1 L (37.0-47.0) % MCV 83.2 (80-100) fl MCH 27.9 (26-34) pg MCHC 33.5 (32-36) g/dl RDW 14.3 (11.5-14.5) % Plt Count 203 (150-375) k/mm3 MPV 11.7 H (7.4-10.4) fl Immature Gran % (Auto) 0.1 (0-0.5) % Neut % (Auto) 58.6 (45.5-73.1) % Lymph % (Auto) 29.9 (18.3-44.2) % [place] % (Auto) 7.4 (2.6-8.5) % Eos % (Auto) 3.4 (0-4.4) % Baso % (Auto) 0.6 (0.2-1.2) % Lymph # (Auto) 2.01 (0.9-3.2) K/mm3 [place] # (Auto) 0.5 (0.1-0.6) K/mm3 Eos # (Auto) 0.2 (0-0.3) K/mm3 Baso # (Auto) 0.0 (0.0-0.1) K/mm3 Abs Immat Gran (auto) 0.01 (0.00-0.031) K/mm3 Absolute Neuts (auto) 3.9 (1.3-6.7) K/mm3 Absolute Nucleated RBC 0.000 (0.0-0.012) K/mm3 Nucleated RBC % 0.0 (0.0-0.2) % Sodium 133 L (137-145) mmol/L Potassium 3.7 (3.4-5.0) mmol/L Chloride 103 (98-107) mmol/L Carbon Dioxide 22 (22-30) mmol/L Anion Gap 8 (4-12) mmol/L BUN 11 (7-17) mg/dL Creatinine 0.54 L (0.7-1.0) mg/dL Estim Creat Clear Calc 118 ml/min Estimated GFR > 60 (59 - ) Glucose 99 (65-110) mg/dL Calcium 9.1 (8.4-10.2) mg/dL Total Bilirubin 0.3 (0.2-1.3) mg/dL AST 32 (14-36) U/L ALT 15 (6-35) U/L Alkaline Phosphatase 38 (38-126) U/L Total Protein 7.7 (6.3-8.2) g/dL Albumin 4.1 (3.5-5.1) g/dL Lipase 69 (23-300) U/L Urine Color Yellow (Yellow) Urine Appearance Clear (Clear) Urine pH 6.5 (5.0-9.0) Ur Specific [place] 1.009 (1.001-1.035) Urine Protein Negative (Negative) mg/dL Urine Glucose (UA) Negative (Negative) mg/dL Urine Ketones Negative (Negative) mg/dL Ur Blood (Man) Negative (Negative) Urine Nitrate Negative (Negative) Urine Bilirubin Negative (Negative) Urine Urobilinogen 0.2 (<2.0) mg/dL Leukocyte Esterase Rfl Negative (Negative) CORINE/UL POC Urine HCG, Qual (Negative) 01/05/25 Range/Units 17:57 WBC (4.5-10.0) K/mm3 RBC (4.2-5.4) M/mm3 Hgb (12.0-15.0) g/dL Hct (37.0-47.0) % MCV (80-100) fl MCH (26-34) pg MCHC (32-36) g/dl RDW (11.5-14.5) % Plt Count (150-375) k/mm3 MPV (7.4-10.4) fl Immature Gran % (Auto) (0-0.5) % Neut % (Auto) (45.5-73.1) % Lymph % (Auto) (18.3-44.2) % [place] % (Auto) (2.6-8.5) % Eos % (Auto) (0-4.4) % Baso % (Auto) (0.2-1.2) % Lymph # (Auto) (0.9-3.2) K/mm3 [place] # (Auto) (0.1-0.6) K/mm3 Eos # (Auto) (0-0.3) K/mm3 Baso # (Auto) (0.0-0.1) K/mm3 Abs Immat Gran (auto) (0.00-0.031) K/mm3 Absolute Neuts (auto) (1.3-6.7) K/mm3 Absolute Nucleated RBC (0.0-0.012) K/mm3 Nucleated RBC % (0.0-0.2) % Sodium (137-145) mmol/L Potassium (3.4-5.0) mmol/L Chloride (98-107) mmol/L Carbon Dioxide (22-30) mmol/L Anion Gap (4-12) mmol/L BUN (7-17) mg/dL Creatinine (0.7-1.0) mg/dL Estim Creat Clear Calc ml/min Estimated GFR (59 - ) Glucose (65-110) mg/dL Calcium (8.4-10.2) mg/dL Total Bilirubin (0.2-1.3) mg/dL AST (14-36) U/L ALT (6-35) U/L Alkaline Phosphatase (38-126) U/L Total Protein (6.3-8.2) g/dL Albumin (3.5-5.1) g/dL Lipase (23-300) U/L Urine Color (Yellow) Urine Appearance (Clear) Urine pH (5.0-9.0) Ur Specific [place] (1.001-1.035) Urine Protein (Negative) mg/dL Urine Glucose (UA) (Negative) mg/dL Urine Ketones (Negative) mg/dL Ur Blood (Man) (Negative) Urine Nitrate (Negative) Urine Bilirubin (Negative) Urine Urobilinogen (<2.0) mg/dL Leukocyte Esterase Rfl (Negative) CORINE/UL POC Urine HCG, Qual Positive (Negative) Imaging Data Radiologist's impression: ITS Impressions Obstetrics Ultrasound 01/05/25 19:15 IMPRESSION: 1. Single intrauterine gestational sac with yolk sac but no discernible pole yet apparent likely due to early stage of . 2. Gestational age by ultrasound based upon mean sac diameter of 5 weeks 4 day(s) +/- 4 day(s) with ultrasound estimated date of delivery (JESSICA) of 09/03/2025. Discharge Plan Discharge Clinical Impression: Abdominal wall strain, Confirmed intrauterine on ultrasound Patient Disposition: Home Condition: Stable Instructions: Muscle Strain (ED) Additional Instructions: You strained a muscle in abdomen when he fell. Take Tylenol for pain. An ultrasound shows a 5 week 4 day in your uterus. Your due date is September 03, 2025. Return ER if you having vaginal bleeding, you develop severe lower abdominal pain, or you have additional concerns. Patient Language: Belarusian Prescriptions: No Action ondansetron 4 mg tablet,disintegrating 4 mg PO Q6H PRN (Reason: nausea and vomiting) Qty: 20 0RF Follow-up/Referrals: [facility]care [Non-Staff] - 1 Week Stand Alone Forms: Work/School Release IP
[2025-01-05 17:51] LABS: Hematocrit 33.1 % (37.0-47.0); Hemoglobin 11.1 g/dL (12.0-15.0); Immature Granulocyte Percent A 0.1 % (0-0.5); Lymphocytes Absolute Auto 2.01 K/mm3 (0.9-3.2); Mean Corpuscular HGB Conc 33.5 g/dl (32-36); Mean Corpuscular Hemoglobin 27.9 pg (26-34); Mean Corpuscular Volume 83.2 fl (80-100); Nucleated Red Blood Cells Absolute Auto 0.000 K/mm3 (0.0-0.012); Nucleated Red Blood Cells Perc 0.0 % (0.0-0.2); Platelet Count Result 203 k/mm3 (150-375); Red Blood Count 3.98 M/mm3 (4.2-5.4); White Blood Count 6.7 K/mm3 (4.5-10.0)
[2025-01-05 17:59] LABS: BEDSIDEPREGUCG Positive (Negative)
--- OUTSIDE RECORDS SUMMARY | 2025-01-05 18:03 | XMS_ITS | Referral Summary ---
Author Organization [facility] Address [facility] [place] [address] Care Team Providers Care Package Wrapper Name Role Phone Miscellaneous, Not In File Primary Care Provider Unavailable Encounters Date Type Department Care Team Description 12/30/[address] [address] Daya Avalos RN 12/29/2024 10:46 PM CDT - 12/29/2024 11:56 PM CDT Emergency [address] [address] Discharge Disposition: Left without being seen 12/12/2024 9:16 PM CDT - 12/12/2024 9:50 PM CDT Emergency [facility] Emergency Department [address] [place] [address] Fabiano Orourke MD Contusion of lower back, initial encounter (Primary Dx) Discharge Disposition: Discharge to home or self care 11/19/2024 6:22 PM CDT - 11/19/2024 6:49 PM CDT Emergency [address] [address] Discharge Disposition: Left Against Medical Advice 11/02/2024 Results Follow-Up [facility] Emergency Department [address] [place] [address] Stefan Tate RN Urinalysis reflex to microscopic and culture Urine, Urinalysis, microscopic only 10/30/2024 10:14 PM CDT - 10/30/2024 11:42 PM CDT Emergency [facility] Emergency Department [address] [place] [address] Zen Mcfadden MD Szalwinski, Bandar Al MD Tension headache (Primary Dx) Discharge Disposition: Discharge to home or self care from Last 3 Months Allergies Active Allergy Reactions Criticality Noted Date Comments Amoxicillin Anaphylaxis High 10/30/2024 Medications PNV #[id number] acid-dha 35 mg iron-5 mg iron-1 mg [...] LAB BLOOD ORDERABLES Final Res ult VIANNEY [address] [facility] Department [place] [address] * Differential, auto (12/29/2024 10:59 PM CDT) Neutrophil abs 5.65 1.50 - 6.50 K/cumm Imm gran abs 0.03 0.00 - 0.10 K/cumm [facility] Lymphocyte abs 2.36 0.80 - 3.30 K/cumm [facility] Monocyte abs 0.73 0.20 - 0.80 K/cumm [facility] Eosinophil abs 0.15 0.00 - 0.50 K/cumm [facility] Basophil abs 0.05 0.00 - 0.10 K/cumm [facility] Neutrophil pct 63.0 % [facility] Comment: Interpretive Data Percent cell count reference ranges are not reported, since discordance with absolute values may lead to misinterpretation of CBC data. Current Interpretive Data was last revised on 2017. Imm gran pct 0.3 % [facility] Comment: Interpretive Data Percent cell count reference ranges are not reported, since discordance with absolute values may lead to misinterpretation of CBC data. Current Interpretive Data was last revised on 2017. Lymphocyte pct 26.3 % [facility] Comment: Interpretive Data Percent cell count reference ranges are not reported, since discordance with absolute values may lead to misinterpretation of CBC data. Current Interpretive Data was last revised on 2017. Monocyte pct 8.1 % [facility] Comment: Interpretive Data Percent cell count reference ranges are not reported, since discordance with absolute values may lead to misinterpretation of CBC data. Current Interpretive Data was last revised on 2017. Eosinophil pct 1.7 % [facility] Comment: Interpretive Data Percent cell count reference ranges are not reported, since discordance with absolute values may lead to misinterpretation of CBC data. Current Interpretive Data was last revised on 2017. Basophil pct 0.6 % [facility] Comment: Interpretive Data Percent cell count reference ranges are not reported, since discordance with absolute values may lead to misinterpretation of CBC data. Current Interpretive Data was last revised on 2017. Blood 12/29/2024 10:5 9 PM CDT 12/29/2024 11:05 PM CDT Raz De La Paz DO LAB BLOOD ORDERABLES Final Res ult Performing Organization Address City/[facility]/ZIP Co de Phone Number VIANNEY [address] [place] [address] * (ABNORMAL) Urinalysis reflex to microscopic and culture Urine, clean voided (12/29/2024 10:59 PM CDT) Color, ur Yellow Yellow Clarity, ur Clear Clear [facility] Specific gravity, ur 1.038(H) 1.003 - 1.030 [facility] pH, urine 5.5 [facility] Comment: Interpretive Data U rine pH is affected by diet, medications, systemic acid-base disturbances, and renal tubular function. pH may affect urinary stone formation. For example, urine pH below 6.0 may help reduce the tendency for calcium phosphate stones and pH greater than 6.0 may reduce the tendency for uric acid stone formation. Source: [facility] Current Interpretive Data was last revised on 2017 Protein, ur ql Negative Negative [facility] Glucose, ur ql Negative Negative [facility] Ketones, ur 1+(A) Negative [facility] Bilirubin, ur Negative Negative [facility] Blood, ur Negative Negative [facility] Urobilinogen, ur <2.0 <2.0 mg/dL [facility] Nitrite, ur Negative Negative [facility] Leukocyte esterase, ur Negative Negative [facility] UA reflex comment Reflex conditions for microscopic UA and culture not met. [facility] Urine, clean voided 12/29/2024 10:59 PM CDT 12/29/2024 11:05 PM CDT Raz De La Paz DO LAB MICROBIOLOGY - GENERAL ORD ERABLES Final Result VIANNEY [address] [place] [address] * (ABNORMAL) CBC with auto differential (12/29/2024 10:59 PM CDT) [facility] WBC 8.97 3.80 - 9.90 K/cumm Hgb 12.4 11.9 - 15.5 g/dL [facility] Hct 37.5 35.6 - 45.5 % [facility] Plt 196 150 - 400 K/cumm [facility] MPV 12.6(H) 9.1 - 12.3 fL [facility] RBC 4.50 3.90 - 5.20 M/cumm [facility] MCV 83.3 81.3 - 96.4 fL [facility] MCH 27.6 27.1 - 33.3 pg [facility] MCHC 33.1 32.3 - 35.7 g/dL [facility] RDW CV 13.8 11.1 - 14.9 % [facility] RDW SD 41.7 35.7 - 48.1 fL [facility] NRBC abs 0.00 0.00 - 0.01 K/cumm [facility] Blood 12/29/2024 10:5 9 PM CDT 12/29/2024 11:05 PM CDT [employer] LAB BLOOD ORDERABLES Final Res ult [facility] Department [place] [address] * (ABNORMAL) hCG, blood, quantitative (12/29/2024 10:59 PM CDT) [facility] hCG, quant 312.0(H) 0.0 - 5.0 IUnits/L [...] 9 PM CDT 12/29/2024 11:05 PM CDT [employer] LAB BLOOD ORDERABLES Final Res ult Performing Organization Address [facility] Co de Phone Number VIANNEY [address] [facility] [place] [address] * Comprehensive metabolic panel (12/29/2024 10:59 PM CDT) Sodium 138 135 - 145 mmol/L Potassium, pl 3.9 3.3 - 4.9 mmol/L [facility] Chloride 105 97 - 110 mmol/L [facility] CO2 22 22 - 32 mmol/L [facility] Anion gap 11 2 - 15 mmol/L [facility] BUN 17 6 - 25 mg/dL [facility] Creatinine 0.79 0.60 - 1.10 mg/dL [facility] Glucose 105 70 - 199 mg/dL [facility] Comment: Interpretive Data Fasting glucose >/= 126 [...] 2022. Calcium 9.7 8.5 - 10.3 mg/dL [facility] Bilirubin, total 0.5 0.1 - 1.2 mg/dL [facility] Protein, pl 8.1 6.5 - 8.5 g/dL [facility] Albumin 4.8 3.5 - 5.0 g/dL [facility] Alk phos 50 40 - 130 Units/L [facility] ALT 10 7 - 45 Units/L [facility] AST 22 10 - 45 Units/L [facility] Blood 12/29/2024 10:5 9 PM CDT 12/29/2024 11:05 PM CDT Raz De La Paz DO LAB BLOOD ORDERABLES Final Res ult Performing Organization Address [facility]/ZIP Co de Phone Number VIANNEY [address] [facility] Department [place] [address] * POCT hCG, urine (10/30/2024 10:56 PM CDT) Pathologist [facility] HCG, ur, POC Negative Negative Lot Number [id number] QC Backgroud Clear Acceptable QC Control Line Acceptable Urine 10/30/2024 10:5 6 PM CDT Nikunj Wiley MD POINT OF CARE TEST O RDERABLES Final Result * eGFR (10/30/2024 10:52 PM CDT) [facility] eGFR >90 >=60 mL/min/1. 73 m2 Comment: [...] BLOOD ORDERABLES Final Result [facility] Department [place] [address] * Differential, auto (10/30/2024 10:52 PM CDT) Neutrophil abs 4.54 1.50 - 6.50 K/cumm Imm gran abs 0.02 0.00 - 0.10 K/cumm [facility] Lymphocyte abs 2.45 0.80 - 3.30 K/cumm [facility] Monocyte abs 0.58 0.20 - 0.80 K/cumm [facility] Eosinophil abs 0.28 0.00 - 0.50 K/cumm [facility] Basophil abs 0.04 0.00 - 0.10 K/cumm [facility] Neutrophil pct 57.4 % [facility] Comment: Interpretive Data Percent cell count reference ranges are not reported, since discordance with absolute values may lead to misinterpretation of CBC data. Current Interpretive Data was last revised on 2017. Imm gran pct 0.3 % [facility] Comment: Interpretive Data Percent cell count reference ranges are not reported, since discordance with absolute values may lead to misinterpretation of CBC data. Current Interpretive Data was last revised on 2017. Lymphocyte pct 31.0 % [facility] Comment: Interpretive Data Percent cell count reference ranges are not reported, since discordance with absolute values may lead to misinterpretation of CBC data. Current Interpretive Data was last revised on 2017. Monocyte pct 7.3 % [facility] Comment: Interpretive Data Percent cell count reference ranges are not reported, since discordance with absolute values may lead to misinterpretation of CBC data. Current Interpretive Data was last revised on 2017. Eosinophil pct 3.5 % [facility] Comment: Interpretive Data Percent cell count reference ranges are not reported, since discordance with absolute values may lead to misinterpretation of CBC data. Current Interpretive Data was last revised on 2017. Basophil pct 0.5 % [facility] Comment: Interpretive Data Percent cell count reference ranges are not reported, since discordance with absolute values may lead to misinterpretation of CBC data. Current Interpretive Data was last revised on 2017. Blood 10/30/2024 10:5 2 PM CDT 10/30/2024 11:03 PM CDT Nikunj Wiley MD LAB BLOOD ORDERABLES Final Result Performing Organization Address City/State/[facility] de Phone Number [facility] Department [place] [address] * (ABNORMAL) CBC with auto differential (10/30/2024 10:52 PM CDT) [facility] WBC 7.91 3.80 - 9.90 K/cumm Hgb 11.6(L) 11.9 - 15.5 g/dL [facility] Hct 34.2(L) 35.6 - 45.5 % [facility] Plt 169 150 - 400 K/cumm [facility] MPV 12.5(H) 9.1 - 12.3 fL [facility] RBC 4.06 3.90 - 5.20 M/cumm [facility] MCV 84.2 81.3 - 96.4 fL [facility] MCH 28.6 27.1 - 33.3 pg [facility] MCHC 33.9 32.3 - 35.7 g/dL [facility] RDW CV 12.7 11.1 - 14.9 % [facility] RDW SD 38.3 35.7 - 48.1 fL [facility] NRBC abs 0.00 0.00 - 0.01 K/cumm [facility] Blood 10/30/2024 10:5 2 PM CDT 10/30/2024 11:03 PM CDT us Nikunj Wiley MD LAB BLOOD ORDERABLES Final Result Performing Organization Address [facility] Co de Phone Number [facility] Department [place] [address] * Comprehensive metabolic panel (10/30/2024 10:52 PM CDT) [facility] Sodium 139 135 - 145 mmol/L Potassium, pl 3.5 3.3 - 4.9 mmol/L [facility] Chloride 104 97 - 110 mmol/L [facility] CO2 28 22 - 32 mmol/L [facility] Anion gap 7 2 - 15 mmol/L [facility] BUN 11 6 - 25 mg/dL [facility] Creatinine 0.64 0.60 - 1.10 mg/dL [facility] Glucose 98 70 - 199 mg/dL [facility] Comment: Interpretive Data Fasting glucose >/= 126 [...] 2022. Calcium 9.5 8.5 - 10.3 mg/dL [facility] Bilirubin, total 0.3 0.1 - 1.2 mg/dL [facility] Protein, pl 8.0 6.5 - 8.5 g/dL [facility] Albumin 4.4 3.5 - 5.0 g/dL [facility] Alk phos 50 40 - 130 Units/L [facility] ALT 13 7 - 45 Units/L [facility] AST 26 10 - 45 Units/L [facility] Blood 10/30/2024 10:5 2 PM CDT 10/30/2024 11:03 PM CDT Nikunj Wiley MD LAB BLOOD ORDERABLES Final Result [facility] Department [place] [address] * (ABNORMAL) Urinalysis reflex to microscopic and culture Urine (10/30/2024 10:47 PM CDT) Color, ur Yellow Yellow Clarity, ur Clear Clear [facility] Specific gravity, ur 1.032(H) 1.003 - 1.030 [facility] pH, urine 6.5 [facility] Comment: Interpretive Data U rine pH is affected by diet, medications, systemic acid-base disturbances, and renal tubular function. pH may affect urinary stone formation. For example, urine pH below 6.0 may help reduce the tendency for calcium phosphate stones and pH greater than 6.0 may reduce the tendency for uric acid stone formation. Source: [facility] Laboratories Current Interpretive Data was last revised on 2017 Protein, ur ql 1+(A) Negative [facility] Glucose, ur ql Negative Negative [facility] Ketones, ur Negative Negative [facility] Bilirubin, ur Negative Negative [facility] Blood, ur Negative Negative [facility] Urobilinogen, ur 2.0(A) <2.0 mg/dL [facility] Nitrite, ur Negative Negative [facility] Leukocyte esterase, ur Negative Negative [facility] UA reflex comment Reflex to microscopic UA will be performed. [facility] Urine 10/30/2024 10:4 7 PM CDT 10/30/2024 10:55 PM CDT Nikunj Wiley MD LAB MICROBIOLOGY - G ENERAL ORDERABLES Final Result Performing Organization Address [facility] Co de Phone Number [facility] Department [place] [address] * (ABNORMAL) Urinalysis, microscopic only (10/30/2024 10:47 PM CDT) WBC, ur 0-5 0 - 5 /HPF RBC, ur 3-5(A) 0 - 2 /HPF [facility] Epithelial cells, squamous, ur 6-10(A) 0 - 5 /HPF [facility] Comment:Suggestive of contam ination. Consider recollection by clean catch. Bacteria, ur Trace(A) [facility] Mucous, ur Present(A) [facility] Culture Reflex Comment Reflex conditions for urine culture (WBC >10) not met. [facility] Urine 10/30/2024 10:4 7 PM CDT 10/30/2024 10:55 PM CDT Nikunj Wiley MD LAB URINE ORDERABLES Final Result Performing Organization Address [facility]/ZIP Co de Phone Number [facility] Department [place] [address] * Hepatitis C antibody (02/23/2021) SCRIBED HCV ab neg Blood specimen (specimen) Jens Augustine MD LAB MICROBIOLOGY - GENERAL OR DERABLES Final Result from Last 3 Months or Most Recently Relevant to Health Maintenance Insurance [facility] [address] THE LINK Advance Directives For more information, please contact: [phone] * Full Code (Latest Code Status on File) Date Activated Date Inactivated Comments 08/17/2021 11:07 PM 08/18/2021 3:19 AM Full CPR in case of cardiopulmonary arrest Care Teams Package Wrapper Relationship Specialty Start Date End Date Miscellaneous, Not In File PCP - General 12/22/20
--- OUTSIDE RECORDS SUMMARY | 2025-01-05 18:03 | XMS_ITS | Clinical Summary ---
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 Name Role Phone Miscellaneous, Not In File Primary Care Provider Unavailable Allergies Active Allergy Reactions Criticality Noted Date Comments Amoxicillin Anaphylaxis High 10/30/2024 Medications PNV #[id number] acid-dha 35 mg iron-5 mg iron-1 mg [...] Type Department Care Team Description 12/30/[address] [address] Daya Avalos RN 12/29/2024 10:46 PM CDT - 12/29/2024 11:56 PM CDT Emergency [address] [address] Discharge Disposition: Left without being seen 12/12/2024 9:16 PM CDT - 12/12/2024 9:50 PM CDT Emergency [facility] Emergency Department [address] [place] [address] Fabiano Orourke MD Contusion of lower back, initial encounter (Primary Dx) Discharge Disposition: Discharge to home or self care 11/19/2024 6:22 PM CDT - 11/19/2024 6:49 PM CDT Emergency [address] [address] Discharge Disposition: Left Against Medical Advice 11/02/2024 Results Follow-Up [facility] Emergency Department [address] [place] [phone] Stefan Tate RN Urinalysis reflex to microscopic and culture Urine, Urinalysis, microscopic only 10/30/2024 10:14 PM CDT - 10/30/2024 11:42 PM CDT Emergency [facility] Emergency Department [address] [place] [phone] Zen Mcfadden MD Szalwinski, Bryan David, MD [...] oz) F Vag-S pont Livin g Delivery Location:[facility] Last Filed Vital Signs Vital Sign [...] LAB BLOOD ORDERABLES Final Res ult [facility] [address] [facility] Department [place] [address] * Differential, auto (12/29/2024 10:59 PM CDT) Pathologist [facility] [place] Neutrophil abs 5.65 1.50 - 6.50 K/cumm Imm gran abs 0.03 0.00 - 0.10 K/cumm [facility] Lymphocyte abs 2.36 0.80 - 3.30 K/cumm [facility] Monocyte abs 0.73 0.20 - 0.80 K/cumm [facility] Eosinophil abs 0.15 0.00 - 0.50 K/cumm [facility] Basophil abs 0.05 0.00 - 0.10 K/cumm [facility] Neutrophil pct 63.0 % [facility] Comment: Interpretive Data Percent cell count reference ranges are not reported, since discordance with absolute values may lead to misinterpretation of CBC data. Current Interpretive Data was last revised on 2017. Imm gran pct 0.3 % [facility] Comment: Interpretive Data Percent cell count reference ranges are not reported, since discordance with absolute values may lead to misinterpretation of CBC data. Current Interpretive Data was last revised on 2017. Lymphocyte pct 26.3 % [facility] Comment: Interpretive Data Percent cell count reference ranges are not reported, since discordance with absolute values may lead to misinterpretation of CBC data. Current Interpretive Data was last revised on 2017. Monocyte pct 8.1 % [facility] Comment: Interpretive Data Percent cell count reference ranges are not reported, since discordance with absolute values may lead to misinterpretation of CBC data. Current Interpretive Data was last revised on 2017. Eosinophil pct 1.7 % [facility] Comment: Interpretive Data Percent cell count reference ranges are not reported, since discordance with absolute values may lead to misinterpretation of CBC data. Current Interpretive Data was last revised on 2017. Basophil pct 0.6 % [facility] Comment: Interpretive Data Percent cell count reference ranges are not reported, since discordance with absolute values may lead to misinterpretation of CBC data. Current Interpretive Data was last revised on 2017. Blood 12/29/2024 10:5 9 PM CDT 12/29/2024 11:05 PM CDT us Raz De La Paz DO LAB BLOOD ORDERABLES Final Res ult [facility] [address] [facility] Department [place] [address] * (ABNORMAL) Urinalysis reflex to microscopic and culture Urine, clean voided (12/29/2024 10:59 PM CDT) Color, ur Yellow Yellow Clarity, ur Clear Clear [facility] Specific gravity, ur 1.038(H) 1.003 - 1.030 [facility] pH, urine 5.5 [facility] Comment: Interpretive Data U rine pH is affected by diet, medications, systemic acid-base disturbances, and renal tubular function. pH may affect urinary stone formation. For example, urine pH below 6.0 may help reduce the tendency for calcium phosphate stones and pH greater than 6.0 may reduce the tendency for uric acid stone formation. Source: [facility] Current Interpretive Data was last revised on 2017 Protein, ur ql Negative Negative [facility] Glucose, ur ql Negative Negative [facility] Ketones, ur 1+(A) Negative [facility] Bilirubin, ur Negative Negative [facility] Blood, ur Negative Negative [facility] Urobilinogen, ur <2.0 <2.0 mg/dL [facility] Nitrite, ur Negative Negative [facility] Leukocyte esterase, ur Negative Negative [facility] UA reflex comment Reflex conditions for microscopic UA and culture not met. [facility] Urine, clean voided 12/29/2024 10:59 PM CDT 12/29/2024 11:05 PM CDT us Raz De La Paz DO LAB MICROBIOLOGY - GENERAL ORD ERABLES Final Result [facility] [address] [facility] Department [place] [address] * (ABNORMAL) CBC with auto differential (12/29/2024 10:59 PM CDT) Pathologist [facility] [place] WBC 8.97 3.80 - 9.90 K/cumm Hgb 12.4 11.9 - 15.5 g/dL [facility] Hct 37.5 35.6 - 45.5 % [facility] Plt 196 150 - 400 K/cumm [facility] MPV 12.6(H) 9.1 - 12.3 fL [facility] RBC 4.50 3.90 - 5.20 M/cumm [facility] MCV 83.3 81.3 - 96.4 fL [facility] MCH 27.6 27.1 - 33.3 pg [facility] MCHC 33.1 32.3 - 35.7 g/dL [facility] RDW CV 13.8 11.1 - 14.9 % [facility] RDW SD 41.7 35.7 - 48.1 fL [facility] NRBC abs 0.00 0.00 - 0.01 K/cumm [facility] Blood 12/29/2024 10:5 9 PM CDT 12/29/2024 11:05 PM CDT [employer] LAB BLOOD ORDERABLES Final Res ult Performing Organization Address [facility] Co de Phone Number [address] [place] [address] * (ABNORMAL) hCG, blood, quantitative (12/29/2024 10:59 PM CDT) [facility] hCG, quant 312.0(H) 0.0 - 5.0 IUnits/L [...] 9 PM CDT 12/29/2024 11:05 PM CDT [employer] LAB BLOOD ORDERABLES Final Res ult Performing Organization Address City/[facility]/ZIP Co de Phone Number [address] [employer] [place], [place] [id number] * Comprehensive metabolic panel (12/29/2024 10:59 PM CDT) [facility] Sodium 138 135 - 145 mmol/L Potassium, pl 3.9 3.3 - 4.9 mmol/L [facility] Chloride 105 97 - 110 mmol/L [facility] CO2 22 22 - 32 mmol/L [facility] Anion gap 11 2 - 15 mmol/L [facility] BUN 17 6 - 25 mg/dL [facility] Creatinine 0.79 0.60 - 1.10 mg/dL [facility] Glucose 105 70 - 199 mg/dL [facility] Comment: Interpretive Data Fasting glucose >/= [...] 2022. Calcium 9.7 8.5 - 10.3 mg/dL [facility] Bilirubin, total 0.5 0.1 - 1.2 mg/dL [facility] Protein, pl 8.1 6.5 - 8.5 g/dL [facility] Albumin 4.8 3.5 - 5.0 g/dL [facility] Alk phos 50 40 - 130 Units/L [facility] ALT 10 7 - 45 Units/L [facility] AST 22 10 - 45 Units/L [facility] Blood 12/29/2024 10:5 9 PM CDT 12/29/2024 11:05 PM CDT Raz De La Paz DO LAB BLOOD ORDERABLES Final Res ult [facility] [address] [facility] Department [place] [address] * POCT hCG, urine (10/30/2024 [...] Wiley MD LAB BLOOD ORDERABLES Final Result [facility] [place] [address] * Differential, auto (10/30/2024 10:52 PM CDT) [facility] Neutrophil abs 4.54 1.50 - 6.50 K/cumm Imm gran abs 0.02 0.00 - 0.10 K/cumm [facility] Lymphocyte abs 2.45 0.80 - 3.30 K/cumm [facility] Monocyte abs 0.58 0.20 - 0.80 K/cumm [facility] Eosinophil abs 0.28 0.00 - 0.50 K/cumm [facility] Basophil abs 0.04 0.00 - 0.10 K/cumm [facility] Neutrophil pct 57.4 % [facility] Comment: Interpretive Data Percent cell count reference ranges are not reported, since discordance with absolute values may lead to misinterpretation of CBC data. Current Interpretive Data was last revised on 2017. Imm gran pct 0.3 % [facility] Comment: Interpretive Data Percent cell count reference ranges are not reported, since discordance with absolute values may lead to misinterpretation of CBC data. Current Interpretive Data was last revised on 2017. Lymphocyte pct 31.0 % [facility] Comment: Interpretive Data Percent cell count reference ranges are not reported, since discordance with absolute values may lead to misinterpretation of CBC data. Current Interpretive Data was last revised on 2017. Monocyte pct 7.3 % [facility] Comment: Interpretive Data Percent cell count reference ranges are not reported, since discordance with absolute values may lead to misinterpretation of CBC data. Current Interpretive Data was last revised on 2017. Eosinophil pct 3.5 % [facility] Comment: Interpretive Data Percent cell count reference ranges are not reported, since discordance with absolute values may lead to misinterpretation of CBC data. Current Interpretive Data was last revised on 2017. Basophil pct 0.5 % [facility] Comment: Interpretive Data Percent cell count reference ranges are not reported, since discordance with absolute values may lead to misinterpretation of CBC data. Current Interpretive Data was last revised on 2017. Blood 10/30/2024 10:5 2 PM CDT 10/30/2024 11:03 PM CDT us Nikunj Wiley MD LAB BLOOD ORDERABLES Final Result [facility] [place] [address] * (ABNORMAL) CBC with auto differential (10/30/2024 10:52 PM CDT) WBC 7.91 3.80 - 9.90 K/cumm Hgb 11.6(L) 11.9 - 15.5 g/dL [facility] Hct 34.2(L) 35.6 - 45.5 % [facility] Plt 169 150 - 400 K/cumm [facility] MPV 12.5(H) 9.1 - 12.3 fL [facility] RBC 4.06 3.90 - 5.20 M/cumm [facility] MCV 84.2 81.3 - 96.4 fL [facility] MCH 28.6 27.1 - 33.3 pg [facility] MCHC 33.9 32.3 - 35.7 g/dL [facility] RDW CV 12.7 11.1 - 14.9 % [facility] RDW SD 38.3 35.7 - 48.1 fL [facility] NRBC abs 0.00 0.00 - 0.01 K/cumm [facility] Blood 10/30/2024 10:5 2 PM CDT 10/30/2024 11:03 PM CDT us Nikunj Wiley MD LAB BLOOD ORDERABLES Final Result [facility] [place] [address] * Comprehensive metabolic panel (10/30/2024 10:52 PM CDT) Sodium 139 135 - 145 mmol/L Potassium, pl 3.5 3.3 - 4.9 mmol/L [facility] Chloride 104 97 - 110 mmol/L [facility] CO2 28 22 - 32 mmol/L [facility] Anion gap 7 2 - 15 mmol/L [facility] BUN 11 6 - 25 mg/dL [facility] Creatinine 0.64 0.60 - 1.10 mg/dL [facility] Glucose 98 70 - 199 mg/dL [facility] Comment: Interpretive Data Fasting glucose [...] 2022. Calcium 9.5 8.5 - 10.3 mg/dL [facility] Bilirubin, total 0.3 0.1 - 1.2 mg/dL [facility] Protein, pl 8.0 6.5 - 8.5 g/dL [facility] Albumin 4.4 3.5 - 5.0 g/dL [facility] Alk phos 50 40 - 130 Units/L [facility] ALT 13 7 - 45 Units/L [facility] AST 26 10 - 45 Units/L [facility] Blood 10/30/2024 10:5 2 PM CDT 10/30/2024 11:03 PM CDT us Nikunj Wiley MD LAB BLOOD ORDERABLES Final Result [facility] [place] [address] * (ABNORMAL) Urinalysis reflex to microscopic and culture Urine (10/30/2024 10:47 PM CDT) Color, ur Yellow Yellow Clarity, ur Clear Clear [facility] Specific gravity, ur 1.032(H) 1.003 - 1.030 [facility] pH, urine 6.5 [facility] Comment: Interpretive Data U rine pH is affected by diet, medications, systemic acid-base disturbances, and renal tubular function. pH may affect urinary stone formation. For example, urine pH below 6.0 may help reduce the tendency for calcium phosphate stones and pH greater than 6.0 may reduce the tendency for uric acid stone formation. Source: [facility] Current Interpretive Data was last revised on 2017 Protein, ur ql 1+(A) Negative [facility] Glucose, ur ql Negative Negative [facility] Ketones, ur Negative Negative [facility] Bilirubin, ur Negative Negative [facility] Blood, ur Negative Negative [facility] Urobilinogen, ur 2.0(A) <2.0 mg/dL [facility] Nitrite, ur Negative Negative [facility] Leukocyte esterase, ur Negative Negative [facility] UA reflex comment Reflex to microscopic UA will be performed. [facility] Urine 10/30/2024 10:4 7 PM CDT 10/30/2024 10:55 PM CDT us Nikunj Wiley MD LAB MICROBIOLOGY - G ENERAL ORDERABLES Final Result Performing Organization Address [facility] Co de Phone Number [facility] [place] [address] * (ABNORMAL) Urinalysis, microscopic only (10/30/2024 10:47 PM CDT) WBC, ur 0-5 0 - 5 /HPF RBC, ur 3-5(A) 0 - 2 /HPF [facility] Epithelial cells, squamous, ur 6-10(A) 0 - 5 /HPF [facility] Comment:Suggestive of contam ination. Consider recollection by clean catch. Bacteria, ur Trace(A) [facility] Mucous, ur Present(A) [facility] Culture Reflex Comment Reflex conditions for urine culture (WBC >10) not met. [facility] Urine 10/30/2024 10:4 7 PM CDT 10/30/2024 10:55 PM CDT us Nikunj Wiley MD LAB URINE ORDERABLES Final Result Performing Organization Address [facility] Co de Phone Number [facility] [place] [address] * Hepatitis C antibody (02/23/2021) SCRIBED HCV ab neg Blood specimen (specimen) us Jens Augustine MD LAB MICROBIOLOGY - GENERAL OR DERABLES Final Result from Last 3 Months or Most Recently Relevant to Health Maintenance Insurance [facility] [employer] [facility] Advance Directives For more information, please contact: [phone] * Full Code (Latest Code Status on File) Date Activated Date Inactivated Comments 08/17/2021 11:07 PM 08/18/2021 3:19 AM Full CPR in case of cardiopulmonary arrest Care Teams Coil Cutter Relationship Specialty Start Date End Date Miscellaneous, Not In File PCP - General 12/22/20
[2025-01-05 18:05] LABS: Alanine Aminotransferase 15 U/L (6-35); Albumin Level 4.1 g/dL (3.5-5.1); Alkaline Phosphatase 38 U/L (38-126); Anion Gap 8 mmol/L (4-12); Aspartate Amino Transferase 32 U/L (14-36); Bilirubin,Total 0.3 mg/dL (0.2-1.3); Blood Urea Nitrogen 11 mg/dL (7-17); Calcium 9.1 mg/dL (8.4-10.2); Carbon Dioxide 22 mmol/L (22-30); Chloride 103 mmol/L (98-107); Estimated CRCL calculation 118 ml/min; Estimated Glomerular Filt Rate > 60; Glucose 99 mg/dL (65-110); Lipase 69 U/L (23-300); Potassium 3.7 mmol/L (3.4-5.0); Sodium 133 mmol/L (137-145); Total Protein 7.7 g/dL (6.3-8.2)
[2025-01-05 18:34] LABS: Add Urine Microscopic? NO; Appearance Urine Clear (Clear); Glucose Urine UA Negative (Negative); Leukocyte Esterase Ur Negative LEU/UL (Negative); Nitrate Urine Negative (Negative); Specific Grav Ur 1.009 (1.001-1.035)
[2025-01-05 20:18] VITALS: BP 104/69; PULSE 92; RESP 14; TEMP 36.6; O2SAT 100
== END 2025-01-05 20:16 | disposition home or self-care (01) ==
PROVIDERS: Emergency Provider Emergency Medicine
DX: O9A.211 Injury, poisoning and certain other consequences of external causes complicating pregnancy, first trimester (principal); S39.011A Strain of muscle, fascia and tendon of abdomen, initial encounter; Z3A.01 Less than 8 weeks gestation of pregnancy; W01.0XXA Fall on same level from slipping, tripping and stumbling without subsequent striking against object, initial encounter
CPT/HCPCS: 36415; 76801; 76817; 80053; 81003; 81025; 83690; 85025; 99284